=== PATIENT | female | born 1960 | race Caucasian/White ===

== ENCOUNTER → 2017-05-30 08:19 | Outpatient (CLI) | payer BC, SELFPAY ==
[2016-07-19 14:11] VITALS: BMI 28.2
[2017-05-30 10:41] LABS: ALB/GLOB Ratio 0.9 RATIO (0.9-2.4); AST(SGOT) 19 U/L (15-37); Alanine Aminotransfer ALT/SGPT 29 U/L (13-56); Albumin, Serum 3.6 g/dL (3.2-5.0); Alkaline Phosphatase 109 U/L (45-117); Anion Gap 6 (5-15); BUN 14 mg/dL (7-18); BUN/Creat Ratio 19.4 RATIO (10-20); Calcium,Total 8.3 mg/dL (8.5-10.1); Chloride 108 mmol/L (98-107); Cholesterol 137 mg/dL (200); Creatinine, Serum 0.72 mg/dL (0.55-1.02); EST Glomerular Filtration Rate 88 mL/min (>60); Est Glom Filt Rate - Afr Amer 107 mL/min (>60); Globulin 4.1 g/dL (2.2-4.2); Glucose 94 mg/dL (74-106); High Density Lipoprotein 46 mg/dL; Potassium 3.9 mmol/L (3.5-5.1); Protein, Total 7.7 g/dL (6.4-8.2); Sodium Level 140 mmol/L (136-145); Triglycerides 121 mg/dL; Very Low Density Lipoprotein 24 mg/dL (5-40)
[2017-05-30 10:51] LABS: Free T3 2.6 pg/mL (2.18-3.98); T4 Free Direct 0.94 ng/dL (0.76-1.46)
== END ==
PROVIDERS: Visit Provider Family Medicine
DX: I25.10 Atherosclerotic heart disease of native coronary artery without angina pectoris (principal); R42 Dizziness and giddiness
CPT/HCPCS: 36415; 80053; 80061; 84439; 84481

== ENCOUNTER 2017-11-30 15:41 | Observation (INO) | payer BC, SELFPAY ==
[2016-07-19 14:11] VITALS: BMI 28.2
[2017-11-30] VITALS (10 sets, daily range): BP systolic 97–145; BP diastolic 55–106; PULSE 66–105; RESP 14–22; TEMP 36.5–36.6; O2SAT 96–99; BMI 30.4; BMI 31.8
--- NOTE | 2017-11-30 16:02 | EKG12_ITS ---
Test Reason : CP Blood Pressure : / mmHG Vent. Rate : 089 BPM Atrial Rate : 089 BPM P-R Int : 170 ms QRS Dur : 084 ms QT Int : 392 ms P-R-T Axes : 050 054 026 degrees QTc Int : 476 ms Normal sinus rhythm Normal ECG Confirmed by MIKEY PARTIDA, MONICA ([id number]), acquisitions editor MELY EVANS ([id number]) on 12/02/2017 1:59:13 PM Referred By: GRACE
--- NOTE | 2017-11-30 16:03 | ED.VISSUMM ---
- ER Visit Summary Date of Service: 11/30/17 Chief Complaint: Chest pain History of Present Illness: The patient is a 57 F who presents for chest pain, 30 minutes prior to arrival. Patient was walking when she began having chest tightness across the entire chest described as someone sitting on her chest. It does not radiate to the arms, abdomen, neck or back. Patient took a nitro and had improvement of the pain. It is currently a 3 or 4 out of 10. Patient had associated lightheadedness. Denies nausea, vomiting, abdominal pain, shortness of breath, fever or other complaints. Patient has a history of a prior myocardial infarction and is status post stent placement. She denies any other medical problems. She denies tobacco use. Physical Examination: Vital signs: afebrile, hemodynamically stable, no hypoxia on room air General: well nourished, well developed, in no distress Skin: warm, dry, no rash, no pallor HEENT: normocephalic and atraumatic; PERRL, EOMI, moist mucous membranes Cardiovascular: regular rate and rhythm without murmurs, no peripheral edema, 2+ pulses all distal extremities no tenderness, no rash Respiratory: No increased work of breathing, lungs are clear to auscultation bilaterally, no rales, rhonchi or wheezing Abdominal: Abdomen is soft, nontender with normoactive bowel sounds, no guarding or rebound, no masses MSK: Moves all extremities, no deformities, normal strength Neuro: Awake and alert, oriented ?4. No facial droop, sensation and motor function intact and symmetric Test Results: Abnormal Lab Results 11/30/17 11/30/17 11/30/17 16:00 16:00 16:00 WBC 7.1 RBC 4.15 L Hgb 11.8 L Hct 36.4 L MCV 87.7 MCH 28.4 MCHC 32.4 RDW 13.9 RDW Differential 44.7 H Plt Count 302 MPV 8.3 Immature Gran % (Auto) 0.100 Neut % (Auto) 53.0 Lymph % (Auto) 35.3 [place] % (Auto) 5.8 Eos % (Auto) 5.5 H Baso % (Auto) 0.3 Absolute Neuts (auto) 3.8 Absolute Lymphs (auto) 2.52 Total Counted Not Reportable PT 13.6 INR 1.0 APTT 27.4 Sodium 141 Potassium 3.3 L Chloride 105 Carbon Dioxide 25.0 Anion Gap 11 BUN 12 Creatinine 0.84 Estim Creat Clear Calc 73.64 Est GFR (MDRD) Af Amer 90 Est GFR (MDRD) Non-Af 74 BUN/Creatinine Ratio 14.3 Glucose 89 Calcium 8.6 Troponin I < 0.015 Clinical Impression(s) from Imaging Studies Chest X-Ray 11/30/17 16:55 IMPRESSION: Normal x-ray examination of the chest. Electronically Signed: Arslan Calloway MD at 17:36 EDT , Service support , Medications Given Aspirin (Aspirin, Baby) 243 mg PO X1 STA Stop: 11/30/17 16:03 Last Admin: 11/30/17 16:10 Dose: 243 mg Sodium Chloride () 1,000 mls @ 250 mls/hr IV .Q4H REJI Last Admin: 11/30/17 16:12 Dose: 250 mls/hr Lorazepam (Ativan) 0.5 mg PO X1 ONE Stop: 11/30/17 17:48 Last Admin: 11/30/17 18:06 Dose: 0.5 mg Nitroglycerin (Nitrostat) 0.4 mg SUBLINGUAL Q5M REJI Stop: 11/30/17 16:26 Last Admin: 11/30/17 16:25 Dose: Not Given Admin: 11/30/17 16:25 Dose: Not Given Admin: 11/30/17 16:11 Dose: 0.4 mg Nitroglycerin (Nitrobid) 0.5 inch TRANSDERM. X1 ONE Stop: 11/30/17 17:49 Last Admin: 11/30/17 18:06 Dose: 0.5 inch Ondansetron HCl (Zofran) 4 mg IV X1 ONE Stop: 11/30/17 16:35 Last Admin: 11/30/17 16:39 Dose: 4 mg Potassium Chloride (K-Dur) 40 meq PO X1 ONE Stop: 11/30/17 19:31 Last Admin: 11/30/17 20:22 Dose: 40 meq Emergency Department Course and Treatment: Patient took one baby aspirin today. She was given 3 more in the emergency department. She was given nitroglycerin with improvement in her pain to a 1/10. Nitropaste was then placed. Chest x-ray showed no acute process. Labs remarkable for hypokalemia of 3.0. Patient was given oral repletion. Troponin negative. EKG showed sinus rhythm without any ischemic changes. Patient's presentation is concerning for acute coronary syndrome, and that she will be admitted for further chest pain workup. She was discussed with Dr. Mendez for admission as observation status for chest pain workup. Treatment Plan: [] Disposition: [] Impression: Acute chest pain, history of acute coronary syndrome This note was generated with [employer] dictation software. It may contain incorrect words, spelling, and punctuation that were not noted in review of the chart prior to signing ED Disposition - Plan for ED Patient: Disposition: Acute Care Hospital [facility] Chief Complaint: Chest Pain
[2017-11-30] MEDS: Aspirin 81 MG TAB.CHEW 243 MG PO (16:10)
[2017-11-30] MEDS: 0.9% Normal Saline 1,000 ML 250 ML IV (16:12)
[2017-11-30 16:19] LABS: Absolute Lymphocyte Count 2.52 X10^3/ul (0.83-4.51); Absolute Neutrophil Count 3.8 X10^3/uL (2.0-7.7); Basophil# 0.02 X10^3/uL; Basophil% 0.3 % (0-1); Eosinophil# 0.39 X10^3/uL; Eosinophils% 5.5 % (0-5); Hematocrit 36.4 % (37-47); Hemoglobin 11.8 g/dl (12.0-15.0); Lymphocyte # 2.52 X10^3/ul (4.0); Lymphocyte % 35.3 % (19-41); Mean Corp Hgb Conc 32.4 g/gl (32-36); Mean Corpuscular Hgb 28.4 pg (27.0-32.0); Mean Corpuscular Volume 87.7 fL (81-99); Mean Platelet Vol. 8.3 fl (6.2-12.0); Monocyte# 0.41 X10^3/uL; Monocyte% 5.8 % (0-10); Neutrophil # 3.78 X10^3/uL (2.7-7.7); Platelet Count 302 K/mm3 (150-450); RBC Distribution Width CV 13.9 % (11.6-14.6); RBC Distribution Width SD 44.7 fl (35.1-43.9); Red Blood Count 4.15 M/mm3 (4.2-5.4); White Blood Count 7.1 K/mm3 (4.4-11.0)
[2017-11-30 16:32] LABS: POSITIVE COUNT NO; POSITIVE DIFFERENTIAL NO; POSITIVE MORPHOLOGY NO
[2017-11-30 16:36] LABS: Partial Thromboplast Time 27.4 Seconds (24.1-36.2); Prothrombin Time (Protime)PT. 13.6 SECONDS (11.7-14.9)
[2017-11-30 16:37] LABS: Anion Gap 11 (5-15); BUN 12 mg/dL (7-18); BUN/Creat Ratio 14.3 RATIO (10-20); Calcium,Total 8.6 mg/dL (8.5-10.1); Chloride 105 mmol/L (98-107); Creatinine, Serum 0.84 mg/dL (0.55-1.02); EST Glomerular Filtration Rate 74 mL/min (>60); Est Glom Filt Rate - Afr Amer 90 mL/min (>60); Estimated Creatinine Clearance 73.64 ml/min; Glucose 89 mg/dL (74-106); Potassium 3.3 mmol/L (3.5-5.1); Sodium Level 141 mmol/L (136-145)
[2017-11-30] MEDS: Ondansetron 4 MG/2 ML Vial IV (16:39)
--- NOTE | 2017-11-30 16:55 | RAD_ITS ---
STUDY: X-RAY CHEST REASON FOR EXAM: Female, 57 years old. Chest tightness TECHNIQUE: Frontal and lateral views of the chest. COMPARISON: 07/17/2016. FINDINGS: The lungs are clear and expanded. There is no demonstrated pleural abnormality. Normal size heart. Normal mediastinum and gabe. Normal visualized pulmonary arteries. Normal visualized aortic arch and descending thoracic aorta. Normal visualized thoracic spine. Normal visualized ribs, clavicles, and shoulders. There is no demonstrated abnormality of the visualized soft tissue structures of the upper abdomen. RAD/Chest PA and Lateral IMPRESSION: Normal x-ray examination of the chest. Electronically Signed: Arslan Calloway MD at 17:36 EDT , Service support ,
--- NOTE | 2017-11-30 17:54 | PCM.HP.STD ---
Problem List (1) Chest pain Status: Acute History of Present Illness Date of Admission: 11/30/17 Chief Complaint: chest pain The patient is a 57 year old F with past medical history of CAD status post stent after [place] in 2016. She was admitted by the ED on 11/30/2017 with complaint of chest pain of a few hours duration. Patient states she was at work and started feeling like someone was sitting on her chest. Pain was pressure-like, nonradiating, with no aggravating factors and relieved slightly by nitro. She denied any associated shortness of breath, palpitations, increased sweating, nausea vomiting. She denies any exertional dyspnea as well and has not had any such chest pain in the past. She decided to come into the ED to be worked up. In the ED, vitals showed temperature of 97.9 Fahrenheit, blood pressure of 145/67, pulse rate of 77 and respiratory rate was 22 and she was saturating at 97% on room air. Labs were significant for potassium of 3.3 and CBC showed hemoglobin of 11.8. EKG showed normal sinus rhythm with no acute ST changes and chest x-ray showed no acute cardiopulmonary process. Initial troponin was negative. She has been admitted to be worked up for chest pain. [] Past Medical History Medical History: Medical History (Last Reviewed 04/04/17 @ 15:09 by Katelynn Morrissey) Atherosclerotic heart disease of [place] coronary artery without angina pectoris (Acute) I25.10 FFR mid LAD and successful angioplasty prox D@ 07/18/16;PTCA/CASIE of the mid LAD 07/19/16 Palpitations (Acute) R00.2 Fatigue (Acute) R53.83 NSTEMI (non-ST elevated myocardial infarction) (Acute) Onset Date: ~07/2016 I21.4 Chronic back pain M54.9, G89.29 Tobacco abuse Z72.0 Chronic back pain (Inactive) M54.9, G89.29 Overweight (BMI 25.0-29.9) (Inactive) E66.3 Tobacco use (Inactive) Z72.0 Allergies hydrocodone bitartrate [From Vicodin] Allergy (Verified 11/30/17 15:43) Nausea metoprolol Adverse Reaction (Intermediate, Verified 11/30/17 15:43) Very dizzy, lightheaded even on smallest dose Home Medications: Ambulatory Orders Medication Instructions Recorded nitroglycerin 0.4 mg sublingual 0.4 mg SUBLINGUAL Q5M PRN 03/29/17 tablet clonazepam 0.5 mg tablet 0.5 mg PO TID PRN 04/04/17 atorvastatin 80 mg tablet 40 mg PO QHS tab 09/28/17 Aspirin 81 mg PO DAILY 11/30/17 Clopidogrel Bisulfate [Plavix] 75 mg PO DAILY 11/30/17 Surgical History: Surgical History (Last Reviewed 09/28/17 @ 15:05 by Kanwal Reinoso) History of total hysterectomy (Resolved) Z98.890, Z90.710 S/P coronary artery stent placement (Resolved) Onset Date: ~07/19/16 Z95.5 PTCA/CASIE of the mid LAD 07/19/16 Surgical History: hysterectomy, - - Hysterectomy. Lives: Spouse/ Significant Other Smoking Status: Former smoker - quit one year ago- 40 pack year smoking history Tobacco Use: Cigarettes Alcohol: None Drugs: None - *Family History Maternal Family History: Family History (Last Updated 09/28/17 @ 15:06 by Kanwal Reinoso) Mother CAD (coronary artery disease) Hypertension Diabetes Father Myocardial infarction History Items: Heart Disease - CAD s/p PCI history. Paternal Family History: Family History (Last Updated 09/28/17 @ 15:06 by Kanwal Reinoso) Mother CAD (coronary artery disease) Hypertension Diabetes Father Myocardial infarction History Items: Heart Disease - Father fatal [place] 49 y/o. Review of Systems Constitutional: Denies: Chills, Fever, Malaise, Weight Change, Fatigue Eyes: Denies: Pain HEENT: Denies: Head Aches, Sinus Congestion, Sinus Drainage Cardiovascular: Reports: Chest Pain, Chest Pressure. Denies: Chest Tightness, Edema, Orthopnea, Palpitations, Paroxysmal Noc. Dyspnea, Syncope Respiratory: Denies: Cough, Pleuritic Pain, Shortness of Breath, Shortness of breath at rest, Shortness of breath upon exertion, Sputum production, Wheezing Gastrointestinal: Denies: Abdominal Pain, Diarrhea, Nausea, Vomiting Genitourinary: Denies: Dysuria Musculoskeletal: Denies: Joint Pain, Joint Tenderness Skin: Denies: Rash, Wounds Neurological: Denies: Numbness, Tingling, Focal weakness Psychiatric: Denies: Anxiety, Depression, Homicidal Ideations, Suicidal Ideations Hematologic/ Lymphatic: Denies: Easy Bruising, Easy Bleeding VTE Information - Inpt Only VTE Present on Admission: No VTE Mechan Device Prophylaxis: None VTE Pharm Prophylaxis ordered?: Yes Patient Problems: Active and Suspected Problems (Last Reviewed 04/04/17 @ 15:09 by Katelynn Morrissey) Chest pain (Acute) - Physical Exam General: Alert, Oriented x3, Cooperative, No apparent distress HEENT: Atraumatic, PERRLA, EOMI, Normocephalic Oral: Moist Mucosa Neck: Supple, No JVD, Negative Carotid Bruits Lungs: Clear to auscultation, Normal air movement, No rhonchi, No wheeze, No rales Cardiovascular: Regular rate, Regular Rhythm, Normal S1, Normal S2, No murmurs Abdomen: Bowel Sounds Present, Soft, Non Tender, Non-Distended, No Hepato-splenomegaly Extremities: No clubbing, No cyanosis, No edema, Capillary Refill Less than 3 Seconds Skin: No rashes, No breakdown Musculoskeletal: No Tenderness to Palpation of Joints or Extremities Lymphatic: No Cervical, Supraclavicular, or Inguinal Adenopathy Neurological: Cranial nerves II-XII grossly intact, Neuro grossly intact, Motor Exam 5/5 strength throughout Psych/Mental Status: Normal Affect, Appropriate, Alert and oriented to time, place, person, mood and affect Vital Signs Temp Pulse Resp BP Pulse Ox 97.9 F 77 22 H 145/67 H 97 11/30/17 15:41 11/30/17 17:40 11/30/17 17:40 11/30/17 17:40 11/30/17 17:40 Oxygen Delivery Method Room Air Weight: 200 lb Body Mass Index (BMI) 30.4 Finger Stick Blood Glucose 104 Laboratory Tests Past 24 Hrs 11/30/17 11/30/17 11/30/17 16:00 16:00 16:00 WBC 7.1 RBC 4.15 L Hgb 11.8 L Hct 36.4 L MCV 87.7 MCH 28.4 MCHC 32.4 RDW 13.9 RDW Differential 44.7 H Plt Count 302 MPV 8.3 Immature Gran % (Auto) 0.100 Neut % (Auto) 53.0 Lymph % (Auto) 35.3 [place] % (Auto) 5.8 Eos % (Auto) 5.5 H Baso % (Auto) 0.3 Absolute Neuts (auto) 3.8 Absolute Lymphs (auto) 2.52 Total Counted Not Reportable PT 13.6 INR 1.0 APTT 27.4 Sodium 141 Potassium 3.3 L Chloride 105 Carbon Dioxide 25.0 Anion Gap 11 BUN 12 Creatinine 0.84 Estim Creat Clear Calc 73.64 Est GFR (MDRD) Af Amer 90 Est GFR (MDRD) Non-Af 74 BUN/Creatinine Ratio 14.3 Glucose 89 Calcium 8.6 Troponin I < 0.015 Diagnostic Data Chest X-Ray 11/30/17 16:55 IMPRESSION: Normal x-ray examination of the chest. Electronically Signed: Arslan Calloway MD at 17:36 EDT , Service support , Assessment/Plan All Active Problems (Last Reviewed 04/04/17 @ 15:09 by Katelynn Morrissey) Chest pain (Acute) History of total hysterectomy (Resolved) S/P coronary artery stent placement (Resolved ~07/19/16) Atherosclerotic heart disease of [place] coronary artery without angina pectoris (Acute) Palpitations (Acute) Fatigue (Acute) NSTEMI (non-ST elevated myocardial infarction) (Acute ~07/2016) 57-year-old female with a history of CAD status post stents after NSTEMI presenting with a few hour history of chest pain. 1.Atypical chest pain, rule out ACS pressure like chest pain, like some one sitting on her chest no similar history of such chest pain in the past initial troponin negative EKG- no acute ST changes admit to PCU with telemetry cycle troponin check lipid panel last echo(07/19/16): EF of 50%, with mid anterior and mid anteroseptal hypokinesia as well as impaired relaxation of left ventricle. RVSP was not assessed due to technical difficulty. aspirin 81mg daily, SL nitroglycerin prn. continue plavix 75mg daily continue atorvastatin 40mg qhs for stress echocardiogram tomorrow morning 2. Hypokalemia: K is 3.3. Will replace and monitor 3. CAD s/p stent had NSTEMI in 2018 after she thought she had a sandwich stuck in her throat. Had CASIE placed in her mid LAD, with balloon angioplasty to diagonal being patent at time of cath in 2016. on aspirin and plavix. WIll continue 4. Anxiety disorder: on clocazepam 0.5mg tid DVT prophylaxis: heparin Code status:Full code patient and family counseled extensively about code status. counselled about differences between full code, DNRCC and DNRCCA. Patient elects to be full code. Total face to face time-16 mins Code Visit OBSV E&M: 45703 Initial observation care L3 Procedures: 85625 Advncd Care Plan 30 Min
--- NOTE | 2017-11-30 17:58 | HP.PCM_ITS ---
Problem List (1) Chest pain Status: Acute History of Present Illness Date of Admission: 11/30/17 Chief Complaint: chest pain The patient is a 57 year old F with past medical history of CAD status post stent after [place] in 2016. She was admitted by the ED on 11/30/2017 with complaint of chest pain of a few hours duration. Patient states she was at work and started feeling like someone was sitting on her chest. Pain was pressure-like, nonradiating, with no aggravating factors and relieved slightly by nitro. She denied any associated shortness of breath, palpitations, increased sweating, nausea vomiting. She denies any exertional dyspnea as well and has not had any such chest pain in the past. She decided to come into the ED to be worked up. In the ED, vitals showed temperature of 97.9 Fahrenheit, blood pressure of 145/67, pulse rate of 77 and respiratory rate was 22 and she was saturating at 97% on room air. Labs were significant for potassium of 3.3 and CBC showed hemoglobin of 11.8. EKG showed normal sinus rhythm with no acute ST changes and chest x-ray showed no acute cardiopulmonary process. Initial troponin was negative. She has been admitted to be worked up for chest pain. [] Past Medical History Medical History: Medical History (Last Reviewed 04/04/17 @ 15:09 by Katelynn Morrissey) Atherosclerotic heart disease of [place] coronary artery without angina pectoris (Acute) I25.10 FFR mid LAD and successful angioplasty prox D@ 07/18/16;PTCA/CASIE of the mid LAD 07/19/16 Palpitations (Acute) R00.2 Fatigue (Acute) R53.83 NSTEMI (non-ST elevated myocardial infarction) (Acute) Onset Date: ~07/2016 I21.4 Chronic back pain M54.9, G89.29 Tobacco abuse Z72.0 Chronic back pain (Inactive) M54.9, G89.29 Overweight (BMI 25.0-29.9) (Inactive) E66.3 Tobacco use (Inactive) Z72.0 Allergies hydrocodone bitartrate [From Vicodin] Allergy (Verified 11/30/17 15:43) Nausea metoprolol Adverse Reaction (Intermediate, Verified 11/30/17 15:43) Very dizzy, lightheaded even on smallest dose Home Medications: Ambulatory Orders Medication Instructions Recorded nitroglycerin 0.4 mg sublingual 0.4 mg SUBLINGUAL Q5M PRN 03/29/17 tablet clonazepam 0.5 mg tablet 0.5 mg PO TID PRN 04/04/17 atorvastatin 80 mg tablet 40 mg PO QHS tab 09/28/17 Aspirin 81 mg PO DAILY 11/30/17 Clopidogrel Bisulfate [Plavix] 75 mg PO DAILY 11/30/17 Surgical History: Surgical History (Last Reviewed 09/28/17 @ 15:05 by Kanwal Reinoso) History of total hysterectomy (Resolved) Z98.890, Z90.710 S/P coronary artery stent placement (Resolved) Onset Date: ~07/19/16 Z95.5 PTCA/CASIE of the mid LAD 07/19/16 Surgical History: hysterectomy, - - Hysterectomy. Lives: Spouse/ Significant Other Smoking Status: Former smoker - quit one year ago- 40 pack year smoking history Tobacco Use: Cigarettes Alcohol: None Drugs: None - *Family History Maternal Family History: Family History (Last Updated 09/28/17 @ 15:06 by Kanwal Reinoso) Mother CAD (coronary artery disease) Hypertension Diabetes Father Myocardial infarction History Items: Heart Disease - CAD s/p PCI history. Paternal Family History: Family History (Last Updated 09/28/17 @ 15:06 by Kanwal Reinoso) Mother CAD (coronary artery disease) Hypertension Diabetes Father Myocardial infarction History Items: Heart Disease - Father fatal [place] 49 y/o. Review of Systems Constitutional: Denies: Chills, Fever, Malaise, Weight Change, Fatigue Eyes: Denies: Pain HEENT: Denies: Head Aches, Sinus Congestion, Sinus Drainage Cardiovascular: Reports: Chest Pain, Chest Pressure. Denies: Chest Tightness, Edema, Orthopnea, Palpitations, Paroxysmal Noc. Dyspnea, Syncope Respiratory: Denies: Cough, Pleuritic Pain, Shortness of Breath, Shortness of breath at rest, Shortness of breath upon exertion, Sputum production, Wheezing Gastrointestinal: Denies: Abdominal Pain, Diarrhea, Nausea, Vomiting Genitourinary: Denies: Dysuria Musculoskeletal: Denies: Joint Pain, Joint Tenderness Skin: Denies: Rash, Wounds Neurological: Denies: Numbness, Tingling, Focal weakness Psychiatric: Denies: Anxiety, Depression, Homicidal Ideations, Suicidal Ideations Hematologic/ Lymphatic: Denies: Easy Bruising, Easy Bleeding VTE Information - Inpt Only VTE Present on Admission: No VTE Mechan Device Prophylaxis: None VTE Pharm Prophylaxis ordered?: Yes Patient Problems: Active and Suspected Problems (Last Reviewed 04/04/17 @ 15:09 by Katelynn Morrissey) Chest pain (Acute) - Physical Exam General: Alert, Oriented x3, Cooperative, No apparent distress HEENT: Atraumatic, PERRLA, EOMI, Normocephalic Oral: Moist Mucosa Neck: Supple, No JVD, Negative Carotid Bruits Lungs: Clear to auscultation, Normal air movement, No rhonchi, No wheeze, No rales Cardiovascular: Regular rate, Regular Rhythm, Normal S1, Normal S2, No murmurs Abdomen: Bowel Sounds Present, Soft, Non Tender, Non-Distended, No Hepato- splenomegaly Extremities: No clubbing, No cyanosis, No edema, Capillary Refill Less than 3 Seconds Skin: No rashes, No breakdown Musculoskeletal: No Tenderness to Palpation of Joints or Extremities Lymphatic: No Cervical, Supraclavicular, or Inguinal Adenopathy Neurological: Cranial nerves II-XII grossly intact, Neuro grossly intact, Motor Exam 5/5 strength throughout Psych/Mental Status: Normal Affect, Appropriate, Alert and oriented to time, place, person, mood and affect Vital Signs Temp Pulse Resp BP Pulse Ox 97.9 F 77 22 H 145/67 H 97 11/30/17 15:41 11/30/17 17:40 11/30/17 17:40 11/30/17 17:40 11/30/17 17:40 Oxygen Delivery Method Room Air Weight: 200 lb Body Mass Index (BMI) 30.4 Finger Stick Blood Glucose 104 Laboratory Tests Past 24 Hrs 11/30/17 11/30/17 11/30/17 16:00 16:00 16:00 WBC 7.1 RBC 4.15 L Hgb 11.8 L Hct 36.4 L MCV 87.7 MCH 28.4 MCHC 32.4 RDW 13.9 RDW Differential 44.7 H Plt Count 302 MPV 8.3 Immature Gran % (Auto) 0.100 Neut % (Auto) 53.0 Lymph % (Auto) 35.3 [place] % (Auto) 5.8 Eos % (Auto) 5.5 H Baso % (Auto) 0.3 Absolute Neuts (auto) 3.8 Absolute Lymphs (auto) 2.52 Total Counted Not Reportable PT 13.6 INR 1.0 APTT 27.4 Sodium 141 Potassium 3.3 L Chloride 105 Carbon Dioxide 25.0 Anion Gap 11 BUN 12 Creatinine 0.84 Estim Creat Clear Calc 73.64 Est GFR (MDRD) Af Amer 90 Est GFR (MDRD) Non-Af 74 BUN/Creatinine Ratio 14.3 Glucose 89 Calcium 8.6 Troponin I < 0.015 Diagnostic Data Chest X-Ray 11/30/17 16:55 IMPRESSION: Normal x-ray examination of the chest. Electronically Signed: Arslan Calloway MD at 17:36 EDT , Service support , Assessment/Plan All Active Problems (Last Reviewed 04/04/17 @ 15:09 by Katelynn Morrissey) Chest pain (Acute) History of total hysterectomy (Resolved) S/P coronary artery stent placement (Resolved ~07/19/16) Atherosclerotic heart disease of [place] coronary artery without angina pectoris (Acute) Palpitations (Acute) Fatigue (Acute) NSTEMI (non-ST elevated myocardial infarction) (Acute ~07/2016) 57-year-old female with a history of CAD status post stents after NSTEMI presenting with a few hour history of chest pain. 1.Atypical chest pain, rule out ACS * pressure like chest pain, like some one sitting on her chest * no similar history of such chest pain in the past * initial troponin negative * EKG- no acute ST changes * admit to PCU with telemetry * cycle troponin * check lipid panel * last echo(07/19/16): EF of 50%, with mid anterior and mid anteroseptal hypokinesia as well as impaired relaxation of left ventricle. RVSP was not assessed due to technical difficulty. * aspirin 81mg daily, SL nitroglycerin prn. continue plavix 75mg daily * continue atorvastatin 40mg qhs * for stress echocardiogram tomorrow morning * 2. Hypokalemia: K is 3.3. Will replace and monitor 3. CAD s/p stent * had NSTEMI in 2018 after she thought she had a sandwich stuck in her throat. Had CASIE placed in her mid LAD, with balloon angioplasty to diagonal being patent at time of cath in 2017. * on aspirin and plavix. WIll continue * 4. Anxiety disorder: on clocazepam 0.5mg tid DVT prophylaxis: heparin Code status:Full code * patient and family counseled extensively about code status. counselled about differences between full code, DNRCC and DNRCCA. Patient elects to be full code. Total face to face time-16 mins Code Visit OBSV E&M: 08729 Initial observation care L3 Procedures: 14898 Advncd Care Plan 30 Min
[2017-11-30] MEDS: Nitroglycerin Oint 1 INCH PACKET 0.5 INCH TRANSDERM. (18:06)
[2017-11-30] MEDS: LORazepam 0.5 MG Tablet PO (18:06)
--- NOTE | 2017-11-30 18:38 | EKG12_ITS ---
Test Reason : CHEST PAIN Blood Pressure : / mmHG Vent. Rate : 074 BPM Atrial Rate : 100 BPM P-R Int : 000 ms QRS Dur : 086 ms QT Int : 438 ms P-R-T Axes : 000 068 013 degrees QTc Int : 486 ms Sinus rhythm with PSVCS Prolonged QT Abnormal ECG Confirmed by Bethany Foreman ([id number]), manager editorial MELY EVANS ([id number]) on 12/05/2017 3:34:54 PM Referred By: LUKE Confirmed By:Bethany Foreman
[2017-11-30] MEDS: Atorvastatin Calcium 40 MG Tablet PO (20:22)
[2017-11-30] MEDS: 0.9% Normal Saline 1,000 ML 100 ML IV (23:32)
[2017-12-01 03:03] VITALS: PULSE 71
[2017-12-01 05:30] VITALS: BP 114/69; PULSE 66; RESP 16; TEMP 36.6; O2SAT 97
[2017-12-01 05:32] LABS: Basophil# 0.02 X10^3/uL; Basophil% 0.3 % (0-1); Eosinophil# 0.36 X10^3/uL; Hemoglobin 10.5 g/dl (12.0-15.0); Lymphocyte % 36.9 % (19-41); Mean Corp Hgb Conc 31.8 g/gl (32-36); Mean Corpuscular Hgb 28.2 pg (27.0-32.0); Mean Corpuscular Volume 88.7 fL (81-99); Mean Platelet Vol. 8.3 fl (6.2-12.0); Monocyte# 0.41 X10^3/uL; Monocyte% 6.9 % (0-10); Neutrophil # 2.97 X10^3/uL (2.7-7.7); Neutrophil % 49.9 % (47-70); Platelet Count 281 K/mm3 (150-450); RBC Distribution Width CV 14.1 % (11.6-14.6); Red Blood Count 3.72 M/mm3 (4.2-5.4)
[2017-12-01] MEDS: Aspirin 81 MG TAB.CHEW PO (05:33)
[2017-12-01] MEDS: Clopidogrel Bisulfate 75 MG Tablet PO (05:33)
[2017-12-01 05:37] LABS: POSITIVE COUNT NO; POSITIVE DIFFERENTIAL NO; POSITIVE MORPHOLOGY NO
[2017-12-01 05:38] LABS: International Normalized Ratio 1.1; Prothrombin Time (Protime)PT. 14.2 SECONDS (11.7-14.9)
[2017-12-01 05:39] LABS: Anion Gap 8 (5-15); BUN 9 mg/dL (7-18); BUN/Creat Ratio 12.5 RATIO (10-20); Calcium,Total 8.1 mg/dL (8.5-10.1); Chloride 111 mmol/L (98-107); Creatinine, Serum 0.72 mg/dL (0.55-1.02); EST Glomerular Filtration Rate 88 mL/min (>60); Est Glom Filt Rate - Afr Amer 107 mL/min (>60); Estimated Creatinine Clearance 85.91 ml/min; Glucose 97 mg/dL (74-106); Partial Thromboplast Time 29.3 Seconds (24.1-36.2); Potassium 4.1 mmol/L (3.5-5.1); Sodium Level 144 mmol/L (136-145)
--- NOTE | 2017-12-01 05:55 | EKG12_ITS ---
Test Reason : AM EKG Blood Pressure : / mmHG Vent. Rate : 064 BPM Atrial Rate : 064 BPM P-R Int : 182 ms QRS Dur : 078 ms QT Int : 474 ms P-R-T Axes : 012 076 055 degrees QTc Int : 489 ms Normal sinus rhythm Low voltage QRS (limb leads) Prolonged QT Abnormal ECG Confirmed by Bethany Foreman ([id number]), editorial specialist MELY EVANS ([id number]) on 12/05/2017 3:33:28 PM Referred By: LUKE Confirmed By:Bethany Foreman
[2017-12-01 07:29] VITALS: PULSE 66
--- NOTE | 2017-12-01 08:00 | STEWCON_ITS ---
Reason For Study: CHEST PAIN Stress Results Protocol: Shen Protocol Maximum Predicted HR: 162 bpm Target HR: 138 bpm% Max imum Predicted HR: 99 % DurationHeart Rate Stage (mm:ss) (bpm) BP BASELINE 77 134/82 STAGE 1 3:00 13 7 170/82 STAGE 2 3:00 16 0 160/70 RECOVERY 89 128/80 Stress Duration: 6:00 mm:ss Maximum Stress HR: 160 bpm Baseline Echocardiogram Findings The estimated ejection fraction is 55 %. Stress Echo Wall motion Data Resting WMIntermediate WMStress WM Resting Wall Motion Wall Motion Stress No regional wall motion No regional wall motion abnormalities noted. abnormalities noted. EKG Data The baseline ECG displays normal sinus rhythm. The patient exercised according to the regular Shen protocol for a total duration of 6:01. The maximum heart rate attained was 162 beats per minute. This was 100% of maximum predicted heart rate. The patient exercised into stage 3 of the Shen protocol. At peak exercise, upsloping ST changes only were noted, which did not meet the criteria for ischemia. No clinical angina was noted. Interpretation Summary The estimated ejection fraction is 55 %. Normal, adequate, treadmill echocardiogram. Negative for ischemia by EKG and echocardiographic criteria. No anginal symptoms noted. Rare PVCs noted. Average exercise capacity for age. Test terminated due to the attainment of target heart rate. Final LVEF of 65%. No complications. Ordering Physician: Tia Mendez Performed By: Claudine Ernandez RDCS
[2017-12-01 10:30] VITALS: BP 128/69; PULSE 70; RESP 18; TEMP 36.5; O2SAT 98
[2017-12-01 11:15] VITALS: PULSE 68
--- NOTE | 2017-12-01 11:34 | DCINST_ITS ---
- Discharge Diagnoses Current Active Problems: Current Active and Chronic Problems (Last Reviewed 04/04/17 @ 15:09 by Katelynn Morrissey) Chest pain (Acute) You will use the following diet at home:: No restrictions Discharge Activity: Return to Normal Activity Instructions: ED Chest Pain NonCardiac Allergies/Adverse Reactions: Allergies hydrocodone bitartrate [From Vicodin] Allergy (Verified 11/30/17 15:43) Nausea metoprolol Adverse Reaction (Intermediate, Verified 11/30/17 15:43) Very dizzy, lightheaded even on smallest dose Medications to take at Discharge nitroglycerin 0.4 mg sublingual tablet 0.4 mg SUBLINGUAL Q5M PRN 03/29/17 clonazepam 0.5 mg tablet 0.5 mg PO TID PRN 04/04/17 atorvastatin 80 mg tablet 40 mg PO QHS tab 09/28/17 Aspirin 81 mg PO DAILY 11/30/17 Clopidogrel Bisulfate [Plavix] 75 mg PO DAILY 11/30/17 Primary Care Physician: Oscar Valencia MD [Primary Care Provider] - Please follow up with your Primary Care Physician in: in 1-2 weeks Test Results: Test results from this visit will be discussed in further detail at your follow- up appointment, if applicable. Proposed Discharge Date: 12/01/17
--- NOTE | 2017-12-01 11:49 | PCM.DC.SUM ---
Discharge Date and Diagnosis - Problem List Patient Problems: Active and Suspected Problems (Last Reviewed 04/04/17 @ 15:09 by Katelynn Morrissey) Chest pain (Acute) Date of Admission: 11/30/17 Date of Discharge: 12/01/17 - Primary Discharge Diagnosis Active and Suspected Problems (Last Reviewed 04/04/17 @ 15:09 by Katelynn Morrissey) Chest pain (Acute) Hospital Course and Treatment Imaging Results: 12/01/17 08:00 Stress Test Echo w/o Contrast [ECHO] Stat Operations: None Summary of Care Provided: The patient is a 57 year old F medical history significant CAD with previous [place] with subsequent stent placement in July 2016 who presented with epigastric discomfort. Patient was placed in a monitored bed did rule out [place] with serial cardiac enzymes. Patient subsequently underwent a nuclear stress test which is negative for stress-induced ischemia. Patient was discharged home subsequently and instructed to follow-up with PCP as well as primary facilities maintenance worker for subsequent care Physical examination at the time of discharge; GENERAL: cooperative and in no apparent distress. HEENT: Atraumatic moist oral mucosa EYES; Anicteric, Normal Conjunctiva NECK; supple, normal thyroid, no distended JVD. RESPIRATORY: Clear to auscultation bilaterally, CARDIOVASCULAR: Regular S1 S2, no audible murmurs NEURO: Awake; no lateralizing signs. SKIN: No Rash PSYCH; Normal affect Discharge Diet: No Restrictions Discharge Activity: Return to Normal Activity Home Medications: Medications to take at Discharge nitroglycerin 0.4 mg sublingual tablet 0.4 mg SUBLINGUAL Q5M PRN 03/29/17 clonazepam 0.5 mg tablet 0.5 mg PO TID PRN 04/04/17 atorvastatin 80 mg tablet 40 mg PO QHS tab 09/28/17 Aspirin 81 mg PO DAILY 11/30/17 Clopidogrel Bisulfate [Plavix] 75 mg PO DAILY 11/30/17 Primary Care Physician: Oscar Valencia MD [Primary Care Provider] - Please follow up with your Primary Care Physician in: in 1-2 weeks Patient Instructions: ED Chest Pain NonCardiac Disposition: Home Minutes spent on discharge:: 35 Patient Condition:: Stable Medical Necessity - Tobacco Use Smoking Status: Former smoker - quit one year ago- 40 pack year smoking history Tobacco Use: Cigarettes Meaningful Use Info Meaningful Use Diagnoses (Choose all that apply): None applicable Code Visit OBSV E&M: 27309 Observation care discharge
--- NOTE | 2017-12-01 11:54 | DS.PCM_ITS ---
Discharge Date and Diagnosis - Problem List Patient Problems: Active and Suspected Problems (Last Reviewed 04/04/17 @ 15:09 by Katelynn Morrissey) Chest pain (Acute) Date of Admission: 11/30/17 Date of Discharge: 12/01/17 - Primary Discharge Diagnosis Active and Suspected Problems (Last Reviewed 04/04/17 @ 15:09 by Katelynn Morrissey) Chest pain (Acute) Hospital Course and Treatment Imaging Results: 12/01/17 08:00 Stress Test Echo w/o Contrast [ECHO] Stat Operations: None Summary of Care Provided: The patient is a 57 year old F medical history significant CAD with previous [place] with subsequent stent placement in July 2016 who presented with epigastric discomfort. Patient was placed in a monitored bed did rule out [place] with serial cardiac enzymes. Patient subsequently underwent a nuclear stress test which is negative for stress-induced ischemia. 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 HEENT: Atraumatic moist oral mucosa EYES; Anicteric, Normal Conjunctiva NECK; supple, normal thyroid, no distended JVD. RESPIRATORY: Clear to auscultation bilaterally, CARDIOVASCULAR: Regular S1 S2, no audible murmurs NEURO: Awake; no lateralizing signs. SKIN: No Rash PSYCH; Normal affect Discharge Diet: No Restrictions Discharge Activity: Return to Normal Activity Home Medications: Medications to take at Discharge nitroglycerin 0.4 mg sublingual tablet 0.4 mg SUBLINGUAL Q5M PRN 03/29/17 clonazepam 0.5 mg tablet 0.5 mg PO TID PRN 04/04/17 atorvastatin 80 mg tablet 40 mg PO QHS tab 09/28/17 Aspirin 81 mg PO DAILY 11/30/17 Clopidogrel Bisulfate [Plavix] 75 mg PO DAILY 11/30/17 Primary Care Physician: Oscar Valencia MD [Primary Care Provider] - Please follow up with your Primary Care Physician in: in 1-2 weeks Patient Instructions: ED Chest Pain NonCardiac Disposition: Home Minutes spent on discharge:: 35 Patient Condition:: Stable Medical Necessity - Tobacco Use Smoking Status: Former smoker - quit one year ago- 40 pack year smoking history Tobacco Use: Cigarettes Meaningful Use Info Meaningful Use Diagnoses (Choose all that apply): None applicable Code Visit OBSV E&M: 30284 Observation care discharge
--- NOTE | 2017-12-01 12:00 | CHAPLAIN ---
Type of Pastoral Visit _x__ Initial Visit ___ Follow-up Visit ___ On-call Visit ___ General Patient Visit ___ Spiritual Assessment ___ Family Conference ___ Bereavement ___ Rapid Response ___ Code Blue ___ Other (describe below) Pastoral Care Referral From _x__ Patient ___ Family ___ Nurse ___ Physician ___ Rn Plastic Surgery ___ Drafter Geological ___ Other (describe below) Sacrament/Intervention _x__ Active listening ___ Anointing ___ Judaism ___ Bereavement ___ Communion ___ Darcy exploration ___ ___ Life review _x__ Prayer ___ Reconciliation ___ Sacrament of Sick ___ Supportive presence ___ Wedding ___ Other (describe below) Pastoral Comments
== END 2017-12-01 11:34 | disposition home or self-care (01) ==
LOC: ED 16:36 → PCU 18:05
PROVIDERS: Admitting Provider Student in an Organized Health Care Education/Training Program; Emergency Provider Emergency Medicine; Family Provider Family Medicine; PCP Family Medicine; Visit Provider Internal Medicine
DX: R07.89 Other chest pain (principal); R42 Dizziness and giddiness; I25.2 Old myocardial infarction; I25.10 Atherosclerotic heart disease of native coronary artery without angina pectoris; Z95.5 Presence of coronary angioplasty implant and graft; Z79.899 Other long term (current) drug therapy; Z79.82 Long term (current) use of aspirin; Z79.02 Long term (current) use of antithrombotics/antiplatelets; Z87.891 Personal history of nicotine dependence; F41.9 Anxiety disorder, unspecified; E87.6 Hypokalemia
CPT/HCPCS: 36415; 71046; 80048; 84484; 85025; 85610; 85730; 93005; 93017; 93350; 96361; 96374; 99218; 99285; J7030; G0378; J2405

== ENCOUNTER → 2018-03-21 07:04 | Outpatient (CLI) | payer BC, SELFPAY ==
[2016-07-19 14:11] VITALS: BMI 28.2
[2018-02-16 12:49] VITALS: BMI 30.2
--- NOTE | 2018-03-21 07:09 | BI_ITS ---
MAMMOGRAPHY - BILATERAL SCREENING REASON FOR EXAM: Female, 57 years old. Routine annual screening examination. PERTINENT HISTORY: Non-contributory. TECHNIQUE: Digital bilateral breast lv (3D mammographic acquisition) in the CC and MLO projections. 2-D mediolateral oblique (MLO) and craniocaudad (CC) views of both breasts were obtained. CAD: Full Field Digital Mammography with Computer Added Detection was performed. COMPARISON: Comparison is made with prior examination dated January 31, 2006. FINDINGS: Breast Composition: The breasts are almost entirely fatty. There are no dominant masses or suspicious calcifications. No other significant abnormalities are identified. There has been no significant change since the prior study. BI/SCREENING MAMM (CAD), BILAT IMPRESSION: Stable bilateral screening mammogram. Yearly follow-up mammogram recommended. (A) ASSESSMENT CATEGORY: BIRADS Category 1: Negative. A letter regarding these results will be sent to the patient by the facility within 30 days. Approximately 10% of breast cancers are not detected by mammography. A normal mammogram should not delay biopsy of a clinically suspicious abnormality. [id number] Electronically Signed: Binu Briceño MD at 11:42 EST Tel [phone], Service support ,
== END ==
PROVIDERS: Family Provider Family Medicine; PCP Family Medicine; Visit Provider Nurse Practitioner Women's Health
DX: Z12.31 Encounter for screening mammogram for malignant neoplasm of breast (principal)
CPT/HCPCS: 77063; 77067

== ENCOUNTER → 2018-04-01 07:05 | Outpatient (CLI) | payer BC, SELFPAY ==
[2016-07-19 14:11] VITALS: BMI 28.2
[2018-03-29 09:59] VITALS: BMI 30.9
[2018-04-01 08:36] LABS: AST(SGOT) 25 U/L (15-37); Alanine Aminotransfer ALT/SGPT 46 U/L (13-56); Albumin, Serum 3.4 g/dL (3.2-5.0); Alkaline Phosphatase 118 U/L (45-117); Cholesterol 211 mg/dL (200); Globulin 4.1 g/dL (2.2-4.2); High Density Lipoprotein 43 mg/dL; Protein, Total 7.5 g/dL (6.4-8.2); Triglycerides 137 mg/dL; Very Low Density Lipoprotein 27 mg/dL (5-40)
== END ==
PROVIDERS: Family Provider Family Medicine; PCP Family Medicine; Referring Provider Physician Assistant Medical; Visit Provider Physician Assistant Medical
DX: I25.10 Atherosclerotic heart disease of native coronary artery without angina pectoris (principal); E78.00 Pure hypercholesterolemia, unspecified
CPT/HCPCS: 36415; 80061; 80076

== ENCOUNTER 2018-05-14 13:32 | Emergency (ER) | payer BC, SELFPAY ==
[2016-07-19 14:11] VITALS: BMI 28.2
[2018-03-29 09:59] VITALS: BMI 30.9
[2018-05-14 13:32] VITALS: BP 164/89; PULSE 91; RESP 18; TEMP 36.5; O2SAT 100; BMI 32.3
--- NOTE | 2018-05-14 14:02 | EKG12_ITS ---
Test Reason : CP Blood Pressure : / mmHG Vent. Rate : 088 BPM Atrial Rate : 088 BPM P-R Int : 170 ms QRS Dur : 084 ms QT Int : 406 ms P-R-T Axes : 053 052 029 degrees QTc Int : 491 ms Normal sinus rhythm Prolonged QT Abnormal ECG Confirmed by KARIE PARTIDA, ELENA ([id number]), make up editor GILBERTO JURADO ([id number]) on 05/19/2018 9:06:13 AM Referred By: TRISHA/GRACE Confirmed By:ELENA TIWARI MD
--- NOTE | 2018-05-14 14:02 | RAD_ITS ---
STUDY: X-RAY CHEST REASON FOR EXAM: Female, 57 years old. Chest pain TECHNIQUE: PA and lateral views of the chest. COMPARISON: 11/30/2017 FINDINGS: The lungs are clear and expanded. There is no demonstrated pleural abnormality. Normal size heart. Normal mediastinum and gabe. Normal visualized pulmonary arteries. Normal visualized aortic arch and descending thoracic aorta. Normal visualized thoracic spine. Normal visualized ribs, clavicles, and shoulders. There is no demonstrated abnormality of the visualized soft tissue structures of the upper abdomen. RAD/Chest PA and Lateral IMPRESSION: Normal x-ray examination of the chest. Electronically Signed: Jasen Martines MD at 15:05 EDT , Service support ,
--- NOTE | 2018-05-14 14:04 | ED.DCSUM_ITS ---
- ER Visit Summary Date of Service: 05/14/18 Chief Complaint: Chest heaviness History of Present Illness: The patient is a 57 F who presents for 2 days of intermittent chest heaviness. The heaviness is in the upper chest bilaterally without radiation into the lower chest, back, arms, neck or abdomen. Patient states there are no exacerbating factors. She tried nitroglycerin without help. She is been taking Klonopin which has been helping the discomfort. She is currently pain-free. Episodes will last approximately 30 minutes and are frequent. She denies any associated cough, overt shortness of breath, although she feels the heaviness is difficult to take a deep breath. She denies nausea, vomiting, abdominal pain, lightheadedness, dizziness or any other complaints. Patient has a history of myocardial infarction that presented with lower chest discomfort. History of panic attacks and anxiety, hypercholesterolemia. Patient stop smoking 2 years ago. She is no longer on Plavix. Physical Examination: Vital signs: afebrile, hemodynamically stable, no hypoxia on room air General: well nourished, well developed, in no distress Skin: warm, dry, no rash, no pallor HEENT: normocephalic and atraumatic; PERRL, EOMI, moist mucous membranes Cardiovascular: regular rate and rhythm without murmurs, no peripheral edema, 2+ pulses all distal extremities Respiratory: No increased work of breathing, lungs are clear to auscultation bilaterally, no rales, rhonchi or wheezing Abdominal: Abdomen is soft, nontender with normoactive bowel sounds, no guarding or rebound, no masses MSK: Moves all extremities, no deformities, normal strength Neuro: Awake and alert, oriented ?4. No facial droop, sensation and motor function intact and symmetric Test Results: E Abnormal Lab Results 05/14/18 05/14/18 13:37 13:37 WBC 9.1 RBC 4.67 Hgb 12.9 Hct 41.2 MCV 88.2 MCH 27.6 MCHC 31.3 L RDW 13.6 RDW Differential 43.9 Plt Count 371 MPV 8.6 Immature Gran % (Auto) 0.100 Neut % (Auto) 57.0 Lymph % (Auto) 30.5 Hill % (Auto) 5.8 Eos % (Auto) 6.3 H Baso % (Auto) 0.3 Absolute Neuts (auto) 5.2 Absolute Lymphs (auto) 2.77 Total Counted Not Reportable Sodium 141 Potassium 3.7 Chloride 106 Carbon Dioxide 26.0 Anion Gap 9 BUN 15 Creatinine 0.88 Estim Creat Clear Calc 72.82 Est GFR (MDRD) Af Amer 85 Est GFR (MDRD) Non-Af 71 BUN/Creatinine Ratio 17.1 Glucose 87 Calcium 8.6 Troponin I < 0.015 Clinical Impression(s) from Imaging Studies Chest X-Ray 05/14/18 14:02 IMPRESSION: Normal x-ray examination of the chest. Electronically Signed: Jasen Martines MD at 15:05 EDT , Service support , Medications Given Discontinued Medications Aspirin (Aspirin, Baby) 324 mg PO X1 STA Stop: 05/14/18 14:03 Last Admin: 05/14/18 14:12 Dose: 324 mg mergency Department Course and Treatment: Patient is currently pain-free thus no nitroglycerin was given. Patient was given 4 baby aspirin. EKG was performed that showed a normal sinus rhythm with no ischemic changes. Initial troponin negative. CBC and BMP were unremarkable. Chest x-ray showed no pneumonia or other acute process. Patient remained symptom free while in the emergency department. Patient has the risk factors of known coronary artery disease, hyperlipidemia and history of smoking, having only quit within the last 2 years. Patient's heart score is 4 for age, risk factors and concerning story. NIGHAT of 3/7. Patient would benefit from further workup of her episodic chest pain and will be discussed with the hospitalist for admission as observation status for further workup. Treatment Plan: [] Disposition: [] Impression: #1 intermittent chest pain, history of coronary artery disease This note was generated with [employer] software. It may contain incorrect words, spelling, and punctuation that were not noted in review of the chart prior to signing ED Disposition - Plan for ED Patient: Disposition: Home or Assisted Living
[2018-05-14] MEDS: Aspirin 81 MG TAB.CHEW 324 MG PO (14:12)
[2018-05-14 14:13] LABS: Absolute Lymphocyte Count 2.77 X10^3/ul (0.83-4.51); Absolute Neutrophil Count 5.2 X10^3/uL (2.0-7.7); Basophil# 0.03 X10^3/uL; Basophil% 0.3 % (0-1); Eosinophil# 0.57 X10^3/uL; Eosinophils% 6.3 % (0-5); Hematocrit 41.2 % (37-47); Hemoglobin 12.9 g/dl (12.0-15.0); Lymphocyte # 2.77 X10^3/ul (4.0); Lymphocyte % 30.5 % (19-41); Mean Corp Hgb Conc 31.3 g/gl (32-36); Mean Corpuscular Hgb 27.6 pg (27.0-32.0); Mean Corpuscular Volume 88.2 fL (81-99); Mean Platelet Vol. 8.6 fl (6.2-12.0); Monocyte# 0.53 X10^3/uL; Monocyte% 5.8 % (0-10); Neutrophil # 5.16 X10^3/uL (2.7-7.7); POSITIVE COUNT NO; POSITIVE DIFFERENTIAL NO; POSITIVE MORPHOLOGY NO; Platelet Count 371 K/mm3 (150-450); RBC Distribution Width CV 13.6 % (11.6-14.6); RBC Distribution Width SD 43.9 fl (35.1-43.9); Red Blood Count 4.67 M/mm3 (4.2-5.4); White Blood Count 9.1 K/mm3 (4.4-11.0)
[2018-05-14 14:23] LABS: Anion Gap 9 (5-15); BUN 15 mg/dL (7-18); BUN/Creat Ratio 17.1 RATIO (10-20); Calcium,Total 8.6 mg/dL (8.5-10.1); Chloride 106 mmol/L (98-107); Creatinine, Serum 0.88 mg/dL (0.55-1.02); EST Glomerular Filtration Rate 71 mL/min (>60); Est Glom Filt Rate - Afr Amer 85 mL/min (>60); Estimated Creatinine Clearance 72.82 ml/min; Glucose 87 mg/dL (74-106); Potassium 3.7 mmol/L (3.5-5.1); Sodium Level 141 mmol/L (136-145)
--- NOTE | 2018-05-14 15:51 | NURSING ---
DR ADAN EDWARDS
--- NOTE | 2018-05-14 16:02 | NURSING ---
117 CP, HX OF ACS OBS ADAN
--- NOTE | 2018-05-14 16:16 | PCM.HP.STD ---
<Jorge A Juan - Last Filed: 05/14/18 16:33> Problem List (1) Chest pain Status: Acute (2) CAD (coronary artery disease) Status: Chronic (3) Anxiety Status: Chronic (4) Hyperlipidemia Status: Chronic (5) S/P coronary artery stent placement Status: Chronic Comment: PTCA/CASIE of the mid LAD 07/19/16 History of Present Illness Date of Admission: 05/14/18 Chief Complaint: chest pain The patient is a 57 year old F with pmhx of CAD with prior LAD stent 2 years prior (pt of Dr. Malik), former 30 yr smoker, HLD, anxiety, who presents to the ER with c/o chest pain. This began three days ago. She is not sure what she was doing when it began. It comes and goes all day and lasts several minutes. It is a pressure in the upper middle of the chest. It is nonradiating. No SOB, nausea, LH. It is relieved by getting up and walking around. It was also relieved by Klonopin. She notes that she has been severely stressed out lately. She refuses to disclose what these stressors are to me, however she started crying when I asked. She also noted that she only uses klonopin when her stress is severe and she has needed it the last two days. She last saw the cardiologists in March of this year, at that time there was increased anxiety noted. Her plavix was stopped at pt requrest and she was outside of a year from having her stent. She [] Past Medical History Past Medical History (Chronic Problems): Chronic Problems (Last Reviewed 02/16/18 @ 12:50 by Mariella Su) CAD (coronary artery disease) (Chronic) Anxiety (Chronic) Hyperlipidemia (Chronic) S/P coronary artery stent placement (Chronic ~07/19/16) PTCA/CASIE of the mid LAD 07/19/16 Atherosclerotic heart disease of [place] coronary artery without angina pectoris (Chronic) FFR mid LAD and successful angioplasty prox D@ 07/18/16;PTCA/CASIE of the mid LAD 07/19/16 Medical History: Medical History (Last Reviewed 02/16/18 @ 12:50 by Mariella Su) Hyperlipidemia (Chronic) E78.5 Atherosclerotic heart disease of [place] coronary artery without angina pectoris (Chronic) I25.10 FFR mid LAD and successful angioplasty prox D@ 07/18/16;PTCA/CASIE of the mid LAD 07/19/16 Palpitations (Acute) R00.2 Fatigue (Acute) R53.83 NSTEMI (non-ST elevated myocardial infarction) (Acute) Onset Date: ~07/2016 I21.4 Chronic back pain M54.9, G89.29 Tobacco abuse Z72.0 Chronic back pain (Inactive) M54.9, G89.29 Overweight (BMI 25.0-29.9) (Inactive) E66.3 Tobacco use (Inactive) Z72.0 Allergies hydrocodone bitartrate [From Vicodin] Allergy (Verified 05/14/18 13:35) Nausea metoprolol Adverse Reaction (Intermediate, Verified 05/14/18 13:35) Very dizzy, lightheaded even on smallest dose Home Medications: Ambulatory Orders Medication Instructions Recorded nitroglycerin 0.4 mg sublingual 0.4 mg SUBLINGUAL Q5M PRN 03/29/17 tablet clonazepam 0.5 mg tablet 0.5 mg PO TID PRN 04/04/17 Aspirin 81 mg PO DAILY 11/30/17 rosuvastatin 10 mg tablet 10 mg PO DAILY #30 tab 04/07/18 Surgical History: Surgical History (Last Reviewed 02/16/18 @ 12:50 by Mariella uS) History of total hysterectomy (Resolved) Z98.890, Z90.710 S/P coronary artery stent placement (Chronic) Onset Date: ~07/19/16 Z95.5 PTCA/CASIE of the mid LAD 07/19/16 Surgical History: hysterectomy, - - Hysterectomy. 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 Paternal Family History: Family History (Last Reviewed 02/16/18 @ 12:50 by Mariella Su) Mother CAD (coronary artery disease) Hypertension Diabetes Father Myocardial infarction History Items: Heart Disease - Father fatal SD 49 y/o. Review of Systems Constitutional: Denies: Chills, Fever, Weight Change HEENT: Denies: Head Aches, Sinus Congestion, Sinus Drainage Cardiovascular: Reports: Chest Pain, Chest Pressure. Denies: Edema, Palpitations Respiratory: Denies: Cough, Shortness of Breath, Shortness of breath at rest, Sputum production Gastrointestinal: Denies: Abdominal Pain, Diarrhea, Nausea, Vomiting Genitourinary: Denies: Dysuria Musculoskeletal: Denies: Joint Pain, Joint Tenderness Skin: Denies: Rash, Wounds Neurological: Denies: Numbness, Tingling, Focal weakness Psychiatric: Denies: Anxiety, Depression, Homicidal Ideations, Suicidal Ideations Hematologic/ Lymphatic: Denies: Easy Bruising, Easy Bleeding VTE Information - Inpt Only VTE Present on Admission: No VTE Mechan Device Prophylaxis: None VTE Pharm Prophylaxis ordered?: Yes - Physical Exam General: Alert, Oriented x3, Cooperative HEENT: Atraumatic, PERRLA, EOMI, Normocephalic Neck: Supple, No JVD, Negative Carotid Bruits Lungs: Clear to auscultation, Normal air movement Cardiovascular: Regular rate, No murmurs, - - occsasional PVC Abdomen: Bowel Sounds Present, Soft, Non Tender Extremities: No edema, Capillary Refill Less than 3 Seconds Skin: No rashes, No breakdown Musculoskeletal: No Tenderness to Palpation of Joints or Extremities Neurological: Cranial nerves II-XII grossly intact Psych/Mental Status: Normal Affect, Appropriate, Alert and oriented to time, place, person, mood and affect Vital Signs Temp Pulse Resp BP Pulse Ox 97.7 F L 91 18 164/89 H 100 05/14/18 13:32 05/14/18 13:32 05/14/18 13:32 05/14/18 13:32 05/14/18 13:32 Oxygen Flow Rate (L/min) 2 Oxygen Delivery Method Nasal Cannula Weight: 218 lb 14.704 oz Body Mass Index (BMI) 32.3 Finger Stick Blood Glucose 104 Laboratory Tests Past 24 Hrs 05/14/18 05/14/18 13:37 13:37 WBC 9.1 RBC 4.67 Hgb 12.9 Hct 41.2 MCV 88.2 MCH 27.6 MCHC 31.3 L RDW 13.6 RDW Differential 43.9 Plt Count 371 MPV 8.6 Immature Gran % (Auto) 0.100 Neut % (Auto) 57.0 Lymph % (Auto) 30.5 [place] % (Auto) 5.8 Eos % (Auto) 6.3 H Baso % (Auto) 0.3 Absolute Neuts (auto) 5.2 Absolute Lymphs (auto) 2.77 Total Counted Not Reportable Sodium 141 Potassium 3.7 Chloride 106 Carbon Dioxide 26.0 Anion Gap 9 BUN 15 Creatinine 0.88 Estim Creat Clear Calc 72.82 Est GFR (MDRD) Af Amer 85 Est GFR (MDRD) Non-Af 71 BUN/Creatinine Ratio 17.1 Glucose 87 Calcium 8.6 Troponin I < 0.015 Assessment/Plan All Active Problems (Last Reviewed 02/16/18 @ 12:50 by Mariella Su) Chest pain (Acute) History of total hysterectomy (Resolved) Palpitations (Acute) Fatigue (Acute) NSTEMI (non-ST elevated myocardial infarction) (Acute ~07/2016) 1. Atypical chest pain, hx CAD- recently here in november with chest pain. treadmill stress echo was negative. She does have a hx of CAD with a stent to the LAD. She has a negative troponin, negative CXR, EKG shows somewhat long QT, occasional PVC on the monitor. Chest pain is relieved by ambulation and klonopin. Will admit to PCU, cycle enzymes, repeat ekg, maintain tele, and get a new stress test in AM. Continue aspirin and statin. she has ongoing severe anxiety issues which I suspect are related to the chest pain. 2. Anxiety/Depression - prn klonopin, as per hx, worse lately. 3. HLD - on statin DVT ppx: lovenox This patient was seen by Jorge A Juan PA-C under the supervision of Doctor Gr. <Alli Gr - Last Filed: 05/14/18 16:48> Problem List (1) Chest pain Status: Acute Qualifiers: Chest pain type: unspecified Qualified Code(s): R07.9 - Chest pain, unspecified History of Present Illness Chief Complaint: chest pain The patient is a 57 year old F with a known history of CAD presents with chest pain today. Patient was stating that the chest pain was midsternal and chest. Relieved with taking Klonopin. Patient does have a history of stent in the past that at that time she had midsternal fullness like something being stuck in her chest from eating. So this is different from that time. Patient does state that she has been under a lot of stress with a daughter who was recently arrested, a [id number] going to eclampsia and money running out. [] Past Medical History Medical History: Medical History (Last Reviewed 05/14/18 @ 16:45 by Alli Gr DO) Hyperlipidemia (Chronic) E78.5 Atherosclerotic heart disease of [place] coronary artery without angina pectoris (Chronic) I25.10 FFR mid LAD and successful angioplasty prox D@ 07/18/16;PTCA/CASIE of the mid LAD 07/19/16 Palpitations (Acute) R00.2 Fatigue (Acute) R53.83 NSTEMI (non-ST elevated myocardial infarction) (Acute) Onset Date: ~07/2016 I21.4 Chronic back pain M54.9, G89.29 Tobacco abuse Z72.0 Chronic back pain (Inactive) M54.9, G89.29 Overweight (BMI 25.0-29.9) (Inactive) E66.3 Tobacco use (Inactive) Z72.0 Allergies hydrocodone bitartrate [From Vicodin] Allergy (Verified 05/14/18 13:35) Nausea metoprolol Adverse Reaction (Intermediate, Verified 05/14/18 13:35) Very dizzy, lightheaded even on smallest dose Surgical History: Surgical History (Last Reviewed 05/14/18 @ 16:45 by Alli Gr DO) History of total hysterectomy (Resolved) Z98.890, Z90.710 S/P coronary artery stent placement (Chronic) Onset Date: ~07/19/16 Z95.5 PTCA/CASIE of the mid LAD 07/19/16 Surgical History: hysterectomy, - Psychiatric History: Anxiety 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 Lives: Spouse/ Significant Other Smoking Status: Former smoker Tobacco Use: Non-smoker Alcohol: None Drugs: None - *Family History Maternal Family History: Family History (Last Reviewed 05/14/18 @ 16:46 by Alli Gr DO) Mother CAD (coronary artery disease) Hypertension Diabetes Father Myocardial infarction Paternal Family History: Family History (Last Reviewed 05/14/18 @ 16:46 by Alli Gr DO) Mother CAD (coronary artery disease) Hypertension Diabetes Father Myocardial infarction Review of Systems Constitutional: Denies: Chills, Fever, Weight Change HEENT: Denies: Head Aches, Sinus Congestion, Sinus Drainage Cardiovascular: Reports: Chest Pain, Chest Pressure. Denies: Edema, Palpitations Respiratory: Denies: Cough, Shortness of Breath, Shortness of breath at rest, Sputum production Gastrointestinal: Denies: Abdominal Pain, Diarrhea, Nausea, Vomiting Genitourinary: Denies: Dysuria Musculoskeletal: Denies: Joint Pain, Joint Tenderness Skin: Denies: Rash, Wounds Neurological: Denies: Focal weakness, Numbness, Tingling Psychiatric: Denies: Anxiety, Depression, Homicidal Ideations, Suicidal Ideations Hematologic/ Lymphatic: Denies: Easy Bruising, Easy Bleeding VTE Information - Inpt Only VTE Present on Admission: No VTE Mechan Device Prophylaxis: None VTE Pharm Prophylaxis ordered?: No - Physical Exam General: Alert, Cooperative, - - Tearful HEENT: Atraumatic, Normocephalic Oral: Moist Mucosa, No Gingival or Mucosal Lesions/ Ulcerations Neck: No Nodes, Thyroid Normal Size and Texture Lungs: Clear to auscultation, Normal air movement, No rhonchi, No wheeze Cardiovascular: Regular rate, No murmurs, - Abdomen: Bowel Sounds Present, Soft, Non Tender, Non-Distended Skin: No rashes, No breakdown Psych/Mental Status: Normal Affect, Appropriate Vital Signs Temp Pulse Resp BP Pulse Ox 36.5 C L 91 18 164/89 H 100 05/14/18 13:32 05/14/18 13:32 05/14/18 13:32 05/14/18 13:32 05/14/18 13:32 Oxygen Flow Rate (L/min) 2 Oxygen Delivery Method Nasal Cannula Weight: 99.3 kg Body Mass Index (BMI) 32.3 Finger Stick Blood Glucose 104 Laboratory Tests Past 24 Hrs 05/14/18 05/14/18 13:37 13:37 WBC 9.1 RBC 4.67 Hgb 12.9 Hct 41.2 MCV 88.2 MCH 27.6 MCHC 31.3 L RDW 13.6 RDW Differential 43.9 Plt Count 371 MPV 8.6 Immature Gran % (Auto) 0.100 Neut % (Auto) 57.0 Lymph % (Auto) 30.5 [place] % (Auto) 5.8 Eos % (Auto) 6.3 H Baso % (Auto) 0.3 Absolute Neuts (auto) 5.2 Absolute Lymphs (auto) 2.77 Total Counted Not Reportable Sodium 141 Potassium 3.7 Chloride 106 Carbon Dioxide 26.0 Anion Gap 9 BUN 15 Creatinine 0.88 Estim Creat Clear Calc 72.82 Est GFR (MDRD) Af Amer 85 Est GFR (MDRD) Non-Af 71 BUN/Creatinine Ratio 17.1 Glucose 87 Calcium 8.6 Troponin I < 0.015 Assessment/Plan Patient seen and examined independently. Data reviewed. I agree with the above note by the physician assistant professor of drama. 1. Chest pain: Heart score of 3. Story is more consistent with noncardiac etiology as patient has gone to under a lot of emotional stress and very short period of time. Symptoms were relieved with Klonopin. EKG was unremarkable and initial troponin was negative x1. Patient did have a normal stress echocardiogram back in November 2017 that was negative. Discussed with the patient that I feel is probably more related with her anxiety and discussed with her about cycling troponins and if those are negative that she could go home. She was in agreement to that so patient will have 2 more troponins and if those are both negative then she can be discharged to home. Code Visit Office Visits / Consults: [id number] OP Consult L4
--- NOTE | 2018-05-14 16:22 | HP.PCM_ITS ---
<Jorge A Juan - Last Filed: 05/14/18 16:33> Problem List (1) Chest pain Status: Acute (2) CAD (coronary artery disease) Status: Chronic (3) Anxiety Status: Chronic (4) Hyperlipidemia Status: Chronic (5) S/P coronary artery stent placement Status: Chronic Comment: PTCA/CASIE of the mid LAD 07/19/16 History of Present Illness Date of Admission: 05/14/18 Chief Complaint: chest pain The patient is a 57 year old F with pmhx of CAD with prior LAD stent 2 years prior (pt of Dr. Malik), former 30 yr smoker, HLD, anxiety, who presents to the ER with c/o chest pain. This began three days ago. She is not sure what she was doing when it began. It comes and goes all day and lasts several minutes. It is a pressure in the upper middle of the chest. It is nonradiating. No SOB, nausea, LH. It is relieved by getting up and walking around. It was also relieved by Klonopin. She notes that she has been severely stressed out lately. She refuses to disclose what these stressors are to me, however she started crying when I asked. She also noted that she only uses klonopin when her stress is severe and she has needed it the last two days. She last saw the cardiologists in March of this year, at that time there was increased anxiety noted. Her plavix was stopped at pt requrest and she was outside of a year from having her stent. She [] Past Medical History Past Medical History (Chronic Problems): Chronic Problems (Last Reviewed 02/16/18 @ 12:50 by Mariella Su) CAD (coronary artery disease) (Chronic) Anxiety (Chronic) Hyperlipidemia (Chronic) S/P coronary artery stent placement (Chronic ~07/19/16) PTCA/CASIE of the mid LAD 07/19/16 Atherosclerotic heart disease of [place] coronary artery without angina pectoris (Chronic) FFR mid LAD and successful angioplasty prox D@ 07/18/16;PTCA/CASIE of the mid LAD 07/19/16 Medical History: Medical History (Last Reviewed 02/16/18 @ 12:50 by Mariella Su) Hyperlipidemia (Chronic) E78.5 Atherosclerotic heart disease of [place] coronary artery without angina pectoris (Chronic) I25.10 FFR mid LAD and successful angioplasty prox D@ 07/18/16;PTCA/CASIE of the mid LAD 07/19/16 Palpitations (Acute) R00.2 Fatigue (Acute) R53.83 NSTEMI (non-ST elevated myocardial infarction) (Acute) Onset Date: ~07/2016 I21.4 Chronic back pain M54.9, G89.29 Tobacco abuse Z72.0 Chronic back pain (Inactive) M54.9, G89.29 Overweight (BMI 25.0-29.9) (Inactive) E66.3 Tobacco use (Inactive) Z72.0 Allergies hydrocodone bitartrate [From Vicodin] Allergy (Verified 05/14/18 13:35) Nausea metoprolol Adverse Reaction (Intermediate, Verified 05/14/18 13:35) Very dizzy, lightheaded even on smallest dose Home Medications: Ambulatory Orders Medication Instructions Recorded nitroglycerin 0.4 mg sublingual 0.4 mg SUBLINGUAL Q5M PRN 03/29/17 tablet clonazepam 0.5 mg tablet 0.5 mg PO TID PRN 04/04/17 Aspirin 81 mg PO DAILY 11/30/17 rosuvastatin 10 mg tablet 10 mg PO DAILY #30 tab 04/07/18 Surgical History: Surgical History (Last Reviewed 02/16/18 @ 12:50 by Mariella Su) History of total hysterectomy (Resolved) Z98.890, Z90.710 S/P coronary artery stent placement (Chronic) Onset Date: ~07/19/16 Z95.5 PTCA/CASIE of the mid LAD 07/19/16 Surgical History: hysterectomy, - - Hysterectomy. Psychiatric History: Anxiety SPECIAL PROCEDURES NURSE History: No pertinent SPECIAL PROCEDURES NURSE history Lives: Spouse/ Significant Other Smoking Status: Former smoker Tobacco Use: Non-smoker Alcohol: None Drugs: None - *Family History Maternal Family History: Family History (Last Reviewed 02/16/18 @ 12:50 by Mariella Su) Mother CAD (coronary artery disease) Hypertension Diabetes Father Myocardial infarction History Items: Heart Disease - CAD s/p PCI history. Paternal Family History: Family History (Last Reviewed 02/16/18 @ 12:50 by Mariella Su) Mother CAD (coronary artery disease) Hypertension Diabetes Father Myocardial infarction History Items: Heart Disease - Father fatal [place] 49 y/o. Review of Systems Constitutional: Denies: Chills, Fever, Weight Change HEENT: Denies: Head Aches, Sinus Congestion, Sinus Drainage Cardiovascular: Reports: Chest Pain, Chest Pressure. Denies: Edema, Palpitations Respiratory: Denies: Cough, Shortness of Breath, Shortness of breath at rest, Sputum production Gastrointestinal: Denies: Abdominal Pain, Diarrhea, Nausea, Vomiting Genitourinary: Denies: Dysuria Musculoskeletal: Denies: Joint Pain, Joint Tenderness Skin: Denies: Rash, Wounds Neurological: Denies: Numbness, Tingling, Focal weakness Psychiatric: Denies: Anxiety, Depression, Homicidal Ideations, Suicidal Ideations Hematologic/ Lymphatic: Denies: Easy Bruising, Easy Bleeding VTE Information - Inpt Only VTE Present on Admission: No VTE Mechan Device Prophylaxis: None VTE Pharm Prophylaxis ordered?: Yes - Physical Exam General: Alert, Oriented x3, Cooperative HEENT: Atraumatic, PERRLA, EOMI, Normocephalic Neck: Supple, No JVD, Negative Carotid Bruits Lungs: Clear to auscultation, Normal air movement Cardiovascular: Regular rate, No murmurs, - - occsasional PVC Abdomen: Bowel Sounds Present, Soft, Non Tender Extremities: No edema, Capillary Refill Less than 3 Seconds Skin: No rashes, No breakdown Musculoskeletal: No Tenderness to Palpation of Joints or Extremities Neurological: Cranial nerves II-XII grossly intact Psych/Mental Status: Normal Affect, Appropriate, Alert and oriented to time, place, person, mood and affect Vital Signs Temp Pulse Resp BP Pulse Ox 97.7 F L 91 18 164/89 H 100 05/14/18 13:32 05/14/18 13:32 05/14/18 13:32 05/14/18 13:32 05/14/18 13:32 Oxygen Flow Rate (L/min) 2 Oxygen Delivery Method Nasal Cannula Weight: 218 lb 14.704 oz Body Mass Index (BMI) 32.3 Finger Stick Blood Glucose 104 Laboratory Tests Past 24 Hrs 05/14/18 05/14/18 13:37 13:37 WBC 9.1 RBC 4.67 Hgb 12.9 Hct 41.2 MCV 88.2 MCH 27.6 MCHC 31.3 L RDW 13.6 RDW Differential 43.9 Plt Count 371 MPV 8.6 Immature Gran % (Auto) 0.100 Neut % (Auto) 57.0 Lymph % (Auto) 30.5 [place] % (Auto) 5.8 Eos % (Auto) 6.3 H Baso % (Auto) 0.3 Absolute Neuts (auto) 5.2 Absolute Lymphs (auto) 2.77 Total Counted Not Reportable Sodium 141 Potassium 3.7 Chloride 106 Carbon Dioxide 26.0 Anion Gap 9 BUN 15 Creatinine 0.88 Estim Creat Clear Calc 72.82 Est GFR (MDRD) Af Amer 85 Est GFR (MDRD) Non-Af 71 BUN/Creatinine Ratio 17.1 Glucose 87 Calcium 8.6 Troponin I < 0.015 Assessment/Plan All Active Problems (Last Reviewed 02/16/18 @ 12:50 by Mariella Su) Chest pain (Acute) History of total hysterectomy (Resolved) Palpitations (Acute) Fatigue (Acute) NSTEMI (non-ST elevated myocardial infarction) (Acute ~07/2016) 1. Atypical chest pain, hx CAD- recently here in november with chest pain. treadmill stress echo was negative. She does have a hx of CAD with a stent to the LAD. She has a negative troponin, negative CXR, EKG shows somewhat long QT, occasional PVC on the monitor. Chest pain is relieved by ambulation and klonopin. Will admit to PCU, cycle enzymes, repeat ekg, maintain tele, and get a new stress test in AM. Continue aspirin and statin. she has ongoing severe anxiety issues which I suspect are related to the chest pain. 2. Anxiety/Depression - prn klonopin, as per hx, worse lately. 3. HLD - on statin DVT ppx: lovenox This patient was seen by Jorge A Juan PA-C under the supervision of Doctor Gr. <Alli Gr - Last Filed: 05/14/18 16:48> Problem List (1) Chest pain Status: Acute Qualifiers: Chest pain type: unspecified Qualified Code(s): R07.9 - Chest pain, unspecified History of Present Illness Chief Complaint: chest pain The patient is a 57 year old F with a known history of CAD presents with chest pain today. Patient was stating that the chest pain was midsternal and chest. Relieved with taking Klonopin. Patient does have a history of stent in the past that at that time she had midsternal fullness like something being stuck in her chest from eating. So this is different from that time. Patient does state that she has been under a lot of stress with a daughter who was recently arrested, a [id number] going to eclampsia and money running out. [] Past Medical History Medical History: Medical History (Last Reviewed 05/14/18 @ 16:45 by Alli Gr DO) Hyperlipidemia (Chronic) E78.5 Atherosclerotic heart disease of [place] coronary artery without angina pectoris (Chronic) I25.10 FFR mid LAD and successful angioplasty prox D@ 07/18/16;PTCA/CASIE of the mid LAD 07/19/16 Palpitations (Acute) R00.2 Fatigue (Acute) R53.83 NSTEMI (non-ST elevated myocardial infarction) (Acute) Onset Date: ~07/2016 I21.4 Chronic back pain M54.9, G89.29 Tobacco abuse Z72.0 Chronic back pain (Inactive) M54.9, G89.29 Overweight (BMI 25.0-29.9) (Inactive) E66.3 Tobacco use (Inactive) Z72.0 Allergies hydrocodone bitartrate [From Vicodin] Allergy (Verified 05/14/18 13:35) Nausea metoprolol Adverse Reaction (Intermediate, Verified 05/14/18 13:35) Very dizzy, lightheaded even on smallest dose Surgical History: Surgical History (Last Reviewed 05/14/18 @ 16:45 by Alli Gr DO) History of total hysterectomy (Resolved) Z98.890, Z90.710 S/P coronary artery stent placement (Chronic) Onset Date: ~07/19/16 Z95.5 PTCA/CASIE of the mid LAD 07/19/16 Surgical History: hysterectomy, - Psychiatric History: Anxiety SPECIAL PROCEDURES NURSE History: No pertinent SPECIAL PROCEDURES NURSE history Lives: Spouse/ Significant Other Smoking Status: Former smoker Tobacco Use: Non-smoker Alcohol: None Drugs: None - *Family History Maternal Family History: Family History (Last Reviewed 05/14/18 @ 16:46 by Alli Gr DO) Mother CAD (coronary artery disease) Hypertension Diabetes Father Myocardial infarction Paternal Family History: Family History (Last Reviewed 05/14/18 @ 16:46 by Alli Gr DO) Mother CAD (coronary artery disease) Hypertension Diabetes Father Myocardial infarction Review of Systems Constitutional: Denies: Chills, Fever, Weight Change HEENT: Denies: Head Aches, Sinus Congestion, Sinus Drainage Cardiovascular: Reports: Chest Pain, Chest Pressure. Denies: Edema, Palpitations Respiratory: Denies: Cough, Shortness of Breath, Shortness of breath at rest, Sputum production Gastrointestinal: Denies: Abdominal Pain, Diarrhea, Nausea, Vomiting Genitourinary: Denies: Dysuria Musculoskeletal: Denies: Joint Pain, Joint Tenderness Skin: Denies: Rash, Wounds Neurological: Denies: Focal weakness, Numbness, Tingling Psychiatric: Denies: Anxiety, Depression, Homicidal Ideations, Suicidal Ideations Hematologic/ Lymphatic: Denies: Easy Bruising, Easy Bleeding VTE Information - Inpt Only VTE Present on Admission: No VTE Mechan Device Prophylaxis: None VTE Pharm Prophylaxis ordered?: No - Physical Exam General: Alert, Cooperative, - - Tearful HEENT: Atraumatic, Normocephalic Oral: Moist Mucosa, No Gingival or Mucosal Lesions/ Ulcerations Neck: No Nodes, Thyroid Normal Size and Texture Lungs: Clear to auscultation, Normal air movement, No rhonchi, No wheeze Cardiovascular: Regular rate, No murmurs, - Abdomen: Bowel Sounds Present, Soft, Non Tender, Non-Distended Skin: No rashes, No breakdown Psych/Mental Status: Normal Affect, Appropriate Vital Signs Temp Pulse Resp BP Pulse Ox 36.5 C L 91 18 164/89 H 100 05/14/18 13:32 05/14/18 13:32 05/14/18 13:32 05/14/18 13:32 05/14/18 13:32 Oxygen Flow Rate (L/min) 2 Oxygen Delivery Method Nasal Cannula Weight: 99.3 kg Body Mass Index (BMI) 32.3 Finger Stick Blood Glucose 104 Laboratory Tests Past 24 Hrs 05/14/18 05/14/18 13:37 13:37 WBC 9.1 RBC 4.67 Hgb 12.9 Hct 41.2 MCV 88.2 MCH 27.6 MCHC 31.3 L RDW 13.6 RDW Differential 43.9 Plt Count 371 MPV 8.6 Immature Gran % (Auto) 0.100 Neut % (Auto) 57.0 Lymph % (Auto) 30.5 [place] % (Auto) 5.8 Eos % (Auto) 6.3 H Baso % (Auto) 0.3 Absolute Neuts (auto) 5.2 Absolute Lymphs (auto) 2.77 Total Counted Not Reportable Sodium 141 Potassium 3.7 Chloride 106 Carbon Dioxide 26.0 Anion Gap 9 BUN 15 Creatinine 0.88 Estim Creat Clear Calc 72.82 Est GFR (MDRD) Af Amer 85 Est GFR (MDRD) Non-Af 71 BUN/Creatinine Ratio 17.1 Glucose 87 Calcium 8.6 Troponin I < 0.015 Assessment/Plan Patient seen and examined independently. Data reviewed. I agree with the above note by the physician operational assistant. 1. Chest pain: Heart score of 3. Story is more consistent with noncardiac etiology as patient has gone to under a lot of emotional stress and very short period of time. Symptoms were relieved with Klonopin. EKG was unremarkable and initial troponin was negative x1. Patient did have a normal stress echocardiogram back in November 2017 that was negative. Discussed with the patient that I feel is probably more related with her anxiety and discussed with her about cycling troponins and if those are negative that she could go home. She was in agreement to that so patient will have 2 more troponins and if those are both negative then she can be discharged to home. Code Visit Office Visits / Consults: [id number] OP Consult L4
--- NOTE | 2018-05-14 16:51 | DS.PCM_ITS ---
Discharge Date and Diagnosis Date of Admission: 05/14/18 Date of Discharge: 05/14/18 - Secondary Discharge Diagnosis Chronic Problems (Last Reviewed 05/14/18 @ 16:45 by Alli Gr DO) CAD (coronary artery disease) (Chronic) Anxiety (Chronic) Hyperlipidemia (Chronic) S/P coronary artery stent placement (Chronic ~07/19/16) PTCA/CASIE of the mid LAD 07/19/16 Atherosclerotic heart disease of [place] coronary artery without angina pectoris (Chronic) FFR mid LAD and successful angioplasty prox D@ 07/18/16;PTCA/CASIE of the mid LAD 07/19/16 Hospital Course and Treatment Imaging Results: 05/14/18 14:02 Chest PA and Lateral [RAD] Stat Operations: None Procedures: None Summary of Care Provided: The patient is a 57 year old F presents with chest pain. Workup from a cardiac standpoint was negative including troponin series ordered and if that is negative patient be discharged home. Patient under a lot of emotional duress at home with a daughter that was arrested 2 weeks ago, [id number] going through eclampsia and financial troubles as well. Patient does have known history of CAD but her symptomatology is actually different than she had experienced at that time. If troponins do come back abnormal then patient will be on her into the hospital and have further cardiac evaluation. Patient was comfortable with the plan of monitoring the troponins from the emergency room and sent home if they were negative. Patient is on Klonopin as needed. Recommend following up with primary care doctor to see if an SSRI may be of benefit. [] - Physical Exam Vital Signs Temp Pulse Resp BP Pulse Ox 36.5 C L 91 18 164/89 H 100 05/14/18 13:32 05/14/18 13:32 05/14/18 13:32 05/14/18 13:32 05/14/18 13:32 Oxygen Flow Rate (L/min) 2 Oxygen Delivery Method Nasal Cannula Weight: 99.3 kg Body Mass Index (BMI) 32.3 Finger Stick Blood Glucose 104 Laboratory Tests Past 24 Hrs 05/14/18 05/14/18 13:37 13:37 WBC 9.1 RBC 4.67 Hgb 12.9 Hct 41.2 MCV 88.2 MCH 27.6 MCHC 31.3 L RDW 13.6 RDW Differential 43.9 Plt Count 371 MPV 8.6 Immature Gran % (Auto) 0.100 Neut % (Auto) 57.0 Lymph % (Auto) 30.5 [place] % (Auto) 5.8 Eos % (Auto) 6.3 H Baso % (Auto) 0.3 Absolute Neuts (auto) 5.2 Absolute Lymphs (auto) 2.77 Total Counted Not Reportable Sodium 141 Potassium 3.7 Chloride 106 Carbon Dioxide 26.0 Anion Gap 9 BUN 15 Creatinine 0.88 Estim Creat Clear Calc 72.82 Est GFR (MDRD) Af Amer 85 Est GFR (MDRD) Non-Af 71 BUN/Creatinine Ratio 17.1 Glucose 87 Calcium 8.6 Troponin I < 0.015 Discharge Diet: Low fat/ Low Cholesterol Home Medications: Medications to take at Discharge nitroglycerin 0.4 mg sublingual tablet 0.4 mg SUBLINGUAL Q5M PRN 03/29/17 clonazepam 0.5 mg tablet 0.5 mg PO TID PRN 04/04/17 Aspirin 81 mg PO DAILY 11/30/17 rosuvastatin 10 mg tablet 10 mg PO DAILY #30 tab 04/07/18 Primary Care Physician: Oscar Valencia MD [Primary Care Provider] - Within 2 Weeks Disposition: Home Minutes spent on discharge:: 32 Patient Condition:: Good Medical Necessity - Tobacco Use Smoking Status: Former smoker Tobacco Use: Non-smoker Meaningful Use Info Meaningful Use Diagnoses (Choose all that apply): None applicable
--- NOTE | 2018-05-14 16:52 | DCINST_ITS ---
- Discharge Diagnoses Current Active Problems: Current Active and Chronic Problems (Last Reviewed 05/14/18 @ 16:45 by Alli Gr DO) CAD (coronary artery disease) (Chronic) Anxiety (Chronic) You will use the following diet at home:: Calorie/Carbohydrate Controlled (specify 1200, 1400, etc) Your food should be the consistency of: Regular Your liquids should be the consistency of: Regular/Thin Discharge Activity: Return to Normal Activity Call your doctor if you observe: Chest pain Instructions: ED Chest Pain NonCardiac Allergies/Adverse Reactions: Allergies hydrocodone bitartrate [From Vicodin] Allergy (Verified 05/14/18 13:35) Nausea metoprolol Adverse Reaction (Intermediate, Verified 05/14/18 13:35) Very dizzy, lightheaded even on smallest dose Medications to take at Discharge nitroglycerin 0.4 mg sublingual tablet 0.4 mg SUBLINGUAL Q5M PRN 03/29/17 clonazepam 0.5 mg tablet 0.5 mg PO TID PRN 04/04/17 Aspirin 81 mg PO DAILY 11/30/17 rosuvastatin 10 mg tablet 10 mg PO DAILY #30 tab 04/07/18 Primary Care Physician: Oscar Valencia MD [Primary Care Provider] - Within 2 Weeks Test Results: Test results from this visit will be discussed in further detail at your follow- up appointment, if applicable. Proposed Discharge Date: 05/14/18
[2018-05-14 16:55] VITALS: BP 142/83; PULSE 69; RESP 18; O2SAT 98
[2018-05-14 18:55] VITALS: BP 133/85; PULSE 74; RESP 18; O2SAT 96
[2018-05-14 19:00] VITALS: BP 102/53; PULSE 78; RESP 15; O2SAT 98
[2018-05-14 20:00] VITALS: BP 133/83; PULSE 74; RESP 21; O2SAT 95
--- NOTE | 2018-05-14 20:56 | ED.RN ---
SPOKE TO DR. PRIETO IN ER REGARDING PT 3RD NEG TROP AND HE AGREED THAT PATIENT COULD BE D/C USING DR. ARELLANO'S D/C ORDERS THAT WERE PLACED EARLIER IN THE DAY.
[2018-05-14 21:03] VITALS: BP 133/83; PULSE 75; RESP 15; O2SAT 97
== END 2018-05-14 21:10 | disposition home or self-care (01) ==
LOC: ED 15:49 → PCU 16:19 → ED 23:02
PROVIDERS: Emergency Provider Emergency Medicine; Family Provider Family Medicine; PCP Family Medicine
DX: R07.89 Other chest pain (principal); I25.10 Atherosclerotic heart disease of native coronary artery without angina pectoris; E78.5 Hyperlipidemia, unspecified; G89.29 Other chronic pain; M54.9 Dorsalgia, unspecified; F41.0 Panic disorder [episodic paroxysmal anxiety]; F32.9 Major depressive disorder, single episode, unspecified; F41.9 Anxiety disorder, unspecified; E66.3 Overweight; Z68.32 Body mass index [BMI] 32.0-32.9, adult; I25.2 Old myocardial infarction; Z79.82 Long term (current) use of aspirin; Z79.899 Other long term (current) drug therapy; Z87.891 Personal history of nicotine dependence; Z95.5 Presence of coronary angioplasty implant and graft
CPT/HCPCS: 71046; 80048; 84484; 85025; 93005; 99284; J7030; A4216

== ENCOUNTER → 2018-12-30 06:54 | Outpatient (CLI) | payer BC, SELFPAY ==
[2016-07-19 14:11] VITALS: BMI 28.2
[2018-12-29 11:00] VITALS: BMI 31.9
[2018-12-30 08:11] LABS: AST(SGOT) 24 U/L (15-37); Alanine Aminotransfer ALT/SGPT 35 U/L (13-56); Albumin, Serum 3.5 g/dL (3.2-5.0); Alkaline Phosphatase 100 U/L (45-117); Cholesterol 222 mg/dL (200); Globulin 4.2 g/dL (2.2-4.2); High Density Lipoprotein 48 mg/dL; Protein, Total 7.7 g/dL (6.4-8.2); Triglycerides 145 mg/dL; Very Low Density Lipoprotein 29 mg/dL (5-40)
== END ==
PROVIDERS: Family Provider Family Medicine; PCP Family Medicine; Referring Provider Internal Medicine Cardiovascular Disease; Visit Provider Internal Medicine Cardiovascular Disease
DX: E78.00 Pure hypercholesterolemia, unspecified (principal)
CPT/HCPCS: 36415; 80061; 80076

== ENCOUNTER 2019-02-08 13:52 | Emergency (ER) | payer BC, SELFPAY ==
[2016-07-19 14:11] VITALS: BMI 28.2
[2018-12-29 11:00] VITALS: BMI 31.9
[2019-02-08 13:53] VITALS: BP 166/90; PULSE 96; RESP 17; TEMP 36.4; O2SAT 99; BMI 31.1
--- NOTE | 2019-02-08 13:56 | EKG12_ITS ---
Test Reason : CP Blood Pressure : / mmHG Vent. Rate : 085 BPM Atrial Rate : 085 BPM P-R Int : 168 ms QRS Dur : 082 ms QT Int : 396 ms P-R-T Axes : 062 061 038 degrees QTc Int : 471 ms Normal sinus rhythm Normal ECG Confirmed by BALDEMAR PARTIDA, SERA ([id number]), purchasing expeditor MELY EVANS ([id number]) on 02/11/2019 10:01:21 AM Referred By: ALFREDO Confirmed By:LUIS FERNANDO MCDERMOTT MD
--- NOTE | 2019-02-08 13:56 | RAD_ITS ---
STUDY: X-RAY CHEST REASON FOR EXAM: Female, 58 years old. 1 hour history of chest pain. TECHNIQUE: Single AP portable view of the chest. COMPARISON: Comparison is made with prior study dated May 14, 2018. FINDINGS: EKG electrodes are seen. Mild increased markings at the lung bases suggestive of mild linear atelectasis slightly more prominent on the left side. There is no demonstrated pleural abnormality. Normal size heart. Normal mediastinum and gabe. Normal visualized pulmonary arteries. Normal visualized aortic arch and descending thoracic aorta. Normal visualized thoracic spine. Normal visualized ribs, clavicles, and shoulders. There is no demonstrated abnormality of the visualized soft tissue structures of the upper abdomen. RAD/Chest 1 View (Portable) IMPRESSION: Mild degree of increased linear markings at the lung bases suggestive of atelectasis. Electronically Signed: Binu Briceño, at 14:34 EST , Service support ,
[2019-02-08 14:02] VITALS: O2SAT 98
[2019-02-08 14:07] VITALS: PULSE 87; RESP 15; O2SAT 99
[2019-02-08 14:21] LABS: Absolute Lymphocyte Count 2.49 X10^3/uL (0.83-4.51); Absolute Neutrophil Count 4.4 X10^3/uL (2.0-7.7); Basophil# 0.03 X10^3/uL; Basophil% 0.4 % (0-1); Eosinophil# 0.27 X10^3/uL; Eosinophils% 3.5 % (0-5); Hematocrit 38.8 % (37-47); Hemoglobin 12.6 g/dL (12.0-15.0); Lymphocyte # 2.49 X10^3/ul (4.0); Lymphocyte % 32.5 % (19-41); Mean Corp Hgb Conc 32.5 g/dL (32-36); Mean Corpuscular Volume 86.2 fL (81-99); Mean Platelet Vol. 8.5 fl (6.2-12.0); Monocyte# 0.49 X10^3/uL; Monocyte% 6.4 % (0-10); NRBC Flagged by Analyzer 0 % (0-5); Neutrophil # 4.35 X10^3/uL (2.7-7.7); Neutrophil % 56.9 % (47-70); Platelet Count 394 K/mm3 (150-450); RBC Distribution Width CV 13.6 % (11.6-14.6); RBC Distribution Width SD 42.7 fl (35.1-43.9); White Blood Count 7.7 K/mm3 (4.4-11.0)
[2019-02-08 14:38] LABS: Anion Gap 9 (5-15); BUN 11 mg/dL (7-18); Calcium,Total 8.7 mg/dL (8.5-10.1); Chloride 107 mmol/L (98-107); Creatinine, Serum 0.84 mg/dL (0.55-1.02); EST Glomerular Filtration Rate 73 mL/min (>60); Est Glom Filt Rate - Afr Amer 89 mL/min (>60); Estimated Creatinine Clearance 75.36 ml/min; Glucose 97 mg/dL (74-106); Potassium 3.7 mmol/L (3.5-5.1); Sodium Level 141 mmol/L (136-145)
--- NOTE | 2019-02-08 15:14 | ED.VIS.GI ---
History of Present Illness Chief Complaint: Chest Pain Narrative: This is the wrong template the general ED visit template Past Medical History - Allergies and Home Meds Allergies/Adverse Reactions: Allergies hydrocodone bitartrate [From Vicodin] Allergy (Verified 02/08/19 13:53) Nausea metoprolol Adverse Reaction (Intermediate, Verified 02/08/19 13:53) Very dizzy, lightheaded even on smallest dose rosuvastatin [From Crestor] Adverse Reaction (Verified 02/08/19 13:53) myalgia Primary Care Physician: Oscar Valencia MD [Primary Care Provider] - Surgical History: hysterectomy, - Smoking Status: Never smoker - Family History Maternal Family History: Family History (Last Reviewed 12/29/18 @ 11:03 by Katelynn Morrissey) Mother CAD (coronary artery disease) Hypertension Diabetes Father Myocardial infarction Family History: Reports: Heart Disease - CAD s/p PCI history. Paternal Family History: Family History (Last Reviewed 12/29/18 @ 11:03 by Katleynn Morrissey) Mother CAD (coronary artery disease) Hypertension Diabetes Father Myocardial infarction Family History: Reports: Heart Disease - Father fatal [place] 49 y/o. Physical Exam Vital Signs/Narrative: Vital Signs Temp Pulse Resp BP Pulse Ox 02/08/19 14:07 87 15 99 02/08/19 14:02 98 02/08/19 13:53 97.6 F L 96 17 166/90 H 99 ED Disposition - Plan for ED Patient: Referrals: Oscar Valencia MD [Primary Care Provider] -
[2019-02-08 15:18] VITALS: BP 154/82; PULSE 78; RESP 14; O2SAT 98
--- NOTE | 2019-02-08 15:32 | ED.DCSUM_ITS ---
History of Present Illness Chief Complaint: Chest Pain Informant: Patient Onset: Weeks Narrative: Left upper breast pectoral sharp pain for 3 weeks history of cardiac stent Patient reports for 3-week she has had a pain to the left pectoral area just above her breast that causes sharp discomfort, sometimes it shoots into her shoulder, she has had no cardiovascular symptoms such as anginal chest pain orthopnea PND, she has no history of VT or PE the pain is paroxysmal she denies being short of breath Is able to go about her daily activities without exacerbation or triggering the pain is just can come and go today she had an exacerbation of the pain for unspecified reasons and came in for evaluation Cardiovascular evaluation status has been very stable her last cardiac stress test was unremarkable Had no immobility no leg swelling and no shortness of breath Past Medical History - Allergies and Home Meds Allergies/Adverse Reactions: Allergies hydrocodone bitartrate [From Vicodin] Allergy (Verified 02/08/19 13:53) Nausea metoprolol Adverse Reaction (Intermediate, Verified 02/08/19 13:53) Very dizzy, lightheaded even on smallest dose rosuvastatin [From Crestor] Adverse Reaction (Verified 02/08/19 13:53) myalgia Primary Care Physician: Osacr Valencia MD [Primary Care Provider] - Past Medical History: - - Cardiac stent Surgical History: hysterectomy, - Smoking Status: Never smoker - Family History Maternal Family History: Family History (Last Reviewed 12/29/18 @ 11:03 by Katelynn Morrissey) Mother CAD (coronary artery disease) Hypertension Diabetes Father Myocardial infarction Family History: Reports: Heart Disease - CAD s/p PCI history. Paternal Family History: Family History (Last Reviewed 12/29/18 @ 11:03 by Katelynn Morrissey) Mother CAD (coronary artery disease) Hypertension Diabetes Father Myocardial infarction Family History: Reports: Heart Disease - Father fatal CT 49 y/o. Review of Systems General: Denies: Chills, Fever, Sweats Eyes: Denies: Visual changes - bilaterally, Diplopia ENT: Denies: Rhinorrhea, Sore throat Cardiovascular: Reports: - - Sharp left pectoral pain as above. Denies: Chest pain, Palpitations Respiratory: Denies: Dyspnea, Cough, Dyspnea on exertion Gastrointestinal: Denies: Abdominal pain, Nausea, Vomiting, Diarrhea, Melena, Hematochezia Genitourinary: Denies: Dysuria, Hematuria, Frequency Musculoskeletal: Denies: Back pain, Extremity Pain Skin: Denies: Rash, Wounds Neurological: Denies: Headache, Weakness, Numbness Physical Exam Vital Signs/Narrative: Vital Signs Temp Pulse Resp BP Pulse Ox 02/08/19 15:18 78 14 154/82 H 98 02/08/19 14:07 87 15 99 02/08/19 14:02 98 02/08/19 13:53 97.6 F L 96 17 166/90 H 99 General: Well nourished, Well developed, No Acute Distress Head: Normocephalic, Atraumatic Eyes: Perrl, EOMI ENT: Moist mucous membranes, No rhinorrhea Neck: Supple, Nontender Cardiovascular: Regular rate, Regular rhythm, No murmurs, - - There is some discomfort to palpation of the left pectoral area the patient to take 2 fingertips in point to the area of discomfort, this area has no redness or warmth crepitance no trauma the left breast itself is unremarkable as is the axilla she has full range of motion of the shoulder Respiratory: No distress, CTA bilaterally, Chest nontender Abdomen: Soft, Nontender, Nondistended, Normal bowel sounds Back: Nontender, Normal Inspection Extremities: Nontender, No edema Skin: Normal color, No rash Neurological: Alert, Oriented x3, Cranial nerves II-XII grossly intact, Normal Strength, Normal Sensation Psychological: Normal affect, Normal Mood Diagnostic/Tx/Re-eval - Medical Decision Making The patient's EKG shows a sinus rhythm rate of about 88 no acute injury pattern intervals within normal range Patient screening work-up labs chest x-ray are unremarkable she remains comfortable here in the department no symptoms at this time, spoke with her education nurse Dr. Malik spoke with the patient given all the above discussed inpatient versus outpatient management with the patient she preferred outpatient management she is to call the office in the next few days she is to return for change in symptoms Patient indicates now that she has been lifting heavy boxes getting ready for the and wonders if she could have strained her chest I explained her that that is certainly a possibility but could not determine the exact cause of her chest pain, again she is feeling comfortable wants outpatient work-up will return for change in symptoms Home stable Impression final intermittent sharp stabbing left chest pain history of CAD stent ED Disposition - Plan for ED Patient: Diagnosis: Chest pain Instructions: CHEST PAIN, Uncertain Cause Referrals: Oscar Valencia MD [Primary Care Provider] - Additional Instructions: Call Dr. Malik for appointment return for change in symptoms
[2019-02-08 15:54] VITALS: BP 132/97; PULSE 81; RESP 17; O2SAT 98
== END 2019-02-08 15:55 | disposition home or self-care (01) ==
PROVIDERS: Emergency Provider Emergency Medicine; Family Provider Family Medicine; PCP Family Medicine
DX: R07.9 Chest pain, unspecified (principal); Z79.82 Long term (current) use of aspirin; Z79.899 Other long term (current) drug therapy; Z88.5 Allergy status to narcotic agent; Z95.5 Presence of coronary angioplasty implant and graft; Z90.710 Acquired absence of both cervix and uterus
CPT/HCPCS: 71045; 80048; 84484; 85025; 93005; 99284; A4216

== ENCOUNTER → 2019-11-07 18:05 | Outpatient (CLI) | payer BC, SELFPAY ==
[2016-07-19 14:11] VITALS: BMI 28.2
[2019-11-07 17:45] VITALS: BMI 31.7
[2019-11-07 18:06] LABS: Bacteria 0 SEEN /hpf (None Seen); Mucous, Urine 0 SEEN /hpf (<or=2+)
[2019-11-07 18:24] LABS: Color, Urine Amber (Yellow); Glucose, Dipstick Normal (Normal); Ketone-Dipstick Negative (Negative); Leukocyte Esterase-Dipstick 500 /ul (Negative); Nitrite-Dipstick Positive (Negative); Occult Blood-Urine 50 /ul (Negative); Protein-Dipstick 30 mg/dl (Negative); Urine Clarity Clear (Clear); Urine Urobilinogen 8 mg/dl (Normal)
[2019-11-07 18:46] LABS: Urine Bilirubin Dipstick 6 mg/dL (Negative)
[2019-11-07 18:59] LABS: Squamous Epithelial Cells - UA 10-25 SEEN /hpf (5-10)
[2019-11-07 19:00] LABS: White Blood Cells 10-25 SEEN /hpf (0-5)
[2019-11-07 19:01] LABS: Red Blood Cells-Urine 0-5 SEEN /hpf (0-5)
[2019-11-07 19:03] LABS: Renal Epithelial Cells 0-5 SEEN /hpf (0-5)
== END ==
PROVIDERS: PCP Family Medicine; Visit Provider Physician Assistant
DX: R39.15 Urgency of urination (principal); R35.0 Frequency of micturition
CPT/HCPCS: 81001; 87086

== ENCOUNTER → 2020-02-26 05:38 | Outpatient (CLI) | payer BC, SELFPAY ==
[2016-07-19 14:11] VITALS: BMI 28.2
[2020-02-25 10:46] VITALS: BMI 30.9
[2020-02-26 07:39] LABS: AST(SGOT) 20 U/L (15-37); Alanine Aminotransfer ALT/SGPT 27 U/L (13-56); Albumin, Serum 3.3 g/dL (3.2-5.0); Alkaline Phosphatase 100 U/L (45-117); Bilirubin, Direct 0.07 mg/dL (0.00-0.30); Cholesterol 202 mg/dL (200); High Density Lipoprotein 42 mg/dL; Protein, Total 7.3 g/dL (6.4-8.2); Triglycerides 158 mg/dL; Very Low Density Lipoprotein 32 mg/dL (5-40)
== END ==
PROVIDERS: PCP Family Medicine; Referring Provider Internal Medicine Cardiovascular Disease; Visit Provider Internal Medicine Cardiovascular Disease
DX: E78.00 Pure hypercholesterolemia, unspecified (principal)
CPT/HCPCS: 36415; 80061; 80076

== ENCOUNTER → 2020-03-19 | Outpatient (CLI) | payer BC, SELFPAY ==
[2016-07-19 14:11] VITALS: BMI 28.2
[2020-02-25 10:46] VITALS: BMI 30.9
== END | disposition home or self-care (01) ==
LOC: LABSPEC 11:52
PROVIDERS: PCP Family Medicine; Visit Provider Family Medicine
DX: Z20.822 Contact with and (suspected) exposure to COVID-19 (principal)
CPT/HCPCS: 87635; U0005; U0003

== ENCOUNTER 2020-06-08 16:59 | Observation (INO) | payer BC, SELFPAY ==
[2016-07-19 14:11] VITALS: BMI 28.2
[2020-02-25 10:46] VITALS: BMI 30.9
[2020-06-08 17:00] VITALS: BP 169/94; PULSE 97; RESP 16; TEMP 36.9; O2SAT 99; BMI 31.9
--- NOTE | 2020-06-08 17:06 | ED.DCSUM_ITS ---
History of Present Illness Chief Complaint: Chest Pain Informant: Patient Narrative: -year-old female with history of ND presenting with chest pain which is been constant since yesterday. She describes this as pressure and retrosternal. She states it was worse yesterday and today is 7/10. Patient denies any diaphoresis. She does admit to some shortness of breath. She denies any history of DVT/PE. She does have history of ND. Last stress test was in 2018. Last cardiac catheterization was in 2017. Past Medical History - Allergies and Home Meds Allergies/Adverse Reactions: Allergies acetaminophen [From Percocet] Allergy (Verified 06/08/20 17:03) Unknown hydrocodone bitartrate [From Vicodin] Allergy (Verified 06/08/20 17:03) Nausea oxycodone [From Percocet] Allergy (Verified 06/08/20 17:03) Unknown ezetimibe [From Zetia] Adverse Reaction (Intermediate, Verified 06/08/20 17:03) anxiety, fatigue, upset stomach metoprolol Adverse Reaction (Intermediate, Verified 06/08/20 17:03) Very dizzy, lightheaded even on smallest dose rosuvastatin [From Crestor] Adverse Reaction (Verified 06/08/20 17:03) myalgia ANTIBIOTIC Allergy (Uncoded 06/08/20 17:03) Upset Stomach DOESNT KNOW THE NAME Past Medical History: - - NSTEMI, hypertension, anxiety Surgical History: hysterectomy, - - Drug-eluting stent LAD 2016 Lives: Spouse/ Significant Other Smoking Status: Former smoker Alcohol: None Drugs: None - Family History Maternal Family History: Family History (Last Reviewed 02/25/20 @ 10:47 by Katelynn Morrissey) Mother CAD (coronary artery disease) Hypertension Diabetes Father Myocardial infarction Family History: Reports: Heart Disease - CAD s/p PCI history. Paternal Family History: Family History (Last Reviewed 02/25/20 @ 10:47 by Katelynn Morrissey) Mother CAD (coronary artery disease) Hypertension Diabetes Father Myocardial infarction Family History: Reports: Heart Disease - Father fatal [place] 49 y/o. Review of Systems General: Denies: Chills, Fever, Sweats Eyes: Denies: Visual changes - bilaterally, Diplopia ENT: Denies: Rhinorrhea, Sore throat Cardiovascular: Reports: Chest pain Respiratory: Reports: Dyspnea. Denies: Cough, Sputum Gastrointestinal: Denies: Abdominal pain, Nausea, Vomiting, Diarrhea, Melena, Hematochezia Genitourinary: Denies: Dysuria, Hematuria, Frequency Musculoskeletal: Denies: Back pain, Extremity Pain Skin: Denies: Rash, Wounds Neurological: Denies: Headache, Weakness, Numbness Psych: Denies: Depression, Anxiety, Suicidal thoughts, Suicidal ideations, -, - Endocrine: Denies: Polyuria, Polydipsia, Heat intolerance, Cold intolerance, -, - Physical Exam Vital Signs/Narrative: Vital Signs Temp Pulse Resp BP Pulse Ox 06/08/20 17:00 98.5 F 97 16 169/94 H 99 Inital Vital Signs reviewed: Yes General: Well nourished Head: Normocephalic, Atraumatic Eyes: Perrl, EOMI ENT: Moist mucous membranes, No rhinorrhea Cardiovascular: Regular rate, Regular rhythm Respiratory: No distress, CTA bilaterally. Negative for: Wheezing, Diminished Extremities: Nontender, No edema Skin: Normal color, No rash. Negative for: Cyanosis, Diaphoresis Neurological: Alert, Oriented x3, Cranial nerves II-XII grossly intact Psychological: Normal affect, Normal Mood Diagnostic/Tx/Re-eval Clinical Impression(s) from Imaging Studies Chest X-Ray 06/08/20 17:06 IMPRESSION: No acute radiographic abnormalities. Electronically Signed: Thiago Nava MD at 17:36 EDT Tel , Service support , Laboratory Data 06/08/20 06/08/20 06/08/20 17:05 17:05 17:05 WBC 9.0 RBC 4.62 Hgb 13.3 Hct 41.5 MCV 89.8 MCH 28.8 MCHC 32.0 RDW Std Deviation 44.5 H RDW Coeff of Candy 13.6 Plt Count 421 MPV 8.2 Immature Gran % (Auto) 0.200 Neut % (Auto) 45.9 L Lymph % (Auto) 39.9 [place] % (Auto) 6.8 Eos % (Auto) 6.6 H Baso % (Auto) 0.6 Absolute Neuts (auto) 4.1 Absolute Lymphs (auto) 3.57 Nucleated RBC % 0 APTT D-Dimer Quant (PE/DVT) 0.32 Sodium 138 Potassium 3.4 L Chloride 105 Carbon Dioxide 27.0 Anion Gap 6 BUN 15 Creatinine 0.87 Estim Creat Clear Calc 71.86 Est GFR (MDRD) Af Amer 85 Est GFR (MDRD) Non-Af 71 BUN/Creatinine Ratio 17.3 Glucose 108 H Calcium 8.7 Troponin I < 0.015 06/08/20 17:05 WBC RBC Hgb Hct MCV MCH MCHC RDW Std Deviation RDW Coeff of Candy Plt Count MPV Immature Gran % (Auto) Neut % (Auto) Lymph % (Auto) [place] % (Auto) Eos % (Auto) Baso % (Auto) Absolute Neuts (auto) Absolute Lymphs (auto) Nucleated RBC % APTT 27.4 D-Dimer Quant (PE/DVT) Sodium Potassium Chloride Carbon Dioxide Anion Gap BUN Creatinine Estim Creat Clear Calc Est GFR (MDRD) Af Amer Est GFR (MDRD) Non-Af BUN/Creatinine Ratio Glucose Calcium Troponin I - Medical Decision Making 59-year-old female with history of CAD, NSTEMI presenting with chest pain which feels like pressure. She states it has been constant since yesterday. She states it was worse yesterday and is now 7/10. She denies syncope, diaphoresis. She does have associated shortness of breath. She had an EKG performed on arrival which was sinus rhythm at 98 bpm with QTC of 490. There are no ST elevations or depressions as interpreted by myself. Since last stress test was in 2018. Her cardiac catheterization or stenting of the LAD was in 2017. Patient states she follows with Dr. Malik. She believes this feels like her previous NSTEMI. Pretesting heart score is 4. Patient's troponin is negative. Her D-dimer is negative. Lab work is otherwise unremarkable. Patient was discussed with Dr. Gunderson who recommended a glycerin. I will start with Nitropaste to see if this helps her pain. He also recommended aspirin and a heparin drip. Heparin drip was held until he did see her and he did come and evaluate her immediately upon placement to the floor. It appears that heparin drip was withheld at this time. Patient will be monitored on the hospital floor. Impression: 1. Chest pain ED Disposition - Plan for ED Patient: Disposition: Acute Care [facility]
--- NOTE | 2020-06-08 17:06 | RAD_ITS ---
INDICATION: chest pain EXAMINATION/TECHNIQUE: X-RAY - XR Chest 1 View COMPARISON: None. FINDINGS: The lungs are clear. The cardiomediastinal silhouette is unremarkable. No pleural effusion or pneumothorax. No acute osseous abnormalities. RAD/Chest 1 View (Portable) IMPRESSION: No acute radiographic abnormalities. Electronically Signed: Thiago Nava MD at 17:36 EDT Tel , Service support ,
--- NOTE | 2020-06-08 17:06 | EKG12_ITS ---
Test Reason : CP Blood Pressure : / mmHG Vent. Rate : 098 BPM Atrial Rate : 098 BPM P-R Int : 170 ms QRS Dur : 090 ms QT Int : 384 ms P-R-T Axes : 051 069 041 degrees QTc Int : 490 ms Normal sinus rhythm Prolonged QT Abnormal ECG Confirmed by KARIE PARTIDA, ELENA ([id number]), script editor MELY EVANS ([id number]) on 06/11/2020 7:52:04 AM Referred By: ADAN Confirmed By:ELENA TIWARI MD
[2020-06-08] MEDS: Aspirin 81 MG TAB.CHEW 324 MG PO (17:09)
[2020-06-08 17:19] LABS: Absolute Lymphocyte Count 3.57 X10^3/uL (0.83-4.51); Absolute Neutrophil Count 4.1 X10^3/uL (2.0-7.7); Basophil# 0.05 X10^3/uL; Basophil% 0.6 % (0-1); Eosinophil# 0.59 X10^3/uL; Eosinophils% 6.6 % (0-5); Hematocrit 41.5 % (37-47); Hemoglobin 13.3 g/dL (12.0-15.0); Lymphocyte # 3.57 X10^3/ul (4.0); Lymphocyte % 39.9 % (19-41); Mean Corpuscular Hgb 28.8 pg (27.0-32.0); Mean Corpuscular Volume 89.8 fL (81-99); Mean Platelet Vol. 8.2 fl (6.2-12.0); Monocyte# 0.61 X10^3/uL; Monocyte% 6.8 % (0-10); NRBC Flagged by Analyzer 0 % (0-5); Neutrophil # 4.11 X10^3/uL (2.7-7.7); Neutrophil % 45.9 % (47-70); Platelet Count 421 K/mm3 (150-450); RBC Distribution Width CV 13.6 % (11.6-14.6); RBC Distribution Width SD 44.5 fl (35.1-43.9); Red Blood Count 4.62 M/mm3 (4.2-5.4)
[2020-06-08 17:31] LABS: D-Dimer Quantitative (DVT/PE) 0.32 FEU/ug/m (0.27-0.49)
[2020-06-08 17:36] LABS: Anion Gap 6 (5-15); BUN 15 mg/dL (7-18); BUN/Creat Ratio 17.3 RATIO (10-20); Calcium,Total 8.7 mg/dL (8.5-10.1); Chloride 105 mmol/L (98-107); Creatinine, Serum 0.87 mg/dL (0.55-1.02); EST Glomerular Filtration Rate 71 mL/min (>60); Est Glom Filt Rate - Afr Amer 85 mL/min (>60); Estimated Creatinine Clearance 71.86 ml/min; Glucose 108 mg/dL (74-106); Potassium 3.4 mmol/L (3.5-5.1); Sodium Level 138 mmol/L (136-145)
[2020-06-08 18:04] LABS: Partial Thromboplast Time 27.4 Seconds (24.1-36.2)
[2020-06-08 18:19] VITALS: BP 157/76; PULSE 70
[2020-06-08] MEDS: Nitroglycerin Oint 1 INCH PACKET TD (18:19)
[2020-06-08 18:22] VITALS: BP 157/76; PULSE 74; PULSE 77; RESP 16; TEMP 36.7; O2SAT 96; O2SAT 98
--- NOTE | 2020-06-08 18:25 | ED.RN ---
heparin held by dr glover per verbal order
[2020-06-08 18:38] VITALS: BMI 31.7; BMI 31.8
[2020-06-08 18:39] VITALS: BP 164/84; PULSE 77; RESP 18; TEMP 36.3; O2SAT 99
--- NOTE | 2020-06-08 18:51 | PCM.HP.STD ---
History of Present Illness Date of Admission: 06/08/20 Chief Complaint: Chest pressure The patient is a 59 year old F with a PMH as below who presents to the hospital with chest pressure has been going on for the last several days. She says it is constant in nature though waxes and wanes in intensity. She has not noticed anything that makes it better or worse. She denies any radiation of her pain to either her jaw or her arm. She says that she is a lot of anxiety and stress at work and her doctor did prescribe her with Klonopin which caused her to fall asleep and the chest pain to resolve. She presents today because of the chronicity of the chest pain and she is worried since she had a stent in 2017. She had a normal stress test in 2018. The case was discussed with cardiology who is coming to evaluate her. In the ER she had a nonischemic EKG with a normal troponin and vital signs are unremarkable. Of note she is allergic to Crestor and metoprolol secondary to myalgias and dizziness. Past Medical History Past Medical History (Chronic Problems): Chronic Problems (Last Reviewed 02/25/20 @ 10:47 by Katelynn Morrissey) Pure hypercholesterolemia (Chronic) Presence of stent in coronary artery (Chronic ~07/19/16) PTCA/CASIE of the mid LAD 07/19/16 Anxiety (Chronic) Atherosclerotic heart disease of [place] coronary artery without angina pectoris (Chronic) FFR mid LAD and successful angioplasty prox D@ 07/18/16;PTCA/CASIE of the mid LAD 07/19/16 Medical History: Medical History (Last Reviewed 02/25/20 @ 10:47 by Katelynn Morrissey) Pure hypercholesterolemia (Chronic) E78.00 Old myocardial infarction (Acute) I25.2 Presence of stent in coronary artery (Chronic) Onset Date: ~07/19/16 Z95.5 PTCA/CASIE of the mid LAD 07/19/16 Atherosclerotic heart disease of [place] coronary artery without angina pectoris (Chronic) I25.10 FFR mid LAD and successful angioplasty prox D@ 07/18/16;PTCA/CASIE of the mid LAD 07/19/16 Palpitations (Acute) R00.2 Fatigue (Acute) R53.83 Chronic back pain M54.9, G89.29 NSTEMI (non-ST elevated myocardial infarction) Onset Date: ~07/2016 I21.4 Tobacco abuse Z72.0 Chronic back pain (Inactive) M54.9, G89.29 Overweight (BMI 25.0-29.9) (Inactive) E66.3 Tobacco use (Inactive) Z72.0 Allergies acetaminophen [From Percocet] Allergy (Verified 06/08/20 17:03) Unknown hydrocodone bitartrate [From Vicodin] Allergy (Verified 06/08/20 17:03) Nausea oxycodone [From Percocet] Allergy (Verified 06/08/20 17:03) Unknown ezetimibe [From Zetia] Adverse Reaction (Intermediate, Verified 06/08/20 17:03) anxiety, fatigue, upset stomach metoprolol Adverse Reaction (Intermediate, Verified 06/08/20 17:03) Very dizzy, lightheaded even on smallest dose rosuvastatin [From Crestor] Adverse Reaction (Verified 06/08/20 17:03) myalgia ANTIBIOTIC Allergy (Uncoded 06/08/20 17:03) Upset Stomach DOESNT KNOW THE NAME Home Medications: Ambulatory Orders Medication Instructions Recorded NK 06/08/20 Surgical History: Surgical History (Last Reviewed 02/25/20 @ 10:47 by Katelynn Morrissey) Presence of coronary angioplasty implant and graft Onset Date: ~07/19/16 Z95.5 PTCA/CASIE of the mid LAD 07/19/16 History of total hysterectomy Z98.890, Z90.710 Surgical History: hysterectomy, - - Drug-eluting stent 2016 Psychiatric History: Anxiety [employer]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 Paternal Family History: Family History (Last Reviewed 02/25/20 @ 10:47 by Katelynn Morrissey) Mother CAD (coronary artery disease) Hypertension Diabetes Father Myocardial infarction History Items: Heart Disease - Father fatal [place] 49 y/o. Review of Systems Constitutional: Denies: Chills, Fever, Weight Change HEENT: Denies: Head Aches, Sinus Congestion, Sinus Drainage Cardiovascular: Reports: Chest Pressure. Denies: Chest Pain, Palpitations Respiratory: Denies: Cough, Shortness of Breath, Shortness of breath at rest, Sputum production Gastrointestinal: Denies: Abdominal Pain, Nausea, Vomiting Genitourinary: Denies: Dysuria Musculoskeletal: Denies: Joint Pain, Joint Tenderness Skin: Denies: Rash, Wounds Neurological: Denies: Numbness, Tingling, Focal weakness Psychiatric: Denies: Anxiety, Depression Hematologic/ Lymphatic: Denies: Easy Bruising, Easy Bleeding VTE Information - Inpt Only VTE Present on Admission: No - Physical Exam Vitals/I&O's: Vital Signs Temp Pulse Resp BP Pulse Ox 97.4 F L 77 18 164/84 H 99 06/08/20 18:39 06/08/20 18:39 06/08/20 18:39 06/08/20 18:39 06/08/20 18:39 Oxygen Delivery Method Room Air Weight: 215 lb 1.6 oz Body Mass Index (BMI) 31.7 Finger Stick Blood Glucose 104 General: Alert, Oriented x3, Cooperative, No apparent distress HEENT: Atraumatic, PERRLA, EOMI, Normocephalic Oral: Moist Mucosa Neck: Supple, No JVD Lungs: Clear to auscultation, Normal air movement, No rhonchi, No wheeze, No rales Cardiovascular: Regular rate, Regular Rhythm, Normal S1, Normal S2, No murmurs Abdomen: Soft, Non Tender, Non-Distended, No Hepato-splenomegaly Extremities: No edema, Capillary Refill Less than 3 Seconds Skin: No rashes, No breakdown Neurological: Neuro grossly intact, Sensory exam intact to light touch and pain Psych/Mental Status: Anxious Laboratory Results 06/08/20 17:05: WBC 9.0, RBC 4.62, Hgb 13.3, Hct 41.5, MCV 89.8, MCH 28.8, MCHC 32.0, RDW Std Deviation 44.5 H, RDW Coeff of Candy 13.6, Plt Count 421, MPV 8.2, Immature Gran % (Auto) 0.200, Neut % (Auto) 45.9 L, Lymph % (Auto) 39.9, [place] % (Auto) 6.8, Eos % (Auto) 6.6 H, Baso % (Auto) 0.6, Absolute Neuts (auto) 4.1, Absolute Lymphs (auto) 3.57, Nucleated RBC % 0 06/08/20 17:05: Sodium 138, Potassium 3.4 L, Chloride 105, Carbon Dioxide 27.0, Anion Gap 6, BUN 15, Creatinine 0.87, Estim Creat Clear Calc 71.86, Est GFR (MDRD) Af Amer 85, Est GFR (MDRD) Non-Af 71, BUN/Creatinine Ratio 17.3, Glucose 108 H, Calcium 8.7, Troponin I < 0.015 06/08/20 17:05: D-Dimer Quant (PE/DVT) 0.32 06/08/20 17:05: APTT 27.4 Current Medications Heparin Sodium (Porcine) (Heparin Injection (Vial) 5,000 Unit/Ml Vial) 0 unit IV UD PRN; Protocol PRN Reason: dose adjustment Heparin Sodium/Dextrose () 25,000 units in 250 mls @ 14 mls/hr IV .[id number] [facility]; Protocol Assessment/Plan All Active Problems (Last Reviewed 02/25/20 @ 10:47 by Katelynn Morrissey) Old myocardial infarction (Acute) Chest pain (Acute) Palpitations (Acute) Fatigue (Acute) 1. Chest pain/CAD status post stent -Initial EKG is unremarkable, initial troponin is normal, will obtain serial troponins -Consult cardiology for possibility of cath versus stress test given her previous stent -She is not on any medications at home because she seems very sensitive to these, will likely start her on a daily aspirin -On her last cardiology visit her blood pressure systolic was 122 therefore her elevated blood pressure here currently in the ER is likely secondary to anxiety -Unable to tolerate Crestor secondary to myalgias DVT: Ambulation OBSV E&M: [id number] Initial observation care L2
[2020-06-08 19:00] VITALS: PULSE 82
--- NOTE | 2020-06-08 19:28 | CON.PCM_ITS ---
Problem List (1) Chest pain Status: Acute Qualifiers: Chest pain type: unspecified Qualified Code(s): R07.9 - Chest pain, unspecified Reason for Consult Date of Consultation: 06/08/20 Reason for Consultation: Chest pain History of Present Illness: The patient is a 59 year old F developed substernal upper chest pain since yesterday. This was not associated with shortness of breath or diaphoresis. She was able to go to bed with no difficulty. This morning she woke up with similar discomfort again. She decided to come to the emergency room for evaluation. Activity has not make any difference of the pain. There was no radiation. 2017 patient had non-STEMI treated with stenting of the mid left anterior descending. 2018 patient had normal nuclear stress test. Since then patient has been doing reasonably well. She could not tolerate any medication. She is not taking any antiplatelet medication for a while. She denies any history of hypertension, diabetes or hyperlipidemia. She was a heavy smoker and quit drinking 2017.. After admission patient had normal EKGs and first set of enzymes was normal. Past Medical History Allergies/Adverse Reactions: Allergies acetaminophen [From Percocet] Allergy (Verified 06/08/20 17:03) Unknown hydrocodone bitartrate [From Vicodin] Allergy (Verified 06/08/20 17:03) Nausea oxycodone [From Percocet] Allergy (Verified 06/08/20 17:03) Unknown ezetimibe [From Zetia] Adverse Reaction (Intermediate, Verified 06/08/20 17:03) anxiety, fatigue, upset stomach metoprolol Adverse Reaction (Intermediate, Verified 06/08/20 17:03) Very dizzy, lightheaded even on smallest dose rosuvastatin [From Crestor] Adverse Reaction (Verified 06/08/20 17:03) myalgia ANTIBIOTIC Allergy (Uncoded 06/08/20 17:03) Upset Stomach DOESNT KNOW THE NAME Home Medications: Ambulatory Orders Medication Instructions Recorded NK 06/08/20 Past Medical History (Chronic Problems): Chronic Problems (Last Reviewed 02/25/20 @ 10:47 by Katelynn Morrissey) Pure hypercholesterolemia (Chronic) Presence of stent in coronary artery (Chronic ~07/19/16) PTCA/CASIE of the mid LAD 07/19/16 Anxiety (Chronic) Atherosclerotic heart disease of [place] coronary artery without angina pectoris (Chronic) FFR mid LAD and successful angioplasty prox D@ 07/18/16;PTCA/CASIE of the mid LAD 07/19/16 Surgical History: hysterectomy, - - Drug-eluting stent LAD 2016 Psychiatric History: Anxiety 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 Paternal Family History: Family History (Last Reviewed 02/25/20 @ 10:47 by Katelynn Morrissey) Mother CAD (coronary artery disease) Hypertension Diabetes Father Myocardial infarction History Items: Heart Disease - Father fatal [place] 49 y/o. Lives: Spouse/ Significant Other Smoking Status: Former smoker Tobacco Use: Cigarettes Alcohol: None Drugs: None Review of Systems - Review of Systems General: Denies: Fever, Night Sweats, Fatigue Cardiovascular: Reports: Chest Discomfort, Chest Discomfort at Rest. Denies: Chest Discomfort with Exertion, Shortness of Breath at Rest, Shortness of Breath with Exertion, Orthopnea Respiratory: Denies: Cough, Sputum Production, Hemoptysis Gastrointestinal: Denies: Hematemesis, Hematochezia, Melena Genitourinary: Reports: - - Hysterectomy Neurological: Denies: Dizziness Psychiatric: Reports: Anxiety Objective: Vital Signs Temp Pulse Resp BP Pulse Ox 97.4 F L 82 18 164/84 H 99 06/08/20 18:39 06/08/20 19:00 06/08/20 18:39 06/08/20 18:39 06/08/20 18:39 Oxygen Delivery Method Room Air Weight: 215 lb 1.6 oz Body Mass Index (BMI) 31.7 Finger Stick Blood Glucose 104 General: Awake, Alert, Oriented x 3 HEENT: Atraumatic Neck: Supple Chest Wall: - - Tenderness on palpation of the upper sternum similar to the pain that she has been having for the last 24 hours Lungs: Clear to auscultation Cardiovascular: Regular Rhythm, Normal S1, Normal S2, No Murmurs, No Rubs, No Gallops Vascular: No Carotid Bruits, Normal Femoral Pulses, Normal Radial Pulses Abdomen: Bowel Sounds Present, Soft, Non Tender, No HSM, No Organomegaly Extremities: No edema Neurological: No Focal Motor or Sensory Deficit Psych/Mental Status: Appropriate, Normal Affect 06/08/20 17:05: WBC 9.0, RBC 4.62, Hgb 13.3, Hct 41.5, MCV 89.8, MCH 28.8, MCHC 32.0, Plt Count 421, MPV 8.2, Immature Gran % (Auto) 0.200, Neut % (Auto) 45.9 L , Lymph % (Auto) 39.9, [place] % (Auto) 6.8, Eos % (Auto) 6.6 H, Baso % (Auto) 0.6, Absolute Neuts (auto) 4.1, Nucleated RBC % 0 06/08/20 17:05: Sodium 138, Potassium 3.4 L, Chloride 105, Carbon Dioxide 27.0, Anion Gap 6, BUN 15, Creatinine 0.87, Est GFR (MDRD) Af Amer 85, Est GFR (MDRD) Non-Af 71, BUN/Creatinine Ratio 17.3, Glucose 108 H, Calcium 8.7, Troponin I < 0.015 06/08/20 17:05: D-Dimer Quant (PE/DVT) 0.32 06/08/20 17:05: APTT 27.4 Rhythm: EKG: ECHO: Stress Test: Cardiac Cath: PCI: CT Surgery: Holter monitor: EPS: PPM: CXR: Chest CT Scan: Assessment/Plan 1. Atypical chest pain over 24 hours, pain can be reproduced by pressing on the upper sternum. This is most likely due to musculoskeletal in etiology. 2. History of stenting of the mid left anterior descending 2016. Because of the risk factors of COPD and hypertension, nuclear stress test will be performed tomorrow morning 3. Hypertension 4. History of cigarette abuse and quit in 2017
[2020-06-08] MEDS: Acetaminophen 325 MG Tablet 650 MG PO (20:46)
[2020-06-09 01:15] VITALS: BP 119/67; PULSE 72; RESP 16; TEMP 36.3; O2SAT 98
[2020-06-09 03:00] VITALS: PULSE 61
[2020-06-09 05:42] VITALS: BP 124/47; PULSE 60; RESP 18; TEMP 36.1; O2SAT 98
[2020-06-09] MEDS: Aspirin 81 MG TAB.CHEW PO (05:43)
[2020-06-09] MEDS: Lisinopril 10 MG Tablet PO (05:43)
[2020-06-09 05:52] LABS: Absolute Lymphocyte Count 2.34 X10^3/uL (0.83-4.51); Basophil# 0.05 X10^3/uL; Basophil% 0.8 % (0-1); Eosinophil# 0.42 X10^3/uL; Eosinophils% 6.7 % (0-5); Hematocrit 37.5 % (37-47); Hemoglobin 12.2 g/dL (12.0-15.0); Lymphocyte # 2.34 X10^3/ul (4.0); Lymphocyte % 37.5 % (19-41); Mean Corp Hgb Conc 32.5 g/dL (32-36); Mean Corpuscular Hgb 29.5 pg (27.0-32.0); Mean Corpuscular Volume 90.6 fL (81-99); Mean Platelet Vol. 8.2 fl (6.2-12.0); Monocyte# 0.43 X10^3/uL; Monocyte% 6.9 % (0-10); NRBC Flagged by Analyzer 0 % (0-5); Neutrophil # 2.99 X10^3/uL (2.7-7.7); Neutrophil % 47.9 % (47-70); Platelet Count 336 K/mm3 (150-450); RBC Distribution Width CV 13.6 % (11.6-14.6); RBC Distribution Width SD 44.8 fl (35.1-43.9); Red Blood Count 4.14 M/mm3 (4.2-5.4); White Blood Count 6.2 K/mm3 (4.4-11.0)
--- NOTE | 2020-06-09 05:55 | EKG12_ITS ---
Test Reason : AM EKG Blood Pressure : / mmHG Vent. Rate : 065 BPM Atrial Rate : 065 BPM P-R Int : 170 ms QRS Dur : 082 ms QT Int : 484 ms P-R-T Axes : 016 065 046 degrees QTc Int : 503 ms Normal sinus rhythm Prolonged QT Abnormal ECG When compared with ECG of 08-JUN-2020 17:03, MANUAL COMPARISON REQUIRED, DATA IS UNCONFIRMED Confirmed by KARIE PARTIDA, ELENA ([id number]), tape editor ESTELITA FLANNERY ([id number]) on 06/13/2020 3:07:17 PM Referred By: DR VASUQES Confirmed By:ELENA TIWARI MD
[2020-06-09 06:20] LABS: Anion Gap 5 (5-15); BUN 16 mg/dL (7-18); BUN/Creat Ratio 20.9 RATIO (10-20); Calcium,Total 8.4 mg/dL (8.5-10.1); Chloride 106 mmol/L (98-107); Creatinine, Serum 0.76 mg/dL (0.55-1.02); EST Glomerular Filtration Rate 82 mL/min (>60); Est Glom Filt Rate - Afr Amer 99 mL/min (>60); Estimated Creatinine Clearance 82.27 ml/min; Glucose 105 mg/dL (74-106); Potassium 3.9 mmol/L (3.5-5.1); Sodium Level 138 mmol/L (136-145)
[2020-06-09 06:45] VITALS: PULSE 58
--- NOTE | 2020-06-09 07:55 | PCM.PN.CARD ---
Subjectve: The patient is awake and alert. She denies any ongoing chest discomfort at this time. She does state that her chest discomfort is reproducible with palpation over her upper sternum. Objective: Vital Signs Temp Pulse Resp BP Pulse Ox 97.0 F L 58 L 18 124/47 H 98 06/09/20 05:42 06/09/20 06:45 06/09/20 05:42 06/09/20 05:42 06/09/20 05:42 Oxygen Delivery Method Room Air Weight: 215 lb 1.6 oz Body Mass Index (BMI) 31.7 Finger Stick Blood Glucose 104 Intake and Output for Last 24 Hours 06/07/20 06/08/20 06/09/20 23:59 23:59 23:59 Intake Total 260 / 260 Balance 260 / 260 General: Awake, Alert, Oriented x 3, Cooperative, No Acute Distress HEENT: Atraumatic, Normocephalic, PERRL, EOMI, Sclera Non Icteric Neck: Supple, Good ROM, No JVD Lungs: Clear to auscultation Cardiovascular: Regular Rhythm, Normal S1, Normal S2 Vascular: No Carotid Bruits Abdomen: Bowel Sounds Present, Soft, Non Tender Extremities: No edema Neurological: No Focal Motor or Sensory Deficit Psych/Mental Status: Appropriate 06/08/20 17:05: WBC 9.0, RBC 4.62, Hgb 13.3, Hct 41.5, MCV 89.8, MCH 28.8, MCHC 32.0, Plt Count 421, MPV 8.2, Immature Gran % (Auto) 0.200, Neut % (Auto) 45.9 L, Lymph % (Auto) 39.9, [place] % (Auto) 6.8, Eos % (Auto) 6.6 H, Baso % (Auto) 0.6, Absolute Neuts (auto) 4.1, Nucleated RBC % 0 06/08/20 17:05: Sodium 138, Potassium 3.4 L, Chloride 105, Carbon Dioxide 27.0, Anion Gap 6, BUN 15, Creatinine 0.87, Est GFR (MDRD) Af Amer 85, Est GFR (MDRD) Non-Af 71, BUN/Creatinine Ratio 17.3, Glucose 108 H, Calcium 8.7, Troponin I < 0.015 06/08/20 17:05: D-Dimer Quant (PE/DVT) 0.32 06/08/20 17:05: APTT 27.4 06/08/20 19:50: Troponin I < 0.015 06/08/20 22:45: Troponin I < 0.015 06/09/20 05:40: WBC 6.2, RBC 4.14 L, Hgb 12.2, Hct 37.5, MCV 90.6, MCH 29.5, MCHC 32.5, Plt Count 336, MPV 8.2, Immature Gran % (Auto) 0.200, Neut % (Auto) 47.9, Lymph % (Auto) 37.5, [place] % (Auto) 6.9, Eos % (Auto) 6.7 H, Baso % (Auto) 0.8, Absolute Neuts (auto) 3.0, Nucleated RBC % 0 06/09/20 05:40: Sodium 138, Potassium 3.9, Chloride 106, Carbon Dioxide 27.0, Anion Gap 5, BUN 16, Creatinine 0.76, Est GFR (MDRD) Af Amer 99, Est GFR (MDRD) Non-Af 82, BUN/Creatinine Ratio 20.9 H, Glucose 105, Calcium 8.4 L Rhythm: Sinus rhythm EKG: Sinus rhythm Stress Test: 12/01/2017 Reason For Study: CHEST PAIN Stress Results Protocol: Shen Protocol Maximum Predicted HR: 162 bpm Target HR: 138 bpm% Max imum Predicted HR: 99 % DurationHeart Rate Stage (mm:ss) (bpm) BP BASELINE 77 134/82 STAGE 1 3:00 13 7 170/82 STAGE 2 3:00 16 0 160/70 RECOVERY 89 128/80 Stress Duration: 6:00 mm:ss Maximum Stress HR: 160 bpm Baseline Echocardiogram Findings The estimated ejection fraction is 55 %. Stress Echo Wall motion Data Resting WMIntermediate WMStress WM Resting Wall Motion Wall Motion Stress No regional wall motion No regional wall motion abnormalities noted. abnormalities noted. EKG Data The baseline ECG displays normal sinus rhythm. The patient exercised according to the regular Shen protocol for a total duration of 6:01. The maximum heart rate attained was 162 beats per minute. This was 100% of maximum predicted heart rate. The patient exercised into stage 3 of the Shen protocol. At peak exercise, upsloping ST changes only were noted, which did not meet the criteria for ischemia. No clinical angina was noted. Interpretation Summary The estimated ejection fraction is 55 %. Normal, adequate, treadmill echocardiogram. Negative for ischemia by EKG and echocardiographic criteria. No anginal symptoms noted. Rare PVCs noted. Average exercise capacity for age. Test terminated due to the attainment of target heart rate. Final LVEF of 65%. No complications. Ordering Physician: Tia Mendez Performed By: Claudine Ernandez RDCS OF SERVICE: 08/27/2016 EXERCISE TOLERANCE TEST: The patient exercised on a Shen protocol for 3 minutes and 30 seconds completing stage 1 and 30 seconds of stage 3, achieving a peak heart rate of 142 beats per minute (86% predicted maximum heart rate) and a peak blood pressure of 154/76 mmHg and a peak MET capacity of approximately 5 METs. The baseline ECG demonstrated normal sinus rhythm with nonspecific T-wave change. The peak exercise ECG demonstrated no obvious ECG changes. There was occasional PVC pretest, during exercise, and recovery. The functional capacity was considered decreased. There was no complaint of chest discomfort during exercise or recovery. The examination was discontinued secondary to dyspnea. IMPRESSION: 1. Technically adequate (percent predicted maximum heart rate greater than 85%), exercise tolerance test. 2. Peak exercise ECG with continued nonspecific T-wave abnormality. 3. Occasional PVC pretest, during exercise, or recovery. 4. Decreased functional capacity. Cardiac Cath: 07/18/2016 Summary: Left ventricle: Apical hypokinesis: Overall preserved LV systolic function with an LVEF 55% Left main: 25% stenosis LAD: 50 to 75% stenosis Diagonal branch #2: Proximal 99% stenosis LCx: Mild luminal irregularities RCA: 25% stenosis PCI: 07/19/2016 LAD: PTCA/CASIE: 2.5 x 20 mm Promus Synergy stent CXR: IMPRESSION: No acute radiographic abnormalities. Electronically Signed: Thiago Nava MD at 17:36 EDT Medical Necessity - Tobacco Use Smoking Status: Former smoker Tobacco Use: Cigarettes Assessment/Plan 1. Chest pain The patient presents with chest pain. Her symptoms appear to be somewhat atypical for classic underlying CAD/myocardial ischemia as they have been relatively constant, although they do wax and wane somewhat, but appeared to be worsened with palpation over the upper sternum, and appeared less so absent when she was outside walking her dog. At the present time her cardiac enzymes remain negative. Her ECG demonstrated no acute changes. Her cardiac rhythm has been sinus rhythm. She is proceeding with noninvasive evaluation of her cardiovascular status based upon her history of LAD PCI with an exercise tolerance test/imaging study. Depending upon her findings she may or may not need further cardiovascular evaluation. 2. CAD status post LAD PCI The patient's cardiovascular history was reviewed. Her previous noninvasive and invasive studies were reviewed. Her current noninvasive valuation is remained negative thus far for any acute coronary syndrome. She will continue her evaluation as described above. 3. Hyperlipidemia She has been intolerant to statin therapy in the past. She has been attempting to control her lipids by her diet and her activity. This note was generated using a voice recognition system and there may be incorrect words, spelling or punctuation that were not noted when reviewing the office note prior to saving.
--- NOTE | 2020-06-09 10:15 | STRESSREP_ITS ---
Stress Test Report Date: 06-09-2020 Procedure: Exercise tolerance test/imaging study Indications: Chest pain; CAD; status post PCI Consent: Per the patient Procedure: The patient exercised on a Shen protocol for 5 minutes completing Stage I and 2 minutes of Stage II achieving a peak heart rate of 160 bpm (100% predicted maximal heart rate) with a peak blood pressure 168/70 mmHg and a peak MET capacity of 6 METs. The baseline ECG demonstrated sinus rhythm. The peak exercise ECG demonstrated beat to beat nonspecific ST segment variability with approximately 0.5 mm of downsloping/horizontal/upsloping ST segment depression in leads II, III, aVF, and V4 through V6 with resolution towards baseline beginning less than 1 minute in recovery. There were no cardiac dysrhythmias pretest, during exercise, or recovery. The functional capacity was considered average. There was no complaint of chest discomfort during exercise or recovery. The examination was discontinued secondary to dyspnea. Impression: 1. Technically adequate (percent predicted maximal heart rate greater than 85%) exercise tolerance test 2. Peak exercise ECG with beat to beat nonspecific ST segment variability with approximately 0.5 mm of downsloping/horizontal/upsloping ST segment depression in leads II, III, aVF, and V4 through V6 with resolution towards baseline begi nning less than 1 minute in recovery 3. There were no cardiac dysrhythmias pretest, during exercise, or recovery 4. Nuclear images pending Myocardial perfusion imaging study: Technique: The patient was injected with mCi of technetium 99m Cardiolite and subsequently rest SPECT Cardiolite nuclear imaging was obtained in the horizontal long, vertical long, and short axis views. The patient exercised on a Shen protocol for 5 minutes completing Stage I and 2 minutes of Stage II achieving a peak heart rate of 160 bpm (100% predicted maximal heart rate) with a peak blood pressure 168/70 mmHg and a peak MET capacity of 6 METs. The patient was injected with mCi of technetium 99m Cardiolite and subsequently stress SPECT Cardiolite nuclear imaging was obtained in the horizontal long, vertical long, and short axis views. A gated Cardiolite study at peak stress was obtained. Interpretation: Rest and stress SPECT Cardiolite nuclear imaging status post realignment, normalization, and attenuation correction, demonstrates relative uniform tracer uptake and myocardial perfusion appearing within normal limits. There is end systolic thickening and brightening. The gated Cardiolite study demonstrates myocardial thickening and inward wall motion. The reported LVEF is 66%. Impression: 1. Rest and stress SPECT Cardiolite nuclear imaging demonstrate relative uniform tracer uptake and myocardial perfusion appearing within normal limits. 2. The gated Cardiolite study reports an LVEF of 66%. This note was generated with [employer] App[employer] software. It may contain incorrect words, spelling, and punctuation that were not noted in checking the note before signing.
[2020-06-09 11:02] VITALS: BP 114/68; PULSE 69; RESP 18; TEMP 37; O2SAT 98
[2020-06-09 15:00] VITALS: PULSE 73
--- NOTE | 2020-06-09 15:41 | PCM.DC ---
- Discharge Diagnoses Current Active Problems: Current Active and Chronic Problems (Last Reviewed 02/25/20 @ 10:47 by Katelynn Morrissey) Chest pain (Acute) You will use the following diet at home:: No restrictions Your food should be the consistency of: Regular Your liquids should be the consistency of: Regular/Thin Discharge Activity: Return to Normal Activity Weight Bearing Status: Full weight bearing Allergies/Adverse Reactions: Allergies hydrocodone bitartrate [From Vicodin] Allergy (Verified 06/08/20 17:03) Nausea oxycodone [From Percocet] Allergy (Verified 06/08/20 17:03) Unknown ezetimibe [From Zetia] Adverse Reaction (Intermediate, Verified 06/08/20 17:03) anxiety, fatigue, upset stomach metoprolol Adverse Reaction (Intermediate, Verified 06/08/20 17:03) Very dizzy, lightheaded even on smallest dose rosuvastatin [From Crestor] Adverse Reaction (Verified 06/08/20 17:03) myalgia ANTIBIOTIC Allergy (Uncoded 06/08/20 17:03) Upset Stomach DOESNT KNOW THE NAME Medications to take at Discharge Aspirin [Aspirin, Baby] 81 mg PO DAILY@0800 tab.chew 06/09/20 Pravastatin Sodium [Pravachol] 20 mg PO UD #15 tablet 06/09/20 The following prescriptions were given: Pravastatin Sodium [Pravachol] 20 mg PO UD #15 tablet Transmission Status: Pending to [facility] Primary Care Physician: Oscar Valencia MD [Primary Care Provider] - Please follow up with your Primary Care Physician in: in 7-10 days Test Results: Test results from this visit will be discussed in further detail at your follow-up appointment, if applicable. Please Follow Up With: Jarrett Malik MD When: in 3 weeks
--- NOTE | 2020-06-09 18:28 | DS.PCM_ITS ---
Discharge Date and Diagnosis - Problem List Patient Problems: Active and Suspected Problems (Last Reviewed 02/25/20 @ 10:47 by Katelynn Morrissey) Chest pain (Acute) Date of Admission: 06/08/20 Date of Discharge: 06/09/20 - Primary Discharge Diagnosis Acute Problems: Active Problems (Last Reviewed 02/25/20 @ 10:47 by Katelynn Morrissey) #1 musculoskeletal chest pain #2 coronary artery disease #3 hypokalemia - Secondary Discharge Diagnosis Chronic Problems: Chronic Problems (Last Reviewed 02/25/20 @ 10:47 by Katelynn Morrissey) Pure hypercholesterolemia (Chronic) Presence of stent in coronary artery (Chronic ~07/19/16) PTCA/CASIE of the mid LAD 07/19/16 Anxiety (Chronic) Atherosclerotic heart disease of [place] coronary artery without angina pectoris (Chronic) FFR mid LAD and successful angioplasty prox D@ 07/18/16;PTCA/CASIE of the mid LAD 07/19/16 Hospital Course and Treatment Operations: None Procedures: Nuclear stress test Summary of Care Provided: The patient is a 59 year old F who was seen in the emergency room at [facility] with chief complaint of chest pain, work-up in the emergency room included an EKG, cardiac enzymes, and a chest x-ray these were all unremarkable. Patient's potassium was slightly low at 3.4. Patient was placed in observation status on PCU, serial cardiac enzymes were obtained and these remain normal. Patient was seen in consultation by cardiology, I nuclear stress test was performed which showed no evidence of reversible ischemia. On examination she appeared in good health and spirits, she does not appear to be in any distress. Vital signs as documented. Skin warm and dry and without overt rashes. Neck without JVD, thyroid appears normal, trachea is midline, neck is supple. Lungs clear, normal air movement was noted. Heart exam notable for regular rhythm, normal sounds and absence of murmurs, rubs or gallops. Abdomen unremarkable and without evidence of organomegaly, masses, or abdominal aortic enlargement, bowel sounds are present in all 4 quadrants, no abdominal tenderness was noted. Extremities nonedematous, no cyanosis was noted, no clubbing was noted. Neuro: Cranial nerves II through XII are grossly intact, no focal motor deficits were noted, sensation to light touch and pinprick is intact, motor exam 5/5 throughout. Psych: Patient is alert and oriented x3, she does not appear anxious or depressed, she does not appear agitated. Patient appeared to be stable for discharge on 06/09/2020, I talked to her briefly about taking a baby aspirin a day which she agreed to and she also agreed to try Pravachol at a low dose to see if she could tolerate this medication, she had been intolerant of multiple lipid medications before. Patient was placed on blood pressure medications shortly after arrival on PCU, patient refused to take lisinopril stating she could not tolerate this medication and at the time of discharge, patient had normal blood pressure. Patient Problems: Active and Suspected Problems (Last Reviewed 02/25/20 @ 10:47 by Katelynn Morrissey) Chest pain (Acute) - Physical Exam Vitals/I&O's: Vital Signs Temp Pulse Resp BP Pulse Ox 98.6 F 73 18 114/68 98 06/09/20 11:02 06/09/20 15:00 06/09/20 11:02 06/09/20 11:02 06/09/20 11:02 Oxygen Delivery Method Room Air Weight: 97.568 kg Body Mass Index (BMI) 31.7 Finger Stick Blood Glucose 104 Intake and Output for Last 24 Hours 06/07/20 06/08/20 06/09/20 23:59 23:59 23:59 Intake Total 660 / 660 Balance 660 / 660 Laboratory Results 06/08/20 19:50: Troponin I < 0.015 06/08/20 22:45: Troponin I < 0.015 06/09/20 05:40: WBC 6.2, RBC 4.14 L, Hgb 12.2, Hct 37.5, MCV 90.6, MCH 29.5, MCHC 32.5, RDW Std Deviation 44.8 H, RDW Coeff of [place] 13.6, Plt Count 336, MPV 8.2, Immature Gran % (Auto) 0.200, Neut % (Auto) 47.9, Lymph % (Auto) 37.5, [place] % (Auto) 6.9, Eos % (Auto) 6.7 H, Baso % (Auto) 0.8, Absolute Neuts (auto) 3.0, Absolute Lymphs (auto) 2.34, Nucleated RBC % 0 06/09/20 05:40: Sodium 138, Potassium 3.9, Chloride 106, Carbon Dioxide 27.0, Anion Gap 5, BUN 16, Creatinine 0.76, Estim Creat Clear Calc 82.27, Est GFR (MDRD) Af Amer 99, Est GFR (MDRD) Non-Af 82, BUN/Creatinine Ratio 20.9 H, Glucose 105, Calcium 8.4 L Discharge Activity: Return to Normal Activity Weight Bearing Status: Full weight bearing Home Medications: Medications to take at Discharge Aspirin [Aspirin, Baby] 81 mg PO DAILY@0800 tab.chew 06/09/20 Pravastatin Sodium [Pravachol] 20 mg PO UD #15 tablet 06/09/20 Following Prescriptions Were Given to Patient: Pravastatin Sodium [Pravachol] 20 mg PO UD #15 tablet Transmission Status: Received by [facility] Primary Care Physician: Oscar Valencia MD [Primary Care Provider] - Please follow up with your Primary Care Physician in: in 7-10 days Please Follow Up With: Jarrett Malik MD When: in 3 weeks Disposition: Home Minutes spent on discharge:: 30 Patient Condition:: Stable Medical Necessity - Tobacco Use Smoking Status: Former smoker Tobacco Use: Cigarettes Meaningful Use Info Meaningful Use Diagnoses (Choose all that apply): None applicable OBSV E&M: 00791 Observation care discharge
== END 2020-06-09 15:41 | disposition home or self-care (01) ==
LOC: ED 17:57 → PCU 19:37
PROVIDERS: Admitting Provider Family Medicine; Emergency Provider Student in an Organized Health Care Education/Training Program; PCP Family Medicine; Visit Provider Internal Medicine
DX: R07.89 Other chest pain (principal); I25.10 Atherosclerotic heart disease of native coronary artery without angina pectoris; E87.6 Hypokalemia; I25.2 Old myocardial infarction; R06.02 Shortness of breath; R94.31 Abnormal electrocardiogram [ECG] [EKG]; I10 Essential (primary) hypertension; E78.5 Hyperlipidemia, unspecified; Z87.891 Personal history of nicotine dependence; Z82.49 Family history of ischemic heart disease and other diseases of the circulatory system; Z95.5 Presence of coronary angioplasty implant and graft
CPT/HCPCS: 36415; 71045; 78452; 80048; 84484; 85025; 85379; 85730; 93005; 93017; 99218; 99285; A9500; A4216; G0378

== ENCOUNTER → 2021-01-21 | Outpatient (CLI) | payer BC, SELFPAY ==
[2016-07-19 14:11] VITALS: BMI 28.2
== END | disposition home or self-care (01) ==
PROVIDERS: PCP Family Medicine; Visit Provider Family Medicine
DX: N39.0 Urinary tract infection, site not specified (principal)
CPT/HCPCS: 87086; 87088; 87186

== ENCOUNTER 2021-06-20 07:04 | Outpatient (CLI) | payer BC, SELFPAY ==
[2016-07-19 14:11] VITALS: BMI 28.2
[2021-06-20 07:59] LABS: AST(SGOT) 24 U/L (15-37); Alanine Aminotransfer ALT/SGPT 33 U/L (13-56); Albumin, Serum 3.6 g/dL (3.2-5.0); Alkaline Phosphatase 108 U/L (45-117); Bilirubin, Direct 0.12 mg/dL (0.00-0.30); Cholesterol 256 mg/dL (200); Globulin 4.4 g/dL (2.2-4.2); High Density Lipoprotein 40 mg/dL; Triglycerides 153 mg/dL; Very Low Density Lipoprotein 31 mg/dL (5-40)
== END 2021-06-20 23:59 | disposition home or self-care (01) ==
LOC: LAB 07:06
PROVIDERS: PCP Family Medicine; Referring Provider Nurse Practitioner Family; Visit Provider Nurse Practitioner Family
DX: E78.00 Pure hypercholesterolemia, unspecified (principal)
CPT/HCPCS: 36415; 80061; 80076

== ENCOUNTER 2022-01-16 16:03 | Emergency (ER) | payer BC, SELFPAY ==
[2016-07-19 14:11] VITALS: BMI 28.2
[2022-01-16 16:04] VITALS: BP 153/82; PULSE 96; RESP 18; TEMP 36.6; O2SAT 96; BMI 28.0
--- NOTE | 2022-01-16 16:16 | EKG12_ITS ---
Test Reason : CP Blood Pressure : / mmHG Vent. Rate : 089 BPM Atrial Rate : 089 BPM P-R Int : 182 ms QRS Dur : 084 ms QT Int : 396 ms P-R-T Axes : 059 057 033 degrees QTc Int : 481 ms Normal sinus rhythm Normal ECG Confirmed by KARIE PARTIDA, ELENA ([id number]), news videotape editor GILBERTO JURADO ([id number]) on 01/19/2022 11:04:51 AM Referred By: PL Confirmed By:ELENA TIWARI MD
--- NOTE | 2022-01-16 16:18 | ED.VIS.CHEST ---
HPI History of Present Illness Chief Complaint: Chest Pain Informant: patient Onset/Context/Timing Onset: Weeks (1) Activity at onset: gradual Timing: Waxes and wanes Quality: Positive for Pressure Location: Substernal Worsened By: Nothing Relieved By: Nothing Associated Symptoms: Negative for Nausea, Vomiting, Diaphoresis, Dyspnea, Cough, Fever, Lightheadedness, Acid Reflux or Palpitations Narrative Narrative: Patient presents with chest pain that has been waxing and waning over the last week. Patient states it is over the substernal area. Patient describes it as a pressure. Patient denies any radiation of the pain. Patient states nothing makes it worse and nothing makes it better. Patient denies any nausea or vomiting. Patient denies any cough or fevers. Patient denies any lightheadedness or dizziness. Patient denies any heartburn or reflux. CVD Risk Factors: Positive for Family History 1' </=55 and Smoking; Negative for Hypertension, Diabetes or Hypercholesterolemia PE Risk Factors: Negative for Recent Travel/Surgery, Recent Immobilization, Prior DVT or PE, Cancer or OCP + Smoking + >/=35 PFSH PFSH Medical History Atherosclerotic heart disease of [place] coronary artery without angina pectoris Chronic back pain Chronic back pain Fatigue NSTEMI (non-ST elevated myocardial infarction) (~07/2016) Old myocardial infarction Overweight (BMI 25.0-29.9) Palpitations Presence of stent in coronary artery (~07/19/16) Pure hypercholesterolemia Tobacco abuse Tobacco use Home Medications aspirin 81 mg chewable tablet 81 mg PO DAILY@0800 06/09/20 [Rx Last Taken Unknown] Allergy/AdvReac Type Severity Reaction Status Date / Time hydrocodone bitartrate Allergy Nausea Verified 01/16/22 16:03 [From Vicodin] oxycodone [From Percocet] Allergy Unknown Verified 01/16/22 16:03 ezetimibe [From Zetia] AdvReac Intermediate anxiety, Verified 01/16/22 16:03 fatigue, upset stomach metoprolol AdvReac Intermediate Very Verified 01/16/22 16:03 dizzy, lightheaded even on smallest dose rosuvastatin [From Crestor] AdvReac myalgia Verified 01/16/22 16:03 ANTIBIOTIC Allergy Upset Uncoded 01/16/22 16:03 Stomach Family History Mother CAD (coronary artery disease) Hypertension Diabetes Father , Age 49 [place] Myocardial infarction Surgical History History of total hysterectomy Presence of coronary angioplasty implant and graft (~07/19/16) Social History Smoking Status: Current every day smoker tobacco type: cigarettes alcohol intake: former substance use type: does not use caffeine: No what type of physical activity do you participate in: none seatbelt use: always do you feel safe at home: Yes additional social history: Jeffery- Patient works at [employer] ED Constitutional Constitutional ED: Denies chills or fever(s) Eyes Eyes: Denies blurry vision or change in vision ENT ENT ED: Denies rhinorrhea or sore throat Cardiovascular Cardiovascular: Reports chest pain; Denies palpitations Respiratory/Chest Respiratory/Chest: Denies cough or dyspnea Gastrointestinal Gastrointestinal: Denies abdominal pain, nausea or vomiting Genitourinary Genitourinary ED: Denies dysuria or hematuria Musculoskeletal Musculoskeletal: Denies back pain or neck pain Integumentary Denies abscess or rash Neurologic Neurologic: Denies headache(s) or weakness Allergic/Immunologic Allergic/Immunologic ED: Denies mouth swelling or urticaria EXAM Physical Exam Const Vital Signs: 01/16/22 16:04 01/16/22 16:16 Temperature 97.8 F Temperature Source Temporal Pulse Rate 96 Respiratory Rate 18 Blood Pressure 153/82 H Blood Pressure Mean 105 Pulse Ox 96 Oxygen Delivery Method Room Air Room Air Positive well nourished, well developed and obese General Appearance ED: well developed Nutritional Appearance: obese HEENT normocephalic and atraumatic Eyes PERRL and EOMs intact bilaterally Neck supple and no JVD Chest Wall palpation of chest normal Resp normal respiratory effort and clear to auscultation bilaterally Effort and Inspection: Negative for respiratory distress Cardio regular rate, regular rhythm and no murmurs GI normal to inspection, nondistended, normoactive bowel sounds, soft to palpation, non-tender and non-distended Extremity normal to inspection General Extremety ED: Negative for edema or tenderness General Extremity: Negative for edema Neuro oriented x3, CN's II-XII intact bilaterally and no sensory deficits noted Sensorium / Orientation: awake and alert Motor Exam: strength 5/5 throughout Psych mental status grossly normal Heart Score History: Slightly/Non-Suspicious ECG: Normal Age: >45 - <65 years Risk Factors: >/= 3 Risk Factors or History of CAD Troponin: </= Normal Limit Score: 3 MDM MDM MDM Narrative Medical decision making narrative: EKG was obtained. On my interpretation, it showed a normal sinus rhythm with a rate of 89. [place] interval, QRS interval, and QTc intervals were all normal. [place] was normal. There are no acute ST or T wave changes. Portable 1 view chest x-ray was obtained. On my interpretation, lung ulloa are clear. There is normal cardiac silhouette. Bony thorax is normal. There is no acute process noted. Radiologist also interpreted the x-ray and agrees. CBC was within normal limits. Basic metabolic profile was within normal limits. High-sensitivity troponin was normal. Patient was advised of her findings. Patient has a HEART score of 3. Patient was advised that this is low risk for acute cardiac event. Patient was instructed to follow-up with her primary care physician in 5 to 7 days. Patient was instructed return if worse in any way. Patient understood and was agreeable with the plan. All questions were answered. Lab Data Attestation: I reviewed the patient's lab results. Labs: Laboratory Results - last 24 hr 01/16/22 01/16/22 16:19 16:19 WBC 8.7 RBC 4.27 Hgb 13.2 Hct 39.5 MCV 92.5 MCH 30.9 MCHC 33.4 RDW Std Deviation 45.9 H RDW Coeff of Candy 13.6 Plt Count 375 MPV 8.4 Immature Gran % (Auto) 0.300 Neut % (Auto) 50.8 Lymph % (Auto) 37.1 [place] % (Auto) 7.4 Eos % (Auto) 3.8 Baso % (Auto) 0.6 Absolute Neuts (auto) 4.4 Absolute Lymphs (auto) 3.24 Nucleated RBC % 0 Sodium 140 Potassium 3.6 Chloride 107 Carbon Dioxide 27.0 Anion Gap 6 BUN 14 Creatinine 0.76 Estim Creat Clear Calc 80.21 Est GFR (MDRD) Af Amer 100 Est GFR (MDRD) Non-Af 83 BUN/Creatinine Ratio 18.5 Glucose 100 Calcium 9.1 Troponin I High Sens 9 Radiography Chest X-Ray - ED: 1 View, Read by ED Physician, Read by Radiologist and No Acute Disease Diagnostic Testing: Clinical Impression(s) from Imaging Studies Chest X-Ray 01/16/22 16:21 IMPRESSION: Normal x-ray examination of the chest. Electronically Signed: Meliton Victoria MD at 16:35 EST , EKG Initial EKG: Attestation: I personally reviewed and interpreted this EKG as follows: Interpretation: Sinus Rhythm (89) and No Acute Injury Pattern Prior EKG tracings: available for review Prior: Unchanged (06/09/2020) Discharge Plan Triage Chief Complaint: Chest Pain ED Provider: Alli Jones Dx/Rx/DC Orders Clinical Impression: Chest pain, Elevated blood pressure reading without diagnosis of hypertension Instructions: ED Chest Pain, Uncertain Cause Prescriptions: No Action aspirin 81 MG tablet,chewable 81 mg PO DAILY@0800 0RF Primary Care Provider: Oscar Valencia Referrals: Oscar Valencia MD [Primary Care Provider] - 5-7 Days Disposition Disposition: Home, Self Care
--- NOTE | 2022-01-16 16:21 | RAD_ITS ---
STUDY: X-RAY CHEST REASON FOR EXAM: Female, 61 years old. chest pain TECHNIQUE: Single AP portable view of the chest. COMPARISON: 06/08/2020 FINDINGS: The lungs are clear and expanded. There is no demonstrated pleural abnormality. Normal size heart. Normal mediastinum and gabe. Normal visualized pulmonary arteries. Normal visualized aortic arch and descending thoracic aorta. Normal visualized thoracic spine. Normal visualized ribs, clavicles, and shoulders. There is no demonstrated abnormality of the visualized soft tissue structures of the upper abdomen. RAD/Chest 1 View (Portable) IMPRESSION: Normal x-ray examination of the chest. Electronically Signed: Meliton Victoria MD at 16:35 EST ,
[2022-01-16 16:32] LABS: Absolute Lymphocyte Count 3.24 X10^3/uL (0.83-4.51); Absolute Neutrophil Count 4.4 X10^3/uL (2.0-7.7); Basophil# 0.05 X10^3/uL; Basophil% 0.6 % (0-1); Eosinophil# 0.33 X10^3/uL; Eosinophils% 3.8 % (0-5); Hematocrit 39.5 % (37-47); Hemoglobin 13.2 g/dL (12.0-15.0); Lymphocyte # 3.24 X10^3/ul (0.83-4.51); Lymphocyte % 37.1 % (19-41); Mean Corp Hgb Conc 33.4 g/dL (32-36); Mean Corpuscular Hgb 30.9 pg (27.0-32.0); Mean Corpuscular Volume 92.5 fL (81-99); Mean Platelet Vol. 8.4 fl (6.2-12.0); Monocyte# 0.65 X10^3/uL; Monocyte% 7.4 % (0-10); NRBC Flagged by Analyzer 0 % (0-5); Neutrophil # 4.44 X10^3/uL (2.7-7.7); Neutrophil % 50.8 % (47-70); Platelet Count 375 K/mm3 (150-450); RBC Distribution Width CV 13.6 % (11.6-14.6); RBC Distribution Width SD 45.9 fl (35.1-43.9); Red Blood Count 4.27 M/mm3 (4.2-5.4); White Blood Count 8.7 K/mm3 (4.4-11.0)
[2022-01-16 16:46] LABS: Anion Gap 6 (5-15); BUN 14 mg/dL (7-18); BUN/Creat Ratio 18.5 RATIO (10-20); Calcium,Total 9.1 mg/dL (8.5-10.1); Chloride 107 mmol/L (98-107); Creatinine, Serum 0.76 mg/dL (0.55-1.02); EST Glomerular Filtration Rate 83 mL/min (>60); Est Glom Filt Rate - Afr Amer 100 mL/min (>60); Estimated Creatinine Clearance 80.21 ml/min; Glucose 100 mg/dL (74-106); Potassium 3.6 mmol/L (3.5-5.1); Sodium Level 140 mmol/L (136-145); Troponin-I HS 9 pg/mL (3.0-54.0)
[2022-01-16] MEDS: Aspirin 81 MG TAB.CHEW PO (16:52)
[2022-01-16 18:10] VITALS: BP 147/88; PULSE 89; RESP 15; O2SAT 99
== END 2022-01-16 18:13 | disposition home or self-care (01) ==
PROVIDERS: Emergency Provider Emergency Medicine; PCP Family Medicine; Visit Provider Emergency Medicine
DX: R07.9 Chest pain, unspecified (principal); R03.0 Elevated blood-pressure reading, without diagnosis of hypertension; I25.10 Atherosclerotic heart disease of native coronary artery without angina pectoris; M54.9 Dorsalgia, unspecified; G89.29 Other chronic pain; E78.00 Pure hypercholesterolemia, unspecified; I25.2 Old myocardial infarction; F17.210 Nicotine dependence, cigarettes, uncomplicated; Z79.82 Long term (current) use of aspirin; Z79.899 Other long term (current) drug therapy; Z95.5 Presence of coronary angioplasty implant and graft
CPT/HCPCS: 71045; 80048; 84484; 85025; 93005; 99284; A4216

== ENCOUNTER 2022-01-29 10:26 | Inpatient (IN) | payer BC, SELFPAY ==
[2016-07-19 14:11] VITALS: BMI 28.2
[2022-01-29] VITALS (23 sets, daily range): BP systolic 100–166; BP diastolic 58–121; PULSE 82–101; RESP 14–28; TEMP 36.1–36.7; O2SAT 94–100; BMI 28.0; BMI 28.5
--- NOTE | 2022-01-29 10:31 | EKG12_ITS ---
Test Reason : CP Blood Pressure : / mmHG Vent. Rate : 087 BPM Atrial Rate : 087 BPM P-R Int : 176 ms QRS Dur : 084 ms QT Int : 396 ms P-R-T Axes : 027 048 009 degrees QTc Int : 476 ms Normal sinus rhythm Nonspecific T wave abnormality Prolonged QT Abnormal ECG Confirmed by KARIE PARITDA, ELENA ([id number]), editor [employer] GILBERTO JURADO ([id number]) on 02/01/2022 10:30:10 AM Referred By: Confirmed By:ELENA TIWARI MD
--- NOTE | 2022-01-29 10:31 | RAD_ITS ---
HISTORY: chest pain. TECHNIQUE: XR Chest 1 View. COMPARISON: 01/16/2022. FINDINGS: CARDIOMEDIASTINAL BORDERS: Cardiac silhouette within normal limits in size. Mediastinal contour unremarkable. LUNGS: Radiographically clear. PLEURA: No pleural effusion or pneumothorax seen. OSSEOUS STRUCTURES: Unremarkable. RAD/Chest 1 View (Portable) IMPRESSION: No acute cardiopulmonary process identified. Electronically Signed: Mariam Oliver MD at 11:03 EST ,
[2022-01-29 10:39] LABS: Absolute Neutrophil Count 5.3 X10^3/uL (2.0-7.7); Basophil# 0.04 X10^3/uL; Basophil% 0.5 % (0-1); Eosinophil# 0.21 X10^3/uL; Eosinophils% 2.5 % (0-5); Hematocrit 40.7 % (37-47); Hemoglobin 13.8 g/dL (12.0-15.0); Lymphocyte % 29.6 % (19-41); Mean Corp Hgb Conc 33.9 g/dL (32-36); Mean Corpuscular Hgb 31.5 pg (27.0-32.0); Mean Corpuscular Volume 92.9 fL (81-99); Mean Platelet Vol. 8.5 fl (6.2-12.0); Monocyte# 0.41 X10^3/uL; Monocyte% 4.9 % (0-10); NRBC Flagged by Analyzer 0 % (0-5); Neutrophil # 5.26 X10^3/uL (2.7-7.7); Neutrophil % 62.3 % (47-70); Platelet Count 375 K/mm3 (150-450); RBC Distribution Width CV 13.3 % (11.6-14.6); RBC Distribution Width SD 45.5 fl (35.1-43.9); Red Blood Count 4.38 M/mm3 (4.2-5.4); White Blood Count 8.4 K/mm3 (4.4-11.0)
[2022-01-29 10:57] LABS: Anion Gap 6 (5-15); BUN 13 mg/dL (7-18); BUN/Creat Ratio 13.4 RATIO (10-20); Calcium,Total 8.6 mg/dL (8.5-10.1); Chloride 105 mmol/L (98-107); Creatinine, Serum 0.97 mg/dL (0.55-1.02); EST Glomerular Filtration Rate 62 mL/min (>60); Est Glom Filt Rate - Afr Amer 75 mL/min (>60); Estimated Creatinine Clearance 62.84 ml/min; Glucose 142 mg/dL (74-106); Potassium 3.7 mmol/L (3.5-5.1); Sodium Level 136 mmol/L (136-145); Troponin-I HS 91 pg/mL (3.0-54.0)
--- NOTE | 2022-01-29 11:21 | ED.VIS.CHEST ---
HPI History of Present Illness Chief Complaint: Chest Pain Detail of Chief Complaint: Midsternal chest pressure radiating to the right shoulder and right upper e Informant: patient Onset/Context/Timing Onset: Today and Hours Activity at onset: sudden Timing: Continuous Quality: Positive for Pressure Location: Substernal Current Severity: Mild Maximum Severity: Moderate Worsened By: Nothing Relieved By: Nothing Associated Symptoms: Positive for Nausea, Vomiting and Dyspnea; Negative for Diaphoresis, Cough, Fever, Lightheadedness, Acid Reflux or Palpitations Narrative Narrative: Patient is a 61-year-old woman with history coronary disease status post stent placement approximately 5 years ago who continues to smoke. She smokes 1/2 pack/day. She states while she was sitting she developed chest pressure in the retrosternal area at approximately 0915. That radiated to her right shoulder and right upper extremity and was associated with nausea, vomiting and dyspnea. She denies any upper respiratory infectious symptoms. She states she took 2 baby aspirin at home and 1 nitro. The nitro did not diminish the pain/pressure she denies history of hiatal hernia, reflux peptic ulcer disease. Denies black or maroon-colored stool. She denies hematemesis. She denies pleuritic pain. She states when she had her last cardiac event she felt as if something was stuck in her esophagus she is still having pain. Prior Similar Symptoms: No CVD Risk Factors: Positive for Hypertension, Hypercholesterolemia and Smoking PE Risk Factors: Negative for Recent Travel/Surgery, Recent Immobilization, Cancer or OCP + Smoking + >/=35 TAD Risk Factors: Positive for Hypertension; Negative for Marfan's Syndrome or Family History PFSH PFSH Medical History Anxiety and depression Atherosclerotic heart disease of [place] coronary artery without angina pectoris Chronic back pain Chronic back pain Fatigue NSTEMI (non-ST elevated myocardial infarction) (~07/2016) Old myocardial infarction Overweight (BMI 25.0-29.9) Palpitations Presence of stent in coronary artery (~07/19/16) Pure hypercholesterolemia Tobacco abuse Tobacco use Home Medications aspirin 81 mg chewable tablet 81 mg PO DAILY@0800 06/09/20 [Rx Last Taken 01/29/22 09:00] Allergy/AdvReac Type Severity Reaction Status Date / Time hydrocodone bitartrate Allergy Nausea Verified 01/29/22 10:30 [From Vicodin] oxycodone [From Percocet] Allergy Unknown Verified 01/29/22 10:30 ezetimibe [From Zetia] AdvReac Intermediate anxiety, Verified 01/29/22 10:30 fatigue, upset stomach metoprolol AdvReac Intermediate Very Verified 01/29/22 10:30 dizzy, lightheaded even on smallest dose rosuvastatin [From Crestor] AdvReac myalgia Verified 01/29/22 10:30 ANTIBIOTIC Allergy Upset Uncoded 01/29/22 10:30 Stomach Family History (Reviewed 01/29/22 @ : by Dr. Jose Alfredo Erwin MD) Mother CAD (coronary artery disease) Hypertension Diabetes Father , Age 49 [place] Myocardial infarction Surgical History (Reviewed 01/29/22 @ 11: by Roberta Pearson) History of total hysterectomy Presence of coronary angioplasty implant and graft (~07/19/16) Social History (Updated 01/29/22 @ 11:[address] Jose Alfredo Erwin MD) household members: significant other Smoking Status: Current every day smoker tobacco type: cigarettes alcohol intake: former substance use type: does not use caffeine: No what type of physical activity do you participate in: none seatbelt use: always do you feel safe at home: Yes additional social history: Jeffery- Patient works at [employer] ED Constitutional Constitutional ED: Denies chills, fever(s), subjective, sweats or weight loss Eyes Eyes: Reports none; Denies blurry vision or change in vision ENT ENT ED: Denies ear pain, rhinorrhea or sore throat Cardiovascular Cardiovascular: Reports as per HPI; Denies orthopnea or paroxysmal nocturnal dyspnea Respiratory/Chest Respiratory/Chest: Reports dyspnea; Denies cough, dyspnea on exertion, orthopnea or paroxysmal nocturnal dyspnea Gastrointestinal Gastrointestinal: Reports nausea and vomiting; Denies abdominal pain, constipation, diarrhea or melena Genitourinary Genitourinary ED: Denies dysuria, hematuria or urinary frequency Musculoskeletal Musculoskeletal: Reports other Details: Right arm discomfort ; Denies arthralgias, back pain, myalgias or neck pain Integumentary Denies abscess, Abrasions or rash Neurologic Neurologic: Denies headache(s), paresthesias or weakness Endocrine Endocrinology: Denies cold intolerance, heat intolerance or polydipsia Hematologic/Lymphatic Hematologic/Lymphatic: Denies easy bleeding or easy bruising EXAM Physical Exam Const Vital Signs: 01/29/22 10:29 01/29/22 11:21 01/29/22 11:20 Temperature 98.0 F 98.0 F Temperature Source Temporal Oral Pulse Rate 101 H 86 Respiratory Rate 18 16 Respiratory Effort Respiratory Pattern Blood Pressure 148/86 H 154/88 H Blood Pressure Mean 106 110 Pulse Ox 100 97 98 Oxygen Delivery Method Room Air Room Air Room Air 01/29/22 11:28 Temperature Temperature Source Pulse Rate Respiratory Rate Respiratory Effort Normal Non-Labored Respiratory Pattern Normal Blood Pressure Blood Pressure Mean Pulse Ox Oxygen Delivery Method Positive well nourished and well developed General Appearance ED: well developed and NAD; Negative for pallor HEENT Reports TM's clear and moist mucous membranes normocephalic and atraumatic Tympanic Membrane ED: Yes TM's clear Eyes PERRL and EOMs intact bilaterally General Eye ED: Negative for pale conjunctiva or scleral icterus Neck no lymphadenopathy, supple and no JVD Chest Wall inspection of chest normal and palpation of chest normal Resp normal respiratory effort and clear to auscultation bilaterally Cardio regular rate, regular rhythm, S1 normal heart sound, S2 normal heart sound and no murmurs GI normal to inspection, nondistended, normoactive bowel sounds, soft to palpation, non-tender, non-distended and no masses; Negative for hepatosplenomegaly Back/Spine no CVA tenderness and no thoracic nor lumbar tenderness Extremity normal to inspection General Extremety ED: Negative for edema, pulses abnormal or tenderness General Extremity: Negative for edema or pulses abnormal Neuro oriented x3, CN's II-XII intact bilaterally and no sensory deficits noted Sensorium / Orientation: awake and alert Psych mental status grossly normal Skin General Skin Exam: Negative for jaundice or pallor Heart Score History: Highly Suspicious ECG: Nonspecific Repolarization Age: >45 - <65 years Risk Factors: >/= 3 Risk Factors or History of CAD Troponin: >1 - <3 Normal Limit Score: 7 MDM MDM MDM Narrative Medical decision making narrative: She presents with concerning story for cardiac disease especially since he has multiple risk factors and history of coronary disease. With radiation to the right shoulder and arm odds likelihood is 3-1 that this is cardiac etiology. Patient's case was discussed with Dr. Li who is on-call for cardiology. Had discussion regarding nitro drip and heparin bolus and drip. He requested to hold the nitro drip and heparin bolus and drip until he sees patient as he may take the patient to the [facility]. He will see patient in the emergency department. Patient is going to [facility]. Spoke with Dr. Forbes, the hospitalist. Lab Data Attestation: I reviewed the patient's lab results. Labs: Laboratory Results - last 24 hr 01/29/22 01/29/22 10:30 10:30 WBC 8.4 RBC 4.38 Hgb 13.8 Hct 40.7 MCV 92.9 MCH 31.5 MCHC 33.9 RDW Std Deviation 45.5 H RDW Coeff of [place] 13.3 Plt Count 375 MPV 8.5 Immature Gran % (Auto) 0.200 Neut % (Auto) 62.3 Lymph % (Auto) 29.6 [place] % (Auto) 4.9 Eos % (Auto) 2.5 Baso % (Auto) 0.5 Absolute Neuts (auto) 5.3 Absolute Lymphs (auto) 2.50 Nucleated RBC % 0 Sodium 136 Potassium 3.7 Chloride 105 Carbon Dioxide 25.0 Anion Gap 6 BUN 13 Creatinine 0.97 Estim Creat Clear Calc 62.84 Est GFR (MDRD) Af Amer 75 Est GFR (MDRD) Non-Af 62 BUN/Creatinine Ratio 13.4 Glucose 142 H Calcium 8.6 Troponin I High Sens 91 H Radiography Chest X-Ray - ED: 1 View and Read by ED Physician (Dependently reviewed and interpreted by me at 1050 as negative for any acute process. Cardiac silhouette size unremarkable. Perihilar region unremarkable. Osseous trucks unremarkable.) Diagnostic Testing: Clinical Impression(s) from Imaging Studies Chest X-Ray 01/29/22 10:31 IMPRESSION: No acute cardiopulmonary process identified. Electronically Signed: Mariam Oliver MD at 11:03 EST , EKG Initial EKG: Attestation: I personally reviewed and interpreted this EKG as follows: Interpretation: Sinus Rhythm (Ventricular rate 87. There is no severe ST-T wave changes. This is unchanged from January 16, 2022. [place] interval is 176 ms. QS duration 84 ms. QT durations are 96 ms. The QTC is 476 and prolonged. [place] is normal.) Follow-up EKG: Attestation: I personally reviewed and interpreted this EKG as follows: Interpretation: Sinus Rhythm (Ventricular rate is 86. [place] interval is 170 ms. QT adventism is 84 ms. [place] is normal. There is noncervical changes. There is unchanged from the EKG that was performed 1 hour prior, initial EKG) Critical Care Time Critical Care Time: Yes Critical care time (excluding procedures): 30-74 minutes (32), Including time spent: (History, physical, documentation, review of prior records), Discussing w/Patient &/or Family/Pressurizer, Discussing w/Consultants (Dr. Kristopher Li.), Arranging Admission or Transfer and Performing Direct Patient Care at Bedside Discharge Plan Triage Chief Complaint: Chest Pain ED Provider: Jose Alfredo Erwin Dx/Rx/DC Orders Clinical Impression: Non-ST elevated myocardial infarction (non-STEMI), Presence of stent in coronary artery, Pure hypercholesterolemia, Hypertension Prescriptions: No Action aspirin 81 MG tablet,chewable 81 mg PO DAILY@0800 0RF Primary Care Provider: Oscar Valencia Referrals: Oscar Valencia MD [Primary Care Provider] - Disposition Disposition: Acute Care Hospital [facility]
--- NOTE | 2022-01-29 11:30 | EKG12_ITS ---
Test Reason : REPEAT-CP Blood Pressure : / mmHG Vent. Rate : 086 BPM Atrial Rate : 086 BPM P-R Int : 170 ms QRS Dur : 084 ms QT Int : 388 ms P-R-T Axes : 027 039 019 degrees QTc Int : 464 ms Normal sinus rhythm Nonspecific T wave abnormality Abnormal ECG Confirmed by KARIE PARTIDA, ELENA ([id number]), purchasing expeditor GILBERTO JURADO ([id number]) on 02/01/2022 10:30:26 AM Referred By: CARLOS Confirmed By:ELENA TIWARI MD
[2022-01-29] MEDS: Aspirin 81 MG TAB.CHEW 162 MG PO (11:59)
--- NOTE | 2022-01-29 11:59 | HP.PCM.HOS_ITS ---
HPI - General General Date of Admission: 01/29/22 Date of Service: 01/29/22 HPI Narrative JENNIFER MCKOY, is a 61 F with a PMH as outlined who presents via the ED with a complaint of chest pain. THis pain started abruptly this mornning and was left sided, pressure like and radiated to her left arm. Pain had no aggravating or relieving factors. She took baby aspirin at home but this did not help with the pain. She denied any palpitations, dizziness, shortness of breath or vomiting; she did complain of nausea. Review of systems was otherwise negative. Vitals at time of review were blood pressure 166/89 with pulse rate of 91, respiratory rate of 14 and temperature of 97 Fahrenheit and she was saturating at 99% on room air. CBC and BMP were unremarkable and troponin was elevated. EKG showed no acute ST changes. She had had a stress test in 2020 with no evidence of ischemia at moderate workload. Cardiology recommended left heart cath due to persistence of chest discomfort. Patient was therefore taken emergently to the [facility]. [facility] Medical History Anxiety and depression Atherosclerotic heart disease of [place] coronary artery without angina pectoris Chronic back pain Chronic back pain Fatigue NSTEMI (non-ST elevated myocardial infarction) (~07/2016) Old myocardial infarction Overweight (BMI 25.0-29.9) Palpitations Presence of stent in coronary artery (~07/19/16) Pure hypercholesterolemia Tobacco abuse Tobacco use Home Medications aspirin 81 mg chewable tablet 81 mg PO DAILY HEART HEALTH 01/29/22 [History Last Taken 01/29/22 09:00] Allergy/AdvReac Type Severity Reaction Status Date / Time hydrocodone bitartrate Allergy Nausea Verified 01/29/22 10:30 [From Vicodin] oxycodone [From Percocet] Allergy Unknown Verified 01/29/22 10:30 ezetimibe [From Zetia] AdvReac Intermediate anxiety, Verified 01/29/22 10:30 fatigue, upset stomach metoprolol AdvReac Intermediate Very Verified 01/29/22 10:30 dizzy, lightheaded even on smallest dose rosuvastatin [From Crestor] AdvReac myalgia Verified 01/29/22 10:30 ANTIBIOTIC Allergy Upset Uncoded 01/29/22 10:30 Stomach Family History Mother CAD (coronary artery disease) Hypertension Diabetes Father , Age 49 [place] Myocardial infarction Surgical History History of total hysterectomy Presence of coronary angioplasty implant and graft (~07/19/16) Social History household members: significant other Smoking Status: Current every day smoker tobacco type: cigarettes alcohol intake: former substance use type: does not use caffeine: No what type of physical activity do you participate in: none seatbelt use: always do you feel safe at home: Yes additional social history: Jeffery- Patient works at [employer] Review of Systems ROS Unobtainable: Denies due to encephalopathy Constitutional Constitutional: Reports fatigue, malaise and weakness; Denies anorexia, chills or fever(s) Eyes Eyes: Denies change in vision ENT HEENT: Denies dysphagia, headache(s), sinus pressure or sore throat Cardiovascular Cardiovascular: Reports chest pain and dyspnea on exertion; Denies edema, lightheadedness, orthopnea or palpitations Respiratory/Chest Respiratory/Chest: Denies cough, dyspnea, productive cough, shortness of breath at rest, shortness of breath with exertion or wheezing Gastrointestinal Gastrointestinal: Reports nausea; Denies abdominal pain, constipation, diarrhea or vomiting Genitourinary Genitourinary: Denies burning urination or dysuria Musculoskeletal Musculoskeletal: Denies arthralgias Neurologic Neurologic: Denies confusion, dizziness, focal weakness, headache(s) or seizures Psychiatric Psychiatric: Denies anxiety or depression Endocrine Endocrinology: Denies change in body appearance Vital Signs Vital Signs Vital Signs: 01/29/22 10:29 01/29/22 11:21 01/29/22 11:20 Temperature 98.0 F 98.0 F Temperature Source Temporal Oral Pulse Rate 101 H 86 Respiratory Rate 18 16 Respiratory Effort Respiratory Pattern Blood Pressure 148/86 H 154/88 H Blood Pressure Mean 106 110 Pulse Ox 100 97 98 Oxygen Delivery Method Room Air Room Air Room Air 01/29/22 11:28 Temperature Temperature Source Pulse Rate Respiratory Rate Respiratory Effort Normal Non-Labored Respiratory Pattern Normal Blood Pressure Blood Pressure Mean Pulse Ox Oxygen Delivery Method Weight Weight: 190 lb Body Mass Index (BMI) 28.0 Physical Exam Const alert, oriented x3 and no apparent distress Constitutional Narrative: looked a bit uncomfortable General Appearance: cooperative HEENT normocephalic, head/scalp atraumatic, hearing grossly normal bilaterally and moist oral mucous membranes Mouth: oral and palatal mucosa normal Eyes PERRL, EOMs intact bilaterally and conjunctivae normal Neck no lymphadenopathy and supple Resp normal respiratory effort, no retractions, no use of accessory muscles and clear to auscultation bilaterally Cardio regular rate, regular rhythm, S1 normal heart sound, S2 normal heart sound and no murmurs GI normal to inspection, nondistended, normoactive bowel sounds, soft to palpation, non-tender and non-distended Extremity normal to inspection, full ROM and no clubbing, cyanosis or edema Neuro oriented x3, CN's II-XII intact bilaterally and moves all extremities Sensorium / Orientation: awake Motor Exam: strength 5/5 throughout Psych affect normal Results Lab / Micro Data Result Diagrams: 01/29/22 10:30 01/29/22 10:30 Labs: Laboratory Results - last 24 hr 01/29/22 10:30: WBC 8.4, RBC 4.38, Hgb 13.8, Hct 40.7, MCV 92.9, MCH 31.5, MCHC 33.9, RDW Std Deviation 45.5 H, RDW Coeff of Candy 13.3, Plt Count 375, MPV 8.5, Immature Gran % (Auto) 0.200, Neut % (Auto) 62.3, Lymph % (Auto) 29.6, [place] % (Auto) 4.9, Eos % (Auto) 2.5, Baso % (Auto) 0.5, Absolute Neuts (auto) 5.3, Absolute Lymphs (auto) 2.50, Nucleated RBC % 0 01/29/22 10:30: Sodium 136, Potassium 3.7, Chloride 105, Carbon Dioxide 25.0, Anion Gap 6, BUN 13, Creatinine 0.97, Estim Creat Clear Calc 62.84, Est GFR (MDRD) Af Amer 75, Est GFR (MDRD) Non-Af 62, BUN/Creatinine Ratio 13.4, Glucose 142 H, Calcium 8.6, Troponin I High Sens 91 H Radiology Impression Chest X-Ray 01/29/22 10:31 IMPRESSION: No acute cardiopulmonary process identified. Electronically Signed: Mariam Oliver MD at 11:03 EST , Assessment & Plan Assessment/Plan (1) Non-ST elevated myocardial infarction (non-STEMI): (2) Hypertension: PLAN: Plan #Nonstemi * s/p cardiac cath which showed previously placed stent in the LAD to be patent and first diagonal vessel totally occluded in the midsegment and and mild disease in hte circumflex and right coronary artery. * symptoms thought to be due to Takotsubo's cardiomyopathy * check lipid panel * on aspirin, carvedilol and lisinopril * 2D echo ordered * cardiology on board * #CAD s/p stents: on aspirin. Says she doesnt take any other meds because she cannot tolerate the meds #Nicotine dependence: counseled to quit. On nicotine patch 21mg daily DVT prophylaxis: lovenox COde status: full code * Patient counseled extensively about different types of CODE STATUS including full code, DNR CCA and DNR CCA. Patient elects to be full code. * Total [id number] time 16 minutes. Charges/Coding Visit Charges Inpatient E&M: 82596 Init Hosp L3 Procedures Hospitalists Procedures: 67163 Advncd Care Plan 30 Min
[2022-01-29] MEDS: 0.9% Normal Saline 1,000 ML 15 ML IV (12:03)
--- NOTE | 2022-01-29 12:03 | ED.RN ---
nitro not given per dr. novak.
--- NOTE | 2022-01-29 12:07 | CON.PCM.CA_ITS ---
Assessment & Plan Assessment/Plan (1) Chest pain: QUALIFIERS: Chest pain type: unspecified Qualified Code(s): R07.9 - Chest pain, unspecified PLAN: She presents with chest discomfort and is noted to have an elevated cardiac enzyme pattern but no EKG changes. She did have a stress test in 2020 with no evidence of ischemia at a moderate workload. However due to the persistence of the chest discomfort I would recommend that we pursue a left hear t catheterization and depending on the findings further recommendations will be made. (2) Hypertension: PLAN: Her blood pressure is not under good control at this time. It may be helpful to persuade her to take an antihypertensive medication despite her apparent sensitivities. This may help in her overall risk factor stratification. (3) Presence of stent in coronary artery: PLAN: She does have a previous stent in her left anterior descending artery and the plan would be to continue current medical therapy and evaluate the above with an angiogram. The risk benefits alternatives have been explained to her she understands and agrees to proceed. Thank you for allowing me to participate in the care of your patient. Please don't hesitate to call if any issues arise. HPI Consult Data Date of Consult: 01/29/22 HPI Narrative HPI Narrative: JENNIFER MCKOY, is a 61 F who presents to the urgency room with chest discomfort which she says is unrelenting which has been going on for a few hours. She is actually quite tearful at this time. She does have a history of coronary artery disease with angioplasty to her proximal diagonal and stenting to her LAD in July 2016.? She also has a history of hyperlipidemia. She unfortunately has been intolerant of all her medications because she says that she is very sensitive to them. She only takes aspirin. She has complained of this as a tightness and presented to the emergency room was noted to be in normal sinus rhythm with mildly elevated blood pressures with nonspecific EKG changes and a mildly elevated troponin. She continues to complain of chest discomfort and I was contacted by the ED for the above. Her exercise tolerance is stable for her age.? She does not have any worsening symptoms of shortness of breath.? She does not have any orthopnea.? She denies PND.? She does not have any symptoms of congestive heart failure.? She does not have any palpitations that she is aware of.? She does not have any lightheadedness or dizziness.? She does not have any near-syncope or syncope.? She does not have any lower extremity edema.? She does not have any symptoms of claudication. [facility] Medical History Anxiety and depression Atherosclerotic heart disease of [place] coronary artery without angina pectoris Chronic back pain Chronic back pain Fatigue NSTEMI (non-ST elevated myocardial infarction) (~07/2016) Old myocardial infarction Overweight (BMI 25.0-29.9) Palpitations Presence of stent in coronary artery (~07/19/16) Pure hypercholesterolemia Tobacco abuse Tobacco use Home Medications aspirin 81 mg chewable tablet 81 mg PO DAILY HEART HEALTH 01/29/22 [History Last Taken 01/29/22 09:00] Allergy/AdvReac Type Severity Reaction Status Date / Time hydrocodone bitartrate Allergy Nausea Verified 01/29/22 10:30 [From Vicodin] oxycodone [From Percocet] Allergy Unknown Verified 01/29/22 10:30 ezetimibe [From Zetia] AdvReac Intermediate anxiety, Verified 01/29/22 10:30 fatigue, upset stomach metoprolol AdvReac Intermediate Very Verified 01/29/22 10:30 dizzy, lightheaded even on smallest dose rosuvastatin [From Crestor] AdvReac myalgia Verified 01/29/22 10:30 ANTIBIOTIC Allergy Upset Uncoded 01/29/22 10:30 Stomach Family History Mother CAD (coronary artery disease) Hypertension Diabetes Father , Age 49 [place] Myocardial infarction Surgical History History of total hysterectomy Presence of coronary angioplasty implant and graft (~07/19/16) Social History household members: significant other Smoking Status: Current every day smoker tobacco type: cigarettes alcohol intake: former substance use type: does not use caffeine: No what type of physical activity do you participate in: none seatbelt use: always do you feel safe at home: Yes additional social history: Jeffery- Patient works at [employer] Constitutional Constitutional: Denies fever(s) or weight loss Eyes Eyes: Reports systems reviewed and no addt'l complaints, except as documented ENT HEENT: Reports systems reviewed and no addt'l complaints, except as documented Cardiovascular Cardiovascular: Reports chest pain at rest and chest pain with activity; Denies dyspnea at rest, dyspnea on exertion, edema, palpitations or paroxysmal nocturnal dyspnea Respiratory/Chest Respiratory/Chest: Denies dyspnea on exertion, productive cough, shortness of breath at rest or shortness of breath with exertion Gastrointestinal Gastrointestinal: Denies change in bowel habits, nausea, vomiting or weight changes Genitourinary Genitourinary: Denies difficulty urinating Musculoskeletal Musculoskeletal: Denies joint stiffness or muscle weakness Integumentary Integumentary: Denies lesions Neurologic Neurologic: Denies dizziness or syncope Psychiatric Psychiatric: Denies anxiety Endocrine Endocrinology: Denies excessive sweating or fatigue Hematologic/Lymphatic Hematologic/Lymphatic: Denies anemia Allergic/Immunologic Allergic/Immunologic: Denies seasonal rhinorrhea Physical Exam Const alert, oriented x3 and no apparent distress General Appearance: cooperative HEENT hearing grossly normal bilaterally Head and Scalp: atraumatic Eyes EOMs intact bilaterally Neck General: normal visual inspection Chest inspection of chest normal and palpation of chest normal Resp normal respiratory effort Auscultation: clear to auscultation bilaterally Cardio regular rate, regular rhythm, S1 normal heart sound and S2 normal heart sound Jugular Venous Distention: JVD GI normal to inspection, nondistended, normoactive bowel sounds Extremity normal capillary refill and no pedal edema Peripheral Pulses: Yes pulses 2+ throughout and femoral pulses present Skin no rashes or lesions noted Neuro oriented x3 and CN's II-XII intact bilaterally Psych Appearance: grossly normal and appropriate Risk Stratification Risk Stratification Applicable: Yes Age >/= 65: No >/= 3 CAD Risk Factors (HTN, HLD, DM, family hx of CAD, or current smoker): Yes Aspirin Use in the Past 7 Days: Yes Severe Angina (>/= episodes in 24 hours): Yes EKG ST Changes >/= 0.5mm: No Positive Cardiac Marker: Yes NIGHAT Risk Stratification Score: 4 NIGHAT % Risk: 20% Risk Objective Data Vital Signs: Vital Signs Temp Pulse Resp BP Pulse Ox O2 Del Method 98.0 F 100 18 151/98 H 99 Room Air 01/29/22 12:00 01/29/22 12:00 01/29/22 12:00 01/29/22 12:00 01/29/22 12:00 01/29/22 12:00 Oxygen Delivery Method Room Air Weight: 190 lb Body Mass Index (BMI) 28.0 Lab / Micro Data Result Diagrams: 01/29/22 10:30 01/29/22 10:30 Labs: Laboratory Results - last 24 hr 01/29/22 10:30: WBC 8.4, RBC 4.38, Hgb 13.8, Hct 40.7, MCV 92.9, MCH 31.5, MCHC 33.9, RDW Std Deviation 45.5 H, RDW Coeff of Candy 13.3, Plt Count 375, MPV 8.5, Immature Gran % (Auto) 0.200, Neut % (Auto) 62.3, Lymph % (Auto) 29.6, [place] % (Auto) 4.9, Eos % (Auto) 2.5, Baso % (Auto) 0.5, Absolute Neuts (auto) 5.3, Absolute Lymphs (auto) 2.50, Nucleated RBC % 0 01/29/22 10:30: Sodium 136, Potassium 3.7, Chloride 105, Carbon Dioxide 25.0, Anion Gap 6, BUN 13, Creatinine 0.97, Estim Creat Clear Calc 62.84, Est GFR (MDRD) Af Amer 75, Est GFR (MDRD) Non-Af 62, BUN/Creatinine Ratio 13.4, Glucose 142 H, Calcium 8.6, Troponin I High Sens 91 H Cardiology Labs/Tests 01/29/22 10:30: WBC 8.4, RBC 4.38, Hgb 13.8, Hct 40.7, MCV 92.9, MCH 31.5, MCHC 33.9, Plt Count 375, MPV 8.5, Immature Gran % (Auto) 0.200, Neut % (Auto) 62.3, Lymph % (Auto) 29.6, [place] % (Auto) 4.9, Eos % (Auto) 2.5, Baso % (Auto) 0.5, Absolute Neuts (auto) 5.3, Nucleated RBC % 0 01/29/22 10:30: Sodium 136, Potassium 3.7, Chloride 105, Carbon Dioxide 25.0, Anion Gap 6, BUN 13, Creatinine 0.97, Est GFR (MDRD) Af Amer 75, Est GFR (MDRD) Non-Af 62, BUN/Creatinine Ratio 13.4, Glucose 142 H, Calcium 8.6 Rhythm: EKG: ECHO: Stress Test: Cardiac Cath: PCI: CT Surgery: Holter monitor: EPS: PPM: CXR: Chest CT Scan: Radiography Diagnostic Testing: Radiology Impression Chest X-Ray 01/29/22 10:31 IMPRESSION: No acute cardiopulmonary process identified. Electronically Signed: Mariam Oliver MD at 11:03 EST ,
--- NOTE | 2022-01-29 13:16 | CPS ---
See [employer] notes for CODE BLUE documentation.
[2022-01-29 13:36] LABS: Base Excess -3 mmol/L (-2 to +2); Bicarbonate 22.1 mmol/L (22-26); Blood Gas Specimen Type ART; PO2 90 mmHG (75-100); SO2 97 % (95-99); Total Carbon Dioxide 23 mmol/L; pCO2 35.7 mmHg (35-45)
--- NOTE | 2022-01-29 13:37 | CL.D_ITS ---
Patient Name: JENNIFER MCKOY Study Date: 01/29/2022 Performing: Kristopher Li MD Ht: 69 inches 175.26 cm : 1960 Wt: 189.99 lbs 86.18 kg Age: 61 Gender: female BSA: 2.02 PROCEDURE(S) PERFORMED DC01-(92098)LHC/COR/LV CLINICAL PROFILE AND INDICATIONS Indications: Suspected CAD Heart Failure: None Stress/Imaging Stress/Image Study Performed: No CAD Presentations: Unstable angina. CONCLUSIONS Coronary artery disease with previously placed stent in the left anterior descending artery noted to be patent and the first diagonal vessel which is totally occluded in the midsegment and mild disease noted in the circumflex and right coronary artery Cardiomyopathy: Takotsubo RECOMMENDATIONS Medical therapy DESCRIPTION OF PROCEDURE The patient arrived to the procedure lab. The risks and benefits of the procedure as well as a full description of our services here and current unavailability of surgical backup were fully explained to the patient and/or their significant other prior to the catheterization. The Timeout was completed, verifying the correct patient and procedure. The patient's procedural site was prepped and draped in the usual fashion. Local anesthetic was given subcutaneously to right radial region with Lidocaine 2%. Using a modified Seldinger technique, arterial access was obtained via the right radial artery, a 6Fr sheath was inserted. Left Coronary Artery selective angiography was performed in multiple views using a 5 Fr. 4.0 Piggott catheter. Right Coronary Artery selective angiography was then performed in multiple views using a 5 Fr. JR 5 catheter. Left Ventriculography was performed in SUAZO projection using a 5 Fr. Pigtail catheter. LV to AO pullback pressures were then recorded.The arterial sheath was pulled and a TR Band was applied for hemostasis CORONARY ANGIOGRAPHY DOMINANCE: Right Dominant LEFT HEART ASSESSMENT Left Ventricular Ejection Fraction: by LV Gram 35 % Anterior Hypokinesis - Moderate. Apical Hypokinesis - Moderate Consistent with Takotsubo cardiomyopathy. Patient did develop a ventricular fibrillation arrest after the last left injection requiring 15 to 20 seconds of CPR and 200 J of defibrillation. Patient recovered to sinus rhythm and was completely coherent with normal blood pressures. See hemodynamics LEFT MAIN: Angiographically normal LEFT ANTERIOR DESCENDING ARTERY: Left anterior descending artery is a previously stented vessel. There is a first small diagonal branch which appears to be totally occluded in the midsegment, a second diagonal branch which is patent with mild diffuse disease in the previously placed stent which is patent with mild diffuse distal disease CIRCUMFLEX ARTERY: Mild disease noted in this vessel with no high-grade obstructive lesions noted RIGHT CORONARY ARTERY: Dominant right coronary artery with mid segment 40% stenosis noted and mild distal disease present COLLATERAL FLOW: Collateral flow from Left to Left COMPLICATIONS PROCEDURE MEDICATIONS Versed 1 mg IV Fentanyl 50 mcg IV Oxygen: 2 L/min via nasal cannula Heparin given IA 01/29/2022 12:58:27 Verapamil 2.5mg, Ntg 100mcgs, 3000 units of Heparin given IA 01/29/2022 12:58:27 SUMMARY OF HEMODYNAMIC DATA Time AIR REST ECG 12:32:09 AO 150/87 (116) SA 13:00:06 LV 130/8, 19 13:15:33 LV 148/11, 19 13:15:41 LV 147/12, 18 13:16:13 LV 141/11, 19 13:16:22 LVp 142/14, 24 13:16:26 AOp 152/15 (83) 13:16:33 13:38:46 Signed By Kristopher Li MD On 01/29/2022 13:42:09 Signed By Kristopher Li MD On 01/29/2022 13:41:39 Signed By Kristopher Li MD On 01/29/2022 13:36:39 Kristopher Li MD
--- NOTE | 2022-01-29 13:49 | ECHOD_ITS ---
Reason For Study: Arrthymia Procedure This was a 2D Doppler, Color Flow transthoracic echocardiogram. Exam performed portable in patient room. Left Ventricle Normal LV size. Mild concentric left ventricular hypertrophy. Moderate segmental systolic dysfunction (see wall motion). The estimated ejection fraction is 35 %. Stage 1 diastolic dysfunction. Mid-anteroseptal : Hypokinetic. Mid-Anterior : Hypokinetic. [place] : Severely Hypokinetic. Anterio-Basal: Normal. Right Ventricle Normal RV size. Normal systolic function. Atria Normal left atrium. Normal right atrium. Mitral Valve Normal mitral valve. Mild (1+) eccentric mitral valve insufficiency. Tricuspid Valve Normal tricuspid valve. Trivial tricuspid valve insufficiency. Aortic Valve Normal aortic valve. Trisinus/trileaflet aortic valve. Pulmonic Valve Normal pulmonic valve. Great Vessels Normal aortic root. The pulmonary artery is normal size. Normal inferior vena cava. Pericardium/Pleural Trivial pericardial effusion. MMode/2D Measurements & Calculations LVIDd: 4.7 cm IVSd: 1.4 cm Ao root diam: 3.1 cm LVIDs: 2.7 cm LVPWd: 1.2 cm RVDd: 2.9 cm FS: 42.4 % LAV(MOD-bp): 37.5 ml LVAd ap4: 27.1 cm2 LVAd ap2: 27.0 cm2 LAV(MOD-bp) Indexed: 18.6 ml/m2 LVLd ap4: 8.3 cm LVLd ap2: 8.2 cm LAV(MOD-sp2): 50.9 ml EDV(MOD-sp4): 74.1 ml EDV(MOD-sp2): 74.0 ml LAV(MOD-sp4): 26.5 ml EDV(sp4-el): 74.9 ml EDV(sp2-el): 75.8 ml LVAs ap4: 19.5 cm2 LVAs ap2: 17.9 cm2 LVLs ap4: 7.7 cm LVLs ap2: 7.5 cm ESV(MOD-sp4): 43.0 ml ESV(MOD-sp2): 35.1 ml ESV(sp4-el): 42.0 ml ESV(sp2-el): 36.2 ml EF(MOD-sp4): 41.9 % EF(MOD-sp2): 52.6 % EF(sp4-el): 44.0 % SV(MOD-sp4): 31.0 ml SV(MOD-sp2): 38.9 ml SV(sp4-el): 32.9 ml LA dimension(2D): 3.3 cm LA A4 area: 13.1 cm2 RA A4 area: 10.9 cm2 Doppler Measurements & Calculations MV E max j carlos: 60.5 cm/sec Lat Peak E' J Carlos: 8.2 cm/sec Med Peak E' J Carlos: 6.2 cm/sec MV A max j carlos: 88.0 cm/sec E/E' lat: 7.3 E/E' med: 9.7 MV E/A: 0.69 Ao V2 max: 138.8 cm/sec LV V1 max: 93.5 cm/sec PA V2 max: 98.4 cm/sec Ao max P.7 mmHg LV V1 max P.5 mmHg PA V2 mean: 65.3 cm/sec TR max j carlos: 219.2 cm/sec TR max P.2 mmHg ECHO/Echo Complete Interpretation Summary Normal LV size. Moderate segmental systolic dysfunction (see wall motion). The estimated ejection fraction is 35 %. Mild concentric left ventricular hypertrophy. Stage 1 diastolic dysfunction. Ordering Physician: Kristopher Li Referring Physician: Thiago Valencia MD Performed By: Suzy Her RDCS
[2022-01-29] MEDS: proCHLORPERazine 10 MG/2 ML Vial 5 MG IV (15:13)
[2022-01-29] MEDS: 0.9% Saline Lock 10 ML Syringe IV (15:13)
[2022-01-29] MEDS: Lisinopril 5 MG Tablet PO (15:55)
[2022-01-29] MEDS: Carvedilol 6.25 MG Tablet PO (15:55)
[2022-01-29 15:58] LABS: Cholesterol 227 mg/dL (200); High Density Lipoprotein 43 mg/dL; Triglycerides 128 mg/dL; Very Low Density Lipoprotein 26 mg/dL (5-40)
[2022-01-29 16:18] LABS: Hemoglobin A1c 5.4 % (3.8-5.6)
[2022-01-30] VITALS (18 sets, daily range): BP systolic 91–142; BP diastolic 58–80; PULSE 71–92; RESP 15–20; TEMP 36.6–37; O2SAT 95–98
[2022-01-30 03:42] LABS: Absolute Lymphocyte Count 2.22 X10^3/uL (0.83-4.51); Absolute Neutrophil Count 8.3 X10^3/uL (2.0-7.7); Basophil# 0.02 X10^3/uL; Basophil% 0.2 % (0-1); Eosinophils% 1.7 % (0-5); Hematocrit 38.9 % (37-47); Hemoglobin 12.9 g/dL (12.0-15.0); Lymphocyte # 2.22 X10^3/ul (0.83-4.51); Lymphocyte % 19.4 % (19-41); Mean Corp Hgb Conc 33.2 g/dL (32-36); Mean Corpuscular Hgb 30.7 pg (27.0-32.0); Mean Corpuscular Volume 92.6 fL (81-99); Mean Platelet Vol. 8.5 fl (6.2-12.0); Monocyte# 0.69 X10^3/uL; NRBC Flagged by Analyzer 0 % (0-5); Neutrophil % 72.4 % (47-70); Platelet Count 383 K/mm3 (150-450); RBC Distribution Width CV 13.5 % (11.6-14.6); RBC Distribution Width SD 45.6 fl (35.1-43.9); White Blood Count 11.5 K/mm3 (4.4-11.0)
[2022-01-30 04:06] LABS: Anion Gap 5 (5-15); BUN 9 mg/dL (7-18); BUN/Creat Ratio 13.9 RATIO (10-20); Calcium,Total 8.3 mg/dL (8.5-10.1); Chloride 108 mmol/L (98-107); Creatinine, Serum 0.65 mg/dL (0.55-1.02); EST Glomerular Filtration Rate 98 mL/min (>60); Est Glom Filt Rate - Afr Amer 119 mL/min (>60); Estimated Creatinine Clearance 93.78 ml/min; Glucose 113 mg/dL (74-106); Potassium 3.8 mmol/L (3.5-5.1); Sodium Level 139 mmol/L (136-145)
[2022-01-30] MEDS: Enoxaparin 40 MG/0.4 ML Syringe SC (08:32)
[2022-01-30] MEDS: Aspirin 81 MG TAB.CHEW PO (08:32)
[2022-01-30] MEDS: Carvedilol 6.25 MG Tablet PO ×2 (08:32→22:34)
[2022-01-30] MEDS: Lisinopril 5 MG Tablet PO (08:33)
[2022-01-30] MEDS: 0.9% Saline Lock 10 ML Syringe IV (08:37)
--- NOTE | 2022-01-30 08:50 | EKG12_ITS ---
Test Reason : Blood Pressure : / mmHG Vent. Rate : 072 BPM Atrial Rate : 072 BPM P-R Int : 162 ms QRS Dur : 086 ms QT Int : 522 ms P-R-T Axes : 017 092 230 degrees QTc Int : 571 ms Normal sinus rhythm ST & T wave abnormality, consider inferior ischemia ST & T wave abnormality, consider anterolateral ischemia Prolonged QT Abnormal ECG When compared with ECG of 29-JAN-2022 11:46, MANUAL COMPARISON REQUIRED, DATA IS UNCONFIRMED Confirmed by KARIE PARTIDA, ELENA ([id number]), slot editor GILBERTO JURADO ([id number]) on 02/02/2022 9:11:13 AM Referred By: Confirmed By:ELENA TIWARI MD
--- NOTE | 2022-01-30 09:19 | PN.CARD_ITS ---
Subjective Subjective Patient seen and evaluated. Appears to be doing quite well at this time. Rather tearful. Objective Data Vital Signs: Vital Signs Temp Pulse Resp BP Pulse Ox O2 Del Method 97.8 F 81 15 142/78 H 96 Room Air 01/30/22 04:00 01/30/22 07:00 01/30/22 06:00 01/30/22 06:00 01/30/22 06:00 01/30/22 06:00 Oxygen Delivery Method Room Air Weight: 190 lb 14.725 oz Body Mass Index (BMI) 28.5 Intake & Output: Intake and Output for Last 24 Hours 01/28/22 01/29/22 01/30/22 23:59 23:59 23:59 Intake Total 363 / 363 100 / 100 Balance 363 / 363 100 / 100 Lab / Micro Data Result Diagrams: 01/30/22 03:35 01/30/22 03:35 Labs: Laboratory Results - last 24 hr 01/29/22 10:30: WBC 8.4, RBC 4.38, Hgb 13.8, Hct 40.7, MCV 92.9, MCH 31.5, MCHC 33.9, RDW Std Deviation 45.5 H, RDW Coeff of Candy 13.3, Plt Count 375, MPV 8.5, Immature Gran % (Auto) 0.200, Neut % (Auto) 62.3, Lymph % (Auto) 29.6, [place] % (Auto) 4.9, Eos % (Auto) 2.5, Baso % (Auto) 0.5, Absolute Neuts (auto) 5.3, Absolute Lymphs (auto) 2.50, Nucleated RBC % 0 01/29/22 10:30: Sodium 136, Potassium 3.7, Chloride 105, Carbon Dioxide 25.0, Anion Gap 6, BUN 13, Creatinine 0.97, Estim Creat Clear Calc 62.84, Est GFR (MDRD) Af Amer 75, Est GFR (MDRD) Non-Af 62, BUN/Creatinine Ratio 13.4, Glucose 142 H, Calcium 8.6, Troponin I High Sens 91 H 01/29/22 10:30: Triglycerides 128, Cholesterol 227 H, LDL Cholesterol 158 H, VLDL Cholesterol 26, HDL Cholesterol 43 01/29/22 10:30: Hemoglobin A1c 5.4 01/30/22 03:35: WBC 11.5 H, RBC 4.20, Hgb 12.9, Hct 38.9, MCV 92.6, MCH 30.7, MCHC 33.2, RDW Std Deviation 45.6 H, RDW Coeff of Candy 13.5, Plt Count 383, MPV 8 .5, Immature Gran % (Auto) 0.300, Neut % (Auto) 72.4 H, Lymph % (Auto) 19.4, [place] % (Auto) 6.0, Eos % (Auto) 1.7, Baso % (Auto) 0.2, Absolute Neuts (auto) 8.3 H, Absolute Lymphs (auto) 2.22, Nucleated RBC % 0 01/30/22 03:35: Sodium 139, Potassium 3.8, Chloride 108 H, Carbon Dioxide 26.0, Anion Gap 5, BUN 9, Creatinine 0.65, Estim Creat Clear Calc 93.78, Est GFR (MDRD) Af Amer 119, Est GFR (MDRD) Non-Af 98, BUN/Creatinine Ratio 13.9, Glucose 113 H, Calcium 8.3 L ABG Data ABG results: ABG 01/29/22 14:29 Specimen Type ART pH 7.40 Bicarbonate Actual 22.1 Total CO2 23 Base Excess -3 L O2 Saturation 97 ABG pCO2 35.7 ABG pO2 90 Cardiology Labs/Tests 01/29/22 10:30: WBC 8.4, RBC 4.38, Hgb 13.8, Hct 40.7, MCV 92.9, MCH 31.5, MCHC 33.9, Plt Count 375, MPV 8.5, Immature Gran % (Auto) 0.200, Neut % (Auto) 62.3, Lymph % (Auto) 29.6, [place] % (Auto) 4.9, Eos % (Auto) 2.5, Baso % (Auto) 0.5, Absolute Neuts (auto) 5.3, Nucleated RBC % 0 01/29/22 10:30: Sodium 136, Potassium 3.7, Chloride 105, Carbon Dioxide 25.0, Anion Gap 6, BUN 13, Creatinine 0.97, Est GFR (MDRD) Af Amer 75, Est GFR (MDRD) Non-Af 62, BUN/Creatinine Ratio 13.4, Glucose 142 H, Calcium 8.6 01/29/22 10:30: Triglycerides 128, Cholesterol 227 H, LDL Cholesterol 158 H, VLDL Cholesterol 26, HDL Cholesterol 43 01/29/22 10:30: Hemoglobin A1c 5.4 01/29/22 14:29: pH 7.40, Bicarbonate Actual 22.1, Base Excess -3 L, O2 Saturation 97, ABG pCO2 35.7, ABG pO2 90 01/30/22 03:35: WBC 11.5 H, RBC 4.20, Hgb 12.9, Hct 38.9, MCV 92.6, MCH 30.7, MCHC 33.2, Plt Count 383, MPV 8.5, Immature Gran % (Auto) 0.300, Neut % (Auto) 72.4 H, Lymph % (Auto) 19.4, [place] % (Auto) 6.0, Eos % (Auto) 1.7, Baso % (Auto) 0.2, Absolute Neuts (auto) 8.3 H, Nucleated RBC % 0 01/30/22 03:35: Sodium 139, Potassium 3.8, Chloride 108 H, Carbon Dioxide 26.0, Anion Gap 5, BUN 9, Creatinine 0.65, Est GFR (MDRD) Af Amer 119, Est GFR (MDRD) Non-Af 98, BUN/Creatinine Ratio 13.9, Glucose 113 H, Calcium 8.3 L Rhythm: EKG: ECHO: Stress Test: Cardiac Cath: PCI: CT Surgery: Holter monitor: EPS: PPM: CXR: Chest CT Scan: Radiography Diagnostic Testing: Radiology Impression Chest X-Ray 01/29/22 10:31 IMPRESSION: No acute cardiopulmonary process identified. Electronically Signed: Mariam Oliver MD at 11:03 EST , Physical Exam Const alert, oriented x3 and no apparent distress General Appearance: cooperative HEENT hearing grossly normal bilaterally Head and Scalp: atraumatic Eyes EOMs intact bilaterally Neck General: normal visual inspection Chest inspection of chest normal and palpation of chest normal Resp normal respiratory effort Auscultation: clear to auscultation bilaterally Cardio regular rate, regular rhythm, S1 normal heart sound and S2 normal heart sound Jugular Venous Distention: JVD GI normal to inspection, nondistended, normoactive bowel sounds Extremity normal capillary refill and no pedal edema Peripheral Pulses: Yes pulses 2+ throughout and femoral pulses present Skin no rashes or lesions noted Neuro oriented x3 and CN's II-XII intact bilaterally Psych Appearance: grossly normal and appropriate Assessment & Plan Assessment/Plan (1) Chest pain: QUALIFIERS: Chest pain type: unspecified Qualified Code(s): R07.9 - Chest pain, unspecified PLAN: She presents with chest discomfort and is noted to have an elevated cardiac enzyme pattern but no EKG changes. She did have a stress test in 2020 with no evidence of ischemia at a moderate workload. She underwent a cardiac catheterization yesterday which demonstrated an occluded first diagonal vessel. It was a small vessel and the decision was made to manage medically. The previously placed stent in the left anterior descending artery was noted to be patent. * Had left ventriculogram demonstrated evidence of possible Takotsubo cardiomyopathy. An echocardiogram is pending this morning. (2) Hypertension: PLAN: Her blood pressure is not under good control at this time. It may be helpful to persuade her to take an antihypertensive medication despite her apparent sensitivities. This may help in her overall risk factor s tratification. Will start Coreg and an NANCY inhibitor (3) Presence of stent in coronary artery: PLAN: She does have a previous stent in her left anterior descending artery and her coronary anatomy is as noted above. Thank you for allowing me to participate in the care of your patient. Please don't hesitate to call if any issues arise. (4) Anxiety: PLAN: She does have some anxiety issues and will need some help in this regard. (5) Hyperlipidemia: PLAN: She should be encouraged to restart the above.
--- NOTE | 2022-01-30 10:16 | PN.HOSP_ITS ---
Subjective Subjective Patient seen and examined this morning. She was quite tearful and said she felt depressed due to some haley on in her life. She denied any chest pain, shortness of breath, palpitations, dizziness or any other symptoms. Review of systems is otherwise negative. Objective Data Objective Data Vital Signs: Vital Signs Temp Pulse Resp BP Pulse Ox O2 Del Method 97.8 F 81 15 142/78 H 96 Room Air 01/30/22 04:00 01/30/22 07:00 01/30/22 06:00 01/30/22 06:00 01/30/22 06:00 01/30/22 06:00 Oxygen Delivery Method Room Air Weight: 190 lb 14.725 oz Body Mass Index (BMI) 28.5 Intake & Output: Intake and Output for Last 24 Hours 01/28/22 01/29/22 01/30/22 23:59 23:59 23:59 Intake Total 363 / 363 100 / 100 Balance 363 / 363 100 / 100 Lab / Micro Data Result Diagrams: 01/30/22 03:35 01/30/22 03:35 Labs: Laboratory Results - last 24 hr 01/29/22 10:30: WBC 8.4, RBC 4.38, Hgb 13.8, Hct 40.7, MCV 92.9, MCH 31.5, MCHC 33.9, RDW Std Deviation 45.5 H, RDW Coeff of Candy 13.3, Plt Count 375, MPV 8.5, Immature Gran % (Auto) 0.200, Neut % (Auto) 62.3, Lymph % (Auto) 29.6, [place] % (Auto) 4.9, Eos % (Auto) 2.5, Baso % (Auto) 0.5, Absolute Neuts (auto) 5.3, Absolute Lymphs (auto) 2.50, Nucleated RBC % 0 01/29/22 10:30: Sodium 136, Potassium 3.7, Chloride 105, Carbon Dioxide 25.0, Anion Gap 6, BUN 13, Creatinine 0.97, Estim Creat Clear Calc 62.84, Est GFR (MDRD) Af Amer 75, Est GFR (MDRD) Non-Af 62, BUN/Creatinine Ratio 13.4, Glucose 142 H, Calcium 8.6, Troponin I High Sens 91 H 01/29/22 10:30: Triglycerides 128, Cholesterol 227 H, LDL Cholesterol 158 H, VLDL Cholesterol 26, HDL Cholesterol 43 01/29/22 10:30: Hemoglobin A1c 5.4 01/30/22 03:35: WBC 11.5 H, RBC 4.20, Hgb 12.9, Hct 38.9, MCV 92.6, MCH 30.7, MCHC 33.2, RDW Std Deviation 45.6 H, RDW Coeff of Candy 13.5, Plt Count 383, MPV 8.5, Immature Gran % (Auto) 0.300, Neut % (Auto) 72.4 H, Lymph % (Auto) 19.4, [place] % (Auto) 6.0, Eos % (Auto) 1.7, Baso % (Auto) 0.2, Absolute Neuts (auto) 8.3 H, Absolute Lymphs (auto) 2.22, Nucleated RBC % 0 01/30/22 03:35: Sodium 139, Potassium 3.8, Chloride 108 H, Carbon Dioxide 26.0, Anion Gap 5, BUN 9, Creatinine 0.65, Estim Creat Clear Calc 93.78, Est GFR (MDRD) Af Amer 119, Est GFR (MDRD) Non-Af 98, BUN/Creatinine Ratio 13.9, Glucose 113 H, Calcium 8.3 L ABG Data ABG results: ABG 01/29/22 14:29 Specimen Type ART pH 7.40 Bicarbonate Actual 22.1 Total CO2 23 Base Excess -3 L O2 Saturation 97 ABG pCO2 35.7 ABG pO2 90 Radiography Diagnostic Testing: Radiology Impression Chest X-Ray 01/29/22 10:31 IMPRESSION: No acute cardiopulmonary process identified. Electronically Signed: Mariam Oliver MD at 11:03 EST , Physical Exam Const alert and oriented x3 Constitutional Narrative: tearful General Appearance: cooperative HEENT normocephalic, head/scalp atraumatic, hearing grossly normal bilaterally and moist oral mucous membranes Head and Scalp: normocephalic Mouth: oral and palatal mucosa normal Eyes PERRL, EOMs intact bilaterally and conjunctivae normal Neck no lymphadenopathy and supple Resp normal respiratory effort, no retractions, no use of accessory muscles and clear to auscultation bilaterally Cardio regular rate, regular rhythm, S1 normal heart sound, S2 normal heart sound and no murmurs GI normal to inspection, nondistended, normoactive bowel sounds, soft to palpation, non-tender and non-distended Extremity normal to inspection, full ROM and no clubbing, cyanosis or edema Neuro oriented x3, CN's II-XII intact bilaterally and moves all extremities Sensorium / Orientation: awake Motor Exam: strength 5/5 throughout Psych affect normal Assessment & Plan Assessment/Plan (1) Non-ST elevated myocardial infarction (non-STEMI): (2) Hypertension: PLAN: Plan #Nonstemi * s/p cardiac cath which showed previously placed stent in the LAD to be patent and first diagonal vessel totally occluded in the midsegment and and mild disease in hte circumflex and right coronary artery. * symptoms thought to be due to Takotsubo's cardiomyopathy * check lipid panel * on aspirin, carvedilol and lisinopril * 2D echo ordered and pending * cardiology on board * #CAD s/p stents: on aspirin. Says she doesnt take any other meds because she cannot tolerate the meds #Nicotine dependence: counseled to quit. On nicotine patch 21mg daily #Depression: * patient tearful today because she feels depressed. * Wants to go back to counseling which has helped her depression in the past and would prefer not to start antidepressants. * to follow up with counseling center on discharge * DVT prophylaxis: lovenox COde status: full code * Disposition: transfer out of ICU to PCU Charges/Coding Visit Charges Inpatient E&M: 82760 Subs Hosp L2
--- NOTE | 2022-01-30 13:20 | CASEMGMT ---
RN CM Face to Face with patient for initial transition planning/care coordination assessment. RN CM introduced self and role at [facility]. Patient lying in bed, alert and oriented. Patient willing to participate in assessment and is able to answer all questions appropriately. Care providers, pharmacy, and demographics verified. Patient wishes to discharge home, denies need for home health at this time. Patient states she has no further needs or concerns at this time. CM to follow for discharge planning needs that may arise. PCP: Erik Specialists: King time study analyst Preferred [facility]acy: [facility] Insurance: White Prescription Benefit: yes Living Will/HPOA: , Jeffery German LNOK: Living Arrangements: Patient lives with in a single story home with 3 steps and railing to enter. Patient states she is independent at home. Transportation: self, DME/HHC: Patient states she has shower chair and grab bars at home. No previous HHC or SNF. Disposition Plan: Patient to discharge home with family support and follow-up plans in place. Carolann MANN, RN, CM
--- NOTE | 2022-01-30 13:20 | CM.ED ---
SW Note SW was advised by RN DONNIE that patient is concerned about cost of medication and any medication assistance and counseling resources. SW was updated by RN caring for patient. Patient potentially discharged on Tuesday. SW met with patient. Patient has seen counselor, Philly Mary, from [facility] in the past and feels comfortable with their therapeutic relationship. SW discussed [facility] PHP/IOP patient patient said that she would prefer contacting her counselor. Patient was advised to call her counselor, Philly Bates, and request counseling. Patient discussed work stress. SW also provided Good RX and prescription medication resources for patient. No other issues or concerns voiced. SW remains available. Plan: Resources provided. Patient will call counselor to schedule an appointment. Bouchra BOBBY
[2022-01-31 02:58] VITALS: PULSE 72
[2022-01-31 03:50] VITALS: BP 105/64; PULSE 79; RESP 18; TEMP 36.8; O2SAT 95
[2022-01-31] MEDS: Potassium Chloride Oral Tablet 20 MEQ PO (03:52)
[2022-01-31 07:03] LABS: Anion Gap 6 (5-15); BUN 14 mg/dL (7-18); BUN/Creat Ratio 14.2 RATIO (10-20); Calcium,Total 8.4 mg/dL (8.5-10.1); Chloride 102 mmol/L (98-107); Creatinine, Serum 0.99 mg/dL (0.55-1.02); EST Glomerular Filtration Rate 61 mL/min (>60); Est Glom Filt Rate - Afr Amer 73 mL/min (>60); Estimated Creatinine Clearance 61.57 ml/min; Glucose 109 mg/dL (74-106); Magnesium 2.2 mg/dL (1.6-2.6); Potassium 3.5 mmol/L (3.5-5.1); Sodium Level 135 mmol/L (136-145)
[2022-01-31 07:28] VITALS: PULSE 70
--- NOTE | 2022-01-31 09:27 | PN.CARD_ITS ---
Subjective Subjective The patient was seen and evaluated. Appears to be doing quite well. No complaints at this time. Objective Data Vital Signs: Vital Signs Temp Pulse Resp BP Pulse Ox O2 Del Method 98.2 F 70 18 105/64 95 Room Air 01/31/22 03:50 01/31/22 07:28 01/31/22 03:50 01/31/22 03:50 01/31/22 03:50 01/31/22 04:06 Oxygen Delivery Method Room Air Weight: 189 lb 6.033 oz Body Mass Index (BMI) 28.5 Intake & Output: Intake and Output for Last 24 Hours 01/29/22 01/30/22 01/31/22 23:59 23:59 23:59 Intake Total 363 / 363 640 / 640 Balance 363 / 363 640 / 640 Lab / Micro Data Result Diagrams: 01/30/22 03:35 01/31/22 06:00 Labs: Laboratory Results - last 24 hr 01/31/22 06:00: Sodium 135 L, Potassium 3.5, Chloride 102, Carbon Dioxide 27.0, Anion Gap 6, BUN 14, Creatinine 0.99, Estim Creat Clear Calc 61.57, Est GFR (MDRD) Af Amer 73, Est GFR (MDRD) Non-Af 61, BUN/Creatinine Ratio 14.2, Glucose 109 H, Calcium 8.4 L, Magnesium 2.2 Cardiology Labs/Tests 01/31/22 06:00: Sodium 135 L, Potassium 3.5, Chloride 102, Carbon Dioxide 27.0, Anion Gap 6, BUN 14, Creatinine 0.99, Est GFR (MDRD) Af Amer 73, Est GFR (MDRD) Non-Af 61, BUN/Creatinine Ratio 14.2, Glucose 109 H, Calcium 8.4 L, Magnesium 2.2 Rhythm: EKG: ECHO: Stress Test: Cardiac Cath: PCI: CT Surgery: Holter monitor: EPS: PPM: CXR: Chest CT Scan: Radiography Diagnostic Testing: Radiology Impression Echocardiogram 01/29/22 13:49 Interpretation Summary Normal LV size. Moderate segmental systolic dysfunction (see wall motion). The estimated ejection fraction is 35 %. Mild concentric left ventricular hypertrophy. Stage 1 diastolic dysfunction. Ordering Physician: Kristopher Li Referring Physician: Thiago Valencia MD Performed By: Suzy Her, ML Physical Exam Const alert, oriented x3 and no apparent distress General Appearance: cooperative HEENT hearing grossly normal bilaterally Head and Scalp: atraumatic Eyes EOMs intact bilaterally Neck General: normal visual inspection Chest inspection of chest normal and palpation of chest normal Resp normal respiratory effort Auscultation: clear to auscultation bilaterally Cardio regular rate, regular rhythm, S1 normal heart sound and S2 normal heart sound Jugular Venous Distention: JVD GI normal to inspection, nondistended, normoactive bowel sounds Extremity normal capillary refill and no pedal edema Peripheral Pulses: Yes pulses 2+ throughout and femoral pulses present Skin no rashes or lesions noted Neuro oriented x3 and CN's II-XII intact bilaterally Psych Appearance: grossly normal and appropriate Assessment & Plan Assessment/Plan (1) Chest pain: QUALIFIERS: Chest pain type: unspecified Qualified Code(s): R07.9 - Chest pain, unspecified PLAN: She presents with chest discomfort and is noted to have an elevated cardiac enzyme pattern but no EKG changes. She did have a stress test in 2020 with no evidence of ischemia at a moderate workload. She underwent a cardiac catheterization which demonstrated an occluded first diagonal vessel. It was a small vessel and the decision was made to manage medically. The previously placed stent in the left anterior descending artery was noted to be patent. * Had left ventriculogram demonstrated evidence of possible Takotsubo cardiomyopathy. * Echocardiogram confirmed the same (2) Hypertension: PLAN: Her blood pressure is under much better control at this time. She has been persuaded to take her antihypertensives and thus far she has tolerated it well. We will continue with the NANCY inhibitor and the carvedilol. (3) Presence of stent in coronary artery: PLAN: She does have a previous stent in her left anterior descending artery and her coronary anatomy is as noted above. Thank you for allowing me to participate in the care of your patient. Please don't hesitate to call if any issues arise. (4) Anxiety: PLAN: She does have some anxiety issues and will need some help in this regard. (5) Hyperlipidemia: PLAN: She should be encouraged to restart the above. We will suggest a low-dose of a statin. 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
[2022-01-31 09:50] VITALS: BP 115/70; PULSE 74; RESP 16; TEMP 36.7; O2SAT 97
--- NOTE | 2022-01-31 10:05 | DCINST_ITS ---
Discharge Instructions Diet Discharge Diet: Low fat / Low cholesterol Activity Discharge Activity: Return to Normal Activity Weight Bearing Status: Weight bearing as tolerated Dressing / Incision Call your doctor if you observe: Fever of 101 or Higher, Shortness of breath, Dizziness, Chest pain and Increased palpitations (irregular heartbeat) Follow Up Care Test Results: Test results from this visit will be discussed in further detail at your follow- up appointment, if applicable. Discharge Plan Admission Admit Date/Time: 01/29/22 12:20 Primary Reason for Your Visit: nonstemi Attending Provider: Tia Mendez Primary Care Provider: Oscar Valencia Consulting Providers: Kristopher Li Instructions Patient Instructions: Takotsubo Cardiomyopathy Additional Instructions / Restrictions: counseled to quit smoking Discharge Orders/Prescriptions Prescriptions: New carvedilol 6.25 mg Tablet 6.25 mg PO BID Qty: 60 1RF pravastatin 20 mg Tablet 20 mg PO QHS Qty: 30 1RF lisinopril 5 mg Tablet 5 mg PO DAILY Qty: 30 1RF Continued aspirin 81 MG tablet,chewable 81 mg PO DAILY Referrals / Follow Up: Oscar Valencia MD [Primary Care Provider] - Within 1 Week Jarrett Malik MD [Med Staff - Active Staff] - Within 2 Weeks Disposition Disposition (needs filled in before D/C Order can be placed): Home, Self Care
--- NOTE | 2022-01-31 10:09 | PCM.DC.SUM ---
Providers Date of Admission: 01/29/22 Primary Care Physician: Dr. Oscar Valencia MD Reason For Visit: cp Diagnosis Discharge Diagnosis (1) Chest pain: Status: Acute Code(s): R07.9 - Chest pain, unspecified Qualifiers: Chest pain type: unspecified Qualified Code(s): R07.9 - Chest pain, unspecified (2) Hypertension: Status: Chronic Code(s): I10 - Essential (primary) hypertension (3) Presence of stent in coronary artery: Status: Chronic Code(s): Z95.5 - Presence of coronary angioplasty implant and graft (4) Anxiety: Status: Chronic Code(s): F41.9 - Anxiety disorder, unspecified (5) Hyperlipidemia: Status: Acute Code(s): E78.5 - Hyperlipidemia, unspecified Plan #Nonstemi s/p cardiac cath which showed previously placed stent in the LAD to be patent and first diagonal vessel totally occluded in the midsegment and and mild disease in hte circumflex and right coronary artery. symptoms thought to be due to Takotsubo's cardiomyopathy check lipid panel on aspirin, carvedilol and lisinopril 2D echo ordered and pending cardiology on board #CAD s/p stents: on aspirin. Says she doesnt take any other meds because she cannot tolerate the meds #Nicotine dependence: counseled to quit. On nicotine patch 21mg daily #Depression: patient tearful today because she feels depressed. Wants to go back to counseling which has helped her depression in the past and would prefer not to start antidepressants. to follow up with counseling center on discharge DVT prophylaxis: lovenox COde status: full code Disposition: transfer out of ICU to PCU Medications at Discharge Home Medications aspirin 81 mg chewable tablet 81 mg PO DAILY [facility] 01/29/22 carvedilol 6.25 mg tablet 6.25 mg PO BID #60 tabs 01/31/22 lisinopril 5 mg tablet 5 mg PO DAILY #30 tabs 01/31/22 pravastatin 20 mg tablet 20 mg PO QHS #30 tabs 01/31/22 Weight / BMI Weight Weight: 189 lb 6.033 oz Body Mass Index (BMI) 28.5 ABG / Lab / Microbiology Data Result Diagrams: 01/30/22 03:35 01/31/22 06:00 Laboratory: Laboratory Results - last 24 hr 01/31/22 06:00: Sodium 135 L, Potassium 3.5, Chloride 102, Carbon Dioxide 27.0, Anion Gap 6, BUN 14, Creatinine 0.99, Estim Creat Clear Calc 61.57, Est GFR (MDRD) Af Amer 73, Est GFR (MDRD) Non-Af 61, BUN/Creatinine Ratio 14.2, Glucose 109 H, Calcium 8.4 L, Magnesium 2.2 Radiography Diagnostic Testing: Radiology Impression Echocardiogram 01/29/22 13:49 Interpretation Summary Normal LV size. Moderate segmental systolic dysfunction (see wall motion). The estimated ejection fraction is 35 %. Mild concentric left ventricular hypertrophy. Stage 1 diastolic dysfunction. Ordering Physician: Kristopher Li Referring Physician: Thiago Valencia MD Performed By: Suzy Her [facility] D/C Instructions Discharge Diet: Low fat / Low cholesterol Weight Bearing Status: Weight bearing as tolerated Call your doctor if you observe: Fever of 101 or Higher, Shortness of breath, Dizziness, Chest pain and Increased palpitations (irregular heartbeat) Discharge Plan Admission Admit Date/Time: 01/29/22 12:20 Primary Reason for Your Visit: nonstemi Attending Provider: Tia Mendez Primary Care Provider: Oscar Valencia Consulting Providers: Kristopher Li Instructions Patient Instructions: Takotsubo Cardiomyopathy Additional Instructions / Restrictions: counseled to quit smoking Discharge Orders/Prescriptions Prescriptions: New carvedilol 6.25 mg Tablet 6.25 mg PO BID Qty: 60 1RF pravastatin 20 mg Tablet 20 mg PO QHS Qty: 30 1RF lisinopril 5 mg Tablet 5 mg PO DAILY Qty: 30 1RF Continued aspirin 81 MG tablet,chewable 81 mg PO DAILY Referrals / Follow Up: Oscar Valencia MD [Primary Care Provider] - Within 1 Week Jarrett Malik MD [Med Staff - Active Staff] - Within 2 Weeks Disposition Disposition (needs filled in before D/C Order can be placed): Home, Self Care
[2022-01-31] MEDS: Aspirin 81 MG TAB.CHEW PO (10:16)
[2022-01-31] MEDS: Carvedilol 6.25 MG Tablet PO (10:16)
[2022-01-31] MEDS: Lisinopril 5 MG Tablet PO (10:16)
--- NOTE | 2022-01-31 14:26 | DS.PCM_ITS ---
Providers Date of Admission: 01/29/22 Date of Discharge: 01/31/22 Primary Care Physician: Dr. Oscar Valencia MD Reason For Visit: cp Diagnosis Discharge Diagnosis (1) Chest pain: Status: Acute Code(s): R07.9 - Chest pain, unspecified Qualifiers: Chest pain type: unspecified Qualified Code(s): R07.9 - Chest pain, unspecified (2) Hypertension: Status: Chronic Code(s): I10 - Essential (primary) hypertension (3) Presence of stent in coronary artery: Status: Chronic Code(s): Z95.5 - Presence of coronary angioplasty implant and graft (4) Anxiety: Status: Chronic Code(s): F41.9 - Anxiety disorder, unspecified (5) Hyperlipidemia: Status: Acute Code(s): E78.5 - Hyperlipidemia, unspecified Plan #Nonstemi * s/p cardiac cath which showed previously placed stent in the LAD to be patent and first diagonal vessel totally occluded in the midsegment and and mild disease in hte circumflex and right coronary artery. * symptoms thought to be due to Takotsubo's cardiomyopathy * check lipid panel * on aspirin, carvedilol and lisinopril * 2D echo ordered and pending * cardiology on board * #CAD s/p stents: on aspirin. Says she doesnt take any other meds because she cannot tolerate the meds #Nicotine dependence: counseled to quit. On nicotine patch 21mg daily #Depression: * patient tearful today because she feels depressed. * Wants to go back to counseling which has helped her depression in the past and would prefer not to start antidepressants. * to follow up with counseling center on discharge * DVT prophylaxis: lovenox COde status: full code * Disposition: transfer out of ICU to PCU Medications at Discharge Home Medications aspirin 81 mg chewable tablet 81 mg PO DAILY HEART HEALTH 01/29/22 carvedilol 6.25 mg tablet 6.25 mg PO BID #60 tabs 01/31/22 lisinopril 5 mg tablet 5 mg PO DAILY #30 tabs 01/31/22 pravastatin 20 mg tablet 20 mg PO QHS #30 tabs 01/31/22 Hospital Course Operations None Procedures 2-D Echocardiogram and Cardiac catheterization Summary of Care Provided Minutes Spent on Discharge: 45 Hospital Course: JENNIFER MCKOY, is a 61 F with a PMH as outlined who presents via the ED with a complaint of chest pain. THis pain started abruptly this mornning and was left sided, pressure like and radiated to her left arm. Pain had no aggravating or relieving factors.? She took baby aspirin at home but this did not help with the pain.? She denied any palpitations, dizziness, shortness of breath or vomiting; she did complain of nausea. ? Review of systems was otherwise negative. Vitals at time of review were blood pressure 166/89 with pulse rate of 91, respiratory rate of 14 and temperature of 97 Fahrenheit and she was saturating at 99% on room air.? CBC and BMP were unremarkable and troponin was elevated.? EKG showed no acute ST changes.? She had had a stress test in 2020 with no evid ence of ischemia at moderate workload.? Cardiology recommended left heart cath due to persistence of chest discomfort.? Patient was therefore taken emergently to the [facility]. Cardiac cath showed an occluded first diagonal vessel and decision was made to manage medically and previously placed stents in the left anterior descending artery was patent. Left ventriculogram demonstrated evidence of possible Takotsubo cardiomyopathy. 2D echo done also showed reduced EF of 35% with normal left ventricular size and mild left ventricular hypertrophy with moderate segmental systolic dysfunction. His symptoms were therefore thought to be due to Takotsubo cardiomyopathy. She was started on statin as well as lisinopril and carvedilol. His symptoms resolved and she felt much better. She was discharged home on 01/31/2022. She is to follow-up with her primary care doctor and follow-up with cardiology. Patient seen and examined prior to discharge. She had no active complaints and had an uneventful night. Review of systems otherwise negative. Labs and vitals reviewed. Home medication reviewed and reconciled. Physical Exam Const alert, oriented x3 and no apparent distress Constitutional Narrative: tearful General Appearance: cooperative and comfortable Exam Limitations: no limitations HEENT normocephalic, head/scalp atraumatic, hearing grossly normal bilaterally and moist oral mucous membranes Eyes PERRL, EOMs intact bilaterally and conjunctivae normal Neck no lymphadenopathy and supple Resp normal respiratory effort, no retractions, no use of accessory muscles and clear to auscultation bilaterally Cardio regular rate, regular rhythm, S1 normal heart sound, S2 normal heart sound and no murmurs GI normal to inspection, nondistended, normoactive bowel sounds, soft to palpation, non-tender and non-distended Extremity normal to inspection, full ROM and no clubbing, cyanosis or edema Skin no rashes or lesions noted Neuro oriented x3, CN's II-XII intact bilaterally and moves all extremities Sensorium / Orientation: awake Motor Exam: strength 5/5 throughout Psych affect normal Weight / BMI Weight Weight: 189 lb 6.033 oz Body Mass Index (BMI) 28.5 ABG / Lab / Microbiology Data Result Diagrams: 01/30/22 03:35 01/31/22 06:00 Laboratory: Laboratory Results - last 24 hr 01/31/22 06:00: Sodium 135 L, Potassium 3.5, Chloride 102, Carbon Dioxide 27.0, Anion Gap 6, BUN 14, Creatinine 0.99, Estim Creat Clear Calc 61.57, Est GFR (MDRD) Af Amer 73, Est GFR (MDRD) Non-Af 61, BUN/Creatinine Ratio 14.2, Glucose 109 H, Calcium 8.4 L, Magnesium 2.2 D/C Instructions Discharge Diet: Low fat / Low cholesterol Weight Bearing Status: Weight bearing as tolerated Call your doctor if you observe: Fever of 101 or Higher, Shortness of breath, Dizziness, Chest pain and Increased palpitations (irregular heartbeat) Meaningful Use Info Meaningful Use Diagnoses (Choose all that apply): None applicable Discharge Plan Admission Admit Date/Time: 01/29/22 12:20 Primary Reason for Your Visit: nonstemi Attending Provider: Tia Mendez Primary Care Provider: Oscar Valencia Consulting Providers: Kristopher Li Instructions Patient Instructions: Takotsubo Cardiomyopathy Additional Instructions / Restrictions: counseled to quit smoking Discharge Orders/Prescriptions Prescriptions: New carvedilol 6.25 mg Tablet 6.25 mg PO BID Qty: 60 1RF pravastatin 20 mg Tablet 20 mg PO QHS Qty: 30 1RF lisinopril 5 mg Tablet 5 mg PO DAILY Qty: 30 1RF Continued aspirin 81 MG tablet,chewable 81 mg PO DAILY Referrals / Follow Up: Oscar Valencia MD [Primary Care Provider] - Within 1 Week Jarrett Malik MD [Med Staff - Active Staff] - Within 2 Weeks Disposition Disposition (needs filled in before D/C Order can be placed): Home, Self Care Charges/Coding Visit Charges Inpatient E&M: 00741 Disch Hosp
== END 2022-01-31 11:13 | disposition home or self-care (01) | DRG 280 ==
LOC: ED 12:02 → ICU 14:33 → PCU 01-31 10:05 → ICU 02-01 17:58
PROVIDERS: Hospitalist; Admitting Provider Internal Medicine Cardiovascular Disease; Emergency Provider Emergency Medicine; PCP Family Medicine; Visit Provider Student in an Organized Health Care Education/Training Program
DX: I21.4 Non-ST elevation (NSTEMI) myocardial infarction (principal); I49.01 Ventricular fibrillation; I51.81 Takotsubo syndrome; I25.110 Atherosclerotic heart disease of native coronary artery with unstable angina pectoris; E78.00 Pure hypercholesterolemia, unspecified; I10 Essential (primary) hypertension; F17.210 Nicotine dependence, cigarettes, uncomplicated; I25.2 Old myocardial infarction; F41.9 Anxiety disorder, unspecified; G89.29 Other chronic pain; F32.A Depression, unspecified; Z95.5 Presence of coronary angioplasty implant and graft; Z66 Do not resuscitate; Z79.82 Long term (current) use of aspirin; Z79.899 Other long term (current) drug therapy
CPT/HCPCS: 36415; 71045; 80048; 80061; 82803; 83036; 83735; 84484; 85025; 92950; 93005; 93306; 93458; 97802; 99152; 99153; 99285; J7030; Q9957; Q9967; A4216; C1769; C1894; J2405

== ENCOUNTER → 2022-05-19 | Outpatient (CLI) | payer OTHER, SELFPAY ==
[2016-07-19 14:11] VITALS: BMI 28.2
--- NOTE | 2022-05-19 09:12 | ECHOL_ITS ---
Reason For Study: Assess LV function, Hx of Takotsubo CMP Procedure This was a limited 2D transthoracic echocardiogram. Exam performed in department. Left Ventricle Normal LV size. Left ventricular systolic function is normal. The estimated ejection fraction is 55 %. Unable to assess diastolic dysfunction. No regional wall motion abnormalities noted. Right Ventricle Normal RV size. Normal systolic function. Atria Normal left atrium. Normal right atrium. Mitral Valve There is no mitral annular calcification. Normal mitral valve. Tricuspid Valve Normal tricuspid valve. Aortic Valve Trisinus/trileaflet aortic valve. Normal aortic valve. Pulmonic Valve The pulmonic valve is not well visualized. Great Vessels Normal sized aortic root. Pericardium/Pleural Trivial pericardial effusion. There are no echocardiographic indications of cardiac tamponade. MMode/2D Measurements & Calculations LVIDd: 4.8 cm IVSd: 1.2 cm Ao root diam: 3.3 cm LVIDs: 3.0 cm LVPWd: 1.2 cm RVDd: 2.9 cm FS: 36.9 % LAV(MOD-bp): 44.8 ml LVAd ap4: 30.4 cm2 LVAd ap2: 29.2 cm2 LAV(MOD-bp) Indexed: 21.7 ml/m2 LVLd ap4: 8.6 cm LVLd ap2: 8.2 cm LAV(MOD-sp2): 48.3 ml EDV(MOD-sp4): 92.0 ml EDV(MOD-sp2): 90.6 ml LAV(MOD-sp4): 39.4 ml EDV(sp4-el): 90.7 ml EDV(sp2-el): 88.6 ml LVAs ap4: 18.5 cm2 LVAs ap2: 18.3 cm2 LVLs ap4: 7.3 cm LVLs ap2: 7.4 cm ESV(MOD-sp4): 42.4 ml ESV(MOD-sp2): 40.7 ml ESV(sp4-el): 40.0 ml ESV(sp2-el): 38.6 ml EF(MOD-sp4): 54.0 % EF(MOD-sp2): 55.1 % EF(sp4-el): 55.8 % SV(MOD-sp4): 49.7 ml SV(MOD-sp2): 49.9 ml SV(sp4-el): 50.6 ml LA dimension(2D): 3.5 cm LA A4 area: 16.2 cm2 RA A4 area: 12.1 cm2 ECHO/Echo, Limited Study Interpretation Summary Left ventricular systolic function is normal. The estimated ejection fraction is 55 %. Trivial pericardial effusion. There are no echocardiographic indications of cardiac tamponade. Unable to assess diastolic dysfunction. Ordering Physician: Boston Khan/Jarrett Malik Referring Physician: Thiago Valencia MD Performed By: Suzy Her RDCS
== END | disposition home or self-care (01) ==
LOC: CVS 07:40
PROVIDERS: PCP Family Medicine; Referring Provider Nurse Practitioner Family; Visit Provider Nurse Practitioner Family
DX: I51.81 Takotsubo syndrome (principal); I50.9 Heart failure, unspecified
CPT/HCPCS: 93308

== ENCOUNTER 2022-07-24 14:32 | Emergency (ER) | payer OTHER, SELFPAY ==
[2016-07-19 14:11] VITALS: BMI 28.2
[2022-07-24 14:33] VITALS: BP 177/80; PULSE 89; RESP 16; TEMP 36.9; O2SAT 98; BMI 32.0
--- NOTE | 2022-07-24 14:43 | EKG12_ITS ---
Test Reason : CP Blood Pressure : / mmHG Vent. Rate : 087 BPM Atrial Rate : 087 BPM P-R Int : 176 ms QRS Dur : 090 ms QT Int : 422 ms P-R-T Axes : 051 055 040 degrees QTc Int : 507 ms Sinus rhythm with frequent Premature ventricular complexes Prolonged QT Abnormal ECG Confirmed by KARIE PARTIDA, ELENA ([id number]), senior technical editor GILBERTO JURADO ([id number]) on 07/26/2022 11:21:36 AM Referred By: Confirmed By:ELENA TIWARI MD
--- NOTE | 2022-07-24 14:45 | ED.VIS.CHEST ---
HPI History of Present Illness Chief Complaint: Chest Pain Informant: patient and spouse/S.O. Narrative Narrative: Intermittent chest pressure last 90 minutes most lasting 1 minute. No dyspnea nausea diaphoresis no radicular symptoms. No numbness. History of [place] with a stent 5 years ago. Family history father dying at the age of 50. Remote tobacco history. No diabetes. History of hypertension. Reviewing records she had elevation cardiac enzymes this past January heart cath with patent vessels, small occluded diagonal branch. No intervention. EF was 35%, under a lot of stress at that time, diagnosed with Takotsubo's. This past May echocardiogram was performed EF was 55%. Patient does report some stress at work however no significant today. Currently symptom-free. With her history she reports wanting to come for rule out. PFSH PFSH Medical History Anxiety Anxiety and depression Atherosclerotic heart disease of [place] coronary artery without angina pectoris Chronic back pain Fatigue Hyperlipidemia Hypertension NSTEMI (non-ST elevated myocardial infarction) (~07/2016) Old myocardial infarction Overweight (BMI 25.0-29.9) Palpitations Presence of stent in coronary artery (~07/19/16) Pure hypercholesterolemia Takotsubo cardiomyopathy (~01/29/22) Tobacco abuse Tobacco use Home Medications aspirin 81 mg chewable tablet 81 mg PO DAILY HEART HEALTH 01/29/22 [History Last Taken 01/29/22 09:00] pravastatin 20 mg tablet 10 mg PO QHS 02/18/22 [History Last Taken Unknown] carvedilol 6.25 mg tablet 6.25 mg PO DAILY 04/01/22 [History Last Taken Unknown] Allergy/AdvReac Type Severity Reaction Status Date / Time hydrocodone bitartrate Allergy Nausea Verified 04/01/22 15:22 [From Vicodin] oxycodone [From Percocet] Allergy Unknown Verified 04/01/22 15:22 ezetimibe [From Zetia] AdvReac Intermediate anxiety, Verified 04/01/22 15:22 fatigue, upset stomach lisinopril AdvReac Intermediate Persistent Verified 04/01/22 15:22 Cough losartan AdvReac Intermediate persistent Verified 04/01/22 15:22 cough metoprolol AdvReac Intermediate Very Verified 04/01/22 15:22 dizzy, lightheaded even on smallest dose rosuvastatin [From Crestor] AdvReac myalgia Verified 04/01/22 15:22 ANTIBIOTIC Allergy Upset Uncoded 04/01/22 15:22 Stomach Family History Mother CAD (coronary artery disease) Hypertension Diabetes Father , Age 49 [place] Myocardial infarction Surgical History History of total hysterectomy Presence of coronary angioplasty implant and graft (~07/19/16) Social History household members: significant other Smoking Status: Former smoker alcohol intake: former substance use type: does not use caffeine: No what type of physical activity do you participate in: none seatbelt use: always do you feel safe at home: Yes additional social history: Jeffery- Patient works at [employer] ED Constitutional Constitutional ED: Denies chills, fever(s) or sweats Eyes Eyes: Denies change in vision ENT ENT ED: Denies dysphagia or sore throat Cardiovascular Cardiovascular: Reports chest pain; Denies leg edema, palpitations or racing heartbeat Respiratory/Chest Respiratory/Chest: Denies cough, dyspnea or dyspnea on exertion Gastrointestinal Gastrointestinal: Denies abdominal pain, diarrhea, nausea or vomiting Genitourinary Genitourinary ED: Denies dysuria, hematuria or urinary frequency Musculoskeletal Musculoskeletal: Denies back pain, extremity pain or neck pain Integumentary Denies rash or wounds Neurologic Neurologic: Denies headache(s), paresthesias or weakness EXAM Physical Exam Const Vital Signs: 07/24/22 14:33 07/24/22 14:43 07/24/22 16:06 Temperature 98.4 F Temperature Source Oral Pulse Rate 89 78 Respiratory Rate 16 16 Blood Pressure 177/80 H 180/71 H Blood Pressure Mean 112 107 Pulse Ox 98 97 Oxygen Delivery Method Room Air Room Air Room Air 07/24/22 17:30 Temperature Temperature Source Pulse Rate 75 Respiratory Rate 18 Blood Pressure 152/83 H Blood Pressure Mean 106 Pulse Ox 97 Oxygen Delivery Method Room Air Positive well nourished and well developed General Appearance ED: well developed and NAD HEENT Reports moist mucous membranes normocephalic and atraumatic Eyes PERRL, EOMs intact bilaterally and conjunctivae normal General Eye ED: Yes normal appearance of both eyes Neck no lymphadenopathy and supple General: Negative for tenderness Chest Wall Chest: Negative for tenderness Resp normal respiratory effort and normal air movement Effort and Inspection: symmetric chest movement; Negative for respiratory distress Cardio regular rate, regular rhythm and no murmurs Peripheral Pulses: pulses 2+ throughout GI normal to inspection, nondistended, normoactive bowel sounds and non-tender Palpation: Negative for guarding or rebound tenderness present Back/Spine no CVA tenderness and no thoracic nor lumbar tenderness Extremity normal to inspection General Extremety ED: Negative for edema or tenderness General Extremity: Negative for edema Neuro oriented x3 and no sensory deficits noted Sensorium / Orientation: awake and alert Skin no rashes or lesions noted and no wounds Heart Score History: Slightly/Non-Suspicious ECG: Normal Age: >45 - <65 years Risk Factors: >/= 3 Risk Factors or History of CAD Troponin: </= Normal Limit Score: 3 MDM MDM MDM Narrative Medical decision making narrative: Interventions / MDM: Differential diagnosis: Acute coronary syndrome, chest pain Diagnosis considered but do not suspect: Pulmonary embolism however no dyspnea. No pneumothorax, normal breath sounds bilaterally. My EKG interpretation: Sinus rate of 87, no ST or T wave changes occasional PVC noted. Imaging independently reviewed and interpreted by myself: 2 view chest x-ray: No acute process External documents reviewed: N/A Test considered but not ordered:N/A ED course: Patient currently symptom-free aspirin taken daily at home. Cardiac work-up initiated. EKG occasional PVCs. Re-evaluation: 1525: Initial troponin negative chest x-ray negative. Main symptom-free. Awaiting for delta troponin. 1745: Repeat troponin negative. symptom free. Outpatient follow up with return precautions. Disposition discussed with patient/family/significant other: patient and sig other Case discussed with consulting clinician: N/A Lab Data Labs: Laboratory Results - last 24 hr 07/24/22 07/24/22 07/24/22 14:49 14:49 16:58 WBC 9.3 RBC 4.47 Hgb 13.3 Hct 40.0 MCV 89.5 MCH 29.8 MCHC 33.3 RDW Std Deviation 44.2 H RDW Coeff of Candy 13.5 Plt Count 386 MPV 8.4 Immature Gran % (Auto) 0.100 Neut % (Auto) 56.6 Lymph % (Auto) 31.2 [place] % (Auto) 7.0 Eos % (Auto) 4.5 Baso % (Auto) 0.6 Absolute Neuts (auto) 5.3 Absolute Lymphs (auto) 2.91 Nucleated RBC % 0 Sodium 139 Potassium 3.8 Chloride 108 H Carbon Dioxide 26.0 Anion Gap 5 BUN 16 Creatinine 0.84 Estim Creat Clear Calc 72.57 Est GFR (MDRD) Af Amer 88 Est GFR (MDRD) Non-Af 73 BUN/Creatinine Ratio 19.0 Glucose 109 H Calcium 8.7 Troponin I High Sens 10 10 Radiography Diagnostic Testing: Clinical Impression(s) from Imaging Studies Chest X-Ray 07/24/22 15:07 IMPRESSION: Few linear opacities within the left lower lung may be secondary to atelectasis and/or scarring. Electronically Signed: Raya Bautista MD at 15:42 EDT , Discharge Plan Triage Chief Complaint: Chest Pain ED Provider: Sekou Baron Dx/Rx/DC Orders Clinical Impression: Chest pain, Presence of stent in coronary artery, History of CAD (coronary artery disease) Instructions: ED Chest Pain, Uncertain Cause Prescriptions: No Action pravastatin 20 mg tablet 10 mg PO QHS carvedilol 6.25 mg tablet 6.25 mg PO DAILY aspirin 81 MG tablet,chewable 81 mg PO DAILY Primary Care Provider: Oscar Valencia Referrals: Kristopher Li MD [Med Staff - Active Staff] - 3-5 Days Oscar Valencia MD [Primary Care Provider] - Activity Restrictions/Additional Instructions: Cardiac w/u negative. Follow up with Dr. Li. Return if worsening symptoms Disposition Disposition: Home, Self Care
[2022-07-24 15:01] LABS: Absolute Lymphocyte Count 2.91 X10^3/uL (0.83-4.51); Absolute Neutrophil Count 5.3 X10^3/uL (2.0-7.7); Basophil# 0.06 X10^3/uL; Basophil% 0.6 % (0-1); Eosinophil# 0.42 X10^3/uL; Eosinophils% 4.5 % (0-5); Hemoglobin 13.3 g/dL (12.0-15.0); Lymphocyte # 2.91 X10^3/ul (0.83-4.51); Lymphocyte % 31.2 % (19-41); Mean Corp Hgb Conc 33.3 g/dL (32-36); Mean Corpuscular Hgb 29.8 pg (27.0-32.0); Mean Corpuscular Volume 89.5 fL (81-99); Mean Platelet Vol. 8.4 fl (6.2-12.0); Monocyte# 0.65 X10^3/uL; NRBC Flagged by Analyzer 0 % (0-5); Neutrophil # 5.28 X10^3/uL (2.7-7.7); Neutrophil % 56.6 % (47-70); Platelet Count 386 K/mm3 (150-450); RBC Distribution Width CV 13.5 % (11.6-14.6); RBC Distribution Width SD 44.2 fl (35.1-43.9); Red Blood Count 4.47 M/mm3 (4.2-5.4); White Blood Count 9.3 K/mm3 (4.4-11.0)
--- NOTE | 2022-07-24 15:07 | RAD_ITS ---
INDICATION: chest pain EXAMINATION/TECHNIQUE: X-RAY - XR Chest 2 Views COMPARISON: January 29, 2022 FINDINGS: LINES/DEVICES: None. LUNGS: There are a few curvilinear opacities within the left lower lung. MEDIASTINUM AND CARDIOVASCULAR STRUCTURES: Cardiac silhouette not enlarged. Central airways and mediastinal contour are unremarkable. BONES AND SOFT TISSUES: Unremarkable. RAD/Chest PA and Lateral IMPRESSION: Few linear opacities within the left lower lung may be secondary to atelectasis and/or scarring. Electronically Signed: Raya Bautista MD at 15:42 EDT ,
[2022-07-24 15:20] LABS: Anion Gap 5 (5-15); BUN 16 mg/dL (7-18); Calcium,Total 8.7 mg/dL (8.5-10.1); Chloride 108 mmol/L (98-107); Creatinine, Serum 0.84 mg/dL (0.55-1.02); EST Glomerular Filtration Rate 73 mL/min (>60); Est Glom Filt Rate - Afr Amer 88 mL/min (>60); Estimated Creatinine Clearance 72.57 ml/min; Glucose 109 mg/dL (74-106); Potassium 3.8 mmol/L (3.5-5.1); Sodium Level 139 mmol/L (136-145); Troponin-I HS (w/2H Reflex) 10 pg/mL (3.0-54.0)
[2022-07-24 16:06] VITALS: BP 180/71; PULSE 78; RESP 16; O2SAT 97
[2022-07-24 16:53] LABS: Reflex Troponin-HS? (from REC) Y
[2022-07-24 17:30] VITALS: BP 152/83; PULSE 75; RESP 18; O2SAT 97
[2022-07-24 17:38] LABS: Troponin-I HS 10 pg/mL (3.0-54.0)
[2022-07-24 17:48] VITALS: BP 152/83; PULSE 74
== END 2022-07-24 17:52 | disposition home or self-care (01) ==
PROVIDERS: Emergency Provider Emergency Medicine; PCP Family Medicine; Visit Provider Emergency Medicine
DX: R07.9 Chest pain, unspecified (principal); I10 Essential (primary) hypertension; I25.10 Atherosclerotic heart disease of native coronary artery without angina pectoris; Z87.891 Personal history of nicotine dependence; E78.00 Pure hypercholesterolemia, unspecified; Z95.5 Presence of coronary angioplasty implant and graft
CPT/HCPCS: 71046; 80048; 84484; 85025; 93005; 99283; A4216

== ENCOUNTER → 2023-06-08 | Outpatient (CLI) | payer OTHER, SELFPAY ==
[2016-07-19 14:11] VITALS: BMI 28.2
--- NOTE | 2023-06-08 15:03 | RAD_ITS ---
STUDY: X-RAY - LUMBOSACRAL SPINE REASON FOR EXAM: Female, 62 years old. Sciatic nerve pain. TECHNIQUE: 6 view(s) of the lumbosacral spine, including lateral flexion and extension views were obtained. COMPARISON: None FINDINGS: Osteopenia. Normal lumbar lordosis. No scoliosis. Normal alignment of the vertebral bodies. Mild concavity of the endplates compatible with minimal osteoporosis. Limited flexion and extension with no abnormal motion. Mild diffuse intervertebral disc space narrowing with small osteophytes at L3-4, L4-5 and L5-S1. Vascular calcification. RAD/L/S Spine w Bend Min 6 Vw IMPRESSION: Osteopenia with mild lower lumbosacral spondylosis. Electronically Signed: Haresh Mata MD at 15:30 EDT ,
== END | disposition home or self-care (01) ==
PROVIDERS: PCP Family Medicine; Referring Provider Family Medicine; Visit Provider Family Medicine
DX: G57.01 Lesion of sciatic nerve, right lower limb (principal)
CPT/HCPCS: 72114

== ENCOUNTER 2023-11-10 07:29 | Emergency (ER) | payer OTHER, SELFPAY ==
[2016-07-19 14:11] VITALS: BMI 28.2
[2023-11-10 07:30] VITALS: BP 92/74; PULSE 91; RESP 14; TEMP 36.6; O2SAT 100
--- NOTE | 2023-11-10 07:55 | RAD_ITS ---
STUDY: X-RAY - LEFT FOOT CLINICAL: Female, 63 years old. Pain after fall TECHNIQUE: 3 view(s) of the foot. COMPARISON: None. FINDINGS: Normal talus, calcaneus, and tarsal bones. Normal visualized subtalar, talonavicular, calcaneocuboid, tarsal and tarsometatarsal articulations. Normal metatarsi. Normal metatarsophalangeal joint of the great toe. Normal tibial and fibular sesamoid bones. Normal interphalangeal joint of the great toe. Normal phalanges of the great toe. Normal second through fifth metatarsophalangeal joints. Normal interphalangeal joints and phalanges of the lesser toes. The soft tissue structures are unremarkable. RAD/Foot min 3 Views IMPRESSION: Normal x-ray examination of the foot. Electronically Signed: Binu Briceño MD at 8:23 EDT ,
--- NOTE | 2023-11-10 07:55 | RAD_ITS ---
STUDY: X-RAY - LEFT KNEE REASON FOR EXAM: Female, 63 years old. Pain following a fall. TECHNIQUE: 4 view(s) of the knee. COMPARISON: None. FINDINGS: Normal visualized distal femur. Normal visualized proximal tibia and fibula. Normal proximal tibiofibular articulation. Normal medial femorotibial compartment. Normal lateral femorotibial compartment. Normal patellofemoral articulation. The soft tissue structures are unremarkable. RAD/Knee 4 or More Views IMPRESSION: Normal x-ray examination of the knee. Electronically Signed: Binu Briceño MD at 8:22 EDT ,
--- NOTE | 2023-11-10 07:55 | RAD_ITS ---
STUDY: X-RAY - LEFT ANKLE REASON FOR EXAM: Female, 63 years old. Fall pain TECHNIQUE: 3 view(s) of the ankle. COMPARISON: None. FINDINGS: Normal visualized distal tibia and fibula. Normal medial and lateral malleoli. Normal tibiotalar articulation and ankle mortise. Normal visualized talus and calcaneus. The visualized subtalar, talonavicular, calcaneocuboid and tarsal articulations are normal. The soft tissue structures are unremarkable. RAD/Ankle min 3 Views IMPRESSION: Normal x-ray examination of the ankle. Electronically Signed: Binu Briceño MD at 8:24 EDT ,
--- NOTE | 2023-11-10 07:55 | RAD_ITS ---
STUDY: X-RAY - LEFT TIBIA AND FIBULA REASON FOR EXAM: Female, 63 years old. Fall pain TECHNIQUE: 2 view(s) of the tibia and fibula were obtained. COMPARISON: None. FINDINGS: Normal visualized tibia. Normal visualized fibula. The soft tissue structures are unremarkable. RAD/Tibia & Fibula 2 Views IMPRESSION: Normal x-ray examination of the tibia and fibula. Electronically Signed: Binu Briceño MD at 8:23 EDT ,
--- NOTE | 2023-11-10 08:29 | EDS_ITS ---
HPI History of Present Illness Chief Complaint: Lower Extremity Injury Narrative Narrative: Patient is a 63-year-old female past medical history of hypertension, hyperlipidemia, anxiety, depression, tobacco use who presents to the emergency department chief complaint of left foot pain. Patient states that she was going down a set of stairs and noted that she stepped on something causing her to fall and having left foot pain. Patient states that she feels like she may have broke her foot. Patient states that she did not hit her head she did not pass out she remembers the entire event. Patient denies any blood thinner medications. Patient states that she has pain in her left foot. Patient is unsure when her last tetanus shot was. [facility] Medical History Takotsubo cardiomyopathy (~01/29/22) Hyperlipidemia Hypertension Anxiety and depression Pure hypercholesterolemia Old myocardial infarction Presence of stent in coronary artery (~07/19/16) Anxiety Atherosclerotic heart disease of [place] coronary artery without angina pectoris Tobacco abuse Palpitations Fatigue NSTEMI (non-ST elevated myocardial infarction) (~07/2016) Tobacco use Overweight (BMI 25.0-29.9) Chronic back pain Home Medications ?Medication ?Instructions ?Recorded ?Last Taken ?Type aspirin 81 mg chewable tablet 81 mg PO DAILY HEART HEALTH 01/29/22 01/29/22 09:00 History Allergy/AdvReac Type Severity Reaction Status Date / Time hydrocodone bitartrate (From Allergy Nausea Verified 04/05/23 10:58 Vicodin) oxycodone (From Percocet) Allergy Unknown Verified 04/05/23 10:58 ezetimibe (From Zetia) AdvReac Intermediate anxiety, Verified 04/05/23 10:58 fatigue, upset stomach lisinopril AdvReac Intermediate Persistent Verified 04/05/23 10:58 Cough losartan AdvReac Intermediate persistent Verified 04/05/23 10:58 cough metoprolol AdvReac Intermediate Very Verified 04/05/23 10:58 dizzy, lightheaded even on smallest dose rosuvastatin (From Crestor) AdvReac myalgia Verified 04/05/23 10:58 Family History Mother CAD (coronary artery disease) Hypertension Diabetes Father , Age 49 [place] Myocardial infarction Surgical History Presence of coronary angioplasty implant and graft (~07/19/16) History of total hysterectomy Social History household members: significant other Smoking Status: Current every day smoker tobacco type: cigarettes alcohol intake: current alcohol intake frequency: holidays/special occasions only Alcohol type: wine substance use type: does not use caffeine: Yes Type: tea Number of servings: 2 what type of physical activity do you participate in: none seatbelt use: always do you feel safe at home: Yes additional social history: Jeffery- Patient works at [employer] Constitutional: Denies fevers, chills, headaches, lightheadedness, dizziness Eyes: Denies change in vision double vision blurry vision Cardiovascular: Denies chest pain or palpitations Respiratory: Denies coughing wheezing shortness of breath Abdomen: Denies nausea vomit diarrhea Neurological: Denies numbness, weakness, tingling Musculoskeletal: Complains of left foot pain as noted above Skin: Complains of superficial abrasions to her left knee and right elbow region EXAM Physical Exam Narrative Exam Narrative: General: Patient was sitting in a wheelchair did appear to be uncomfortable secondary to her left foot pain Head: Atraumatic, normocephalic Eyes: PERRL bilaterally, EOMI bilateral, no conjunctival injection noted Neck: Soft, supple, trach midline Cardiovascular: Regular rate and rhythm no murmurs gallops rubs noted Respiratory: Clear to auscultation bilaterally no rales rhonchi wheeze noted Abdomen: Soft, nondistended, nontender to palpation, bowel sounds present for Musculoskeletal: Patient has tenderness palpation of the dorsal aspect of her left foot. Does appear to be very uncomfortable during this exam. All other bony prominences and joints taken through full range of motion no pain elicited Extremities: DP pulses +2/4 in the bilateral lower extremities, radial pulses +2/4 in the bilateral upper extremities, +5/5 strength noted in the bilateral upper extremities and her in her right lower extremity +4/5 strength noted in the left lower extremity secondary to pain Neurological: Patient following commands knew that she was at [facility] year is 2023. Sensation grossly intact Skin: Warm, dry, patient has superficial abrasion noted to the anterior left knee and the right elbow region Const Vital Signs: 11/10/23 07:30 Temperature 98 F Temperature Source Temporal Pulse Rate 91 Respiratory Rate 14 Blood Pressure 92/74 Blood Pressure Mean 80 Pulse Ox 100 Oxygen Delivery Method Room Air MDM MDM MDM Narrative Medical decision making narrative: Patient is a 63-year-old female who presented to the [facility] part with a chief complaint of fall down 2 stairs and left foot pain. Patient will have workup performed here on the differential diagnose includes but not limited to lateral malleolus fracture, medial malleolus fracture, metatarsal fracture, ankle sprain. Once workup is obtained and reviewed she will be reevaluated patient be given pain medication for her pain. Patient's x-ray of her x-ray of her ankle showed no acute fracture or dislocation. Patient's foot x-ray reviewed showed no acute fracture or dislocation. Patient's x-ray of her knee showed no acute fracture or dislocation and tibia and fibula showed no acute fracture or dislocation on the left side. On reevaluation the patient she states that she still having some pain but does feel better. Patient's tetanus shot was updated. She was encouraged to follow- up with her primary care physician and ambulate as tolerated. States that she has crutches at home. She will be ordered a removable ankle splint/brace per her request. She was encouraged return with worsening symptoms or concerns. All question concerns answered discharged home in stable condition Radiography Diagnostic Testing: Clinical Impression(s) from Imaging Studies Ankle X-Ray 11/10/23 07:55 IMPRESSION: Normal x-ray examination of the ankle. Electronically Signed: Binu Briceño MD at 8:24 EDT , Foot X-Ray 11/10/23 07:55 IMPRESSION: Normal x-ray examination of the foot. Electronically Signed: Binu Briceño MD at 8:23 EDT , Knee X-Ray 11/10/23 07:55 IMPRESSION: Normal x-ray examination of the knee. Electronically Signed: Binu Briceño MD at 8:22 EDT , Tibia/Fibula X-Ray 11/10/23 07:55 IMPRESSION: Normal x-ray examination of the tibia and fibula. Electronically Signed: Binu Briceño MD at 8:23 EDT , Discharge Plan Triage Chief Complaint: Lower Extremity Injury ED Provider: Marcus Varma Dx/Rx/DC Orders Clinical Impression: Acute pain of left foot Prescriptions: No Action aspirin 81 MG tablet,chewable 81 mg PO DAILY Primary Care Provider: Thiago Valencia Referrals: Thiago Valencia MD [Primary Care Provider] - Activity Restrictions/Additional Instructions: Ice, elevate, ambulate as tolerated use crutches if needed. Rotate Tylenol and ibuprofen [id number] for pain control. Follow-up your primary care physician outpatient setting. Return with worsening symptoms or any other concerns Print Language: Divehi Disposition Disposition: Home, Self Care
[2023-11-10] MEDS: Ondansetron ODT 4 MG Tablet PO (08:57)
[2023-11-10] MEDS: HYDROcodone Bitartrate/Apap 5/325 Tablet PO (08:57)
[2023-11-10] MEDS: Diphth,Pertuss(Acell),Tet Vac 0.5 ML Vial IM (08:57)
[2023-11-10 10:33] VITALS: BP 138/81; PULSE 77; RESP 16; TEMP 36.6; O2SAT 98
== END 2023-11-10 10:34 | disposition home or self-care (01) ==
PROVIDERS: Emergency Provider Emergency Medicine; PCP Family Medicine; Visit Provider Emergency Medicine
DX: M79.672 Pain in left foot (principal); I25.10 Atherosclerotic heart disease of native coronary artery without angina pectoris; I10 Essential (primary) hypertension; F17.210 Nicotine dependence, cigarettes, uncomplicated; E78.00 Pure hypercholesterolemia, unspecified; F41.9 Anxiety disorder, unspecified; F32.A Depression, unspecified; W10.9XXA Fall (on) (from) unspecified stairs and steps, initial encounter; S80.212A Abrasion, left knee, initial encounter; S50.311A Abrasion of right elbow, initial encounter; Z23 Encounter for immunization
CPT/HCPCS: 73564; 73590; 73610; 73630; 90715; 99283

== ENCOUNTER 2023-11-23 02:09 | Inpatient (IN) | payer OTHER, SELFPAY ==
[2016-07-19 14:11] VITALS: BMI 28.2
[2023-11-23] VITALS (16 sets, daily range): BP systolic 102–177; BP diastolic 70–128; PULSE 70–101; RESP 14–18; TEMP 35.6–36.9; O2SAT 93–99; BMI 29.8; BMI 26.9
--- NOTE | 2023-11-23 02:11 | CT_ITS ---
INDICATION: STROKE EXAMINATION: CT BRAIN - CT Head Stroke Protocol W/O Contrast Injection TECHNIQUE: Serial CT axial images were obtained of the head without intravenous contrast. A radiation dose optimization technique was used for this scan. COMPARISON: None. Findings: Serial CT axial images of the head without contrast. BRAIN PARENCHYMA: Diffuse periventricular hypoattenuation likely chronic white matter ischemic changes. Mild diffuse volume loss. No evidence of intraparenchymal hemorrhage or hyperattenuating extra-axial fluid collection. VASCULAR STRUCTURES: Atherosclerotic vascular calcifications. BONES: Small sphenoid sinus retention cyst with air-fluid level. SCALP/REMAINING SOFT TISSUES: Unremarkable. ASPECTS Score for Acute Strokes, if applicable: 10 CT/STROKE Brain/Head without Cont IMPRESSION: Age-related changes as above, without evidence of acute intracranial hemorrhage in this noncontrast head CT. Stroke protocol head CT results discussed with Dr. Matt Saldana at 0226 hours eastern time 11/23/2023. N.B. : The above Results were Read Back by Tobias Mcduffie MD to Matt Saldana DO, and understanding confirmed on 11/23/2023 02:27:42 (ET). Electronically Signed: Tobias Mcduffie MD at 2:29 EDT ,
--- NOTE | 2023-11-23 02:11 | RAD_ITS ---
INDICATION: NEURO DEFICIT, ACUTE, STROKE SUSPECTED EXAMINATION/TECHNIQUE: X-RAY - XR Chest 1 View COMPARISON: 07/24/2022 chest radiograph. Findings: Single frontal view of the chest. LUNG PARENCHYMA: No acute focal airspace disease or mass lesion. PLEURA: No pleural effusion. No pneumothorax. HEART/GREAT VESSELS: Cardiomediastinal silhouette is unremarkable. BONES: Osseous structures are unremarkable for age. RAD/Chest 1 View IMPRESSION: Chest with no acute disease. Electronically Signed: Tobias Mcduffie MD at 2:52 EDT ,
--- NOTE | 2023-11-23 02:11 | CT_ITS ---
STUDY: CTA HEAD AND NECK WITH CONTRAST REASON FOR EXAM: Female, 63 years old patient with stroke. RADIATION DOSAGE (If Supplied By Facility): CTDIvol = ( 22.47 ) mGy, DLP = ( 650.28 ) mGycm TECHNIQUE: CT angiography was performed with a multi-detector CT scanner. Data acquisition was obtained from the skull base through the vertex following intravenous administration of 100 mL of IV Isovue-370. MIP images were reconstructed from the axial data set. Post-processing of the angiographic images was performed, with multiplanar reformation and 3D reconstruction. Individualized dose optimization techniques were used for this CT. COMPARISON: No relevant priors. FINDINGS: Normal bilateral petrous carotid arteries. Normal right cavernous carotid artery with a normal supraclinoid bifurcation. Normal left cavernous carotid artery with a normal supraclinoid bifurcation. Normal right A1 segments of the anterior cerebral artery. Normal left A1 segments of the anterior cerebral artery. Normal intact anterior communicating artery (ACOM). Normal bilateral A2 segments of the anterior cerebral arteries. Normal right M1 and M2 segments of the middle cerebral arteries, with a normal M1 bifurcation. Normal left M1 and M2 segments of the middle cerebral arteries, with a normal M1 bifurcation. There is a persistent origin of the right posterior cerebral artery with absence of the posterior communicating artery (PCOM). Normal left posterior communicating artery (PCOM). Normal bilateral vertebral arteries. Normal basilar artery with a normal basilar bifurcation. The visualized bilateral superior cerebellar (SCA) arteries are normal. There is absence of the right P1 segment of the posterior cerebral arteries with a normal left P1 segment. Normal visualized bilateral P2 and P3 segments of the posterior cerebral arteries. There is no demonstrated aneurysm of the [place]. There is no demonstrated abnormality of the visualized brain. AORTIC ARCH: Normal visualized aortic arch. The origins of the innominate and left common carotid artery not imaged. RIGHT CAROTID ARTERIES: Normal right common carotid artery (CCA). Normal right common carotid bulb. Normal origin of the right internal carotid (ICA) artery without a hemodynamically significant stenosis. Normal visualized cervical portion of the right internal carotid artery. Normal origin of the right external carotid artery (ECA). LEFT CAROTID ARTERIES: Normal left common carotid artery (CCA). Normal left common carotid bulb. Normal origin of the left internal carotid (ICA) artery without a hemodynamically significant stenosis. Normal visualized cervical portion of the left internal carotid artery. Normal origin of the left external carotid artery (ECA). VERTEBRAL ARTERIES: Normal bilateral vertebral arteries. NECK ANATOMY: Lung apices appear to be clear. There are peripheral lucencies in the lung apices probably secondary to mild paraseptal emphysema. Visualized parotid and submandibular glands have a grossly normal appearance. There is a superficial cystic and lateral in the right submandibular space measuring 1.6 cm. This may represent epidermal cyst. The thyroid has a grossly normal appearance. Nasopharynx, oropharynx, hypopharynx and larynx are grossly normal appearance. Cervical and upper thoracic vertebral bodies have normal height and alignment. Patient is completely edentulous. CT/STROKE CTA Head AND Neck W/Con IMPRESSION: No CT evidence for hemodynamically significant stenosis, thrombosis or aneurysm. N.B. : The above Results were Read Back by Heike Flowers MD to Matt Saldana DO, and understanding confirmed on 11/23/2023 02:51:45 (ET). Electronically Signed: Heike Flowers MD at 2:57 EDT ,
[2023-11-23 02:36] LABS: Absolute Lymphocyte Count 3.32 X10^3/uL (0.83-4.51); Absolute Neutrophil Count 5.1 X10^3/uL (2.0-7.7); Basophil# 0.05 X10^3/uL; Basophil% 0.5 % (0-1); Eosinophil# 0.32 X10^3/uL; Eosinophils% 3.4 % (0-5); Hematocrit 40.5 % (37-47); Hemoglobin 13.5 g/dL (12.0-15.0); Lymphocyte # 3.32 X10^3/ul (0.83-4.51); Lymphocyte % 34.9 % (19-41); Mean Corp Hgb Conc 33.3 g/dL (32-36); Mean Corpuscular Hgb 29.9 pg (27.0-32.0); Mean Corpuscular Volume 89.6 fL (81-99); Mean Platelet Vol. 8.2 fl (6.2-12.0); Monocyte% 7.4 % (0-10); NRBC Flagged by Analyzer 0 % (0-5); Neutrophil # 5.09 X10^3/uL (2.7-7.7); Neutrophil % 53.5 % (47-70); Platelet Count 408 K/mm3 (150-450); RBC Distribution Width CV 13.4 % (11.6-14.6); Red Blood Count 4.52 M/mm3 (4.2-5.4); White Blood Count 9.5 K/mm3 (4.4-11.0)
--- NOTE | 2023-11-23 02:42 | ED.RN ---
RN EXPLAINED TO PATIENT AND SPOUSE WE ARE WAITING FOR CTA RESULTS TO DETERMINE NEXT STEPS. PATIENT IS REQUESTING MEDICATION FOR ANXIETY AND PAIN MEDICATION FOR HER SCIATICA ON THE RIGHT SIDE. DR. GARCIA MADE AWARE OF PATIENTS REQUEST. PATIENT IS ALSO ASKING FOR SOMETHING TO EAT AND DRINK. PT INFORMED WE NEED TO WAIT FOR CTA RESULTS
[2023-11-23 02:45] LABS: Prothrombin Time (Protime)PT. 13.6 SECONDS (11.7-14.9)
[2023-11-23 02:46] LABS: Partial Thromboplast Time 29.3 Seconds (24.1-36.2)
[2023-11-23 02:51] LABS: Anion Gap 5 (5-15); BUN 13 mg/dL (7-18); BUN/Creat Ratio 17.7 RATIO (10-20); Calcium,Total 9.2 mg/dL (8.5-10.1); Chloride 106 mmol/L (98-107); Creatinine, Serum 0.73 mg/dL (0.55-1.02); EST Glomerular Filtration Rate 85 mL/min (>60); Est Glom Filt Rate - Afr Amer 103 mL/min (>60); Estimated Creatinine Clearance 90.88 ml/min; Glucose 112 mg/dL (74-106); Potassium 3.7 mmol/L (3.5-5.1); Sodium Level 137 mmol/L (136-145)
[2023-11-23] MEDS: DiphenhydrAMINE 50 MG/ML Syringe 25 MG IV (02:58)
[2023-11-23] MEDS: Ketorolac 15 MG/ML Vial IV (02:58)
--- NOTE | 2023-11-23 03:02 | ED.RN ---
PER DR. GARCIA WE CAN CANCEL [facility]
[2023-11-23] MEDS: Aspirin 325 MG Tablet PO (03:04)
--- NOTE | 2023-11-23 03:04 | EX.ED.DYSGE1 ---
HPI History of Present Illness Chief Complaint: Stroke Alert Informant: patient and EMS Narrative Narrative: Patient is a 63-year-old female with past medical history of hypertension hyperlipidemia tobacco use and CAD. She states that she noticed around 7 PM she was having right leg weakness and numbness and tingling and states that she felt like she was dragging it behind her. She states she then felt like there was right arm weakness as well as some facial weakness and with this had EMS called for further evaluation. Of note patient states she injured her left foot a few weeks ago and has been using her right leg more often. She also states there is pain along the right buttocks down the back of the leg and has concern that this could be also sciatica in nature. [facility] Medical History Takotsubo cardiomyopathy (~01/29/22) Hyperlipidemia Hypertension Anxiety and depression Pure hypercholesterolemia Old myocardial infarction Presence of stent in coronary artery (~07/19/16) Anxiety Atherosclerotic heart disease of [place] coronary artery without angina pectoris Tobacco abuse Palpitations Fatigue NSTEMI (non-ST elevated myocardial infarction) (~07/2016) Tobacco use Overweight (BMI 25.0-29.9) Chronic back pain Home Medications ?Medication ?Instructions ?Recorded ?Last Taken ?Type aspirin 81 mg chewable tablet 81 mg PO DAILY HEART HEALTH 01/29/22 01/29/22 09:00 History Allergy/AdvReac Type Severity Reaction Status Date / Time hydrocodone bitartrate (From Allergy Nausea Verified 04/05/23 10:58 Vicodin) oxycodone (From Percocet) Allergy Unknown Verified 04/05/23 10:58 ezetimibe (From Zetia) AdvReac Intermediate anxiety, Verified 04/05/23 10:58 fatigue, upset stomach lisinopril AdvReac Intermediate Persistent Verified 04/05/23 10:58 Cough losartan AdvReac Intermediate persistent Verified 04/05/23 10:58 cough metoprolol AdvReac Intermediate Very Verified 04/05/23 10:58 dizzy, lightheaded even on smallest dose rosuvastatin (From Crestor) AdvReac myalgia Verified 04/05/23 10:58 Family History Mother CAD (coronary artery disease) Hypertension Diabetes Father , Age 49 [place] Myocardial infarction Surgical History Presence of coronary angioplasty implant and graft (~07/19/16) History of total hysterectomy Social History household members: significant other Smoking Status: Current every day smoker tobacco type: cigarettes alcohol intake: current alcohol intake frequency: holidays/special occasions only Alcohol type: wine substance use type: does not use caffeine: Yes Type: tea Number of servings: 2 what type of physical activity do you participate in: none seatbelt use: always do you feel safe at home: Yes additional social history: Jeffery- Patient works at [employer] ED Constitutional Constitutional ED: Denies chills or fever(s) Eyes Eyes: Denies blurry vision, change in vision or diplopia ENT ENT ED: Denies sore throat Cardiovascular Cardiovascular: Denies chest pain, palpitations or racing heartbeat Respiratory/Chest Respiratory/Chest: Denies cough or dyspnea Gastrointestinal Gastrointestinal: Denies abdominal pain, diarrhea, nausea or vomiting Genitourinary Genitourinary ED: Denies dysuria Musculoskeletal Musculoskeletal: Reports other Details: Positive right leg pain ; Denies back pain Integumentary Denies Abrasions or rash Neurologic Neurologic: Reports paresthesias and weakness; Denies headache(s) Hematologic/Lymphatic Hematologic/Lymphatic: Denies easy bleeding or easy bruising EXAM Physical Exam Const Vital Signs: 11/23/23 02:11 11/23/23 02:12 11/23/23 02:27 Temperature 97.7 F L Temperature Source Oral Pulse Rate 90 90 86 Respiratory Rate 16 18 18 Blood Pressure 177/85 H 177/85 H 174/74 H Blood Pressure Mean 115 115 107 Pulse Ox 98 98 98 Oxygen Delivery Method Room Air Room Air Room Air 11/23/23 02:30 11/23/23 02:30 11/23/23 02:42 Temperature Temperature Source Pulse Rate 86 77 Respiratory Rate 17 15 Blood Pressure 174/74 H 146/90 H Blood Pressure Mean 107 108 Pulse Ox 98 97 Oxygen Delivery Method Room Air Room Air Positive well nourished and well developed General Appearance ED: well developed; Negative for pallor HEENT Reports dry mucous membranes HEENT Narrative: No tongue or lip swelling no oral lesions no airway edema or compromise No secondary findings to suggest infection in the posterior pharynx Mucous membranes are dry and tacky Mouth ED: Yes dry mucous membranes Mouth: dry mucous membranes Eyes PERRL and EOMs intact bilaterally General Eye ED: Negative for scleral icterus Neck supple and no JVD Neck Narrative: No nuchal rigidity or meningeal signs Resp normal respiratory effort Resp Narrative: Breath sounds are diminished throughout with faint rhonchi and wheezes in the bilateral lower lobes consistent with history of smoking but no signs of respiratory distress Cardio regular rate and regular rhythm Rate: other Other Details: Radial and carotid pulses are equal and symmetric GI normal to inspection, nondistended, normoactive bowel sounds, non-tender, non-distended and no masses Auscultation: normoactive bowel sounds Palpation: soft Extremity normal to inspection Neuro oriented x3 Neuro Narrative: GCS of 15 Patient received NIH stroke scale score of 3. She receives 1 point for right sided facial droop. 1 point for mild right arm weakness/drift. 1 point for mild right leg weakness/drift No truncal ataxia noted Sensorium / Orientation: alert Psych mental status grossly normal Skin no rashes or lesions noted and no wounds General Skin Exam: Negative for jaundice or pallor MDM MDM MDM Narrative Medical decision making narrative: Patient reported right arm right leg and right facial weakness. However she stated that she noticed the leg weakness beginning around 7 PM and she did not arrive at the ER until after 2 in the morning placing her outside any type of TNK window. However because of her localized symptoms there is concern for an acute CVA history of stroke alert was activated. CT and CTA of the head and neck revealed no LVO or stenosis or signs of acute bleed. The patient was evaluated by teleneurology from [facility] [place] as well. They agree that she is outside the window and there is no reason to provide TNK but based on her symptoms as long as the CT/CTA reveals no acute findings they recommend keeping her at this facility for continued stroke workup. Patient does have risk factors for CVA and the fact she has hypertension hyperlipidemia and known CAD and is a smoker. Therefore as her workup was negative she was given a full-strength aspirin and medicine was contacted to admit the patient for further workup of her strokelike symptoms. History & Record Review Discussion w/independent historian: EMS personnel and Patient Lab Data Attestation: I reviewed the patient's lab results. Labs: Laboratory Results - last 24 hr 11/23/23 02:31 WBC 9.5 RBC 4.52 Hgb 13.5 Hct 40.5 MCV 89.6 MCH 29.9 MCHC 33.3 RDW Std Deviation 44.0 H RDW Coeff of Candy 13.4 Plt Count 408 MPV 8.2 Immature Gran % (Auto) 0.300 Neut % (Auto) 53.5 Lymph % (Auto) 34.9 [place] % (Auto) 7.4 Eos % (Auto) 3.4 Baso % (Auto) 0.5 Absolute Neuts (auto) 5.1 Absolute Lymphs (auto) 3.32 Nucleated RBC % 0 PT 13.6 INR 1.0 APTT 29.3 Sodium 137 Potassium 3.7 Chloride 106 Carbon Dioxide 26.0 Anion Gap 5 BUN 13 Creatinine 0.73 Estim Creat Clear Calc 90.88 Est GFR (MDRD) Af Amer 103 Est GFR (MDRD) Non-Af 85 BUN/Creatinine Ratio 17.7 Glucose 112 H Calcium 9.2 Radiography Diagnostic Testing: Chest x-ray as interpreted by the emergency medicine physician reveals no acute infiltrate pneumothorax or pleural effusion Management Discussion w/another healthcare provider: Hospitalist, Green Feed Attendant and Radiologist Discharge Plan Triage Chief Complaint: Stroke Alert ED Provider: Matt Saldana Dx/Rx/DC Orders Clinical Impression: Hyperlipidemia, Hypertension, Tobacco use, Stroke-like symptoms Prescriptions: No Action aspirin 81 MG tablet,chewable 81 mg PO DAILY Primary Care Provider: Thiago Valencia Referrals: Thiago Valencia MD [Primary Care Provider] - Print Language: Uzbek Disposition Disposition: Acute Care [facility]
--- NOTE | 2023-11-23 03:17 | PCM.HP.STD ---
HPI - General General Date of Admission: 11/23/23 Date of Service: 11/23/23 Chief Complaint: R sided weakness, facial droop. HPI Narrative The patient is a 63 y/o F w/ PMHx: CAD s/p PCI, HTN, HLD, Anxiety and Depression, Tobacco use who presents to the [facility] ED on 11/23/2023 with onset at 7 PM while laying on the couch at home onset of right sided weakness and per significant concern for also concurrent right sided facial droop but unfortunately patient had RT thin at that time reporting recently also significant right-sided lower extremity pain/radiculopathy/sciatica which she has had intermittently however it is worsened recently with recent increased usage of the right lower extremity given difficulty using the left lower extremity with ED evaluation 11/10/23 secondary to persistent left foot discomfort eventually placed in a boot. Initially concern in the ED for altered speech but patient reports she did not have her teeth and an at least now she has the top teeth then and the speech is improved. Upon hospitalist evaluation she has complete resolution of symptoms. Initial NIH stroke scale 3. Discussed case with the ED physician and patient evaluation he notes with distraction normalized and he is concerned that primarily her symptoms may be secondary to sciatic discomfort more than any specific weakness. In the ED patient has no obvious facial droop but she is seated upright and again her upper teeth are in. In the ED physician notes the facial droop resolved. Recent prior ED visit 11/10/23 with injury to her L foot currently in a boot. Workup in the ED included T97.7, heart rate 90, BP 177/85, respiratory rate 16, 98% on room air with most recent repeat vital signs heart rate 77, BP 146/90, CBC with WC 9.5, hemoglobin 13.5, platelet 408 without marked shift, unremarkable coags, unremarkable BMP aside glucose 112, pending final radiology CT head, CTA head neck and chest x-ray however preliminarily with no acute intracranial findings, chest x-ray with no acute cardiopulmonary findings and CTA head and neck unremarkable, EKG with SR with no acute evidence of ischemia. Telestroke alert with noted NIH stroke scale 1 for minor paralysis, drift and paresthesias with right-sided weakness and left facial droop as well as slurred speech initially reported with recommended ongoing stroke evaluation. In the ED patient administered full-strength aspirin therapy as well as Benadryl 25 mg IV x 1 and Toradol 15 mg IV x 1. [facility] Medical History Takotsubo cardiomyopathy (~01/29/22) Hyperlipidemia Hypertension Anxiety and depression Pure hypercholesterolemia Old myocardial infarction Presence of stent in coronary artery (~07/19/16) Anxiety Atherosclerotic heart disease of che[place]-na coronary artery without angina pectoris Tobacco abuse Palpitations Fatigue NSTEMI (non-ST elevated myocardial infarction) (~07/2016) Tobacco use Overweight (BMI 25.0-29.9) Chronic back pain Home Medications ?Medication ?Instructions ?Recorded ?Last Taken ?Type aspirin 81 mg chewable tablet 81 mg PO DAILY HEART HEALTH 01/29/22 01/29/22 09:00 History Allergy/AdvReac Type Severity Reaction Status Date / Time hydrocodone bitartrate (From Allergy Nausea Verified 04/05/23 10:58 Vicodin) oxycodone (From Percocet) Allergy Unknown Verified 04/05/23 10:58 ezetimibe (From Zetia) AdvReac Intermediate anxiety, Verified 04/05/23 10:58 fatigue, upset stomach lisinopril AdvReac Intermediate Persistent Verified 04/05/23 10:58 Cough losartan AdvReac Intermediate persistent Verified 04/05/23 10:58 cough metoprolol AdvReac Intermediate Very Verified 04/05/23 10:58 dizzy, lightheaded even on smallest dose rosuvastatin (From Crestor) AdvReac myalgia Verified 04/05/23 10:58 Family History Mother CAD (coronary artery disease) Hypertension Diabetes Father , Age 49 [place] Myocardial infarction Surgical History Presence of coronary angioplasty implant and graft (~07/19/16) History of total hysterectomy Social History (Updated 11/23/23 @ 03:[address] Dotty Davis MD) household members: significant other Smoking Status: Current every day smoker tobacco type: cigarettes alcohol intake: current alcohol intake frequency: holidays/special occasions only Alcohol type: wine substance use type: does not use caffeine: Yes Type: tea Number of servings: 2 what type of physical activity do you participate in: none seatbelt use: always do you feel safe at home: Yes additional social history: Jeffery- Patient works at [employer] Narrative Admission Review of Systems: CONSTITUTIONAL: No weight loss, fever, chills, + weakness or fatigue. HEENT: + Questionable transient right facial droop. Eyes: No visual loss, blurred vision, double vision or yellow sclerae. Ears, Nose, Throat: No hearing loss, sneezing, congestion, runny nose or sore throat. SKIN: No rash or itching, lesions, wounds. CARDIOVASCULAR: No chest pain, chest pressure or chest discomfort, palpitations, edema, orthopnea, syncopal events. RESPIRATORY: No shortness of breath, cough or sputum, wheezing, hemoptysis. GASTROINTESTINAL: No anorexia, nausea, vomiting or diarrhea, abdominal pain, melena, BRBPR. GENITOURINARY: No dysuria, frequency, urgency or retention. NEUROLOGICAL: + Questionable right-sided weakness, right facial droop, right sided increased sciatic discomfort/radiculopathy. No headache, dizziness, syncope, paralysis, ataxia, change in bowel or bladder control, seizure. MUSCULOSKELETAL: + muscle, back pain, joint pain or stiffness. HEMATOLOGIC: No anemia, bleeding or bruising. LYMPHATICS: No enlarged nodes. No history of splenectomy. PSYCHIATRIC: + History of anxiety and depression. ENDOCRINOLOGIC: No reports of sweating, cold or heat intolerance. No polyuria or polydipsia. ALLERGIES: No history of asthma, hives, eczema or rhinitis. Vital Signs Vital Signs Vital Signs: 11/23/23 02:11 11/23/23 02:12 11/23/23 02:27 Temperature 97.7 F L Temperature Source Oral Pulse Rate 90 90 86 Respiratory Rate 16 18 18 Blood Pressure 177/85 H 177/85 H 174/74 H Blood Pressure Mean 115 115 107 Pulse Ox 98 98 98 Oxygen Delivery Method Room Air Room Air Room Air 11/23/23 02:30 11/23/23 02:30 11/23/23 02:42 Temperature Temperature Source Pulse Rate 86 77 Respiratory Rate 17 15 Blood Pressure 174/74 H 146/90 H Blood Pressure Mean 107 108 Pulse Ox 98 97 Oxygen Delivery Method Room Air Room Air Weight Weight: 196 lb 3.382 oz Body Mass Index (BMI) 29.8 Physical Exam Narrative Physical Examination: General: Awake, alert, oriented x 3 and cooperative, seated upright in the ED bed, notes still ongoing right sciatic discomfort but less severe at rest. Skin: Normal color, normal turgor, no icterus, no cyanosis. HEENT: AT/NC, EOMI, PERRLA, moderately dry MM, no facial droop, equal smile, upper teeth narrowing, missing her lower teeth, no carotid bruits or JVD noted. Lungs: Mildly diminished, greater bases, appropriate effort, no rales, ronchi or wheezing. Heart: Regular rate and rhythm; no gallop, rub audible. Abdomen: Soft, NTTP, ND, normal BS, no HSM. Extremities: No cyanosis, clubbing, or edema. Discomfort to palpation of the left ankle but she notes its improved, boot currently off. Neurological: Patient awake, alert, oriented as noted, cognitive function intact; pupils equally reactive to light and accommodation, cranial nerves grossly normal, moving all 4 extremities, no focal deficits, strength difficult to assess given left ankle discomfort with recent injury and right lower extremity sciatic discomfort but appears intact, finger-nose and [id number] appropriate, equivocal Babinski, sensation intact. Psychiatric: Affect appears fatigued otherwise normal, no acute evidence of depressive or anxiety feelings but does have underlying history. Results Lab / Micro Data 11/23/23 02:31 11/23/23 02:31 Labs: Laboratory Results - last 24 hr 11/23/23 02:31: WBC 9.5, RBC 4.52, Hgb 13.5, Hct 40.5, MCV 89.6, MCH 29.9, MCHC 33.3, RDW Std Deviation 44.0 H, RDW Coeff of Candy 13.4, Plt Count 408, MPV 8.2, Immature Gran % (Auto) 0.300, Neut % (Auto) 53.5, Lymph % (Auto) 34.9, Gaston % (Auto) 7.4, Eos % (Auto) 3.4, Baso % (Auto) 0.5, Absolute Neuts (auto) 5.1, Absolute Lymphs (auto) 3.32, Nucleated RBC % 0, PT 13.6, INR 1.0, APTT 29.3, Sodium 137, Potassium 3.7, Chloride 106, Carbon Dioxide 26.0, Anion Gap 5, BUN 13, Creatinine 0.73, Estim Creat Clear Calc 90.88, Est GFR (MDRD) Af Amer 103, Est GFR (MDRD) Non-Af 85, BUN/Creatinine Ratio 17.7, Glucose 112 H, Calcium 9.2 Assessment & Plan Assessment/Plan (1) Stroke-like symptoms: PLAN: Plan The patient is a 63 y/o F w/ PMHx: CAD s/p PCI, HTN, HLD, Anxiety and Depression, Tobacco use who presents to the [facility] ED on 11/23/2023 with onset at 7 PM approximately right sided weakness, right sided facial droop although difficult evaluation as patient recently in the ED on 11/10/23 secondary to persistent left foot discomfort eventually placed in a boot with reportedly some improvement in discomfort with intermittent symptoms descriptive of sciatica with chronically altered speech with initial NIH stroke scale per ED physician upon arrival 3. #1. Transient right-sided weakness, questionable right-sided facial droop although reportedly teeth were not in and initial concerns for altered speech but this improved following application of her teeth with concerning for acute ischemic CVA, lower suspicion and actually suspect more likely sciatic discomfort as etiology: Will admit to PCU, will obtain MRI Brain, ECHO, PT/OT/Speech/Nutrition evaluation per protocol. Will allow permissive HTN, maintain on asa, obtain AM FLP, fall precautions. Mag, TSH, HgbA1c requested. Maintain on fall and aspiration precautions. Will continue neurology consultation. Given high suspicion history will add prednisone and low-dose gabapentin. #2. CAD: Status post PCI mid LAD 07/2016, will continue aspirin, per most recent cardiology note 04/05/2023 not on hypertensive regimen nor statin therapy with noted myalgias as reaction with inability unfortunately to tolerate Zetia and noted Repatha not affordable. Most recently admission discharge 01/31/22 patient had been discharged on aspirin, Coreg, lisinopril and pravastatin at that time with fatigue, upset stomach listed for Zetia, cough for lisinopril and losartan and metoprolol noted lightheadedness/dizziness even on a smallest amount and is well as myalgias for statin therapy. #3. Hypertension: Per current list does not appear to be on regimen and unfortunately has several medication intolerances, given presentation #1 will maintain on permissive hypertension with as needed medications per stroke protocol. #4. Hyperlipidemia: Not on statin therapy with noted intolerance, also intolerant to Zetia and unfortunately Repatha was not affordable, FLP in AM. #5. Anxiety and depression: Per current list on a regimen, encourage continued outpatient follow-up and assessment. #6. Tobacco Abuse: Encouraged cessation, inpatient consultation per RT, NR if desired. #7. DVT prophylaxis: Lovenox. Charges/Coding Visit Charges Inpatient E&M: 82630 Init Hosp L3
[2023-11-23 03:35] LABS: Magnesium 2.3 mg/dL (1.6-2.6)
--- NOTE | 2023-11-23 03:55 | MRI_ITS ---
We are attempting to reach an attending provider to discuss findings. An addendum with communication details will be sent when the communication is complete. EXAM: MR HEAD WITHOUT INTRAVENOUS CONTRAST CLINICAL INDICATION: TIA/CVA, R SIDE FLACCID TECHNIQUE: Multiplanar and multisequence MR images of the brain were obtained without intravenous contrast. COMPARISON: CT head without contrast 11/23/2023. FINDINGS: BRAIN AND EXTRA-AXIAL SPACES: Small diffusion restriction in the left posterior periventricular white matter is faintly extending down to the left retrolenticular white matter. This is early subacute ischemic infarct. Small subcortical white matter T2 FLAIR hyperintensity foci in both cerebral hemispheres are chronic white matter ischemic changes. Normal ventricles and cisterns. No midline shift. No intra- or extra-axial hemorrhage. Posterior fossa structures are unremarkable. No hydrocephalus. SELLA: Unremarkable. Normal sella turcica, pituitary gland, infundibular stalk, optic chiasm and hypothalamus. AUDITORY SYSTEM: Unremarkable. The internal auditory canals are patent. BONES/JOINTS: Unremarkable. No discrete lytic or blastic abnormalities. SINUSES: Unremarkable as visualized. Clear. MASTOID AIR CELLS: Unremarkable as visualized. Clear. ORBITS: Unremarkable as visualized. Both globes, extraocular muscles, optic nerves and retrobulbar fat appear unremarkable. VASCULATURE: Unremarkable as visualized. Normal flow voids in the major intracranial circulation. MRI/Brain without Contrast IMPRESSION: 1. Early subacute ischemic infarct in the left posterior periventricular white matter extending down to the left retrolenticular white matter. 2. Few small chronic subcortical white ischemic changes in both cerebral hemispheres. Electronically Signed: Mike Partida MD at 15:16 EDT ,
--- NOTE | 2023-11-23 03:55 | ECHOD_ITS ---
Reason For Study: TIA/CVA Procedure This was a 2D Doppler, Color Flow transthoracic echocardiogram. The study was technically difficult. Exam performed portable in patient room. Left Ventricle Mild concentric left ventricular hypertrophy. The left ventricular ejection fraction is 55 %. Normal diastology for age. Right Ventricle Normal right ventricle. Atria The left and right atria are normal. Bubble contrast study is negative for PFO/ASD. Mitral Valve Normal mitral valve. Tricuspid Valve Normal tricuspid valve. Aortic Valve Trisinus/trileaflet aortic valve. Pulmonic Valve The pulmonic valve is not well visualized. Great Vessels Normal sized aortic root. Pericardium/Pleural Trivial pericardial effusion. Medication Performed a rapid injection of agitated mix of 9 cc saline and 1cc air to assess for atrial septal defect. MMode/2D Measurements & Calculations LVIDd: 5.5 cm IVSd: 1.3 cm LVOT diam: 2.2 cm LVIDs: 4.3 cm LVPWd: 0.65 cm RVDd: 2.7 cm FS: 21.2 % LVOT area: 4.0 cm2 LA dimension: 4.1 cm asc Aorta Diam: 3.5 cm LAV(MOD-bp): 48.3 ml LAV(MOD-bp) Indexed: 24.6 ml/m2 LAV(MOD-sp2): 52.3 ml LAV(MOD-sp4): 44.5 ml SV(MOD-sp4): 45.3 ml SV(sp4-el): 44.4 ml LVAd ap4: 28.0 cm2 LVLd ap4: 8.4 cm EDV(MOD-sp4): 82.2 ml EDV(sp4-el): 79.1 ml LVAs ap4: 17.0 cm2 LVLs ap4: 7.1 cm ESV(MOD-sp4): 36.9 ml ESV(sp4-el): 34.7 ml EF(MOD-sp4): 55.1 % EF(sp4-el): 56.1 % Ao sinus diam: 3.3 cm LA A4 area: 17.2 cm2 RA A4 area: 13.7 cm2 TAPSE: 2.0 cm Time Measurements MV dec time: 0.19 sec Doppler Measurements & Calculations MV E max j carlos: 77.7 cm/sec Lat Peak E' J Carlos: 11.0 cm/sec Med Peak E' J Carlos: 10.3 cm/sec MV A max j carlos: 103.3 cm/sec E/E' lat: 7.1 E/E' med: 7.6 MV E/A: 0.75 MV V2 max: 104.4 cm/sec MV P1/2t max j carlos: 85.3 cm/sec Ao V2 max: 153.6 cm/sec MV max P.4 mmHg MV P1/2t: 75.1 msec Ao max P.4 mmHg MV V2 mean: 57.0 cm/sec MV dec slope: 332.9 cm/sec2 Ao V2 mean: 97.3 cm/sec MV mean P.6 mmHg MVA(P1/2t): 2.9 cm2 Ao mean P.4 mmHg MV V2 VTI: 29.0 cm Ao V2 VTI: 31.9 cm MVA(VTI): 3.1 cm2 AV (velocity ratio): 0.72 JOSUE(I,D): 2.8 cm2 JOSUE(V,D): 2.3 cm2 LV V1 max: 87.7 cm/sec SV(LVOT): 90.9 ml PA V2 max: 112.0 cm/sec LV V1 max P.1 mmHg PA max PG (full): 3.1 mmHg LV V1 mean P.4 mmHg LV V1 mean: 53.7 cm/sec LV V1 VTI: 23.0 cm ECHO/Echo Complete Interpretation Summary The study was technically difficult. Mild concentric left ventricular hypertrophy. The left ventricular ejection fraction is 55 %. Bubble contrast study is negative for PFO/ASD. Ordering Physician: Dotty Davis Performed By: Doug Self and Student
[2023-11-23] MEDS: 0.9% Normal Saline (1000mL) 1,000 ML 100 ML IV (04:55)
[2023-11-23] MEDS: 0.9% Saline Lock 10 ML Syringe IV ×2 (04:55→13:17)
[2023-11-23] MEDS: Gabapentin 100 MG Capsule PO ×3 (05:23→17:30)
[2023-11-23] MEDS: predniSONE 20 MG Tablet 40 MG PO (05:23)
[2023-11-23 06:43] LABS: Absolute Lymphocyte Count 2.08 X10^3/uL (0.83-4.51); Absolute Neutrophil Count 3.6 X10^3/uL (2.0-7.7); Basophil# 0.04 X10^3/uL; Basophil% 0.6 % (0-1); Eosinophils% 3.2 % (0-5); Hematocrit 37.7 % (37-47); Hemoglobin 12.4 g/dL (12.0-15.0); Lymphocyte # 2.08 X10^3/ul (0.83-4.51); Lymphocyte % 32.9 % (19-41); Mean Corp Hgb Conc 32.9 g/dL (32-36); Mean Corpuscular Volume 91.1 fL (81-99); Monocyte# 0.35 X10^3/uL; Monocyte% 5.5 % (0-10); NRBC Flagged by Analyzer 0 % (0-5); Neutrophil # 3.64 X10^3/uL (2.7-7.7); Neutrophil % 57.5 % (47-70); Platelet Count 323 K/mm3 (150-450); RBC Distribution Width CV 13.5 % (11.6-14.6); RBC Distribution Width SD 44.9 fl (35.1-43.9); Red Blood Count 4.14 M/mm3 (4.2-5.4); White Blood Count 6.3 K/mm3 (4.4-11.0)
[2023-11-23 08:31] LABS: ALB/GLOB Ratio 0.8 RATIO (0.9-2.4); AST(SGOT) 17 U/L (15-37); Alanine Aminotransfer ALT/SGPT 20 U/L (13-56); Albumin, Serum 3.1 g/dL (3.2-5.0); Alkaline Phosphatase 88 U/L (45-117); Anion Gap 6 (5-15); BUN 11 mg/dL (7-18); BUN/Creat Ratio 13.9 RATIO (10-20); Calcium,Total 8.6 mg/dL (8.5-10.1); Chloride 108 mmol/L (98-107); Cholesterol 197 mg/dL (200); Creatinine, Serum 0.79 mg/dL (0.55-1.02); EST Glomerular Filtration Rate 78 mL/min (>60); Est Glom Filt Rate - Afr Amer 94 mL/min (>60); Estimated Creatinine Clearance 82.68 ml/min; Globulin 4.1 g/dL (2.2-4.2); Glucose 122 mg/dL (74-106); High Density Lipoprotein 39 mg/dL; Potassium 3.8 mmol/L (3.5-5.1); Protein, Total 7.2 g/dL (6.4-8.2); Sodium Level 137 mmol/L (136-145); Thyroid Stim Hormone (TSH) 0.957 uIU/mL (0.358-3.740); Triglycerides 125 mg/dL; Very Low Density Lipoprotein 25 mg/dL (5-40)
[2023-11-23 08:34] LABS: Hemoglobin A1c 5.5 % (3.8-5.6)
[2023-11-23] MEDS: Enoxaparin 40 MG/0.4 ML Syringe SC (10:15)
--- NOTE | 2023-11-23 10:40 | CASEMGMT ---
SW completed a PHQ9 with patient as she may have had a Stroke. Patient scored a 3 which indicates minimal depression. Therapy also mentioned to SW that patient would be an excellent Rehab Candidate. SW spoke with patient about this and she was agreeable. SW did offer a list of other Rehabs and patient declined as she would prefer to stay in [place]. SW made a referral to Acute Rehab. Lila MCGUIRE
--- NOTE | 2023-11-23 10:58 | NEURO.CONS ---
Assessment and Plan: Neuro Assessment/Plan JENNIFER MCKOY, is a 63 F w/ tobacco use, cad s/p pci on ASA, hx of [place], who presents right arm and leg numbness 11/22/23 7pm woke up from a nap and right leg was weak, shortly realize arm was weak as well it did not get better so came to the [facility] at 2am. CTH/CTA neg. Not a canditate for lytics. No LVO. Exam consistent with a stroke. MRI pending. This has never happened before. LDL 133. a1c 5.5 Diagnosis: Stroke Plan: - MRi brain - ECHO - High intensity statin - ASA 81mg - Plavix 75mg for 21 days, can load with 300mg - Will follow I personally attended this patient and spent a total time of 45minutes evaluating this patient including clinical assessment, review of chart, medical history imaging, and determining appropriate treatment and workup. HPI Consult Data Date of Consult: 11/23/23 HPI Narrative HPI Narrative: JENNIFER MCKOY, is a 63 F w/ tobacco use, cad s/p pci on ASA, hx of [place], who presents right arm and leg numbness 11/22/23 7pm woke up from a nap and right leg was weak, shortly realize arm was weak as well it did not get better so came to the osh at 2am. CTH/CTA neg. Not a canditate for lytics. No LVO. Exam consistent with a stroke. MRI pending. This has never happened before. [facility] Medical History Takotsubo cardiomyopathy (~01/29/22) Hyperlipidemia Hypertension Anxiety and depression Pure hypercholesterolemia Old myocardial infarction Presence of stent in coronary artery (~07/19/16) Anxiety Atherosclerotic heart disease of [place] coronary artery without angina pectoris Tobacco abuse Palpitations Fatigue NSTEMI (non-ST elevated myocardial infarction) (~07/2016) Tobacco use Overweight (BMI 25.0-29.9) Chronic back pain Home Medications ?Medication ?Instructions ?Recorded ?Last Taken ?Type aspirin 81 mg chewable tablet 81 mg PO DAILY [facility] 01/29/22 01/29/22 09:00 History Allergy/AdvReac Type Severity Reaction Status Date / Time hydrocodone bitartrate (From Allergy Nausea Verified 04/05/23 10:58 Vicodin) oxycodone (From Percocet) Allergy Unknown Verified 04/05/23 10:58 ezetimibe (From Zetia) AdvReac Intermediate anxiety, Verified 04/05/23 10:58 fatigue, upset stomach lisinopril AdvReac Intermediate Persistent Verified 04/05/23 10:58 Cough losartan AdvReac Intermediate persistent Verified 04/05/23 10:58 cough metoprolol AdvReac Intermediate Very Verified 04/05/23 10:58 dizzy, lightheaded even on smallest dose rosuvastatin (From Crestor) AdvReac myalgia Verified 04/05/23 10:58 Family History Mother CAD (coronary artery disease) Hypertension Diabetes Father , Age 49 [place] Myocardial infarction Surgical History Presence of coronary angioplasty implant and graft (~07/19/16) History of total hysterectomy Social History (Updated 11/23/23 @ 04:26 by Brooke Weber) household members: spouse and family housing: house number of children: 3 service: No 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) Smoking Status: Current every day smoker tobacco type: cigarettes Tobacco: How many years used: 30 alcohol intake: current alcohol intake frequency: holidays/special occasions only Alcohol type: wine substance use type: does not use caffeine: Yes Type: tea Number of servings: 2 what type of physical activity do you participate in: none seatbelt use: always do you feel safe at home: Yes additional social history: Jeffery- Patient works at [employer] Vital Signs Vital Signs Vital Signs: 11/23/23 02:11 11/23/23 02:12 11/23/23 02:27 Temperature 97.7 F L Temperature Source Oral Pulse Rate 90 90 86 Respiratory Rate 16 18 18 Blood Pressure 177/85 H 177/85 H 174/74 H Blood Pressure Mean 115 115 107 Blood Pressure Source Blood Pressure Position Blood Pressure Location Pulse Ox 98 98 98 Oxygen Delivery Method Room Air Room Air Room Air 11/23/23 02:30 11/23/23 02:30 11/23/23 02:42 Temperature Temperature Source Pulse Rate 86 77 Respiratory Rate 17 15 Blood Pressure 174/74 H 146/90 H Blood Pressure Mean 107 108 Blood Pressure Source Blood Pressure Position Blood Pressure Location Pulse Ox 98 97 Oxygen Delivery Method Room Air Room Air 11/23/23 03:34 11/23/23 03:35 11/23/23 03:53 Temperature 97.9 F 96.1 F L Temperature Source Temporal Pulse Rate 74 76 71 Respiratory Rate 16 14 16 Blood Pressure 144/128 H 144/128 H 138/76 H Blood Pressure Mean 133 133 96 Blood Pressure Source Monitor Blood Pressure Position Supine Blood Pressure Location Right Arm Pulse Ox 99 99 99 Oxygen Delivery Method Room Air 11/23/23 04:40 11/23/23 08:01 11/23/23 08:09 Temperature 97.5 F L Temperature Source Temporal Pulse Rate 70 Respiratory Rate 18 Blood Pressure 102/91 H Blood Pressure Mean 94 Blood Pressure Source Monitor Blood Pressure Position Semi-Fowlers Blood Pressure Location Right Arm Pulse Ox 98 96 Oxygen Delivery Method Room Air Room Air Room Air 11/23/23 08:30 Temperature 98.4 F Temperature Source Oral Pulse Rate 79 Respiratory Rate 18 Blood Pressure 149/71 H Blood Pressure Mean 97 Blood Pressure Source Monitor Blood Pressure Position Semi-Fowlers Blood Pressure Location Right Arm Pulse Ox 97 Oxygen Delivery Method Room Air Weight Weight: 82.7 kg Body Mass Index (BMI) 26.9 NIHSS NIHSS Nursing Documentation NIHSS Nursing Documentation: NIHSS: Ischemic Stroke/TIA Start: 11/23/23 03:55 Text: For PCU Patients: NIH and Neuro Check every 4 Status: Active hours, PRN and with change in RN caregiver. Freq: [id number] Protocol: Activity Type Activity Date Activity User E-sign Co-sign Detail Recorded Client Recorded Date Recorded By Document 11/23/23 08:30 [facility] desktop 11/23/23 09:44 [facility] 11/23/23 08:30 NIH Stroke Scale [NIHSS] A score of 0 is normal or asymptomatic . Total possible score is 42. Inpatient: RN or Physician to activate a stroke alert for onset of new stroke symptoms or with NIHSS increase >/= 3 points. Following change in neurological status, NIHSS will be performed per physician order or more frequently PRN. -1a. Level of Consciousness Alert; keenly responsive -1b. LOC Questions Answers BOTH questions correctly. -1c. LOC Commands Performs both tasks correctly . -2. Best Gaze Normal -3. Visual No visual loss -4. Facial Palsy Minor paralysis (flattened nasolabial fold , asymmetry on smiling) -5a. Left Arm No drift; arm holds 90 (or 45 ) degrees for full 10 seconds -5b. Right Arm Drift; arm drifts downward but doesn?t hit the bed -6a. Left Leg No drift; leg holds 30-degree position for full 5 seconds -6b. Right Leg Drift; leg falls by the end of 5- seconds, but does not hit bed -7. Limb Ataxia Present in 1 limb -8. Sensory Normal; no sensory loss -9. Best Language No aphasia; normal -10. Dysarthria Normal -11. Extinction and Inattention No abnormality -Total 4 Query Text:A score of 0 is normal or asymptomatic. Total possible score is 42 . ED: Notify Physician for NIHSS increase by > / = 3 points. Inpatient: RN or Physician to activate a stroke alert for NIHSS increase of > / = 3 points. Coma Scale [Assess] -Eye Opening Spontaneous -Motor Obeys Commands -Verbal Oriented [Total] -Coma Scale Total 15 Physical Exam Narrative Physical Exam: - General: NAD, pleasant, cooperative, well nourished, well developed - Head/Eyes: Atraumatic, normocephalic, clear cornea, normal sclera/conjunctive - Neuro: Mental Status: AAOX4 & following simple commands. Speech: Clear and fluent with good repetition, comprehension, & naming. No aphasia or dysarthria CN II: Visual ulloa are full to confrontation. PERRL. CN III, IV, : EOMI, no gaze preference, no nystagmus, no ptosis CN V: Facial sensation is intact to light touch throughout. CN VII: Face is symmetric with normal eye closure and smile. CN VII: Hearing is grossly normal to conversational speech. CN IX, X: Palate elevates symmetrically and no uvula deviation CN XI: Head turning, and shoulder shrug are intact. CN XII: Tongue is midline with normal movements and no atrophy. Motor: RUE and RLE drift Sensation: right side numb Coordination: Normal FTN & HTS. No abn movements seen. Lab / Micro Data 11/23/23 06:32 11/23/23 06:32 Labs: Laboratory Results - last 24 hr 11/23/23 02:31: WBC 9.5, RBC 4.52, Hgb 13.5, Hct 40.5, MCV 89.6, MCH 29.9, MCHC 33.3, RDW Std Deviation 44.0 H, RDW Coeff of Candy 13.4, Plt Count 408, MPV 8.2, Immature Gran % (Auto) 0.300, Neut % (Auto) 53.5, Lymph % (Auto) 34.9, [place] % (Auto) 7.4, Eos % (Auto) 3.4, Baso % (Auto) 0.5, Absolute Neuts (auto) 5.1, Absolute Lymphs (auto) 3.32, Nucleated RBC % 0, PT 13.6, INR 1.0, APTT 29.3, Sodium 137, Potassium 3.7, Chloride 106, Carbon Dioxide 26.0, Anion Gap 5, BUN 13, Creatinine 0.73, Estim Creat Clear Calc 90.88, Est GFR (MDRD) Af Amer 103, Est GFR (MDRD) Non-Af 85, BUN/Creatinine Ratio 17.7, Glucose 112 H, Calcium 9.2, Magnesium 2.3 11/23/23 06:32: WBC 6.3, RBC 4.14 L, Hgb 12.4, Hct 37.7, MCV 91.1, MCH 30.0, MCHC 32.9, RDW Std Deviation 44.9 H, RDW Coeff of Candy 13.5, Plt Count 323, MPV 8.0, Immature Gran % (Auto) 0.300, Neut % (Auto) 57.5, Lymph % (Auto) 32.9, [place] % (Auto) 5.5, Eos % (Auto) 3.2, Baso % (Auto) 0.6, Absolute Neuts (auto) 3.6, Absolute Lymphs (auto) 2.08, Nucleated RBC % 0, Sodium 137, Potassium 3.8, Chloride 108 H, Carbon Dioxide 23.0, Anion Gap 6, BUN 11, Creatinine 0.79, Estim Creat Clear Calc 82.68, Est GFR (MDRD) Af Amer 94, Est GFR (MDRD) Non-Af 78, BUN/Creatinine Ratio 13.9, Glucose 122 H, Hemoglobin A1c 5.5, Calcium 8.6, Total Bilirubin 0.30, AST 17, ALT 20, Alkaline Phosphatase 88, Total Protein 7.2, Albumin 3.1 L, Globulin 4.1, Albumin/Globulin Ratio 0.8 L, Triglycerides 125, Cholesterol 197, LDL Cholesterol 133 H, VLDL Cholesterol 25, HDL Cholesterol 39 L, TSH 0.957 Imaging Radiology Impression Brain CT 11/23/23 02:11 IMPRESSION: Age-related changes as above, without evidence of acute intracranial hemorrhage in this noncontrast head CT. Stroke protocol head CT results discussed with Dr. Matt Saldana at 0226 hours eastern time 11/23/2023. N.B. : The above Results were Read Back by Tobias Mcduffie MD to Matt Saldana DO, and understanding confirmed on 11/23/2023 02:27:42 (ET). Electronically Signed: Tobias Mcduffie MD at 2:29 EDT , Chest X-Ray 11/23/23 02:11 IMPRESSION: Chest with no acute disease. Electronically Signed: Tobias Mcduffie MD at 2:52 EDT , Head/Neck CTA 11/23/23 02:11 IMPRESSION: No CT evidence for hemodynamically significant stenosis, thrombosis or aneurysm. N.B. : The above Results were Read Back by Heike Flowers MD to Matt Saldana DO, and understanding confirmed on 11/23/2023 02:51:45 (ET). Electronically Signed: Heike Flowers MD at 2:57 EDT , Active Medications Active Medications Active Medications: Current Medications Generic Name Dose Route Start Last Admin Trade Name Freq PRN Reason Stop Dose Admin Acetaminophen 650 mg 11/23/23 03:55 Acetaminophen 325 Mg Tablet PO Q4H PRN PRN Fever, pain 1-12/14 Al Hydrox/Mg Hydrox/Simethicone 30 ml 11/23/23 03:55 Mag /Aluminum/Simeth Wch Udc 30 Ml Oral.Susp PO Q6H PRN PRN Gastric Burning Albuterol Sulfate 2.5 mg 11/23/23 03:55 Albuterol 2.5 Mg/3 Ml Vial.Neb. INHALATION Q2H PRN PRN Dyspnea, wheezing Aspirin 81 mg 11/24/23 08:00 Aspirin 81 Mg Tab.Chew PO DAILYCM REJI Enoxaparin Sodium 40 mg 11/23/23 10:00 11/23/23 10:15 Enoxaparin 40 Mg/0.4 Ml Syringe SC 40 mg DAILY REJI Administration Gabapentin 100 mg 11/23/23 03:55 11/23/23 05:23 Gabapentin 100 Mg Capsule PO 100 mg TIDCM REJI Administration Guaifenesin 20 ml 11/23/23 03:55 Guaifenesin 10 Ml Udc (200mg/10ml) PO Q4H PRN PRN COUGH Hydralazine HCl 5 mg 11/23/23 03:55 Hydralazine 20 Mg/Ml Vial IV 11/24/23 03:55 Q30M PRN maintain BP parameters with HR <60 Sodium Chloride 1,000 mls @ 100 mls/hr 11/23/23 03:55 11/23/23 04:55 IV 11/23/23 13:54 100 mls/hr .Q10H REJI Administration Lorazepam 0.5 - 1 mg 11/23/23 06:29 Lorazepam 2 Mg/Ml Syringe IV X1 PRN anxiety with MRI Melatonin 3 mg 11/23/23 03:55 Melatonin 3 Mg Tablet PO QHS PRN PRN INSOMNIA Ondansetron HCl 4 mg 11/23/23 03:55 Ondansetron 4 Mg/2 Ml Vial IV Q8H PRN PRN NAUSEA/VOMITING Prednisone 40 mg 11/23/23 03:55 11/23/23 05:23 Prednisone 20 Mg Tablet PO 40 mg BREAKFAST REJI Administration Prochlorperazine Edisylate 5 mg 11/23/23 03:55 Prochlorperazine 10 Mg/2 Ml Vial IV Q4H PRN PRN Breakthrough Nausea/Vomiting Senna/Docusate Sodium 2 tablet 11/23/23 03:55 Senna/Docusate Sodium 1 Tablet PO BID PRN PRN Constipation Sodium Chloride 10 - 40 ml 11/23/23 04:12 11/23/23 04:55 0.9% Saline Lock 10 Ml Syringe IV 10 ml UD PRN Administration SALINE FLUSH
--- NOTE | 2023-11-23 11:04 | PN.HOSP_ITS ---
Reason for Visit Reason for Visit: Diagnoses Unspecified symptoms and signs involving the nervous system (11/23/23) Objective Data Objective Data Vital Signs: Vital Signs Temp Pulse Resp BP Pulse Ox O2 Del Method 98.4 F 79 18 149/71 H 97 Room Air 11/23/23 08:30 11/23/23 08:30 11/23/23 08:30 11/23/23 08:30 11/23/23 08:30 11/23/23 08:30 Oxygen Delivery Method Room Air Weight: 82.7 kg Body Mass Index (BMI) 26.9 Intake & Output: Intake and Output for Last 24 Hours 11/21/23 11/22/23 11/23/23 23:59 23:59 23:59 Intake Total 0 / 0 Output Total 0 / 0 Balance 0 / 0 Lab / Micro Data 11/23/23 06:32 11/23/23 06:32 Labs: Laboratory Results - last 24 hr 11/23/23 02:31: WBC 9.5, RBC 4.52, Hgb 13.5, Hct 40.5, MCV 89.6, MCH 29.9, MCHC 33.3, RDW Std Deviation 44.0 H, RDW Coeff of Candy 13.4, Plt Count 408, MPV 8.2, Immature Gran % (Auto) 0.300, Neut % (Auto) 53.5, Lymph % (Auto) 34.9, [place] % (Auto) 7.4, Eos % (Auto) 3.4, Baso % (Auto) 0.5, Absolute Neuts (auto) 5.1, Absolute Lymphs (auto) 3.32, Nucleated RBC % 0, PT 13.6, INR 1.0, APTT 29.3, Sodium 137, Potassium 3.7, Chloride 106, Carbon Dioxide 26.0, Anion Gap 5, BUN 13, Creatinine 0.73, Estim Creat Clear Calc 90.88, Est GFR (MDRD) Af Amer 103, Est GFR (MDRD) Non-Af 85, BUN/Creatinine Ratio 17.7, Glucose 112 H, Calcium 9.2, Magnesium 2.3 11/23/23 06:32: WBC 6.3, RBC 4.14 L, Hgb 12.4, Hct 37.7, MCV 91.1, MCH 30.0, MCHC 32.9, RDW Std Deviation 44.9 H, RDW Coeff of Candy 13.5, Plt Count 323, MPV 8.0, Immature Gran % (Auto) 0.300, Neut % (Auto) 57.5, Lymph % (Auto) 32.9, [place] % (Auto) 5.5, Eos % (Auto) 3.2, Baso % (Auto) 0.6, Absolute Neuts (auto) 3.6, Absolute Lymphs (auto) 2.08, Nucleated RBC % 0, Sodium 137, Potassium 3.8, C hloride 108 H, Carbon Dioxide 23.0, Anion Gap 6, BUN 11, Creatinine 0.79, Estim Creat Clear Calc 82.68, Est GFR (MDRD) Af Amer 94, Est GFR (MDRD) Non-Af 78, BUN/Creatinine Ratio 13.9, Glucose 122 H, Hemoglobin A1c 5.5, Calcium 8.6, Total Bilirubin 0.30, AST 17, ALT 20, Alkaline Phosphatase 88, Total Protein 7.2, A lbumin 3.1 L, Globulin 4.1, Albumin/Globulin Ratio 0.8 L, Triglycerides 125, Cholesterol 197, LDL Cholesterol 133 H, VLDL Cholesterol 25, HDL Cholesterol 39 L, TSH 0.957 Radiography Diagnostic Testing: Radiology Impression Brain CT 11/23/23 02:11 IMPRESSION: Age-related changes as above, without evidence of acute intracranial hemorrhage in this noncontrast head CT. Stroke protocol head CT results discussed with Dr. Matt Saldana at 0226 hours eastern time 11/23/2023. N.B. : The above Results were Read Back by Tobias Mcduffie MD to Matt Saldana DO, and understanding confirmed on 11/23/2023 02:27:42 (ET). Electronically Signed: Tobias Mcduffie MD at 2:29 EDT , Chest X-Ray 11/23/23 02:11 IMPRESSION: Chest with no acute disease. Electronically Signed: Tobias Mcduffie MD at 2:52 EDT , Head/Neck CTA 11/23/23 02:11 IMPRESSION: No CT evidence for hemodynamically significant stenosis, thrombosis or aneurysm. N.B. : The above Results were Read Back by Heike Flowers MD to Matt Saldana DO, and understanding confirmed on 11/23/2023 02:51:45 (ET). Electronically Signed: Heike Flowers MD at 2:57 EDT ,
[2023-11-23] MEDS: LORazepam 2 MG/ML Syringe IV (13:17)
--- NOTE | 2023-11-23 14:27 | PCM.HOSP.N ---
Hospitalist Note Patient admitted earlier this morning for strokelike symptoms. Saw patient at bedside later this morning, family member present. Patient continued to have mild right facial droop, significant right arm weakness and right sided sensation changes. Echo had been done with read pending. MRI brain completed this afternoon, read pending. Was seen by teleneurology who noted that patient's exam was consistent with a stroke. Will follow-up MRI brain once read is available. Treatment with high intensity statin, baby aspirin and Plavix 75 mg daily for 21 days after 300 mg load. PT/OT/case management following and noted patient may be a good candidate for inpatient rehab on discharge. Full progress note to follow tomorrow.
[2023-11-23] MEDS: Ibuprofen 400 MG Tablet PO (14:49)
--- NOTE | 2023-11-23 15:53 | PCM.HOSP.N ---
Hospitalist Note Notified by radiology of critical result. MRI brain showed early subacute ischemic infarct in the left posterior periventricular white matter extending down to the left retrolenticular white matter. Per neurology recs, will load with Plavix 300 mg today and start Plavix 75 mg tomorrow in addition to her home baby aspirin.
[2023-11-23] MEDS: Clopidogrel Bisulfate 300 MG Tablet PO (17:30)
--- NOTE | 2023-11-23 19:00 | NURSING ---
emergency documentation in effect 11/23/231899.
[2023-11-23] MEDS: Acetaminophen 325 MG Tablet 650 MG PO (20:54)
[2023-11-24] VITALS (10 sets, daily range): BP systolic 122–155; BP diastolic 55–75; PULSE 65–84; RESP 16–22; TEMP 35.8–36.7; O2SAT 95–99; BMI 26.9
[2023-11-24 05:24] LABS: Amphetamine Urine VISTA NEGATIVE (<1000 ng/mL); Barbiturate Urine VISTA NEGATIVE (< 200 ng/mL); Benzodiazepine Urine VISTA NEGATIVE (< 200 ng/mL); Cocaine Urine VISTA NEGATIVE (< 300 ng/mL); Ecstacy Urine VISTA NEGATIVE (< 500 ng/mL); Methadone Urine VISTA NEGATIVE (< 300 ng/mL); PCP Urine VISTA NEGATIVE (< 25 ng/mL); THC Urine VISTA NEGATIVE (< 50 ng/mL); Vista UDS pH Range 6
[2023-11-24] MEDS: Acetaminophen 325 MG Tablet 650 MG PO ×2 (05:29→22:07)
[2023-11-24 07:35] LABS: Absolute Lymphocyte Count 2.53 X10^3/uL (0.83-4.51); Absolute Neutrophil Count 4.2 X10^3/uL (2.0-7.7); Basophil# 0.04 X10^3/uL; Basophil% 0.5 % (0-1); Eosinophil# 0.16 X10^3/uL; Eosinophils% 2.2 % (0-5); Hematocrit 36.4 % (37-47); Hemoglobin 11.8 g/dL (12.0-15.0); Lymphocyte # 2.53 X10^3/ul (0.83-4.51); Lymphocyte % 34.4 % (19-41); Mean Corp Hgb Conc 32.4 g/dL (32-36); Mean Corpuscular Hgb 29.8 pg (27.0-32.0); Mean Corpuscular Volume 91.9 fL (81-99); Mean Platelet Vol. 8.2 fl (6.2-12.0); Monocyte# 0.44 X10^3/uL; NRBC Flagged by Analyzer 0 % (0-5); Neutrophil # 4.17 X10^3/uL (2.7-7.7); Neutrophil % 56.6 % (47-70); Platelet Count 334 K/mm3 (150-450); RBC Distribution Width CV 13.6 % (11.6-14.6); RBC Distribution Width SD 46.7 fl (35.1-43.9); Red Blood Count 3.96 M/mm3 (4.2-5.4); White Blood Count 7.4 K/mm3 (4.4-11.0)
[2023-11-24 08:34] LABS: ALB/GLOB Ratio 0.8 RATIO (0.9-2.4); AST(SGOT) 15 U/L (15-37); Alanine Aminotransfer ALT/SGPT 23 U/L (13-56); Alkaline Phosphatase 81 U/L (45-117); Anion Gap 8 (5-15); BUN 15 mg/dL (7-18); BUN/Creat Ratio 20.1 RATIO (10-20); Calcium,Total 8.4 mg/dL (8.5-10.1); Chloride 108 mmol/L (98-107); Creatinine, Serum 0.75 mg/dL (0.55-1.02); EST Glomerular Filtration Rate 83 mL/min (>60); Est Glom Filt Rate - Afr Amer 100 mL/min (>60); Estimated Creatinine Clearance 90.11 ml/min; Globulin 3.6 g/dL (2.2-4.2); Glucose 140 mg/dL (74-106); Potassium 3.2 mmol/L (3.5-5.1); Protein, Total 6.6 g/dL (6.4-8.2); Sodium Level 138 mmol/L (136-145)
[2023-11-24] MEDS: Gabapentin 100 MG Capsule PO ×3 (09:45→16:26)
[2023-11-24] MEDS: Clopidogrel Bisulfate 75 MG Tablet PO (09:45)
[2023-11-24] MEDS: Aspirin 81 MG TAB.CHEW PO (09:45)
[2023-11-24] MEDS: Enoxaparin 40 MG/0.4 ML Syringe SC (09:46)
--- NOTE | 2023-11-24 11:36 | PN.NEURO_ITS ---
Assessment and Plan: Neuro Assessment/Plan JENNIFER MCKOY, is a 63 F w/ tobacco use, cad s/p pci on ASA, hx of AL, who presents right arm and leg numbness 11/22/23 7pm woke up from a nap and right leg was weak, shortly realize arm was weak as well it did not get better so came to the osh at 2am. CTH/CTA neg. Not a canditate for lytics. No LVO. Exam consistent with a stroke. This has never happened before. LDL 133. a1c 5.5 MRI shows a acute ischemic stroke involving the left cortez radiata/internal capsule. Likely small vessel in origin, but to be thorough recommend a 30d event monitor. Diagnosis: Acute left ischemic cortze radiata/internal capsule stroke likely secondary to small vessel disease Plan: - TTE if it shows anything concerning for cause of stroke call us back - High intensity statin - ASA 81mg - Plavix 75mg for 21 days - Quit smoking - Cv Risk factor optimization - 30d event monitor - NO further recs, please call us for any questions or concerns I personally attended this patient and spent a total time of 30minutes evaluating this patient including clinical assessment, review of chart, medical history imaging, and determining appropriate treatment and workup. Subject: Neurology Subjective JENNIFER MCKOY, is a 63 F w/ tobacco use, cad s/p pci on ASA, hx of AL, who presents right arm and leg numbness 11/22/23 7pm woke up from a nap and right leg was weak, shortly realize arm was weak as well it did not get better so came to the osh at 2am. CTH/CTA neg. Not a canditate for lytics. No LVO. Exam consistent with a stroke. This has never happened before. LDL 133. a1c 5.5 MRI shows a acute ischemic stroke involving the left [place]ez radiata/internal capsule. Likely small vessel in origin, but to be thorough recommend a 30d event monitor. NIHSS NIHSS Nursing Documentation NIHSS Nursing Documentation: NIHSS: Ischemic Stroke/TIA Start: 11/23/23 03:55 Text: For PCU Patients: NIH and Neuro Check every 4 Status: Active hours, PRN and with change in RN caregiver. Freq: [id number] Protocol: Activity Type Activity Date Activity User E-sign Co-sign Detail Recorded Client Recorded Date Recorded By Document 11/24/23 10:14 JT [id number] 11/24/23 10:20 JT 11/24/23 10:14 NIH Stroke Scale [NIHSS] A score of 0 is normal or asymptomatic . Total possible score is 42. Inpatient: RN or Physician to activate a stroke alert for onset of new stroke symptoms or with NIHSS increase >/= 3 points. Following change in neurological status, NIHSS will be performed per physician order or more frequently PRN. -1a. Level of Consciousness Alert; keenly responsive -1b. LOC Questions Answers BOTH questions correctly. -1c. LOC Commands Performs both tasks correctly . -2. Best Gaze Normal -3. Visual No visual loss -4. Facial Palsy Minor paralysis (flattened nasolabial fold , asymmetry on smiling) -5a. Left Arm No drift; arm holds 90 (or 45 ) degrees for full 10 seconds -5b. Right Arm Drift; arm drifts downward but doesn?t hit the bed -6a. Left Leg No drift; leg holds 30-degree position for full 5 seconds -6b. Right Leg Drift; leg falls by the end of 5- seconds, but does not hit bed -7. Limb Ataxia Present in 1 limb -8. Sensory Normal; no sensory loss -9. Best Language No aphasia; normal -10. Dysarthria Normal -11. Extinction and Inattention No abnormality -Total 4 Query Text:A score of 0 is normal or asymptomatic. Total possible score is 42 . ED: Notify Physician for NIHSS increase by > / = 3 points. Inpatient: RN or Physician to activate a stroke alert for NIHSS increase of > / = 3 points. Coma Scale [Assess] -Eye Opening Spontaneous -Motor Obeys Commands -Verbal Oriented [Total] -Coma Scale Total 15 EEG Results Procedure Details EEG Procedure Details: JENNIFER MCKOY is a 63 year old F with a past medical history of , who presents for evaluation of Electroencephalogram on DATE at TIME Objective Data Objective Data Vital Signs: Vital Signs Temp Pulse Resp BP Pulse Ox O2 Del Method 97.1 F L 67 16 146/68 H 99 Room Air 11/24/23 10:14 11/24/23 10:14 11/24/23 10:14 11/24/23 10:14 11/24/23 10:14 11/24/23 10:14 Oxygen Delivery Method Room Air Weight: 89 kg Body Mass Index (BMI) 26.9 Intake & Output: Intake and Output for Last 24 Hours 11/22/23 11/23/23 11/24/23 23:59 23:59 23:59 Intake Total 1000 / 1000 120 / 120 Output Total 0 / 0 400 / 400 Balance 1000 / 1000 -280 / -280 Lab / Micro Data 11/24/23 07:01 11/24/23 07:01 Labs: Laboratory Results - last 24 hr 11/24/23 04:52: Urine Opiates Screen NEGATIVE, Urine Methadone Screen NEGATIVE, Ur Barbiturates Screen NEGATIVE, Ur Phencyclidine Scrn NEGATIVE, Ur Amphetamines Screen NEGATIVE, MDMA (Ecstasy) Screen NEGATIVE, U Benzodiazepines Scrn NEGATIVE, Urine Cocaine Screen NEGATIVE, U Cannabinoids Screen NEGATIVE, Ur Drug Screen Comment 11/24/23 07:01: WBC 7.4, RBC 3.96 L, Hgb 11.8 L, Hct 36.4 L, MCV 91.9, MCH 29.8, MCHC 32.4, RDW Std Deviation 46.7 H, RDW Coeff of Candy 13.6, Plt Count 334, MPV 8.2, Immature Gran % (Auto) 0.300, Neut % (Auto) 56.6, Lymph % (Auto) 34.4, [place] % (Auto) 6.0, Eos % (Auto) 2.2, Baso % (Auto) 0.5, Absolute Neuts (auto) 4.2, Absolute Lymphs (auto) 2.53, Nucleated RBC % 0, Sodium 138, Potassium 3.2 L, C hloride 108 H, Carbon Dioxide 22.0, Anion Gap 8, BUN 15, Creatinine 0.75, Estim Creat Clear Calc 90.11, Est GFR (MDRD) Af Amer 100, Est GFR (MDRD) Non-Af 83, B UN/Creatinine Ratio 20.1 H, Glucose 140 H, Calcium 8.4 L, Total Bilirubin 0.30, AST 15, ALT 23, Alkaline Phosphatase 81, Total Protein 6.6, Albumin 3.0 L, Globulin 3.6, Albumin/Globulin Ratio 0.8 L Radiography Diagnostic Testing: Radiology Impression Brain MRI 11/23/23 03:55 IMPRESSION: 1. Early subacute ischemic infarct in the left posterior periventricular white matter extending down to the left retrolenticular white matter. 2. Few small chronic subcortical white ischemic changes in both cerebral hemispheres. Electronically Signed: Mike Partida MD at 15:16 EDT , ADDENDUM: 11/23/23 1555 IMPRESSION: 1. Early subacute ischemic infarct in the left posterior periventricular white matter extending down to the left retrolenticular white matter. 2. Few small chronic subcortical white ischemic changes in both cerebral hemispheres. N.B. : The above Results were Read Back by Mike Partida MD to Mitch Ferreira DO, and understanding confirmed on 11/23/2023 15:48:37 (ET). Electronically Signed: Mike Partida MD at 15:16 EDT , Physical Exam Narrative Physical Exam: - General: NAD, pleasant, cooperative, well nourished, well developed - Head/Eyes: Atraumatic, normocephalic, clear cornea, normal sclera/conjunctive - Neuro: Mental Status: AAOX4 & following simple commands. Speech: Clear and fluent with good repetition, comprehension, & naming. No aphasia or dysarthria CN II: Visual ulloa are full to confrontation. PERRL. CN III, IV, : EOMI, no gaze preference, no nystagmus, no ptosis CN V: Facial sensation is intact to light touch throughout. CN VII: Face is symmetric with normal eye closure and smile. CN VII: Hearing is grossly normal to conversational speech. CN IX, X: Palate elevates symmetrically and no uvula deviation CN XI: Head turning, and shoulder shrug are intact. CN XII: Tongue is midline with normal movements and no atrophy. Motor: RUE and RLE drift mild, does not hit bed Sensation: right side numb Coordination: Normal FTN & HTS. No abn movements seen. NIH 2 for mild RUE and RLE drift
--- NOTE | 2023-11-24 12:23 | NEURO.CONS ---
Assessment and Plan: Neuro Assessment/Plan INCORRECT ENTRY HPI Consult Data Date of Consult: 11/24/23 HPI Narrative HPI Narrative: JENNIFER MCKOY, is a 63 F who presents [facility] Medical History Takotsubo cardiomyopathy (~01/29/22) Hyperlipidemia Hypertension Anxiety and depression Pure hypercholesterolemia Old myocardial infarction Presence of stent in coronary artery (~07/19/16) Anxiety Atherosclerotic heart disease of [place] coronary artery without angina pectoris Tobacco abuse Palpitations Fatigue NSTEMI (non-ST elevated myocardial infarction) (~07/2016) Tobacco use Overweight (BMI 25.0-29.9) Chronic back pain Home Medications ?Medication ?Instructions ?Recorded ?Last Taken ?Type aspirin 81 mg chewable tablet 81 mg PO DAILY HEART HEALTH 01/29/22 01/29/22 09:00 History Allergy/AdvReac Type Severity Reaction Status Date / Time hydrocodone bitartrate (From Allergy Nausea Verified 04/05/23 10:58 Vicodin) oxycodone (From Percocet) Allergy Unknown Verified 04/05/23 10:58 ezetimibe (From Zetia) AdvReac Intermediate anxiety, Verified 04/05/23 10:58 fatigue, upset stomach lisinopril AdvReac Intermediate Persistent Verified 04/05/23 10:58 Cough losartan AdvReac Intermediate persistent Verified 04/05/23 10:58 cough metoprolol AdvReac Intermediate Very Verified 04/05/23 10:58 dizzy, lightheaded even on smallest dose rosuvastatin (From Crestor) AdvReac myalgia Verified 04/05/23 10:58 Family History Mother CAD (coronary artery disease) Hypertension Diabetes Father , Age 49 [place] Myocardial infarction Surgical History Presence of coronary angioplasty implant and graft (~07/19/16) History of total hysterectomy Social History (Updated 11/23/23 @ 04:26 by Brooke Weber) household members: spouse and family housing: house number of children: 3 service: No pets and animals: Yes (dog-[employer]) Smoking Status: Current every day smoker tobacco type: cigarettes Tobacco: How many years used: 30 alcohol intake: current alcohol intake frequency: holidays/special occasions only Alcohol type: wine substance use type: does not use caffeine: Yes Type: tea Number of servings: 2 what type of physical activity do you participate in: none seatbelt use: always do you feel safe at home: Yes additional social history: Jeffery- Patient works at [employer] Vital Signs Vital Signs Vital Signs: 11/23/23 12:30 11/23/23 13:14 11/23/23 14:07 Temperature 98.2 F Temperature Source Oral Pulse Rate 93 99 95 Pulse Strength Respiratory Rate 18 18 18 Respiratory Effort Respiratory Depth Respiratory Pattern Blood Pressure 152/82 H 162/74 H 154/70 H Blood Pressure Mean 105 103 98 Blood Pressure Source Monitor Monitor Monitor Blood Pressure Position Semi-Fowlers Supine Supine Blood Pressure Location Right Arm Right Arm Right Arm Pulse Ox 97 93 Oxygen Delivery Method Room Air Room Air Room Air 11/23/23 14:30 11/23/23 16:30 11/23/23 19:34 Temperature 98.4 F Temperature Source Oral Pulse Rate 101 H Pulse Strength Respiratory Rate 18 Respiratory Effort Normal Non-Labored Respiratory Depth Normal Respiratory Pattern Normal Blood Pressure 127/88 H Blood Pressure Mean 101 Blood Pressure Source Monitor Blood Pressure Position Semi-Fowlers Blood Pressure Location Right Arm Pulse Ox 95 Oxygen Delivery Method Room Air Room Air Room Air 11/23/23 20:30 11/23/23 21:00 11/24/23 00:30 Temperature 97.7 F L 97.6 F L Temperature Source Oral Oral Pulse Rate 79 65 Pulse Strength Normal (2+) Respiratory Rate 18 18 Respiratory Effort Respiratory Depth Respiratory Pattern Blood Pressure 138/92 H 122/55 H Blood Pressure Mean 107 77 Blood Pressure Source Monitor Monitor Blood Pressure Position Semi-Fowlers Semi-Fowlers Blood Pressure Location Right Arm Right Arm Pulse Ox 97 98 Oxygen Delivery Method Room Air Room Air 11/24/23 04:30 11/24/23 04:35 11/24/23 07:38 Temperature 97.6 F L 96.4 F L Temperature Source Oral Temporal Pulse Rate 71 69 Pulse Strength Respiratory Rate 18 22 H Respiratory Effort Normal Non-Labored Respiratory Depth Normal Respiratory Pattern Normal Blood Pressure 148/73 H 152/69 H Blood Pressure Mean 98 96 Blood Pressure Source Monitor Monitor Blood Pressure Position Semi-Fowlers Blood Pressure Location Right Arm Pulse Ox 95 96 Oxygen Delivery Method Room Air Room Air Room Air 11/24/23 07:52 11/24/23 08:00 11/24/23 10:14 Temperature 97.1 F L Temperature Source Temporal Pulse Rate 67 Pulse Strength Respiratory Rate 16 Respiratory Effort Normal Non-Labored Respiratory Depth Normal Respiratory Pattern Normal Blood Pressure 146/68 H Blood Pressure Mean 94 Blood Pressure Source Monitor Blood Pressure Position Semi-Fowlers Blood Pressure Location Right Arm Pulse Ox 95 99 Oxygen Delivery Method Room Air Room Air Room Air 11/24/23 11:02 Temperature Temperature Source Pulse Rate Pulse Strength Respiratory Rate Respiratory Effort Respiratory Depth Respiratory Pattern Blood Pressure Blood Pressure Mean Blood Pressure Source Blood Pressure Position Blood Pressure Location Pulse Ox 97 Oxygen Delivery Method Weight Weight: 89 kg Body Mass Index (BMI) 26.9 EEG Results Procedure Details EEG Procedure Details: JENNIFER MCKOY is a 63 year old F with a past medical history of , who presents for evaluation of Electroencephalogram on DATE at TIME NIHSS NIHSS Nursing Documentation NIHSS Nursing Documentation: NIHSS: Ischemic Stroke/TIA Start: 11/23/23 03:55 Text: For PCU Patients: NIH and Neuro Check every 4 Status: Active hours, PRN and with change in RN caregiver. Freq: [id number] Protocol: Activity Type Activity Date Activity User E-sign Co-sign Detail Recorded Client Recorded Date Recorded By Document 11/24/23 10:14 JT [id number] 11/24/23 10:20 JT 11/24/23 10:14 NIH Stroke Scale [NIHSS] A score of 0 is normal or asymptomatic . Total possible score is 42. Inpatient: RN or Physician to activate a stroke alert for onset of new stroke symptoms or with NIHSS increase >/= 3 points. Following change in neurological status, NIHSS will be performed per physician order or more frequently PRN. -1a. Level of Consciousness Alert; keenly responsive -1b. LOC Questions Answers BOTH questions correctly. -1c. LOC Commands Performs both tasks correctly . -2. Best Gaze Normal -3. Visual No visual loss -4. Facial Palsy Minor paralysis (flattened nasolabial fold , asymmetry on smiling) -5a. Left Arm No drift; arm holds 90 (or 45 ) degrees for full 10 seconds -5b. Right Arm Drift; arm drifts downward but doesn?t hit the bed -6a. Left Leg No drift; leg holds 30-degree position for full 5 seconds -6b. Right Leg Drift; leg falls by the end of 5- seconds, but does not hit bed -7. Limb Ataxia Present in 1 limb -8. Sensory Normal; no sensory loss -9. Best Language No aphasia; normal -10. Dysarthria Normal -11. Extinction and Inattention No abnormality -Total 4 Query Text:A score of 0 is normal or asymptomatic. Total possible score is 42 . ED: Notify Physician for NIHSS increase by > / = 3 points. Inpatient: RN or Physician to activate a stroke alert for NIHSS increase of > / = 3 points. Coma Scale [Assess] -Eye Opening Spontaneous -Motor Obeys Commands -Verbal Oriented [Total] -Coma Scale Total 15 Lab / Micro Data 11/24/23 07:01 11/24/23 07:01 Labs: Laboratory Results - last 24 hr 11/24/23 04:52: Urine Opiates Screen NEGATIVE, Urine Methadone Screen NEGATIVE, Ur Barbiturates Screen NEGATIVE, Ur Phencyclidine Scrn NEGATIVE, Ur Amphetamines Screen NEGATIVE, MDMA (Ecstasy) Screen NEGATIVE, U Benzodiazepines Scrn NEGATIVE, Urine Cocaine Screen NEGATIVE, U Cannabinoids Screen NEGATIVE, Ur Drug Screen Comment 11/24/23 07:01: WBC 7.4, RBC 3.96 L, Hgb 11.8 L, Hct 36.4 L, MCV 91.9, MCH 29.8, MCHC 32.4, RDW Std Deviation 46.7 H, RDW Coeff of [place]andy 13.6, Plt Count 334, MPV 8.2, Immature Gran % (Auto) 0.300, Neut % (Auto) 56.6, Lymph % (Auto) 34.4, [place] % (Auto) 6.0, Eos % (Auto) 2.2, Baso % (Auto) 0.5, Absolute Neuts (auto) 4.2, Absolute Lymphs (auto) 2.53, Nucleated RBC % 0, Sodium 138, Potassium 3.2 L, Chloride 108 H, Carbon Dioxide 22.0, Anion Gap 8, BUN 15, Creatinine 0.75, Estim Creat Clear Calc 90.11, Est GFR (MDRD) Af Amer 100, Est GFR (MDRD) Non-Af 83, BUN/Creatinine Ratio 20.1 H, Glucose 140 H, Calcium 8.4 L, Total Bilirubin 0.30, AST 15, ALT 23, Alkaline Phosphatase 81, Total Protein 6.6, Albumin 3.0 L, Globulin 3.6, Albumin/Globulin Ratio 0.8 L Imaging Radiology Impression Brain MRI 11/23/23 03:55 IMPRESSION: 1. Early subacute ischemic infarct in the left posterior periventricular white matter extending down to the left retrolenticular white matter. 2. Few small chronic subcortical white ischemic changes in both cerebral hemispheres. Electronically Signed: Mike Partida MD at 15:16 EDT , ADDENDUM: 11/23/23 1555 IMPRESSION: 1. Early subacute ischemic infarct in the left posterior periventricular white matter extending down to the left retrolenticular white matter. 2. Few small chronic subcortical white ischemic changes in both cerebral hemispheres. N.B. : The above Results were Read Back by Mike Partida MD to Mitch Ferreira DO, and understanding confirmed on 11/23/2023 15:48:37 (ET). Electronically Signed: Mike Partida MD at 15:16 EDT , Active Medications Active Medications Active Medications: Current Medications Generic Name Dose Route Start Last Admin Trade Name Freq PRN Reason Stop Dose Admin Acetaminophen 650 mg 11/23/23 03:55 11/24/23 05:29 Acetaminophen 325 Mg Tablet PO 650 mg Q4H PRN PRN Administration Fever, pain 1-12/14 Al Hydrox/Mg Hydrox/Simethicone 30 ml 11/23/23 03:55 Mag /Aluminum/Simeth Wch Udc 30 Ml Oral.Susp PO Q6H PRN PRN Gastric Burning Albuterol Sulfate 2.5 mg 11/23/23 03:55 Albuterol 2.5 Mg/3 Ml Vial.Neb. INHALATION Q2H PRN PRN Dyspnea, wheezing Aspirin 81 mg 11/24/23 08:00 11/24/23 09:45 Aspirin 81 Mg Tab.Chew PO 81 mg DAILYCM REJI Administration Clopidogrel Bisulfate 75 mg 11/24/23 10:00 11/24/23 09:45 Clopidogrel Bisulfate 75 Mg Tablet PO 75 mg DAILY REJI Administration Enoxaparin Sodium 40 mg 11/23/23 10:00 11/24/23 09:46 Enoxaparin 40 Mg/0.4 Ml Syringe SC 40 mg DAILY REJI Administration Gabapentin 100 mg 11/23/23 03:55 11/24/23 11:59 Gabapentin 100 Mg Capsule PO 100 mg TIDCM REJI Administration Guaifenesin 20 ml 11/23/23 03:55 Guaifenesin 10 Ml Udc (200mg/10ml) PO Q4H PRN PRN COUGH Lorazepam 0.5 - 1 mg 11/23/23 06:29 11/23/23 13:17 Lorazepam 2 Mg/Ml Syringe IV 0.5 mg X1 PRN Administration anxiety with MRI Melatonin 3 mg 11/23/23 03:55 Melatonin 3 Mg Tablet PO QHS PRN PRN INSOMNIA Ondansetron HCl 4 mg 11/23/23 03:55 Ondansetron 4 Mg/2 Ml Vial IV Q8H PRN PRN NAUSEA/VOMITING Prochlorperazine Edisylate 5 mg 11/23/23 03:55 Prochlorperazine 10 Mg/2 Ml Vial IV Q4H PRN PRN Breakthrough Nausea/Vomiting Senna/Docusate Sodium 2 tablet 11/23/23 03:55 Senna/Docusate Sodium 1 Tablet PO BID PRN PRN Constipation Sodium Chloride 10 - 40 ml 11/23/23 04:12 11/23/23 13:17 0.9% Saline Lock 10 Ml Syringe IV 10 ml UD PRN Administration SALINE FLUSH
--- NOTE | 2023-11-24 13:17 | PN.HOSP_ITS ---
Reason for Visit Reason for Visit: Diagnoses Unspecified symptoms and signs involving the nervous system (11/23/23) Subjective Subjective Saw patient at bedside this morning. Patient noted that she was feeling slightly better today compared yesterday. Continued to have significant right arm weakness. She was hopeful that she would get into inpatient rehab for aggressive therapy on discharge. No other new concerns today. Objective Data Objective Data Vital Signs: Vital Signs Temp Pulse Resp BP Pulse Ox O2 Del Method 97.1 F L 67 16 146/68 H 97 Room Air 11/24/23 10:14 11/24/23 10:14 11/24/23 10:14 11/24/23 10:14 11/24/23 11:02 11/24/23 10:14 Oxygen Delivery Method Room Air Weight: 89 kg Body Mass Index (BMI) 26.9 Intake & Output: Intake and Output for Last 24 Hours 11/22/23 11/23/23 11/24/23 23:59 23:59 23:59 Intake Total 1000 / 1000 360 / 360 Output Total 0 / 0 600 / 600 Balance 1000 / 1000 -240 / -240 Lab / Micro Data 11/24/23 07:01 11/24/23 07:01 Labs: Laboratory Results - last 24 hr 11/24/23 04:52: Urine Opiates Screen NEGATIVE, Urine Methadone Screen NEGATIVE, Ur Barbiturates Screen NEGATIVE, Ur Phencyclidine Scrn NEGATIVE, Ur Amphetamines Screen NEGATIVE, MDMA (Ecstasy) Screen NEGATIVE, U Benzodiazepines Scrn NEGATIVE, Urine Cocaine Screen NEGATIVE, U Cannabinoids Screen NEGATIVE, Ur Drug Screen Comment 11/24/23 07:01: WBC 7.4, RBC 3.96 L, Hgb 11.8 L, Hct 36.4 L, MCV 91.9, MCH 29.8, MCHC 32.4, RDW Std Deviation 46.7 H, RDW Coeff of Candy 13.6, Plt Count 334, MPV 8.2, Immature Gran % (Auto) 0.300, Neut % (Auto) 56.6, Lymph % (Auto) 34.4, [place] % (Auto) 6.0, Eos % (Auto) 2.2, Baso % (Auto) 0.5, Absolute Neuts (auto) 4.2, Absolute Lymphs (auto) 2.53, Nucleated RBC % 0, Sodium 138, Potassium 3.2 L, C hloride 108 H, Carbon Dioxide 22.0, Anion Gap 8, BUN 15, Creatinine 0.75, Estim Creat Clear Calc 90.11, Est GFR (MDRD) Af Amer 100, Est GFR (MDRD) Non-Af 83, B UN/Creatinine Ratio 20.1 H, Glucose 140 H, Calcium 8.4 L, Total Bilirubin 0.30, AST 15, ALT 23, Alkaline Phosphatase 81, Total Protein 6.6, Albumin 3.0 L, Globulin 3.6, Albumin/Globulin Ratio 0.8 L Radiography Diagnostic Testing: Radiology Impression Brain MRI 11/23/23 03:55 IMPRESSION: 1. Early subacute ischemic infarct in the left posterior periventricular white matter extending down to the left retrolenticular white matter. 2. Few small chronic subcortical white ischemic changes in both cerebral hemispheres. Electronically Signed: Mike Partida MD at 15:16 EDT , ADDENDUM: 11/23/23 1555 IMPRESSION: 1. Early subacute ischemic infarct in the left posterior periventricular white matter extending down to the left retrolenticular white matter. 2. Few small chronic subcortical white ischemic changes in both cerebral hemispheres. N.B. : The above Results were Read Back by Mike Partida MD to Mitch Ferreira DO, and understanding confirmed on 11/23/2023 15:48:37 (ET). Electronically Signed: Mike Partida MD at 15:16 EDT , Echocardiogram 11/23/23 03:55 Interpretation Summary The study was technically difficult. Mild concentric left ventricular hypertrophy. The left ventricular ejection fraction is 55 %. Bubble contrast study is negative for PFO/ASD. Ordering Physician: Dotty Davis Performed By: Doug Self and Student Physical Exam Const alert, oriented x3, no apparent distress and average body habitus Constitutional Narrative: Pleasant elderly female, good energy level, sitting up comfortably in bedside chair, conversing normally, in no acute distress. General Appearance: cooperative and comfortable HEENT normocephalic, head/scalp atraumatic, hearing grossly normal bilaterally, nasal mucous membranes and turbinates normal and moist oral mucous membranes Eyes PERRL, EOMs intact bilaterally and conjunctivae normal Neck full ROM Chest inspection of chest normal Resp normal respiratory effort, normal air movement, no use of accessory muscles and clear to auscultation bilaterally Cardio regular rate, regular rhythm, no murmurs and peripheral pulses 2+ throughout GI normal to inspection, nondistended, normoactive bowel sounds, soft to palpation, non-tender and non-distended Back/Spine normal ROM Skin no rashes or lesions noted Neuro oriented x3 and CN's II-XII intact bilaterally Neuro Narrative: Significant right upper extremity weakness and drift with movement. Right lower extremity drift with movement also noted. Right-sided numbness. No other significant abnormalities Speech: speech normal Psych mental status grossly normal Assessment & Plan Assessment/Plan (1) Acute CVA (cerebrovascular accident): PLAN: Plan Patient is a 63-year-old female who presented [facility] ED on 11/23/2023 with strokelike symptoms. 1. Acute CVA ? Neurology following. Presented with right-sided sensory changes and right upper extremity weakness. MRI brain showed early subacute ischemic infarct in left posterior periventricular white matter extending down to left retrolenticular white matter. Per neurology, diagnosis of acute left ischemic cortez radiata/internal capsule stroke likely secondary to small vessel disease. Echo unremarkable. Loaded with Plavix on 11/22. Per neurology, treating with baby aspirin, Plavix 75 mg for 21 days and high intensity statin if patient cannot tolerate this. Encouraged smoking cessation. PT/OT/case management following. Patient accepted to inpatient rehab unit, pre-CERT pending. Medically ready for discharge on 11/23. 2. Mild hypokalemia ? Potassium 3.2 on 11/23. Replete as needed. 3. Mild anemia ? Hemoglobin 13.5 on admit, slight decrease to 12.4 and then 11.8 during hospitalization. No active signs of bleeding noted. No need to monitor further CBCs here, can repeat CBC about 7 days after discharge to ensure hemoglobin remains stable. Chronic medical conditions: ? History of CAD s/p stenting, hypertension, hyperlipidemia: Had stenting to mid LAD in 2016. Per most recent cardiology note in March 2023, patient not on statin therapy due to side effect of myalgias. Also unable to tolerate Zetia and Repatha was not affordable. Was previously on lisinopril and metoprolol but noted cough with lisinopril and lightheadedness/dizziness with metoprolol. Continue baby aspirin. ? Tobacco abuse: Encouraged cessation. Nicotine replacement therapy available while inpatient as needed. DVT prophylaxis: Lovenox CODE STATUS: Full code, verified Expected disposition: Inpatient rehab, medically ready for discharge on 11/23, awaiting pre-CERT Total clinical time spent by myself addressing the patient's medical issues, reviewing all the data, and collaborating with patient's care team: 35 minutes. Charges/Coding Visit Charges Inpatient E&M: 15274 Subs Hosp L2
[2023-11-25 03:00] VITALS: BP 141/68; PULSE 68; RESP 18; TEMP 36.4; O2SAT 97
[2023-11-25] MEDS: Acetaminophen 325 MG Tablet 650 MG PO (03:31)
[2023-11-25 05:45] VITALS: BMI 29.0
[2023-11-25 07:53] VITALS: O2SAT 95
[2023-11-25 09:00] VITALS: BP 152/77; PULSE 70; RESP 16; TEMP 36.6; O2SAT 98
--- NOTE | 2023-11-25 09:53 | CASEMGMT ---
WARREN updated patient that she has been accepted in the Rehab Unit at [facility]. Currently we are waiting on her insurance to give approval. Patient thanked WARREN for the update. Lila MCGUIRE
[2023-11-25] MEDS: Gabapentin 100 MG Capsule PO ×2 (10:26→12:29)
[2023-11-25] MEDS: Aspirin 81 MG TAB.CHEW PO (10:26)
[2023-11-25] MEDS: Enoxaparin 40 MG/0.4 ML Syringe SC (10:27)
[2023-11-25] MEDS: Clopidogrel Bisulfate 75 MG Tablet PO (10:27)
--- NOTE | 2023-11-25 10:47 | PCM.DC ---
Discharge Instructions Diet Discharge Diet: No restrictions Activity Discharge Activity: No Restrictions Follow Up Care Test Results: Test results from this visit will be discussed in further detail at your follow-up appointment, if applicable. Discharge Plan Admission Admit Date/Time: 11/23/23 16:28 Primary Reason for Your Visit: Strokelike symptoms Attending Provider: Mitch Ferreira Primary Care Provider: Thiago Valencia Consulting Providers: Stewart Mendoza; Eugenia Montoya; Blanquita Tracey; Emily Laguna; Janina Neff; David Tyler; aTmia Card; Mundo Avery; Brandon Mancilla; Ramon Almanza; Lauryn Law; Suman Reeves; Mónica Arango; Krish Waller; Quiana Willett; Milo Manzano; Beau Gordon; Mike Price; Florence Freeman; Dallin Anderson; Dotty Davis Discharge Orders/Prescriptions Prescriptions: New clopidogrel 75 mg Tablet 75 mg PO DAILY 90 Days Qty: 90 1RF Continued aspirin 81 MG tablet,chewable 81 mg PO DAILY Referrals / Follow Up: Thiago Valencia MD [Primary Care Provider] - Disposition Disposition (needs filled in before D/C Order can be placed): Inpatient Rehab Unit/Facility
--- NOTE | 2023-11-25 10:49 | DS.PCM_ITS ---
Providers Date of Admission: 11/23/23 Date of Discharge: 11/25/23 Primary Care Physician: Dr. Thiago Valencia MD Consultations 11/23/23 03:55 Consult: Tele-Neurology Routine Consulting Provider: [facility] Reason for Consult: Acute Ischemic Stroke/TIA EMERGENT Consult: Yes Notified: Yes Date Notified: 11/23/23 Time Notified: 03:19 Method of Notification: ED Physician Initiated Comments:: verified consult with tele neuro Nursing Unit Staff Notify [facility] of Tele-Neurology Consult: Yes Reason For Visit: TIA/CVA Diagnosis Discharge Diagnosis (1) Acute CVA (cerebrovascular accident): Status: Acute Code(s): I63.9 - Cerebral infarction, unspecified Medications at Discharge Home Medications aspirin 81 mg chewable tablet 81 mg PO DAILY [facility] 01/29/22 clopidogrel 75 mg tablet 75 mg PO DAILY . 90 days #90 tabs 11/25/23 Hospital Course Operations None Procedures EKG, Transthoracic echo and - (MRI brain, CTA head/neck, CT brain, chest x-ray) Summary of Care Provided Minutes Spent on Discharge: 35 Hospital Course: Patient is a 63-year-old female who presented [facility] ED on 11/23/2023 with strokelike symptoms. Hospital course as noted below. Patient discharged to inpatient rehab in stable condition on 11/24. 1. Acute CVA ? Neurology followed. Presented with right-sided sensory changes and right upper extremity weakness. MRI brain showed early subacute ischemic infarct in left posterior periventricular white matter extending down to left retrolenticular white matter. Per neurology, diagnosis of acute left ischemic cortez radiata/internal capsule stroke likely secondary to small vessel disease. Echo unremarkable. Loaded with Plavix on 11/22. Will treat with baby aspirin for life and Plavix 75 mg for 21 days on discharge. Patient unfortunately not able to tolerate statin as noted below. Encouraged smoking cessation. PT/OT/case management followed; patient discharged to inpatient rehab unit in stable condition on 11/24. 2. Mild hypokalemia ? Potassium 3.2 on 11/23. Repleted as needed. 3. Mild anemia ? Hemoglobin 13.5 on admit, slight decrease to 12.4 and then 11.8 during hospitalization. No active signs of bleeding noted. No need to monitor further CBCs here, can repeat CBC about 7 days after discharge to ensure hemoglobin remains stable. 4. Statin intolerance ? Per cardiology note in March 2023, patient not on statin therapy due to side effect of myalgias and also unable to tolerate Zetia. Repatha unfortunately was not affordable. Chronic medical conditions: ? History of CAD s/p stenting, hypertension, hyperlipidemia: Had stenting to mid LAD in 2017. Per most recent cardiology note in March 2023, patient not on statin therapy due to side effects noted above. Was previously on lisinopril and metoprolol but noted cough with lisinopril and lightheadedness/dizziness with metoprolol. Continue baby aspirin. ? Tobacco abuse: Encouraged cessation. Denied need for nicotine replacement therapy while inpatient. Total clinical time spent by myself addressing the patient's medical issues, reviewing all the data, and collaborating with patient's care team: 35 minutes. Physical Exam Const alert, oriented x3, no apparent distress and average body habitus Constitutional Narrative: Pleasant elderly female, good energy level, sitting up comfortably in bedside chair, conversing normally, in no acute distress. Stable. General Appearance: cooperative and comfortable HEENT normocephalic, head/scalp atraumatic, hearing grossly normal bilaterally, nasal mucous membranes and turbinates normal and moist oral mucous membranes Eyes PERRL, EOMs intact bilaterally and conjunctivae normal Neck full ROM Chest inspection of chest normal Resp normal respiratory effort, normal air movement, no use of accessory muscles and clear to auscultation bilaterally Cardio regular rate, regular rhythm, no murmurs and peripheral pulses 2+ throughout GI normal to inspection, nondistended, normoactive bowel sounds, soft to palpation, non-tender and non-distended Back/Spine normal ROM Skin no rashes or lesions noted Neuro oriented x3 and CN's II-XII intact bilaterally Neuro Narrative: Significant right upper extremity weakness and drift with movement. Right lower extremity drift with movement also noted. Right-sided numbness. No other significant abnormalities. Stable. Speech: speech normal Psych mental status grossly normal Weight / BMI Weight Weight: 89 kg Body Mass Index (BMI) 29.0 ABG / Lab / Microbiology Data 11/24/23 07:01 11/24/23 07:01 Radiography Diagnostic Testing: Radiology Impression Echocardiogram 11/23/23 03:55 Interpretation Summary The study was technically difficult. Mild concentric left ventricular hypertrophy. The left ventricular ejection fraction is 55 %. Bubble contrast study is negative for PFO/ASD. Ordering Physician: Dotty Davis Performed By: Doug Self and Student D/C Instructions Discharge Diet: No restrictions Meaningful Use Info Meaningful Use Meaningful Use Diagnoses (Choose all that apply): Ischemic CVA CVA Therapy Assessed for PT,OT and/or ST?: Yes Ischemic Stroke Antithrombotic order at d/c?: Yes Dx of Atrial fib/flutter?: No Statin Dosing Therapy Reference: STATIN DOSE THERAPY REFERENCE: * Patients > 75 years receive moderate or high dose statin therapy. * Patients 75 years or YOUNGER should receive HIGH intensity statin dose unless contraindicated. You will be required to document reason for non-treatment if statin daily dose does not meet guidelines. HIGH DOSE STATIN THERAPY DAILY Atorvastatin > than or = to 40 mg Rosuvastatin > than or = to 20 mg Amlodipine + Atorvastatin > than or = to 2.5/40 mg Ezetimibe + Simvastatin 10/80 mg Simvastatin 80mg Statins at discharge?: No Reason Statin not ordered: Drug Intolerance If patient is 75 or younger, pt will be discharged on HIGH intensity statin.: No High intensity statin for patient 75 or younger not ordered due to: drug intolerance Primary Dx Acute Ischemic CVA?: Yes Discharge Plan Admission Admit Date/Time: 11/23/23 16:28 Primary Reason for Your Visit: Strokelike symptoms Attending Provider: Mitch Ferreira Primary Care Provider: Thiago Valencia Consulting Providers: Stewart Mendoza; Eugenia Montoya; Blanquita Tracey; Emily Laguna; Janina Neff; David Tyler; Tamia Card; Mundo Avery; Brandon Mancilla; Ramon Almanza; Lauryn Law; Suman Reeves; Mónica Arango; Krish Waller; ZaQuiana coughlin; Milo Manzano; Beau Gordon; Mike Price; Florence Freeman; Dallin Anderson; Dotty Davis Discharge Orders/Prescriptions Prescriptions: New clopidogrel 75 mg Tablet 75 mg PO DAILY 90 Days Qty: 90 1RF Continued aspirin 81 MG tablet,chewable 81 mg PO DAILY Referrals / Follow Up: Thiago Valencia MD [Primary Care Provider] - Disposition Disposition (needs filled in before D/C Order can be placed): Inpatient Rehab Unit/Facility Charges/Coding Visit Charges Inpatient E&M: 76446 Disch Hosp >30min
--- NOTE | 2023-11-25 11:17 | CASEMGMT ---
Patient was approved for Acute Rehab. SW notified physician, patient, and RN. Plan: d/c to [facility] Acute Rehab Unit. Lila MCGUIRE
[2023-11-25] MEDS: Ondansetron 4 MG/2 ML Vial IV (12:29)
[2023-11-25] MEDS: 0.9% Saline Lock 10 ML Syringe IV (12:29)
== END 2023-11-25 13:03 | DRG 65 ==
LOC: ED 03:13 → PCU 05:54
PROVIDERS: Admitting Provider Family Medicine; Emergency Provider Emergency Medicine; PCP Family Medicine; Visit Provider Hospitalist
DX: I63.9 Cerebral infarction, unspecified (principal); G81.91 Hemiplegia, unspecified affecting right dominant side; I10 Essential (primary) hypertension; F32.A Depression, unspecified; D64.9 Anemia, unspecified; E78.00 Pure hypercholesterolemia, unspecified; F41.9 Anxiety disorder, unspecified; G51.0 Bell's palsy; F17.210 Nicotine dependence, cigarettes, uncomplicated; I25.10 Atherosclerotic heart disease of native coronary artery without angina pectoris; E87.6 Hypokalemia; I25.2 Old myocardial infarction; R29.703 NIHSS score 3; Z95.5 Presence of coronary angioplasty implant and graft; Z79.82 Long term (current) use of aspirin
CPT/HCPCS: 36415; 70450; 70496; 70498; 70551; 71045; 80048; 80053; 80061; 80307; 83036; 83735; 84443; 85025; 85610; 85730; 92610; 93005; 93306; 94668; 94762; 97116; 97162; 97166; 97530; 97535; 97802; 99285; J7030; Q9957; Q9967; A4216; J2405

== ENCOUNTER 2023-11-25 13:25 | Inpatient (IN) | payer OTHER, SELFPAY ==
[2016-07-19 14:11] VITALS: BMI 28.2
[2023-11-25 13:30] VITALS: BP 139/67; PULSE 86; RESP 15; TEMP 36.7; O2SAT 98
--- NOTE | 2023-11-25 14:12 | HP.PCM_ITS ---
HPI - General General Date of Admission: 11/25/23 Date of Service: 11/25/23 Chief Complaint: Post stroke debility HPI Narrative JENNIFER MCKOY, is a 63 YO F with a PMH of tobacco dependence, hypertension, hyperlipidemia, anxiety/depression, chronic back pain and coronary artery disease with hx of stent (hx of NSTEMI in 2017). Who presented to the emergency department at [facility] by squad on 11/23/2023 complaining of right leg weakness/numbness and slurred speech. EMS noted slurred speech, right arm drift and facial droop. Onset of symptoms was approximately 7 hours prior to calling EMS. A stat noncontrast brain CT showed age-related changes without evidence of acute intracranial hemorrhage. There was diffuse periventricular hypoattenuation most likely secondary to chronic white matter ischemic change. CTA of the head and neck showed no CT evidence for hemodynamically significant stenosis, thrombosis or aneurysm. NIHSS at presentation to the emergency room was 3 for right facial droop, right arm weakness and right leg weakness. She was outside the window for TNK. She was admitted to the hospitalist service for stroke workup. A neurology consult was obtained later in the day. Neurology recommended an MRI, echo, high intensity statin, continued aspirin 81 mg daily and addition of Plavix 75 mg daily for 21 days with a loading dose of 300 mg. Pt related that she was not on a statin due to myalgia (while on Crestor). She was also not able to tolerate Zetia (rx is upset stomach and anxiety) and could not afford Repatha. She had also not been able to tolerate Lisinopril or Losartan due to a cough and quit taking Metoprolol because even the smallest dose made her lightheaded. Labs showed hemoglobin A1c of 5.5, total cholesterol of 197, LDL of 133 and HDL of 39. Transthoracic echocardiogram showed mild concentric left ventricular hypertrophy and an ejection fraction of 55%. There was normal diastology. Left and right atrium were of normal size and the bubble contrast study was negative for PFO/ASD. There was no significant valvular heart disease. MRI showed early subacute ischemic infarct in the left posterior periventricular white matter extending down to the left retrolenticular white matter. There were a few small chronic subcortical white ischemic changes in both cerebral hemispheres. She was evaluated by therapy and acute inpt rehab was recommended at [facility] from the hospital. She was transferred to the acute inpt rehab unit at [facility] on 11/25/23 for 3 hours of therapy daily to restore function/independence at or near her level prior to the stroke. She is currently on dual antiplatelet therapy and enoxaparin. She is not taking a statin and is also not been on an antihypertensive. BP is above goal but, will allow mild permissive HTN for a few more days in light of recent ischemic stroke. I suspect she has chronic elevated of BP because she has LVH. Has had major depression in the past. Cannot recall the name of the medication she took for depression. Has a very old RX bottle with a very faded label that looks like Lorazepam.....she recognized the name......she takes this rarely. I reviewed the [place] report and she has not had any controlled substance RX's in the past 2 years. she is currently seeing a psychologist for therapy. No no medication for anxiety or depression. Has insomnia, poor motivation, chronic fatigue, crying spells, increased irritability, can not stop smoking........smokes to control her anxiety. Has been very upset at her job. 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 She tells me that she smokes 1/2 PPD and her dtr tells me some days it is 2 PPD. No ETOH use. Her dtr tells me that she talks about/complains about work the minute she gets home at night. Her mother lives with them and she and her have no alone time and this is stressful. `She was very tearful at one point when she was telling me about the depression in the past. Does not exercise. Does not follow a low fat diet. Last MMG was 5 years ago Has never had a BMD study.......someone told her that the test was very painful. Tells me that she has triedother statins and she did not feel like myself.......tired, anxious, nauseated BUT, these has these sx even when not taking these medications. Tells me that she has sciatic pain in the R leg. It goes from the R buttock down the lateral thigh and into the calf. No pain in the foot. No paresthesias. She gets electric chock like pain in the R leg. Tylenol helps. Dr. Valencia gave her exercises to try. Has not been to therapy for this and has not had anything other than plain XRAYS of the back. She took Gabapentin 100 mg TID.......it helped with the electric shock pain in the RLE but, she thinks it caused her to slur her speech.....I pointed out that her speech was slurred in the Ed prior to ever receiving Gabapentin. 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 she has not noticed any significant change in the R facial droop but, has noticed the new slurring of speech since the stroke. Her last visit with cardiology was in March of 2022. At that time she was taking Carvedilol. [facility] Medical History (Updated 11/25/23 @ 16:[address] Philly Pollock, DO) Sciatic leg pain Low HDL (under 40) Takotsubo cardiomyopathy (~01/29/22) Hyperlipidemia Hypertension Anxiety and depression Presence of stent in coronary artery (~07/19/16) Atherosclerotic heart disease of [place] coronary artery without angina pectoris Tobacco abuse NSTEMI (non-ST elevated myocardial infarction) (~07/2016) Overweight (BMI 25.0-29.9) Chronic back pain Home Medications ?Medication ?Instructions ?Recorded ?Last Taken ?Type aspirin 81 mg chewable tablet 81 mg PO DAILY HEART HEALTH 01/29/22 11/25/23 History clopidogrel 75 mg tablet 75 mg PO DAILY . 90 days #90 tabs 11/25/23 11/25/23 Rx Allergy/AdvReac Type Severity Reaction Status Date / Time hydrocodone bitartrate (From Allergy Nausea Verified 04/05/23 10:58 Vicodin) oxycodone (From Percocet) Allergy Unknown Verified 04/05/23 10:58 ezetimibe (From Zetia) AdvReac Intermediate anxiety, Verified 04/05/23 10:58 fatigue, upset stomach lisinopril AdvReac Intermediate Persistent Verified 04/05/23 10:58 Cough losartan AdvReac Intermediate persistent Verified 04/05/23 10:58 cough metoprolol AdvReac Intermediate Very Verified 04/05/23 10:58 dizzy, lightheaded even on smallest dose rosuvastatin (From Crestor) AdvReac myalgia Verified 04/05/23 10:58 Family History (Updated 11/25/23 @ 16:[address] Philly Pollock DO) Mother CAD (coronary artery disease) Hypertension Diabetes PVD (peripheral vascular disease) Has had toes amputated. Father , Age 49 MD Myocardial infarction Surgical History (Updated 11/25/23 @ 16:[address] Philly Pollock DO) Presence of coronary angioplasty implant and graft (~07/19/16) History of total hysterectomy Social History household members: spouse and family housing: house number of children: 3 pets and animals: Yes (dogBiosensia) Smoking Status: Current every day smoker tobacco type: cigarettes Tobacco: How many years used: 30 alcohol intake: current alcohol intake frequency: holidays/special occasions only Alcohol type: wine substance use type: does not use caffeine: Yes Type: tea Number of servings: 2 what type of physical activity do you participate in: none seatbelt use: always do you feel safe at home: Yes additional social history: Jeffery- Patient works at [employer] Homelessness:: Sheltered (lives with family in a ranch house. ) ROS Review of Systems ROS Unobtainable: Denies due to encephalopathy, due to endotracheal tube, due to mental condition or due to mental status Constitutional Constitutional: Reports daytime sleepiness, difficulty sleeping, fatigue, snoring and weakness; Denies stops breathing during sleep Eyes Eyes: Denies blurry vision, change in vision, eye pain or loss of vision ENT HEENT: Denies abnormal hearing, dysphagia, headache(s), hearing loss, nasal congestion or sore throat Cardiovascular Cardiovascular: Reports palpitations; Denies chest pain, dyspnea on exertion, edema, lightheadedness, orthopnea, paroxysmal nocturnal dyspnea or syncope Respiratory/Chest Respiratory/Chest: Denies cough, dyspnea, shortness of breath at rest, shortness of breath with exertion or wheezing Gastrointestinal Gastrointestinal: Reports nausea; Denies abdominal pain, chewing difficulty, constipation, diarrhea, dyspepsia, hematemesis, hematochezia or vomiting Genitourinary Genitourinary: Reports nocturia and other Details: Gets up a lot at night to urinate but only goes small amounts ; Denies dysuria, hematuria, urinary frequency, urinary hesitancy, urinary incontinence or urinary urgency Musculoskeletal Musculoskeletal: Reports back pain, muscle weakness and radiating pain into limb; Denies joint pain, joint swelling or neck pain Integumentary Integumentary: Denies change in hair, jaundice, pruritus, rash or unusual bruising Neurologic Neurologic: Reports focal weakness and other Details: having some trouble with word finding since the stroke ; Denies confusion, disequilibrium, dizziness, headache(s), paresthesias, seizures or tremor(s) Psychiatric Psychiatric: Reports abnormal sleep pattern, anhedonia, anxiety, depression and panic attacks; Denies auditory hallucinations, difficulty concentrating, hallucinations, homicidal ideation or suicidal ideation Endocrine Endocrinology: Denies change in body appearance, polydipsia or polyuria Hematologic/Lymphatic Hematologic/Lymphatic: Denies easy bleeding, easy bruising or lymphadenopathy Allergic/Immunologic Allergic/Immunologic: Denies rhinitis, eczemia or asthma Vital Signs Vital Signs Vital Signs: 11/25/23 14:05 Oxygen Delivery Method Room Air Indicators for Scoring Admitted with or Primary Diagnosis of CVA/Stroke: Yes Hx of CVA/Stroke: Yes Modified Nelli Score MRS Score at time of Evaluation: 5-Severe disability NIHSS NIHSS 1a. Level of Consciousness: Alert; keenly responsive 1b. LOC Questions: Answers BOTH questions correctly. 1c. LOC Commands: Performs both tasks correctly. 2. Best Gaze: Normal 3. Visual: No visual loss 4. Facial Palsy: Minor paralysis (flattened nasolabial fold, asymmetry on smiling) (The facial droop improves when she shows me her teeth) 5a. Left Arm: No drift; arm holds 90 (or 45) degrees for full 10 seconds 5b. Right Arm: Drift; arm drifts downward but doesn?t hit the bed 6a. Left Leg: No drift; leg holds 30-degree position for full 5 seconds 6b. Right Leg: Drift; leg falls by the end of 5-seconds, but does not hit bed 7. Limb Ataxia: Absent (Could not test the RUE adequately due to weakness. ) 8. Sensory: Normal; no sensory loss 9. Best Language: No aphasia; normal 10. Dysarthria: [id number] dysarthria; 11. Extinction and Inattention: No abnormality Total: 4 Stroke Questions Stroke Team Activated: No Physical Exam Const alert, oriented x3 and no apparent distress Constitutional Narrative: Sitting in the recliner at the bedside. General Appearance: cooperative and well kempt Nutritional Appearance: overweight HEENT normocephalic, head/scalp atraumatic and hearing grossly normal bilaterally HEENT Narrative: Very dry mucous membranes. No evidence of thrush. Eyes PERRL, EOMs intact bilaterally, conjunctivae normal and no scleral icterus Eyes Narrative: No discharge from the eyes and no mattering of the eyelashes. Neck supple, thyroid normal, No nodes and no carotid bruits Chest Chest: symmetrical chest wall rise Resp Resp Narrative: Lungs are CTA with good air exchange anterior and lateral. Could not listen porteriorly due to her positioning in the chair.......will re-examine when she is sitting upright and can lean forward. Effort and Inspection: able to speak in complete sentences Cardio regular rate, regular rhythm, S1 normal heart sound, S2 normal heart sound, no murmurs, no rub and no gallops Cardio Narrative: No ectopy GI normal to inspection, nondistended, normoactive bowel sounds, soft to palpation and non-tender GI Narrative: No guarding with palpation, no abdominal bruits appreciated, no masses Extremity no calf tenderness Extremity Narrative: mild pitting edema of both ankles. No clubbing and no cyanosis. DP are 2+ BL. Both feet are warm with intact sensation. No bruising of the left ankle. Skin no wounds, no jaundice and no petechiae General Skin Exam: no breakdown Rashes: no rashes Neuro Neuro Narrative: R facial droop. Mild dysarthria. No visual field cuts. Weakness in the RUE and the RLE. 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 She is R hand dominant. RUE seems weaker than the left. Weak dorsiflexion and plantar flexion with the R foot. No sensory loss. No ataxia.....could not test the RUE due to weakness. No extinction. No aphasia. No nystagmus. Tongue protrudes in the midline. Psych cooperative Psych Narrative: Tearful and this has been happening at home. Has been very anxious and upset about her situation at work with her boss. Tired all the time. Takes naps. does not feel rested when she awakens in the AM. Can not stay asleep at night and awakens frequently. Tells me she feels that her anxiety is well controlled but, admits to smoking to control anxiety. Takes an occasional lorazepam (very old prescription) to control her anxiety at times. Occasionally has 1/2 glass of wine to help control her anxiety. Hx of major depression in the past. Somaticizes a lot and then blames the sx on medication she is taking.....has stopped taking an antihypertensive and statin because every med she tries cause nausea, anxiety, fatigue and not feeling like Herself. She has these sx even when not taking these medications. Started crying vigorously when we asked about hx of depression.......told me she could not get off the couch and then started crying.......needed a time out. Appearance: grossly normal Results Lab / Micro Data 11/26/23 07:05 11/26/23 07:05 Assessment & Plan Assessment/Plan (1) Debility: (2) Acute CVA (cerebrovascular accident): (3) Right sided weakness: (4) Facial droop: (5) Dysarthria: (6) Tobacco use: (7) Hypertension: (8) Hyperlipidemia: (9) Low HDL (under 40): (10) Atherosclerotic heart disease of [place] coronary artery without angina pectoris: QUALIFIERS: [place] vs. transplanted heart: [place] heart Qualified Code(s): I25.10 - Atherosclerotic heart disease of [place] coronary artery without angina pectoris (11) Anxiety and depression: PLAN: Plan PLAN PT for gait stability OT for ADL's ST for evaluation Analgesics as needed Bowel protocol Fall precautions Assess for Anxiety/Depression GI prophylaxis -not necessary at this time. DVT prophylaxis with Lovenox 40 mg subcu daily Follow up with PCP, cardiology GEN neurology following DC from IP Rehab AM lab including CMP, CBC, Mag and Phos She is agreeable to trying Effexor for tx of anxiety/depression and chronic pain. We discussed the side effects and we are starting with the lowest dose. she is also agreeable to trying Trazodone at HS for insomnia. Her anxiety is incapacitating for her. Somatization is a big problem and it causes her not to tolerate medications that she needs to prevent additional cardiac events and strokes going forward. Would like to avoid benzo's. start with low doses and go slow. If we can get the anx/depression under control would like to reintroduce a low dose statin. Prn Hydralazine for BP > 170/85. Permissive HTN for another couple days Overnight trending pulse ox. Smoking cessation counselling given but, I do not think she will bne able to quit smoking unless we get control of the anxiety. Obtain a med list, problem list and last [address] Isbell.
--- NOTE | 2023-11-25 16:46 | PCM.RU.PYE ---
Admission Information Primary Diagnosis:: POST STROKE DEBILITY Status Changes from Prescreening?: No changes Identified Actual Problem List:: Skin Intergrity, Pain, ALteration in Cmfrt, Cognitve Impr/Memory Loss, Depression, Alteration in Sleep, Mobility Impaired, Self Care Deficit, Know.Dfct/Disease Process, Know.Dfct of Medicaitons, BP, Hypertension and Alteration-Leisure Activ. Potential Problem List:: DVT, Bleeding, Infection, UTI, Aspiration, Falls, Skin Integrity and Depression Risk of Complications DVT: MARYAM Hose and - (Lovenox 40 mg subcu daily) Bleeding: Monitor Lab Values, Nursing to Teach Precautions for anti-coagulation therapy., Wound, if applicable, to be assessed every shift. and Stroke patients assessed for lethargy or change in status. Infection: Clinical Staff to Monitor for S/S of infection: and S/S of infection include fever, redness, warmth, etc. Urinary Tract Infection: Monitor for frequency, burning, discomfort, or incontinence. and Nursing will obtain urine sample for urinalysis and C&S when ordered. Aspiration: Clinical staff will monitor for coughing, drooling, congestion., Speech will evaluate swallowing and dsyphasia. and Nursing will monitor patient swallowing during meals. Falls: Patient will be evaluated for Fall Precautions and Patient will be placed on Fall Precautions as indicated per protocol. Skin Breakdown: Nursing will assess skin daily using assessment tool. and Nursing will place on Skin Breakdown Precautions as indicated. Pain: Clinical staff will assess patient's pain level per protocol., Medications will be given, if needed, and the pain level reassessed. and Other methods: Massage, distraction, decrease stimulus, etc. used PRN. Plan of Care Patient requires physician specializing in physical medicine and rehab oversight to provide close medical supervision of rehab issues including: Pain Management, Sleep Problems, Bowel and Bladder, Medical and co-morbidity Management, DVT prophylaxis, Rehabilitation Leadership and Coordination of treatment team Patient needs Physical Therapy: For a minimum of 1 hour and At least 5 out of 7 days Patient needs Physical Therapy to improve:: Mobility, Strengthening, Transfers, Stretching, ROM, Endurance, Stairs, Gait and Balance Patient needs Occupational Therapy: For a minimum of 1 hour and At least 5 out of 7 days Patient needs Occupational Therapy to improve ADL's incl.: Eating, Grooming, Bathing, Dressing, Toileting, Toilet transfers, Community Reintegration, Higher functioning activities, Household tasks, Adaptive Equipment, Splinting and Other activities as determined Patient requires speech therapy: For a minimum of 1 hour and At least 5 out of 7 days Patient requires speech therapy for: Swallowing, Cognition, Language Skills and Compensatory Strategies Patient requires 24/ Rehabilitation Nursing for: Pain Issues, Identifying and preventing risk factors, Monitoring and reporting current medical conditions, Assisting with ambulation, transfer, and all ADL's, Teaching patients about disease process and medications, Family teaching, Providing safe environment, Bowel and Bladder Issues, Skin integrity and Medication Management Patient needs Product Safety Engineer/ Case Management for: Discharge Planning, Arranging Home Equipment or Services and Family Interventions Patient needs Dietary and Nutrition Services for: Adequate Nutrition, Nutritional Supplements and Nutritional Education Goals Goals Patient will remain: free from falls Patient will perform eating at: MOD I level of assist. Patient will perform bed mobility at: MOD I level of assist. Patient will complete transfers from bed to chair at: Standby Assist. Patient will ambulate: - (165 feet with least restrictive device at contact-guard assist on various surfaces) Patient will complete upper body dressing at: MOD I level of assist. (Min assist) Patient will complete lower body dressing at: - (Contact-guard assist with adaptive equipment as needed to increased independence with self-care) Patient will complete toilet transfer at: - (Contact-guard assist) Patient will complete toileting at: - (Contact-guard assist) Patient will perform bathing at: - (She will complete upper body bathing at min assist and lower body bathing at contact-guard assist with adaptive equipment as needed.) Patient will perform Tub/Shower transfer at: - (Contact-guard assist using DME as needed) Patient will complete grooming at: - (Supervision) Patient will complete home management skills at: - (Contact-guard assist) Patient will achieve: - (2 steps with least restrictive assistive device and minimal assistance to allow entrance to her home) Patient will have pain level of: of 3 or less Patient's skin will: remain intact Patient will receive: adequate nutrition. Discharge Planning Pt Prognosis for Sig. Practical Improv. w/in Reasonable Time: Good Estimated Length of stay (days): 28 Anticipated D/C Destination: Home w/ family or friends (To be determined closer to discharge whether she will have outpatient therapy or home health care.) Was Preadmission Assessment Accurate?: Yes
[2023-11-25] MEDS: Ensure Plus High Protein 120 ML LIQUID PO (17:24)
[2023-11-25 17:57] VITALS: BP 155/72; PULSE 75; RESP 17; TEMP 36.1; O2SAT 100
[2023-11-25] MEDS: Acetaminophen 325 MG Tablet 650 MG PO ×2 (17:58→23:19)
[2023-11-25 18:01] VITALS: BMI 30.3
[2023-11-25] MEDS: traZODone 50 MG Tablet PO (22:08)
[2023-11-25] MEDS: Venlafaxine HCl 25 MG Tablet PO (22:08)
[2023-11-25] MEDS: Senna/Docusate Sodium 1 Tablet 2 TABLET PO (22:08)
[2023-11-25] MEDS: 0.9% Saline Lock 10 ML Syringe IV (22:18)
[2023-11-25 22:25] VITALS: PULSE 88; O2SAT 96
--- NOTE | 2023-11-26 01:41 | PCM.PN.BLA ---
Progress Note Patient with worsened R sided LE sciatic shooting pain. She had this upon initial hospitalization presentation and had been given steroid regimen as well as low dose gabapentin. These were stopped in light of confirmed acute stroke and also she declined the gabapentin secondary to concerns it caused her speech to be slurred. Given her reticence with this medication will dose x 1 with low dose tramadol given the pain x 1 now but may need to be initiated on course steroids/gabapentin to fully assist but will defer this decision to Dr. Pollock.
[2023-11-26 01:57] VITALS: BMI 30.3
[2023-11-26] MEDS: traMADol 50 MG Tablet PO (02:05)
[2023-11-26 06:00] VITALS: BP 151/75; PULSE 78; RESP 17; TEMP 36.8; O2SAT 96
[2023-11-26] MEDS: Enoxaparin 40 MG/0.4 ML Syringe SC (06:31)
[2023-11-26] MEDS: Acetaminophen 325 MG Tablet 650 MG PO ×3 (06:31→21:39)
[2023-11-26 07:14] LABS: Absolute Lymphocyte Count 1.71 X10^3/uL (0.83-4.51); Absolute Neutrophil Count 5.3 X10^3/uL (2.0-7.7); Basophil# 0.04 X10^3/uL; Basophil% 0.5 % (0-1); Eosinophils% 2.6 % (0-5); Hematocrit 38.8 % (37-47); Lymphocyte # 1.71 X10^3/ul (0.83-4.51); Lymphocyte % 22.2 % (19-41); Mean Corp Hgb Conc 33.5 g/dL (32-36); Mean Corpuscular Hgb 30.1 pg (27.0-32.0); Mean Corpuscular Volume 89.8 fL (81-99); Mean Platelet Vol. 7.9 fl (6.2-12.0); Monocyte# 0.47 X10^3/uL; Monocyte% 6.1 % (0-10); NRBC Flagged by Analyzer 0 % (0-5); Neutrophil # 5.25 X10^3/uL (2.7-7.7); Neutrophil % 68.3 % (47-70); Platelet Count 321 K/mm3 (150-450); RBC Distribution Width CV 13.3 % (11.6-14.6); RBC Distribution Width SD 43.9 fl (35.1-43.9); Red Blood Count 4.32 M/mm3 (4.2-5.4); White Blood Count 7.7 K/mm3 (4.4-11.0)
[2023-11-26 08:15] VITALS: O2SAT 96
[2023-11-26] MEDS: Aspirin 81 MG TAB.CHEW PO (09:09)
[2023-11-26] MEDS: Clopidogrel Bisulfate 75 MG Tablet PO (09:09)
[2023-11-26] MEDS: Ensure Plus High Protein 120 ML LIQUID PO (09:14)
[2023-11-26 10:12] LABS: ALB/GLOB Ratio 0.9 RATIO (0.9-2.4); AST(SGOT) 21 U/L (15-37); Alanine Aminotransfer ALT/SGPT 27 U/L (13-56); Albumin, Serum 3.3 g/dL (3.2-5.0); Alkaline Phosphatase 94 U/L (45-117); Anion Gap 7 (5-15); BUN 17 mg/dL (7-18); BUN/Creat Ratio 24.5 RATIO (10-20); Calcium,Total 8.7 mg/dL (8.5-10.1); Chloride 107 mmol/L (98-107); Creatinine, Serum 0.69 mg/dL (0.55-1.02); EST Glomerular Filtration Rate 91 mL/min (>60); Est Glom Filt Rate - Afr Amer 110 mL/min (>60); Estimated Creatinine Clearance 100.07 ml/min; Globulin 3.8 g/dL (2.2-4.2); Glucose 114 mg/dL (74-106); Magnesium 2.1 mg/dL (1.6-2.6); Phosphorus 4.4 mg/dL (2.5-4.9); Potassium 3.8 mmol/L (3.5-5.1); Protein, Total 7.1 g/dL (6.4-8.2); Sodium Level 137 mmol/L (136-145)
[2023-11-26] MEDS: Gabapentin 100 MG Capsule PO ×2 (12:15→17:52)
[2023-11-26] MEDS: predniSONE 20 MG Tablet 60 MG PO (14:01)
[2023-11-26 15:39] VITALS: BMI 30.3
[2023-11-26 17:36] VITALS: BP 150/74; PULSE 66; RESP 18; TEMP 37.4; O2SAT 94
[2023-11-26] MEDS: Senna/Docusate Sodium 1 Tablet 2 TABLET PO (21:39)
[2023-11-26] MEDS: traZODone 50 MG Tablet PO (21:39)
[2023-11-27 03:31] VITALS: BMI 30.3
[2023-11-27] MEDS: Acetaminophen 325 MG Tablet 650 MG PO (04:42)
[2023-11-27 04:45] VITALS: BP 176/74; PULSE 74
[2023-11-27] MEDS: hydrALAZINE 10 MG Tablet PO (04:45)
[2023-11-27] MEDS: Enoxaparin 40 MG/0.4 ML Syringe SC (05:19)
[2023-11-27 06:00] VITALS: BP 176/74; PULSE 74; RESP 18; TEMP 36.6; O2SAT 95
[2023-11-27] MEDS: Aspirin 81 MG TAB.CHEW PO (08:03)
[2023-11-27] MEDS: Senna/Docusate Sodium 1 Tablet 2 TABLET PO ×2 (08:03→21:54)
[2023-11-27] MEDS: Clopidogrel Bisulfate 75 MG Tablet PO (08:03)
[2023-11-27] MEDS: Ensure Clear 120 ML Liquid PO ×3 (08:05→17:20)
[2023-11-27] MEDS: predniSONE 20 MG Tablet 60 MG PO (08:06)
[2023-11-27] MEDS: Gabapentin 100 MG Capsule PO ×3 (08:09→17:20)
[2023-11-27] MEDS: Magnesium Hydroxide 30 ML UDC PO (12:20)
[2023-11-27 15:20] VITALS: BMI 30.3
[2023-11-27] MEDS: Bisacodyl 10 MG Suppository RC (17:56)
[2023-11-27 18:00] VITALS: BP 158/65; PULSE 89; RESP 16; TEMP 37; O2SAT 97
[2023-11-27 19:39] VITALS: BMI 30.3
[2023-11-27] MEDS: traZODone 50 MG Tablet PO (21:54)
[2023-11-27 22:00] VITALS: PULSE 89; RESP 16; O2SAT 97
[2023-11-28] MEDS: Acetaminophen 325 MG Tablet 650 MG PO ×2 (01:34→20:52)
[2023-11-28 06:00] VITALS: BP 138/65; PULSE 71; RESP 16; TEMP 36.4; O2SAT 97
[2023-11-28] MEDS: Enoxaparin 40 MG/0.4 ML Syringe SC (06:06)
[2023-11-28] MEDS: Senna/Docusate Sodium 1 Tablet 2 TABLET PO ×2 (07:49→20:52)
[2023-11-28] MEDS: Gabapentin 100 MG Capsule PO ×3 (07:49→17:27)
[2023-11-28] MEDS: Aspirin 81 MG TAB.CHEW PO (07:50)
[2023-11-28] MEDS: Clopidogrel Bisulfate 75 MG Tablet PO (07:50)
[2023-11-28] MEDS: Ensure Clear 120 ML Liquid PO ×3 (07:56→17:27)
[2023-11-28] MEDS: predniSONE 20 MG Tablet 60 MG PO (10:05)
--- NOTE | 2023-11-28 11:11 | PN_ITS ---
Subjective Subjective Afebrile VSS -blood pressure since Tuesday has ranged from 138/65 to 176/74. I am blood pressure today was 138/65. Maintaining appropriate oxygen saturation on RA Oral intake - FOOD 50 to 100% of all meals. FLUIDS good.....had almost 5 liters intake on Tuesday Discussed with nursing - no problems that need addressed Reviewed the THERAPY notes Medication list reviewed. Had 1 dose of 25 mg of short acting Effexor Tuesday and c/o nausea.....was dry heaving....Effexor was discontinued. She c/o not sleeping well Tuesday night due to sciatic pain. she was started back on Gabapentin and was also started on Prednisone 60 mg daily...has now had 3 doses. Objective Data Objective Data Vital Signs: Vital Signs Temp Pulse Resp BP Pulse Ox O2 Del Method FiO2 97.5 F L 71 16 138/65 H 97 Room Air 11/28/23 06:00 11/28/23 06:00 11/28/23 06:00 11/28/23 06:00 11/28/23 06:00 11/28/23 06:00 11/25/23 22:25 Oxygen Delivery Method Room Air Weight: 205 lb 4.006 oz Body Mass Index (BMI) 30.3 Intake & Output: Intake and Output for Last 24 Hours 11/26/23 11/27/23 11/28/23 23:59 23:59 23:59 Intake Total 2570 / 2570 4940 / 4940 1150 / 1150 Output Total 1725 / 1725 4020 / 4020 450 / 450 Balance 845 / 845 920 / 920 700 / 700 Lab / Micro Data 11/26/23 07:05 11/26/23 07:05 Micro: Microbiology 11/27/23 18:44 Stool Stool Occult Blood (DAPHNEY) - Final Social Homelessness:: Sheltered (lives with family in a ranch house. ) Physical Exam Const alert, oriented x3 and no apparent distress Constitutional Narrative: Very motivated and working hard in therapy. Pleasant and makes good eye contact. General Appearance: cooperative Resp normal respiratory effort, normal air movement and clear to auscultation bilaterally Cardio regular rate, regular rhythm and no gallops Cardio Narrative: No ectopy GI normal to inspection, nondistended, normoactive bowel sounds, soft to palpation and non-tender Extremity no calf tenderness Skin Rashes: no rashes Assessment & Plan Assessment/Plan (1) Debility: (2) Acute CVA (cerebrovascular accident): (3) Right sided weakness: (4) Facial droop: (5) Dysarthria: (6) Tobacco use: (7) Hypertension: QUALIFIERS: Hypertension type: primary hypertension Qualified Code(s): I10 - Essential (primary) hypertension (8) Hyperlipidemia: QUALIFIERS: Hyperlipidemia type: unspecified Qualified Code(s): E 78.5 - Hyperlipidemia, unspecified (9) Low HDL (under 40): (10) Atherosclerotic heart disease of [place] coronary artery without angina pectoris: QUALIFIERS: [place] vs. transplanted heart: [place] heart Qualified Code(s): I25.10 - Atherosclerotic heart disease of [place] coronary artery without angina pectoris (11) Anxiety and depression: PLAN: Plan 1. Continue therapy 2. Patient is willing to try low-dose atorvastatin to help control cholesterol 3. She had the nausea and dry heaves when she got out of bed on Tuesday and that was before she received a dose of Effexor. We once again discussed that it is my opinion that the nausea/fatigue and anxiety she has with some medications is actually due to panic attacks and she blames whatever medication she had prior to the sx onset. She is taking Gabapentin now and it is not causing slurred speech which is why she did not want to take it at admission. 4. Start Prednisone 40 mg daily for 3 days in the AM. Continue Gabapentin. 5. If the BP is still above goal on Tuesday will need to add an antihypertensive. 6. Increase trazodone to 100 mg time. 7. Needs an MRI of the lumbosacral spine if the pain recurs with tapering of the prednisone. Charges/Coding Visit Charges Inpatient E&M: 46350 Subs Hosp L1
[2023-11-28 12:54] VITALS: BMI 30.3
--- NOTE | 2023-11-28 15:30 | CASEMGMT ---
Social Work SW requested for pt's family provide copies of advanced directives to place on file. Arlen Peters, FAMILY SERVICE COUNSELOR INSTRUMENTATION INSTRUCTOR
[2023-11-28 18:00] VITALS: BP 140/49; PULSE 79; RESP 16; TEMP 37.1; O2SAT 97
[2023-11-28 20:16] VITALS: BMI 30.3
[2023-11-28] MEDS: Atorvastatin Calcium 10 MG Tablet PO (20:51)
[2023-11-28] MEDS: traZODone 100 MG Tablet PO (20:52)
[2023-11-28 22:00] VITALS: PULSE 79; RESP 16; O2SAT 97
[2023-11-29] MEDS: Enoxaparin 40 MG/0.4 ML Syringe SC (05:29)
[2023-11-29 05:32] VITALS: BP 132/49; PULSE 67; RESP 16; TEMP 36.7; O2SAT 96
[2023-11-29] MEDS: Senna/Docusate Sodium 1 Tablet 2 TABLET PO ×2 (07:56→21:01)
[2023-11-29] MEDS: Ensure Clear 120 ML Liquid PO ×3 (07:56→17:05)
[2023-11-29] MEDS: predniSONE 20 MG Tablet 40 MG PO (07:56)
[2023-11-29] MEDS: Gabapentin 100 MG Capsule PO ×3 (07:56→17:04)
[2023-11-29] MEDS: Aspirin 81 MG TAB.CHEW PO (07:56)
[2023-11-29] MEDS: Clopidogrel Bisulfate 75 MG Tablet PO (07:57)
[2023-11-29 13:05] VITALS: BMI 30.3
[2023-11-29 18:00] VITALS: BP 147/46; PULSE 71; RESP 17; TEMP 36.6; O2SAT 98
[2023-11-29] MEDS: Acetaminophen 325 MG Tablet 650 MG PO (20:57)
[2023-11-29] MEDS: traZODone 100 MG Tablet PO (21:01)
[2023-11-29] MEDS: Atorvastatin Calcium 10 MG Tablet PO (21:01)
[2023-11-29] MEDS: Polyethylene Glycol 3350 17 GM PACKET PO (21:01)
[2023-11-29 21:08] VITALS: BMI 30.3
[2023-11-29 21:30] VITALS: BP 142/52; PULSE 67
[2023-11-29 22:00] VITALS: PULSE 67; RESP 16; O2SAT 97
[2023-11-30 06:00] VITALS: BP 135/47; PULSE 64; RESP 16; TEMP 36.4; O2SAT 96
[2023-11-30] MEDS: Enoxaparin 40 MG/0.4 ML Syringe SC (06:59)
[2023-11-30] MEDS: Gabapentin 100 MG Capsule PO ×3 (07:40→16:52)
[2023-11-30] MEDS: predniSONE 20 MG Tablet 40 MG PO (07:40)
[2023-11-30] MEDS: Senna/Docusate Sodium 1 Tablet 2 TABLET PO ×2 (07:40→20:18)
[2023-11-30] MEDS: Aspirin 81 MG TAB.CHEW PO (07:40)
[2023-11-30] MEDS: Ensure Clear 120 ML Liquid PO ×3 (07:40→16:55)
[2023-11-30] MEDS: Clopidogrel Bisulfate 75 MG Tablet PO (07:40)
[2023-11-30 14:05] VITALS: BMI 30.3
[2023-11-30 17:34] VITALS: BP 146/62; PULSE 70; RESP 17; TEMP 36.8; O2SAT 98
[2023-11-30] MEDS: Polyethylene Glycol 3350 17 GM PACKET PO (20:18)
[2023-11-30] MEDS: Atorvastatin Calcium 10 MG Tablet PO (20:19)
[2023-11-30] MEDS: Magnesium Chloride 64 MG Delay Rel.Tablet 128 MG PO (20:19)
[2023-11-30 22:15] VITALS: BMI 30.3
[2023-12-01] MEDS: Enoxaparin 40 MG/0.4 ML Syringe SC (05:20)
[2023-12-01 06:00] VITALS: BP 137/69; PULSE 73; RESP 16; TEMP 36.8; O2SAT 98
[2023-12-01 07:37] VITALS: RESP 16
[2023-12-01] MEDS: Senna/Docusate Sodium 1 Tablet 2 TABLET PO ×2 (08:10→20:03)
[2023-12-01] MEDS: Aspirin 81 MG TAB.CHEW PO (08:10)
[2023-12-01] MEDS: predniSONE 20 MG Tablet 40 MG PO (08:10)
[2023-12-01] MEDS: Clopidogrel Bisulfate 75 MG Tablet PO (08:11)
[2023-12-01] MEDS: Gabapentin 100 MG Capsule PO ×3 (08:12→16:08)
[2023-12-01] MEDS: Magnesium Hydroxide 30 ML UDC PO (08:14)
[2023-12-01] MEDS: Ensure Clear 120 ML Liquid PO ×3 (08:14→16:08)
--- NOTE | 2023-12-01 11:54 | PCM.PROGNOTE ---
Subjective Subjective Billie was seen on team rounds today. Family was present in the room. All questions were answered to their satisfaction. Afebrile VSS -systolic blood pressures are still above goal. Diastolics are always within normal limits. Maintaining appropriate oxygen saturation on RA Oral intake - FOOD good FLUIDS good No BM since 11/26 but, she had a BM today after MOM Discussed with nursing - no problems that need addressed Reviewed the THERAPY notes Medication list reviewed. Alpa tells me that she slept OK last night. she tells me that the Magnesium at HS caused her to relax better. She denies cephalgia, lightheadedness, vertigo, chest pain, palpitations, shortness of breath, cough, sore throat, abdominal pain, suprapubic pain and calf tenderness. The urine in the Tang tubing is very pale yellow and clear. Objective Data Objective Data Vital Signs: Vital Signs Temp Pulse Resp BP Pulse Ox O2 Del Method FiO2 98.2 F 73 16 137/69 H 98 Room Air 21 12/01/23 06:00 12/01/23 06:00 12/01/23 07:37 12/01/23 06:00 12/01/23 06:00 12/01/23 06:00 11/25/23 22:25 Oxygen Delivery Method Room Air Weight: 205 lb 4.006 oz Body Mass Index (BMI) 30.3 Intake & Output: Intake and Output for Last 24 Hours 11/29/23 11/30/23 12/01/23 23:59 23:59 23:59 Intake Total 3480 / 3480 3190 / 3290 1790 / 1790 Output Total 3160 / 3160 4150 / 4150 1875 / 1875 Balance 320 / 320 -960 / -860 -85 / -85 Lab / Micro Data 11/26/23 07:05 11/26/23 07:05 Micro: Microbiology 11/27/23 18:44 Stool Stool Occult Blood (DAPHNEY) - Final Social Homelessness:: Sheltered (lives with family in a ranch house. ) Physical Exam Const alert, oriented x3 and no apparent distress Constitutional Narrative: Very motivated and working hard in therapy. Pleasant and makes good eye contact. General Appearance: cooperative Resp normal respiratory effort, normal air movement and clear to auscultation bilaterally Cardio regular rate, regular rhythm and no gallops Cardio Narrative: No ectopy GI normal to inspection, nondistended, normoactive bowel sounds, soft to palpation and non-tender Extremity no calf tenderness Skin Rashes: no rashes Psych cooperative Psych Narrative: Does not seem anxious or depressed today but, she is not at work and her boss who caused her so much anxiety has been fired. Assessment & Plan Assessment/Plan (1) Debility: (2) Acute CVA (cerebrovascular accident): (3) Right sided weakness: (4) Facial droop: (5) Dysarthria: (6) Tobacco use: (7) Hypertension: QUALIFIERS: Hypertension type: primary hypertension Qualified Code(s): I10 - Essential (primary) hypertension (8) Hyperlipidemia: QUALIFIERS: Hyperlipidemia type: unspecified Qualified Code(s): E78.5 - Hyperlipidemia, unspecified (9) Low HDL (under 40): (10) Atherosclerotic heart disease of [place] coronary artery without angina pectoris: QUALIFIERS: [place] vs. transplanted heart: [place] heart Qualified Code(s): I25.10 - Atherosclerotic heart disease of [place] coronary artery without angina pectoris (11) Anxiety and depression: PLAN: Primarily anxiety with panic attacks. The only medication she has tolerated in the past is Lorazepam. She has a very old bottle with a few doses in it.......it is so old the label is faded and I can not read the dose. She uses this on occasion but, she is cutting the tabs in 1/4's and 1/2's to make them last. (12) Urine retention: PLAN: I suspect the urine retention is related to the stroke however she has been constipated so we will order a KUB to assess for large fecal burden. PLAN: Plan 1. Continue therapy 2. We had a discussion regarding generalized anxiety with panic attacks and how debilitating they can be. I explained that I feel like the nausea, fatigue and anxiety she has with multiple different medications is not actually a side effect of the medication but a panic attack. She had multiple complaints when I ordered a medication for anx/dep and attributed the sx to the medication and she had not even had a dose yet. It was discontinued. 3. I would like to start and antihypertensive. I explained the goal for blood pressure control in a patient with a stroke is less than 130/80. She has tolerated Lipitor for 3 doses now without complaint. If the BP is still above goal over the weekend will likely start an antihypertensive.....if she is agreeable. 4. I recommended she follow up with psychiatry post DC for medication for generalized anxiety with panic attacks. Charges/Coding Visit Charges Inpatient E&M: 20227 Subs Hosp L2
--- NOTE | 2023-12-01 12:42 | CASEMGMT ---
Social Work IDT met with patient, , mother, sister, two daughters and son's GF (Casscoe OB RN) for Team meeting. Discussed patient's progress in PT/OT/ST/SN. Educated to [facility] [employer] insurance with [employer] 11/30 and continued stay is not guaranteed with each review. Pt's goal is to return home with . attend therapy training yesterday. Pt has right arm weakness and new gonzalez currently. Dr. Pollock discussed the stressors of pt's life leading to strokes, and anxiety/depression and pt's hx of panic attacks. Recommending pt f/u with psychiatry and ongoing sessions with counseling. Dr expressed to pt the appreciation of trust pt has to Dr with medication adjustment and recommendations at DC. Pt acknowledged she feels safe in RU and the controlled environment with med adjustment. SW observed 's joking demeanor and difficulty maintaining attention during the meeting as evidenced by asking side questions to staff members instead of listening to the discipline speaking, specifically the Dr. SW redirected when attempted to speak with this worker, asking a question that was previously addressed by this worker, to listen to the Dr and SW to answer question afterward. Dtr also inquired about pt's memory despite ST explanation prior. SW offered ongoing assistance with DC planning and emotional support. Will ReTeam weekly. ANSON Asif
--- NOTE | 2023-12-01 14:40 | RAD_ITS ---
STUDY: X-RAY - ABDOMEN/PELVIS REASON FOR EXAM: Female, 63 years old. Constipation with urine retention TECHNIQUE: Single AP view of the abdomen / pelvis. COMPARISON: None. FINDINGS: Normal visualized lung bases. There is an unremarkable bowel gas pattern. There is no demonstrated free abdominal air. The visualized liver, spleen and kidneys are grossly normal in size and morphology. Normal soft tissue structures. Normal visualized osseous structures. RAD/Abdomen Single View IMPRESSION: Normal x-ray examination of the abdomen and pelvis. Electronically Signed: Arslan Calloway MD at 17:01 EDT ,
[2023-12-01 17:00] VITALS: BMI 30.3
[2023-12-01 18:00] VITALS: BP 140/64; PULSE 84; RESP 16; TEMP 36.7; O2SAT 94
[2023-12-01] MEDS: Atorvastatin Calcium 10 MG Tablet PO (20:03)
[2023-12-01] MEDS: Magnesium Chloride 64 MG Delay Rel.Tablet 128 MG PO (20:03)
[2023-12-01] MEDS: Polyethylene Glycol 3350 17 GM PACKET PO (20:03)
[2023-12-01 20:30] VITALS: BMI 30.3
[2023-12-02 06:00] VITALS: BP 135/64; PULSE 87; RESP 16; TEMP 36.5; O2SAT 96
[2023-12-02] MEDS: Enoxaparin 40 MG/0.4 ML Syringe SC (06:17)
[2023-12-02 06:21] VITALS: BMI 29.2
[2023-12-02] MEDS: Senna/Docusate Sodium 1 Tablet 2 TABLET PO (07:46)
[2023-12-02] MEDS: Aspirin 81 MG TAB.CHEW PO (07:46)
[2023-12-02] MEDS: Clopidogrel Bisulfate 75 MG Tablet PO (07:46)
[2023-12-02] MEDS: Gabapentin 100 MG Capsule PO ×3 (07:46→17:26)
--- NOTE | 2023-12-02 09:50 | PCM.PROGNOTE ---
Subjective Subjective Afebrile VSS -blood pressure over the past 24 hours has ranged from 135/64 to 146/62. Heart rate is within normal limits. Maintaining appropriate oxygen saturation on RA Oral intake - FOOD good FLUIDS good Discussed with nursing - no problems that need addressed. Slept well throughout the night last night. Reviewed the THERAPY notes Medication list reviewed. Denies cephalgia, lightheadedness, chest pain, shortness of breath, cough, nausea/vomiting/abdominal pain, dysuria and calf tenderness. Tolerating Gabapentin 3 times a day with no adverse side effects. Objective Data Objective Data Vital Signs: Vital Signs Temp Pulse Resp BP Pulse Ox O2 Del Method FiO2 97.7 F L 87 16 135/64 H 96 Room Air 21 12/02/23 06:00 12/02/23 06:00 12/02/23 06:00 12/02/23 06:00 12/02/23 06:00 12/02/23 06:00 11/25/23 22:25 Oxygen Delivery Method Room Air Weight: 197 lb 1.492 oz Body Mass Index (BMI) 29.2 Intake & Output: Intake and Output for Last 24 Hours 11/30/23 12/01/23 12/02/23 23:59 23:59 23:59 Intake Total 3190 / 3290 4170 / 4620 810 / 810 Output Total 4150 / 4150 5125 / 5525 600 / 600 Balance -960 / -860 -955 / -905 210 / 210 Lab / Micro Data 12/05/23 05:15 12/05/23 05:15 Micro: Microbiology 11/27/23 18:44 Stool Stool Occult Blood (DAPHNEY) - Final Radiography Diagnostic Testing: Radiology Impression KUB X-Ray 12/01/23 14:40 IMPRESSION: Normal x-ray examination of the abdomen and pelvis. Electronically Signed: Arslan Calloway MD at 17:01 EDT , Social Homelessness:: Sheltered (lives with family in a ranch house. ) Physical Exam Const alert, oriented x3 and no apparent distress Constitutional Narrative: Very motivated and working hard in therapy. Pleasant and makes good eye contact. General Appearance: cooperative Resp normal respiratory effort, normal air movement and clear to auscultation bilaterally Cardio regular rate, regular rhythm and no gallops Cardio Narrative: No ectopy GI normal to inspection, nondistended, normoactive bowel sounds, soft to palpation and non-tender Extremity no calf tenderness Skin Rashes: no rashes Psych cooperative Assessment & Plan Assessment/Plan (1) Debility: (2) Acute CVA (cerebrovascular accident): (3) Right sided weakness: (4) Facial droop: (5) Dysarthria: (6) Tobacco use: (7) Hypertension: QUALIFIERS: Hypertension type: primary hypertension Qualified Code(s): I10 - Essential (primary) hypertension (8) Hyperlipidemia: QUALIFIERS: Hyperlipidemia type: unspecified Qualified Code(s): E78.5 - Hyperlipidemia, unspecified (9) Low HDL (under 40): (10) Atherosclerotic heart disease of [place] coronary artery without angina pectoris: QUALIFIERS: [place] vs. transplanted heart: [place] heart Qualified Code(s): I25.10 - Atherosclerotic heart disease of [place] coronary artery without angina pectoris (11) Anxiety and depression: (12) Urine retention: PLAN: Plan 1. Continue therapy 2. Voiding trial in the AM 3. Start Catapres TTS 1 patch for mild HTN.....has had adverse reactions to many other antihypertensives. I would rather use a beta bloclker since she has a hx of CAD......lists Metoprolol as a allergy......had been on Coreg in the past on one of the cardiology visits. 4. CBC and BMP on Tuesday. Charges/Coding Visit Charges Inpatient E&M: 38885 Subs Hosp L2
[2023-12-02 13:36] VITALS: BMI 29.2
[2023-12-02 18:00] VITALS: BP 139/71; PULSE 74; RESP 16; TEMP 36.4; O2SAT 98
[2023-12-02] MEDS: cloNIDine HCl 0.1 MG Patch TD (18:40)
[2023-12-02] MEDS: Magnesium Chloride 64 MG Delay Rel.Tablet 128 MG PO (20:54)
[2023-12-02] MEDS: Atorvastatin Calcium 10 MG Tablet PO (20:54)
[2023-12-02 21:05] VITALS: BP 135/83; PULSE 80
[2023-12-02] MEDS: Acetaminophen 325 MG Tablet 650 MG PO (23:10)
[2023-12-02 23:35] VITALS: BMI 29.2
[2023-12-03 06:00] VITALS: BP 144/67; PULSE 81; RESP 17; TEMP 36.6; O2SAT 95
[2023-12-03] MEDS: Enoxaparin 40 MG/0.4 ML Syringe SC (06:37)
[2023-12-03] MEDS: Aspirin 81 MG TAB.CHEW PO (07:45)
[2023-12-03] MEDS: Clopidogrel Bisulfate 75 MG Tablet PO (07:45)
[2023-12-03] MEDS: Gabapentin 100 MG Capsule PO ×2 (07:45→12:59)
[2023-12-03] MEDS: Senna/Docusate Sodium 1 Tablet 2 TABLET PO (07:45)
[2023-12-03] MEDS: Acetaminophen 325 MG Tablet 650 MG PO ×2 (14:27→21:20)
[2023-12-03 15:47] VITALS: BMI 29.2
[2023-12-03 18:00] VITALS: BP 123/65; PULSE 79; RESP 17; TEMP 37.2; O2SAT 96
[2023-12-03] MEDS: Gabapentin 300 MG Capsule PO (21:20)
[2023-12-03] MEDS: Atorvastatin Calcium 10 MG Tablet PO (21:20)
[2023-12-03] MEDS: Magnesium Chloride 64 MG Delay Rel.Tablet 128 MG PO (21:20)
[2023-12-04 01:21] VITALS: BMI 29.2
[2023-12-04 05:33] VITALS: BP 122/71; PULSE 83; RESP 18; TEMP 36.3; O2SAT 96
[2023-12-04] MEDS: Enoxaparin 40 MG/0.4 ML Syringe SC (05:51)
[2023-12-04] MEDS: Gabapentin 100 MG Capsule PO ×2 (06:57→13:21)
[2023-12-04] MEDS: Senna/Docusate Sodium 1 Tablet 2 TABLET PO (08:00)
[2023-12-04] MEDS: Aspirin 81 MG TAB.CHEW PO (08:00)
[2023-12-04] MEDS: Clopidogrel Bisulfate 75 MG Tablet PO (08:01)
[2023-12-04] MEDS: predniSONE 20 MG Tablet PO (08:22)
[2023-12-04 12:37] VITALS: BMI 29.2
[2023-12-04 17:45] VITALS: BP 136/69; PULSE 66; RESP 17; TEMP 36.7; O2SAT 97
[2023-12-04] MEDS: Atorvastatin Calcium 10 MG Tablet PO (21:22)
[2023-12-04] MEDS: Gabapentin 100 MG Capsule 200 MG PO (21:22)
[2023-12-04] MEDS: Magnesium Chloride 64 MG Delay Rel.Tablet 128 MG PO (21:22)
[2023-12-04 23:04] VITALS: BMI 29.2
[2023-12-05] MEDS: Acetaminophen 325 MG Tablet 650 MG PO (00:32)
[2023-12-05 05:11] VITALS: BP 147/72; PULSE 84; RESP 17; TEMP 36.4; O2SAT 98
[2023-12-05] MEDS: Enoxaparin 40 MG/0.4 ML Syringe SC (05:14)
[2023-12-05 05:23] LABS: Hematocrit 40.6 % (37-47); Hemoglobin 13.2 g/dL (12.0-15.0); Mean Corp Hgb Conc 32.5 g/dL (32-36); Mean Corpuscular Volume 92.3 fL (81-99); Mean Platelet Vol. 8.1 fl (6.2-12.0); Platelet Count 402 K/mm3 (150-450); RBC Distribution Width CV 13.3 % (11.6-14.6); RBC Distribution Width SD 45.4 fl (35.1-43.9); White Blood Count 11.4 K/mm3 (4.4-11.0)
[2023-12-05 06:29] LABS: Anion Gap 7 (5-15); BUN 15 mg/dL (7-18); BUN/Creat Ratio 20.6 RATIO (10-20); Chloride 108 mmol/L (98-107); Creatinine, Serum 0.73 mg/dL (0.55-1.02); EST Glomerular Filtration Rate 86 mL/min (>60); Est Glom Filt Rate - Afr Amer 104 mL/min (>60); Estimated Creatinine Clearance 92.77 ml/min; Glucose 101 mg/dL (74-106); Potassium 3.4 mmol/L (3.5-5.1); Sodium Level 139 mmol/L (136-145)
[2023-12-05] MEDS: Gabapentin 100 MG Capsule PO ×2 (06:53→14:28)
[2023-12-05] MEDS: Senna/Docusate Sodium 1 Tablet 2 TABLET PO ×2 (07:48→20:38)
[2023-12-05] MEDS: predniSONE 20 MG Tablet PO (07:48)
[2023-12-05] MEDS: Ensure Clear 120 ML Liquid PO ×2 (07:49→11:06)
[2023-12-05] MEDS: Aspirin 81 MG TAB.CHEW PO (07:49)
[2023-12-05] MEDS: Clopidogrel Bisulfate 75 MG Tablet PO (07:49)
--- NOTE | 2023-12-05 09:37 | PCM.PROGNOTE ---
Subjective Subjective Afebrile VSS -blood pressure since Tuesday morning has ranged from 122/71 to 147/72. She is on a clonidine patch. Heart rate is within normal limits. Maintaining appropriate oxygen saturation on RA Oral intake - FOOD good FLUIDS good Discussed with nursing - no problems that need addressed Reviewed the THERAPY notes Medication list reviewed All lab drawn this morning was personally reviewed. White blood cell count is elevated at 11.4. Hemoglobin is stable at 13.2 and platelets are within normal limits. Sodium is 139 and the potassium is 3.4. The BUN is 15 with a stable creatinine at 0.73. Calcium is normal. Did not tolerate the 300 mg of Gabapentin given Tuesday night.......awoke with dizziness, feeling funny. she did however sleep well. The dose was decreased to 200 mg last night and she slept well with no adverse reactions. The Tang catheter was discontinued on Tuesday and she is urinating. Postvoid residuals have ranged from 0-415. The 415 was this morning. Objective Data Objective Data Vital Signs: Vital Signs Temp Pulse Resp BP Pulse Ox O2 Del Method FiO2 97.5 F L 84 17 147/72 H 98 Room Air 21 12/05/23 05:11 12/05/23 05:11 12/05/23 05:11 12/05/23 05:11 12/05/23 05:11 12/05/23 05:11 11/25/23 22:25 Oxygen Delivery Method Room Air Weight: 197 lb 1.492 oz Body Mass Index (BMI) 29.2 Intake & Output: Intake and Output for Last 24 Hours 12/03/23 12/04/23 12/05/23 23:59 23:59 23:59 Intake Total 2560 / 2560 3340 / 3340 500 / 500 Output Total 1625 / 1625 3125 / 3125 850 / 850 Balance 935 / 935 215 / 215 -350 / -350 Lab / Micro Data 12/05/23 05:15 12/05/23 05:15 Labs: Laboratory Results - last 24 hr 12/05/23 05:15: WBC 11.4 H, RBC 4.40, Hgb 13.2, Hct 40.6, MCV 92.3, MCH 30.0, MCHC 32.5, RDW Std Deviation 45.4 H, RDW Coeff of Candy 13.3, Plt Count 402, MPV 8.1, Sodium 139, Potassium 3.4 L, Chloride 108 H, Carbon Dioxide 24.0, Anion Gap 7, BUN 15, Creatinine 0.73, Estim Creat Clear Calc 92.77, Est GFR (MDRD) Af Amer 104, Est GFR (MDRD) Non-Af 86, BUN/Creatinine Ratio 20.6 H, Glucose 101, Calcium 9.0 Micro: Microbiology 11/27/23 18:44 Stool Stool Occult Blood (DAPHNEY) - Final Social Homelessness:: Sheltered (lives with family in a ranch house. ) Physical Exam Const alert, oriented x3 and no apparent distress General Appearance: cooperative Resp normal respiratory effort, normal air movement and clear to auscultation bilaterally Cardio regular rate, regular rhythm and no gallops Cardio Narrative: No ectopy GI normal to inspection, nondistended, normoactive bowel sounds, soft to palpation and non-tender Extremity no calf tenderness Skin Rashes: no rashes Psych cooperative Psych Narrative: calmer than at admission. Assessment & Plan Assessment/Plan (1) Debility: (2) Acute CVA (cerebrovascular accident): (3) Right sided weakness: (4) Facial droop: (5) Dysarthria: (6) Hypertension: QUALIFIERS: Hypertension type: primary hypertension Qualified Code(s): I10 - Essential (primary) hypertension (7) Anxiety and depression: (8) Urine retention: (9) Sciatic leg pain: PLAN: chronic low back pain with radiation into the R buttock and down the R leg PLAN: Plan 1. Continue therapy 2. Potassium chloride 40 mEq p.o. now and start 10 mEq p.o. daily in the AM. 3. Recheck a BMP on Tuesday. 4. Continue Catapres TTS 1 patch -she is tolerating this well with no adverse side effects. She is very anxious about any new medications and lists many allergies to many meds. Many of the reactions are not allergies and I suspect the reactions are related to panic attacks. 5. Completed disability papers for Alpa and also did a letter to the [employer] for a handicapped parking placard. 6. the R buttock pain and radicular pain have improved with Prednisone however, Now that the steroids have been tapered down to 20 mg the pain is coming back. She will follow up with Dr. Basali post DC from the hospital Discussed transitioning her to a beta klaus for CAD/HTN and explained the benefits. She is willing to try new drugs while she is on rehab. Will DC the Catapres patch and start Coreg 3.125 mg BID. Charges/Coding Visit Charges Inpatient E&M: 26750 Subs Hosp L2
[2023-12-05] MEDS: Potassium Chloride Oral Tablet 20 MEQ 40 MEQ PO (11:07)
[2023-12-05 13:06] VITALS: BMI 29.2
[2023-12-05 14:00] LABS: Bacteria 0 SEEN /hpf (None Seen); Mucous, Urine 0 SEEN /hpf (<or=2+); Red Blood Cells-Urine 0 SEEN /hpf (0-5); White Blood Cells 0 SEEN /hpf (0-5)
[2023-12-05 14:01] LABS: Color, Urine Straw (Yellow); Glucose, Dipstick Normal (Normal); Ketone-Dipstick Negative (Negative); Leukocyte Esterase-Dipstick Negative /ul (Negative); Nitrite-Dipstick Negative (Negative); Occult Blood-Urine 25 /ul (Negative); Protein-Dipstick Negative (Negative); Urine Bilirubin Dipstick Negative (Negative); Urine Clarity Clear (Clear); Urine Urobilinogen Normal (Normal)
[2023-12-05 14:14] LABS: Squamous Epithelial Cells - UA 0-5 SEEN /hpf (5-10)
[2023-12-05 17:41] VITALS: BP 147/72; PULSE 81; RESP 16; TEMP 36.5; O2SAT 98
[2023-12-05] MEDS: Atorvastatin Calcium 10 MG Tablet PO (20:38)
[2023-12-05] MEDS: Gabapentin 100 MG Capsule 200 MG PO (20:38)
[2023-12-05] MEDS: Carvedilol 3.125 MG TABLET PO (20:38)
[2023-12-05] MEDS: Magnesium Chloride 64 MG Delay Rel.Tablet 128 MG PO (20:38)
[2023-12-05 20:43] VITALS: BP 128/50; PULSE 70
[2023-12-06 00:11] VITALS: BMI 29.2
[2023-12-06 06:00] VITALS: BP 129/70; PULSE 86; RESP 17; TEMP 36.1; O2SAT 96
[2023-12-06] MEDS: Enoxaparin 40 MG/0.4 ML Syringe SC (06:04)
[2023-12-06] MEDS: Gabapentin 100 MG Capsule PO ×2 (06:05→13:22)
[2023-12-06] MEDS: Aspirin 81 MG TAB.CHEW PO (07:29)
[2023-12-06] MEDS: Senna/Docusate Sodium 1 Tablet 2 TABLET PO ×2 (07:29→21:03)
[2023-12-06] MEDS: Carvedilol 3.125 MG TABLET PO ×2 (07:30→21:03)
[2023-12-06] MEDS: Clopidogrel Bisulfate 75 MG Tablet PO (07:30)
[2023-12-06] MEDS: predniSONE 20 MG Tablet PO (07:30)
[2023-12-06] MEDS: Potassium Chloride Oral Tablet 10 MEQ PO (07:30)
[2023-12-06] MEDS: Ensure Clear 120 ML Liquid PO ×2 (07:30→11:18)
[2023-12-06] MEDS: Polyethylene Glycol 3350 17 GM PACKET PO ×2 (07:34→21:02)
--- NOTE | 2023-12-06 08:56 | PN.REHAB_ITS ---
Subjective Subjective Patient seen, examined. She is in good spirits. She feels her therapy is going well, right sided movement and strength improving. She has no new problems, concerns, issues, complaints. Objective Data Objective Data Vital Signs: Vital Signs Temp Pulse Resp BP Pulse Ox O2 Del Method FiO2 96.9 F L 86 17 129/70 H 96 Room Air 21 12/06/23 06:00 12/06/23 06:00 12/06/23 06:00 12/06/23 06:00 12/06/23 06:00 12/06/23 06:00 11/25/23 22:25 Oxygen Delivery Method Room Air Weight: 89.4 kg Body Mass Index (BMI) 29.2 Intake & Output: Intake and Output for Last 24 Hours 12/04/23 12/05/23 12/06/23 23:59 23:59 23:59 Intake Total 3340 / 3340 3400 / 3700 1100 / 1100 Output Total 3125 / 3125 2900 / 2900 400 / 400 Balance 215 / 215 500 / 800 700 / 700 Lab / Micro Data 12/05/23 05:15 12/05/23 05:15 Labs: Laboratory Results - last 24 hr 12/05/23 13:45: Urine Color Straw, Urine Clarity Clear, Urine pH 6.0, Ur Specific [place] 1.010, Urine Protein Negative, Urine Glucose (UA) Normal, Urine Ketones Negative, Urine Occult Blood 25 H, Urine Nitrite Negative, Urine Bilirubin Negative, Urine Urobilinogen Normal, Ur Leukocyte Esterase Negative, Urine RBC 0 SEEN, Urine WBC 0 SEEN, Ur Squamous Epith Cells 0-5 SEEN, Urine Bacteria 0 SEEN, Urine Mucus 0 SEEN Micro: Microbiology 11/27/23 18:44 Stool Stool Occult Blood (DAPHNEY) - Final Social Homelessness:: Sheltered (lives with family in a ranch house. ) Indicators for Scoring Admitted with or Primary Diagnosis of CVA/Stroke: Yes Hx of CVA/Stroke: Yes Modified Nelli Score MRS Score at time of Evaluation: 5-Severe disability Physical Exam Const alert General Appearance: cooperative HEENT normocephalic Eyes PERRL and EOMs intact bilaterally Neck supple, no JVD and no carotid bruits Resp normal respiratory effort, normal air movement and clear to auscultation bilaterally Cardio regular rate and regular rhythm GI normal to inspection, nondistended, normoactive bowel sounds, non-tender and non-distended Extremity normal capillary refill General Extremity: Negative for edema Skin no rashes or lesions noted General Skin Exam: no breakdown Neuro Neuro Narrative: Right hemiparesis. Psych affect normal Appearance: appropriate Assessment & Plan Assessment/Plan (1) Debility: (2) Stroke: (3) Right hemiparesis: (4) Hyperlipidemia: QUALIFIERS: Hyperlipidemia type: unspecified Qualified Code(s): E 78.5 - Hyperlipidemia, unspecified (5) Essential (primary) hypertension: (6) Neuropathic pain: (7) Hypomagnesemia: (8) Hypokalemia: (9) Low back pain: PLAN: Plan 63 year old female with below past medical history hospitalized for left sided stroke with right hemiparesis, admitted to for 3 hours daily rehabilitation, strengthening, prior to discharge home. * Debility - PT/OT/ST. * Pain - Tylenol 650mg q6 prn. * Bowel - Miralax 17gm qhs, senna/colace 2 tablets bid, MOM 30ml po x 1 prn, Dulcolax 10mg pr x 1 prn. * DVT prophylaxis - Lovenox 40mg sc daily. * Stroke - Aspirin 81mg daily, Plavix 75mg daily thru 12/14/2023. * Hyperlipidemia - Atorvastatin 10mg qhs. * Hypertension - Coreg 3.125mg bid, Hydralazine 10mg q4 prn. * Nutrition - Ensure Clear 120ml po tidcm. * Neuropathic pain - Gabapentin 100mg bid, 200mg qpm. * Hypomagnesemia - Magnesium chloride 128mg qhs. * Low back pain - Prednisone 20mg daily thru 12/07/2023.
[2023-12-06 10:50] VITALS: BMI 29.2
[2023-12-06] MEDS: Magnesium Hydroxide 30 ML UDC PO (11:15)
[2023-12-06 17:36] VITALS: BP 139/75; PULSE 81; RESP 17; TEMP 36.3; O2SAT 96
[2023-12-06] MEDS: Gabapentin 100 MG Capsule 200 MG PO (21:02)
[2023-12-06] MEDS: Magnesium Chloride 64 MG Delay Rel.Tablet 128 MG PO (21:02)
[2023-12-06] MEDS: Atorvastatin Calcium 10 MG Tablet PO (21:03)
[2023-12-06 22:24] LABS: Mucous, Urine 0 SEEN /hpf (<or=2+)
[2023-12-06 22:29] LABS: Color, Urine Yellow (Yellow); Glucose, Dipstick Normal (Normal); Ketone-Dipstick Negative (Negative); Leukocyte Esterase-Dipstick Negative /ul (Negative); Nitrite-Dipstick Negative (Negative); Occult Blood-Urine 25 /ul (Negative); Protein-Dipstick Negative (Negative); Urine Bilirubin Dipstick Negative (Negative); Urine Clarity Clear (Clear); Urine Urobilinogen Normal (Normal)
[2023-12-06 22:41] LABS: Red Blood Cells-Urine 0-5 SEEN /hpf (0-5); Squamous Epithelial Cells - UA 0-5 SEEN /hpf (5-10); White Blood Cells 0-5 SEEN /hpf (0-5)
[2023-12-06 22:42] LABS: Bacteria RARE /hpf (None Seen)
[2023-12-07] MEDS: Acetaminophen 325 MG Tablet 650 MG PO (03:22)
[2023-12-07 03:30] VITALS: BMI 29.2
--- NOTE | 2023-12-07 03:37 | NURSING ---
Reviewed and agree with Marie RODRIGUEZ, assessment and documentation charting.
[2023-12-07 06:00] VITALS: BP 128/42; PULSE 73; RESP 15; TEMP 36.4; O2SAT 97
[2023-12-07] MEDS: Gabapentin 100 MG Capsule PO ×2 (06:01→14:05)
[2023-12-07] MEDS: Enoxaparin 40 MG/0.4 ML Syringe SC (06:01)
[2023-12-07] MEDS: Aspirin 81 MG TAB.CHEW PO (07:56)
[2023-12-07] MEDS: Potassium Chloride Oral Tablet 10 MEQ PO (07:56)
[2023-12-07] MEDS: Senna/Docusate Sodium 1 Tablet 2 TABLET PO ×2 (07:56→20:21)
[2023-12-07] MEDS: Clopidogrel Bisulfate 75 MG Tablet PO (07:56)
[2023-12-07] MEDS: Carvedilol 3.125 MG TABLET PO ×2 (07:56→20:21)
[2023-12-07] MEDS: predniSONE 20 MG Tablet PO (07:56)
[2023-12-07] MEDS: Ensure Clear 120 ML Liquid PO ×2 (07:57→16:32)
--- NOTE | 2023-12-07 08:34 | PN.REHAB_ITS ---
Subjective Subjective Patient seen, examined. Her present this morning. Yesterday, patient retaining urine, indwelling gonzalez placed, will add Tamsulosin, voiding trials. Objective Data Objective Data Vital Signs: Vital Signs Temp Pulse Resp BP Pulse Ox O2 Del Method FiO2 97.6 F L 73 15 128/42 H 97 Room Air 21 12/07/23 06:00 12/07/23 06:00 12/07/23 06:00 12/07/23 06:00 12/07/23 06:00 12/07/23 06:00 11/25/23 22:25 Oxygen Delivery Method Room Air Weight: 89.4 kg Body Mass Index (BMI) 29.2 Intake & Output: Intake and Output for Last 24 Hours 12/05/23 12/06/23 12/07/23 23:59 23:59 23:59 Intake Total 3400 / 3700 2960 / 2960 200 / 200 Output Total 2900 / 2900 4100 / 4100 350 / 350 Balance 500 / 800 -1140 / -1140 -150 / -150 Lab / Micro Data 12/05/23 05:15 12/05/23 05:15 Labs: Laboratory Results - last 24 hr 12/06/23 22:04: Urine Color Yellow, Urine Clarity Clear, Urine pH 6.0, Ur Specific [place] 1.010, Urine Protein Negative, Urine Glucose (UA) Normal, Urine Ketones Negative, Urine Occult Blood 25 H, Urine Nitrite Negative, Urine Bilirubin Negative, Urine Urobilinogen Normal, Ur Leukocyte Esterase Negative, Urine RBC 0-5 SEEN, Urine WBC 0-5 SEEN, Ur Squamous Epith Cells 0-5 SEEN, Urine Bacteria RARE, Urine Mucus 0 SEEN Micro: Microbiology 11/27/23 18:44 Stool Stool Occult Blood (DAPHNEY) - Final Social Homelessness:: Sheltered (lives with family in a ranch house. ) Indicators for Scoring Admitted with or Primary Diagnosis of CVA/Stroke: Yes Hx of CVA/Stroke: Yes Modified [place] Score MRS Score at time of Evaluation: 5-Severe disability Physical Exam Const alert General Appearance: cooperative HEENT normocephalic Eyes PERRL and EOMs intact bilaterally Neck supple, no JVD and no carotid bruits Resp normal respiratory effort, normal air movement and clear to auscultation bilaterally Cardio regular rate and regular rhythm GI normal to inspection, nondistended, normoactive bowel sounds, non-tender and non-distended Bladder / Kidney Exam: catheter in place urethral Extremity normal capillary refill General Extremity: Negative for edema Skin no rashes or lesions noted General Skin Exam: no breakdown Neuro Neuro Narrative: Right hemiparesis. Psych affect normal Appearance: appropriate Assessment & Plan Assessment/Plan (1) Debility: (2) Stroke: (3) Right hemiparesis: (4) Hyperlipidemia: QUALIFIERS: Hyperlipidemia type: unspecified Qualified Code(s): E 78.5 - Hyperlipidemia, unspecified (5) Essential (primary) hypertension: (6) Neuropathic pain: (7) Hypomagnesemia: (8) Hypokalemia: (9) Low back pain: PLAN: Plan 63 year old female with below past medical history hospitalized for left sided stroke with right hemiparesis, admitted to for 3 hours daily rehabilitation, strengthening, prior to discharge home. * Debility - PT/OT/ST. * Pain - Tylenol 650mg q6 prn. * Bowel - Miralax 17gm qhs, senna/colace 2 tablets bid, MOM 30ml po x 1 prn, Dulcolax 10mg pr x 1 prn. * DVT prophylaxis - Lovenox 40mg sc daily. * Stroke - Aspirin 81mg daily, Plavix 75mg daily thru 12/14/2023. * Hyperlipidemia - Atorvastatin 10mg qhs. * Hypertension - Coreg 3.125mg bid, Hydralazine 10mg q4 prn. * Nutrition - Ensure Clear 120ml po tidcm. * Neuropathic pain - Gabapentin 100mg bid, 200mg qpm. * Hypomagnesemia - Magnesium chloride 128mg qhs. * Low back pain - Prednisone 20mg daily thru 12/07/2023. * Urinary retention - indwelling gonzalez catheter, add Tamsulosin 0.4mg daily, voiding trials later.
[2023-12-07 12:37] VITALS: BMI 29.2
[2023-12-07] MEDS: Tamsulosin HCl 0.4 MG Capsule PO (16:32)
[2023-12-07 17:22] VITALS: BP 135/66; PULSE 73; RESP 18; TEMP 36.4; O2SAT 98
[2023-12-07 20:15] VITALS: PULSE 73; RESP 18; O2SAT 98; BMI 29.2
[2023-12-07] MEDS: Atorvastatin Calcium 10 MG Tablet PO (20:21)
[2023-12-07] MEDS: Polyethylene Glycol 3350 17 GM PACKET PO (20:21)
[2023-12-07] MEDS: Gabapentin 100 MG Capsule 200 MG PO (20:22)
[2023-12-07] MEDS: Magnesium Chloride 64 MG Delay Rel.Tablet 128 MG PO (20:22)
[2023-12-08 05:00] VITALS: BP 113/59; PULSE 71; RESP 16; TEMP 36.6; O2SAT 96
[2023-12-08] MEDS: Enoxaparin 40 MG/0.4 ML Syringe SC (05:24)
[2023-12-08] MEDS: Gabapentin 100 MG Capsule PO ×2 (06:35→14:20)
[2023-12-08] MEDS: Aspirin 81 MG TAB.CHEW PO (07:34)
[2023-12-08] MEDS: Potassium Chloride Oral Tablet 10 MEQ PO (07:35)
[2023-12-08] MEDS: Carvedilol 3.125 MG TABLET PO ×2 (07:35→21:34)
[2023-12-08] MEDS: Clopidogrel Bisulfate 75 MG Tablet PO (07:35)
[2023-12-08] MEDS: Senna/Docusate Sodium 1 Tablet 2 TABLET PO ×2 (07:35→21:34)
[2023-12-08] MEDS: Ensure Clear 120 ML Liquid PO ×2 (07:36→17:19)
--- NOTE | 2023-12-08 08:11 | CASEMGMT ---
Social Work IDT met with patient, and two daughters for Team meeting. Discussed patient's progress in PT/OT/ST/SN. Educated to [facility] insurance with [employer] 12/08 and continued stay is not guaranteed with each review. The goal is for pt to improve further in ADLs to gain independence. Pt has a sleep study tentatively scheduled for 12/18. SW will follow with DC planning. Will ReTeam next week. Arlen Peters, STRIP CUTTING MACHINE OPERATOR TYPO MACHINE OPERATOR
[2023-12-08 13:59] VITALS: BMI 29.2
[2023-12-08] MEDS: Phenazopyridine 95 MG Tablet PO ×2 (14:20→21:34)
--- NOTE | 2023-12-08 16:10 | PN.REHAB_ITS ---
Subjective Subjective Patient seen, examined on Team rounds. Patient's present, 2 daughters present, of note, 1 daughter suffered a stroke when she was 21. No acute events overnight. She has no new concerns, issues, complaints. Objective Data Objective Data Vital Signs: Vital Signs Temp Pulse Resp BP Pulse Ox O2 Del Method FiO2 97.8 F 71 16 113/59 L 96 Room Air 21 12/08/23 05:00 12/08/23 05:00 12/08/23 05:00 12/08/23 05:00 12/08/23 05:00 12/08/23 05:00 11/25/23 22:25 Oxygen Delivery Method Room Air Weight: 89.4 kg Body Mass Index (BMI) 29.2 Intake & Output: Intake and Output for Last 24 Hours 12/06/23 12/07/23 12/08/23 23:59 23:59 23:59 Intake Total 2960 / 3080 2620 / 3320 2600 / 2600 Output Total 4100 / 4100 3100 / 3450 2650 / 2650 Balance -1140 / -1020 -480 / -130 -50 / -50 Lab / Micro Data 12/05/23 05:15 12/05/23 05:15 Micro: Microbiology 12/06/23 22:04 Urine Catheter - Gonzalez Urine Culture - Preliminary Culture exhibits no growth. 11/27/23 18:44 Stool Stool Occult Blood (DAPHNEY) - Final Social Homelessness:: Sheltered (lives with family in a ranch house. ) Indicators for Scoring Admitted with or Primary Diagnosis of CVA/Stroke: Yes Hx of CVA/Stroke: Yes Modified [place] Score MRS Score at time of Evaluation: 5-Severe disability Physical Exam Const alert General Appearance: cooperative HEENT normocephalic Eyes PERRL and EOMs intact bilaterally Neck supple, no JVD and no carotid bruits Resp normal respiratory effort, normal air movement and clear to auscultation bilaterally Cardio regular rate and regular rhythm GI normal to inspection, nondistended, normoactive bowel sounds, non-tender and non-distended Bladder / Kidney Exam: catheter in place urethral Extremity normal capillary refill General Extremity: Negative for edema Skin no rashes or lesions noted General Skin Exam: no breakdown Neuro Neuro Narrative: Right hemiparesis. Psych affect normal Appearance: appropriate Assessment & Plan Assessment/Plan (1) Debility: (2) Stroke: (3) Right hemiparesis: (4) Hyperlipidemia: QUALIFIERS: Hyperlipidemia type: unspecified Qualified Code(s): E 78.5 - Hyperlipidemia, unspecified (5) Essential (primary) hypertension: (6) Neuropathic pain: (7) Hypomagnesemia: (8) Hypokalemia: (9) Low back pain: PLAN: Plan 63 year old female with below past medical history hospitalized for left sided stroke with right hemiparesis, admitted to for 3 hours daily rehabilitation, strengthening, prior to discharge home. * Debility - PT/OT/ST. * Pain - Tylenol 650mg q6 prn. * Bowel - Miralax 17gm qhs, senna/colace 2 tablets bid, MOM 30ml po x 1 prn, Dulcolax 10mg pr x 1 prn. * DVT prophylaxis - Lovenox 40mg sc daily. * Stroke - Aspirin 81mg daily, Plavix 75mg daily thru 12/14/2023. * Hyperlipidemia - Atorvastatin 10mg qhs. * Hypertension - Coreg 3.125mg bid, Hydralazine 10mg q4 prn. * Nutrition - Ensure Clear 120ml po tidcm. * Neuropathic pain - Gabapentin 100mg bid, 200mg qpm. * Hypomagnesemia - Magnesium chloride 128mg qhs. * Low back pain - Prednisone 20mg daily thru 12/07/2023. * Urinary retention - indwelling gonzalez catheter, add Tamsulosin 0.4mg daily, voiding trials later.
[2023-12-08] MEDS: Tamsulosin HCl 0.4 MG Capsule PO (17:19)
[2023-12-08 17:27] VITALS: BP 108/65; PULSE 69; RESP 17; TEMP 36.7; O2SAT 98
[2023-12-08 21:30] VITALS: PULSE 69; RESP 17; O2SAT 98; BMI 29.2
[2023-12-08] MEDS: Magnesium Chloride 64 MG Delay Rel.Tablet 128 MG PO (21:34)
[2023-12-08] MEDS: Atorvastatin Calcium 10 MG Tablet PO (21:34)
[2023-12-08] MEDS: Polyethylene Glycol 3350 17 GM PACKET PO (21:34)
[2023-12-08] MEDS: Acetaminophen 325 MG Tablet 650 MG PO (21:34)
[2023-12-08] MEDS: Gabapentin 100 MG Capsule 200 MG PO (21:35)
[2023-12-09] MEDS: Enoxaparin 40 MG/0.4 ML Syringe SC (05:26)
[2023-12-09] MEDS: Phenazopyridine 95 MG Tablet PO ×3 (05:26→21:49)
[2023-12-09] MEDS: Magnesium Hydroxide 30 ML UDC PO (05:26)
[2023-12-09 05:34] VITALS: BP 135/60; PULSE 62; RESP 16; TEMP 36.3; O2SAT 97; BMI 29.8
[2023-12-09] MEDS: Gabapentin 100 MG Capsule PO ×2 (07:27→13:24)
[2023-12-09 07:50] LABS: Anion Gap 9 (5-15); BUN 12 mg/dL (7-18); BUN/Creat Ratio 14.9 RATIO (10-20); Calcium,Total 8.8 mg/dL (8.5-10.1); Chloride 105 mmol/L (98-107); EST Glomerular Filtration Rate 76 mL/min (>60); Est Glom Filt Rate - Afr Amer 92 mL/min (>60); Estimated Creatinine Clearance 85.64 ml/min; Glucose 148 mg/dL (74-106); Potassium 3.6 mmol/L (3.5-5.1); Sodium Level 136 mmol/L (136-145)
[2023-12-09] MEDS: Ensure Clear 120 ML Liquid PO ×2 (08:20→17:29)
[2023-12-09] MEDS: Potassium Chloride Oral Tablet 10 MEQ PO (08:20)
[2023-12-09] MEDS: Aspirin 81 MG TAB.CHEW PO (08:20)
[2023-12-09] MEDS: Carvedilol 3.125 MG TABLET PO ×2 (08:20→21:50)
[2023-12-09] MEDS: Clopidogrel Bisulfate 75 MG Tablet PO (08:21)
[2023-12-09] MEDS: Senna/Docusate Sodium 1 Tablet 2 TABLET PO ×2 (08:21→21:49)
[2023-12-09 13:15] VITALS: BMI 29.8
[2023-12-09 17:07] VITALS: BP 131/69; PULSE 77; RESP 17; TEMP 36.3; O2SAT 96
[2023-12-09] MEDS: Tamsulosin HCl 0.4 MG Capsule PO (17:29)
[2023-12-09] MEDS: Gabapentin 100 MG Capsule 200 MG PO (21:48)
[2023-12-09] MEDS: Polyethylene Glycol 3350 17 GM PACKET PO (21:48)
[2023-12-09] MEDS: Magnesium Chloride 64 MG Delay Rel.Tablet 128 MG PO (21:49)
[2023-12-09] MEDS: Acetaminophen 325 MG Tablet 650 MG PO (21:49)
[2023-12-09 21:50] VITALS: PULSE 77; RESP 17; O2SAT 96; BMI 29.8
[2023-12-09] MEDS: Atorvastatin Calcium 10 MG Tablet PO (21:50)
--- NOTE | 2023-12-10 03:16 | NURSING ---
Reviewed and agree with Keira RODRIGUEZ, documentation and assessment charting.
[2023-12-10 05:19] VITALS: BP 119/69; PULSE 79; RESP 16; TEMP 36.9; O2SAT 97
[2023-12-10] MEDS: Enoxaparin 40 MG/0.4 ML Syringe SC (05:20)
[2023-12-10] MEDS: Acetaminophen 325 MG Tablet 650 MG PO ×2 (05:21→20:28)
[2023-12-10] MEDS: Phenazopyridine 95 MG Tablet PO (05:21)
[2023-12-10] MEDS: Gabapentin 100 MG Capsule PO ×2 (06:48→14:12)
[2023-12-10 07:19] VITALS: BP 119/69; PULSE 79; RESP 16; TEMP 36.9; O2SAT 97
[2023-12-10] MEDS: Potassium Chloride Oral Tablet 10 MEQ PO (07:35)
[2023-12-10] MEDS: Aspirin 81 MG TAB.CHEW PO (07:36)
[2023-12-10] MEDS: Ensure Clear 120 ML Liquid PO ×2 (07:37→11:47)
[2023-12-10] MEDS: Senna/Docusate Sodium 1 Tablet 2 TABLET PO (09:34)
[2023-12-10] MEDS: Carvedilol 3.125 MG TABLET PO ×2 (09:35→20:28)
[2023-12-10] MEDS: Clopidogrel Bisulfate 75 MG Tablet PO (09:35)
[2023-12-10 10:55] VITALS: BMI 29.8
[2023-12-10] MEDS: Tamsulosin HCl 0.4 MG Capsule PO (17:19)
[2023-12-10 18:00] VITALS: BP 142/64; PULSE 77; RESP 16; TEMP 36.4; O2SAT 97
[2023-12-10 20:25] VITALS: BP 112/56; PULSE 73
[2023-12-10] MEDS: Gabapentin 100 MG Capsule 200 MG PO (20:27)
[2023-12-10] MEDS: Magnesium Chloride 64 MG Delay Rel.Tablet 128 MG PO (20:28)
[2023-12-10] MEDS: Atorvastatin Calcium 10 MG Tablet PO (20:28)
[2023-12-10 20:33] VITALS: BMI 29.8
[2023-12-11] MEDS: Acetaminophen 325 MG Tablet 650 MG PO ×2 (02:24→20:05)
[2023-12-11] MEDS: Enoxaparin 40 MG/0.4 ML Syringe SC (05:08)
[2023-12-11 05:23] VITALS: BP 119/67; PULSE 72; RESP 17; TEMP 36.3; O2SAT 98
[2023-12-11] MEDS: Gabapentin 100 MG Capsule PO ×2 (06:04→13:56)
[2023-12-11] MEDS: Aspirin 81 MG TAB.CHEW PO (08:06)
[2023-12-11] MEDS: Carvedilol 3.125 MG TABLET PO ×2 (08:06→20:18)
[2023-12-11] MEDS: Potassium Chloride Oral Tablet 10 MEQ PO (08:06)
[2023-12-11] MEDS: Senna/Docusate Sodium 1 Tablet 2 TABLET PO (08:06)
[2023-12-11] MEDS: Ensure Clear 120 ML Liquid PO ×3 (08:06→17:19)
[2023-12-11] MEDS: Clopidogrel Bisulfate 75 MG Tablet PO (08:08)
[2023-12-11 08:10] VITALS: BP 128/64; PULSE 71
[2023-12-11 15:18] VITALS: BMI 29.8
[2023-12-11] MEDS: Tamsulosin HCl 0.4 MG Capsule PO (17:19)
[2023-12-11 18:00] VITALS: BP 138/67; PULSE 83; RESP 16; TEMP 36.3; O2SAT 99
[2023-12-11] MEDS: Gabapentin 100 MG Capsule 200 MG PO (20:05)
[2023-12-11] MEDS: Magnesium Chloride 64 MG Delay Rel.Tablet 128 MG PO (20:17)
[2023-12-11] MEDS: Atorvastatin Calcium 10 MG Tablet PO (20:18)
[2023-12-11 22:16] VITALS: BMI 29.8
[2023-12-12] MEDS: Acetaminophen 325 MG Tablet 650 MG PO ×2 (02:14→20:23)
[2023-12-12 05:45] VITALS: BP 126/66; PULSE 73; RESP 16; TEMP 36.6; O2SAT 98
[2023-12-12] MEDS: Enoxaparin 40 MG/0.4 ML Syringe SC (05:54)
[2023-12-12] MEDS: Gabapentin 100 MG Capsule PO ×2 (06:04→13:21)
[2023-12-12] MEDS: Aspirin 81 MG TAB.CHEW PO (08:08)
[2023-12-12] MEDS: Senna/Docusate Sodium 1 Tablet 2 TABLET PO (08:08)
[2023-12-12] MEDS: Clopidogrel Bisulfate 75 MG Tablet PO (08:08)
[2023-12-12] MEDS: Potassium Chloride Oral Tablet 10 MEQ PO (08:08)
[2023-12-12] MEDS: Carvedilol 3.125 MG TABLET PO ×2 (08:09→20:19)
[2023-12-12] MEDS: Ensure Clear 120 ML Liquid PO ×2 (08:10→13:20)
[2023-12-12 08:11] VITALS: BP 124/65; PULSE 84
[2023-12-12 13:26] VITALS: BMI 29.8
[2023-12-12 17:14] VITALS: BP 130/61; PULSE 80; RESP 16; TEMP 36.7; O2SAT 96
[2023-12-12] MEDS: Tamsulosin HCl 0.4 MG Capsule PO (17:14)
[2023-12-12] MEDS: Gabapentin 100 MG Capsule 200 MG PO (20:17)
[2023-12-12] MEDS: Magnesium Chloride 64 MG Delay Rel.Tablet 128 MG PO (20:22)
[2023-12-12] MEDS: Atorvastatin Calcium 10 MG Tablet PO (20:22)
--- NOTE | 2023-12-12 20:39 | PN.REHAB_ITS ---
Subjective Subjective Patient seen, examined. She has no new problems, concerns, issues, complaints. Objective Data Objective Data Vital Signs: Vital Signs Temp Pulse Resp BP Pulse Ox O2 Del Method FiO2 98.0 F 80 16 130/61 H 96 Room Air 21 12/12/23 17:14 12/12/23 17:14 12/12/23 17:14 12/12/23 17:14 12/12/23 17:14 12/12/23 17:14 11/25/23 22:25 Oxygen Delivery Method Room Air Weight: 91.6 kg Body Mass Index (BMI) 29.8 Intake & Output: Intake and Output for Last 24 Hours 12/10/23 12/11/23 12/12/23 23:59 23:59 23:59 Intake Total 3260 / 3460 2220 / 2220 240 / 240 Output Total 3925 / 4475 3900 / 3900 1325 / 1325 Balance -665 / -1015 -1680 / -1680 -1085 / -1085 Lab / Micro Data 12/05/23 05:15 12/09/23 06:52 Micro: Microbiology 12/06/23 22:04 Urine Catheter - Tang Urine Culture - Final Culture exhibits no growth. 11/27/23 18:44 Stool Stool Occult Blood (DAPHNEY) - Final Social Homelessness:: Sheltered (lives with family in a ranch house. ) Indicators for Scoring Admitted with or Primary Diagnosis of CVA/Stroke: Yes Hx of CVA/Stroke: Yes Modified [place] Score MRS Score at time of Evaluation: 5-Severe disability Physical Exam Const alert General Appearance: cooperative HEENT normocephalic Eyes PERRL and EOMs intact bilaterally Neck supple, no JVD and no carotid bruits Resp normal respiratory effort, normal air movement and clear to auscultation bilaterally Cardio regular rate and regular rhythm GI normal to inspection, nondistended, normoactive bowel sounds, non-tender and non-distended Bladder / Kidney Exam: catheter in place urethral Extremity normal capillary refill General Extremity: Negative for edema Skin no rashes or lesions noted General Skin Exam: no breakdown Neuro Neuro Narrative: Right hemiparesis. Psych affect normal Appearance: appropriate Assessment & Plan Assessment/Plan (1) Debility: (2) Stroke: (3) Right hemiparesis: (4) Hyperlipidemia: QUALIFIERS: Hyperlipidemia type: unspecified Qualified Code(s): E 78.5 - Hyperlipidemia, unspecified (5) Essential (primary) hypertension: (6) Neuropathic pain: (7) Hypomagnesemia: (8) Hypokalemia: (9) Low back pain: PLAN: Plan 63 year old female with below past medical history hospitalized for left sided stroke with right hemiparesis, admitted to for 3 hours daily rehabilitation, strengthening, prior to discharge home. * Debility - PT/OT/ST. * Pain - Tylenol 650mg q6 prn. * Bowel - Miralax 17gm qhs, senna/colace 2 tablets bid, MOM 30ml po x 1 prn, Dulcolax 10mg pr x 1 prn. * DVT prophylaxis - Lovenox 40mg sc daily. * Stroke - Aspirin 81mg daily, Plavix 75mg daily thru 12/14/2023. * Hyperlipidemia - Atorvastatin 10mg qhs. * Hypertension - Coreg 3.125mg bid, Hydralazine 10mg q4 prn. * Nutrition - Ensure Clear 120ml po tidcm. * Neuropathic pain - Gabapentin 100mg bid, 200mg qpm. * Hypomagnesemia - Magnesium chloride 128mg qhs. * Low back pain - Prednisone 20mg daily thru 12/07/2023. * Urinary retention - Tamsulosin 0.4mg daily, voiding trials.
[2023-12-13 02:14] VITALS: BMI 29.8
[2023-12-13] MEDS: Enoxaparin 40 MG/0.4 ML Syringe SC (04:08)
[2023-12-13 06:00] VITALS: BP 130/69; PULSE 64; RESP 16; TEMP 36.9; O2SAT 97
[2023-12-13] MEDS: Gabapentin 100 MG Capsule PO ×2 (08:08→13:24)
[2023-12-13] MEDS: Senna/Docusate Sodium 1 Tablet 2 TABLET PO (08:10)
[2023-12-13] MEDS: Potassium Chloride Oral Tablet 10 MEQ PO (08:10)
[2023-12-13] MEDS: Clopidogrel Bisulfate 75 MG Tablet PO (08:10)
[2023-12-13] MEDS: Carvedilol 3.125 MG TABLET PO ×2 (08:10→20:13)
[2023-12-13] MEDS: Aspirin 81 MG TAB.CHEW PO (08:10)
--- NOTE | 2023-12-13 08:21 | PN.REHAB_ITS ---
Subjective Subjective Patient seen, examined. She has no new complaints, her pain is controlled, she has right sciatica. Objective Data Objective Data Vital Signs: Vital Signs Temp Pulse Resp BP Pulse Ox O2 Del Method FiO2 98.4 F 64 16 130/69 H 97 Room Air 21 12/13/23 06:00 12/13/23 06:00 12/13/23 06:00 12/13/23 06:00 12/13/23 06:00 12/13/23 06:00 11/25/23 22:25 Oxygen Delivery Method Room Air Weight: 91.6 kg Body Mass Index (BMI) 29.8 Intake & Output: Intake and Output for Last 24 Hours 12/11/23 12/12/23 12/13/23 23:59 23:59 23:59 Intake Total 2220 / 2220 240 / 240 Output Total 3900 / 3900 1825 / 1825 425 / 425 Balance -1680 / -1680 -1585 / -1585 -425 / -425 Lab / Micro Data 12/05/23 05:15 12/09/23 06:52 Micro: Microbiology 12/06/23 22:04 Urine Catheter - Tang Urine Culture - Final Culture exhibits no growth. 11/27/23 18:44 Stool Stool Occult Blood (DAPHNEY) - Final Social Homelessness:: Sheltered (lives with family in a ranch house. ) Indicators for Scoring Admitted with or Primary Diagnosis of CVA/Stroke: Yes Hx of CVA/Stroke: Yes Modified [place] Score MRS Score at time of Evaluation: 5-Severe disability Physical Exam Const alert General Appearance: cooperative HEENT normocephalic Eyes PERRL and EOMs intact bilaterally Neck supple, no JVD and no carotid bruits Resp normal respiratory effort, normal air movement and clear to auscultation bilaterally Cardio regular rate and regular rhythm GI normal to inspection, nondistended, normoactive bowel sounds, non-tender and non-distended Bladder / Kidney Exam: catheter in place urethral Extremity normal capillary refill General Extremity: Negative for edema Skin no rashes or lesions noted General Skin Exam: no breakdown Neuro Neuro Narrative: Right hemiparesis. Psych affect normal Appearance: appropriate Assessment & Plan Assessment/Plan (1) Debility: (2) Stroke: (3) Right hemiparesis: (4) Hyperlipidemia: QUALIFIERS: Hyperlipidemia type: unspecified Qualified Code(s): E 78.5 - Hyperlipidemia, unspecified (5) Essential (primary) hypertension: (6) Neuropathic pain: (7) Hypomagnesemia: (8) Hypokalemia: (9) Low back pain: PLAN: Plan 63 year old female with below past medical history hospitalized for left sided stroke with right hemiparesis, admitted to for 3 hours daily rehabilitation, strengthening, prior to discharge home. * Debility - PT/OT/ST. * Pain - Tylenol 650mg q6 prn. * Bowel - Miralax 17gm qhs, senna/colace 2 tablets bid, MOM 30ml po x 1 prn, Dulcolax 10mg pr x 1 prn. * DVT prophylaxis - Lovenox 40mg sc daily. * Stroke - Aspirin 81mg daily, Plavix 75mg daily thru 12/14/2023. * Hyperlipidemia - Atorvastatin 10mg qhs. * Hypertension - Coreg 3.125mg bid, Hydralazine 10mg q4 prn. * Nutrition - Ensure Clear 120ml po tidcm. * Neuropathic pain - Gabapentin 100mg bid, 200mg qpm. * Hypomagnesemia - Magnesium chloride 128mg qhs. * Low back pain - Prednisone 20mg daily thru 12/07/2023. * Urinary retention - Tamsulosin 0.4mg daily, Tang out.
[2023-12-13] MEDS: Ensure Clear 120 ML Liquid PO ×2 (08:37→16:43)
[2023-12-13] MEDS: Tamsulosin HCl 0.4 MG Capsule PO (16:43)
[2023-12-13 17:00] VITALS: BMI 29.8
[2023-12-13 18:00] VITALS: BP 113/75; PULSE 96; RESP 17; TEMP 36.4; O2SAT 96
[2023-12-13 20:00] VITALS: BP 130/66; PULSE 90; RESP 18; O2SAT 99
[2023-12-13 20:10] VITALS: BP 130/66; PULSE 90; RESP 18; O2SAT 99
[2023-12-13] MEDS: Atorvastatin Calcium 10 MG Tablet PO (20:14)
[2023-12-13] MEDS: Magnesium Chloride 64 MG Delay Rel.Tablet 128 MG PO (20:14)
[2023-12-13] MEDS: Acetaminophen 325 MG Tablet 650 MG PO (20:14)
[2023-12-13] MEDS: Gabapentin 100 MG Capsule 200 MG PO (20:15)
[2023-12-14 02:43] VITALS: BMI 29.8
[2023-12-14] MEDS: Enoxaparin 40 MG/0.4 ML Syringe SC (05:06)
[2023-12-14 05:11] VITALS: BP 123/68; PULSE 85; RESP 16; TEMP 35.9; O2SAT 95
[2023-12-14] MEDS: Gabapentin 100 MG Capsule PO ×2 (06:24→14:23)
--- NOTE | 2023-12-14 08:30 | PN.REHAB_ITS ---
Subjective Subjective Patient seen, examined. present, she finished her breakfast. Pain controlled, she has no new problems, concerns, issues, complaints. Objective Data Objective Data Vital Signs: Vital Signs Temp Pulse Resp BP Pulse Ox O2 Del Method FiO2 96.6 F L 85 16 123/68 H 95 Room Air 21 12/14/23 05:11 12/14/23 05:11 12/14/23 05:11 12/14/23 05:11 12/14/23 05:11 12/14/23 05:11 11/25/23 22:25 Oxygen Delivery Method Room Air Weight: 91.6 kg Body Mass Index (BMI) 29.8 Intake & Output: Intake and Output for Last 24 Hours 12/12/23 12/13/23 12/14/23 23:59 23:59 23:59 Intake Total 240 / 240 1880 / 1880 580 / 580 Output Total 1825 / 1825 1325 / 1925 1450 / 1450 Balance -1585 / -1585 555 / -45 -870 / -870 Lab / Micro Data 12/05/23 05:15 12/09/23 06:52 Micro: Microbiology 12/06/23 22:04 Urine Catheter - Tang Urine Culture - Final Culture exhibits no growth. 11/27/23 18:44 Stool Stool Occult Blood (DAPHNEY) - Final Social Homelessness:: Sheltered (lives with family in a ranch house. ) Indicators for Scoring Admitted with or Primary Diagnosis of CVA/Stroke: Yes Hx of CVA/Stroke: Yes Modified [place] Score MRS Score at time of Evaluation: 5-Severe disability Physical Exam Const alert General Appearance: cooperative HEENT normocephalic Eyes PERRL and EOMs intact bilaterally Neck supple, no JVD and no carotid bruits Resp normal respiratory effort, normal air movement and clear to auscultation bilaterally Cardio regular rate and regular rhythm GI normal to inspection, nondistended, normoactive bowel sounds, non-tender and non-distended Bladder / Kidney Exam: catheter in place urethral Extremity normal capillary refill General Extremity: Negative for edema Skin no rashes or lesions noted General Skin Exam: no breakdown Neuro Neuro Narrative: Right hemiparesis. Psych affect normal Appearance: appropriate Assessment & Plan Assessment/Plan (1) Debility: (2) Stroke: (3) Right hemiparesis: (4) Hyperlipidemia: QUALIFIERS: Hyperlipidemia type: unspecified Qualified Code(s): E 78.5 - Hyperlipidemia, unspecified (5) Essential (primary) hypertension: (6) Neuropathic pain: (7) Hypomagnesemia: (8) Hypokalemia: (9) Low back pain: PLAN: Plan 63 year old female with below past medical history hospitalized for left sided stroke with right hemiparesis, admitted to for 3 hours daily rehabilitation, strengthening, prior to discharge home. * Debility - PT/OT/ST. * Pain - Tylenol 650mg q6 prn. * Bowel - Miralax 17gm qhs, senna/colace 2 tablets bid, MOM 30ml po x 1 prn, Dulcolax 10mg pr x 1 prn. * DVT prophylaxis - Lovenox 40mg sc daily. * Stroke - Aspirin 81mg daily, Plavix 75mg daily thru 12/14/2023. * Hyperlipidemia - Atorvastatin 10mg qhs. * Hypertension - Coreg 3.125mg bid, Hydralazine 10mg q4 prn. * Nutrition - Ensure Clear 120ml po tidcm. * Neuropathic pain - Gabapentin 100mg bid, 200mg qpm. * Hypomagnesemia - Magnesium chloride 128mg qhs. * Urinary retention - Tamsulosin 0.4mg daily, Tang out, she had dysuria yesterday, urinalysis unremarkable, urine culture pending.
[2023-12-14] MEDS: Potassium Chloride Oral Tablet 10 MEQ PO (09:01)
[2023-12-14] MEDS: Ensure Clear 120 ML Liquid PO ×3 (09:01→18:29)
[2023-12-14] MEDS: Carvedilol 3.125 MG TABLET PO ×2 (09:01→21:07)
[2023-12-14] MEDS: Aspirin 81 MG TAB.CHEW PO (09:01)
[2023-12-14] MEDS: Clopidogrel Bisulfate 75 MG Tablet PO (09:02)
[2023-12-14 09:07] VITALS: BP 122/67; PULSE 67
[2023-12-14 17:39] VITALS: BMI 29.8
[2023-12-14 17:59] VITALS: BP 137/65; PULSE 76; RESP 17; TEMP 36.4; O2SAT 98
[2023-12-14] MEDS: Tamsulosin HCl 0.4 MG Capsule PO (18:29)
[2023-12-14] MEDS: Ciprofloxacin 500 MG Tablet PO (18:50)
[2023-12-14] MEDS: Magnesium Chloride 64 MG Delay Rel.Tablet 128 MG PO (21:07)
[2023-12-14] MEDS: Atorvastatin Calcium 10 MG Tablet PO (21:07)
[2023-12-14] MEDS: Acetaminophen 325 MG Tablet 650 MG PO (21:07)
[2023-12-14] MEDS: Gabapentin 100 MG Capsule 200 MG PO (21:08)
[2023-12-14 21:15] VITALS: PULSE 78; RESP 17; O2SAT 98; BMI 29.8
[2023-12-15 05:00] VITALS: BP 132/67; PULSE 66; RESP 18; TEMP 36.3; O2SAT 97
[2023-12-15] MEDS: Enoxaparin 40 MG/0.4 ML Syringe SC (05:26)
[2023-12-15] MEDS: Gabapentin 100 MG Capsule PO ×2 (06:58→14:35)
[2023-12-15] MEDS: Senna/Docusate Sodium 1 Tablet 2 TABLET PO (07:47)
[2023-12-15] MEDS: Aspirin 81 MG TAB.CHEW PO (07:48)
[2023-12-15] MEDS: Carvedilol 3.125 MG TABLET PO ×2 (07:48→20:40)
[2023-12-15] MEDS: Potassium Chloride Oral Tablet 10 MEQ PO (07:48)
[2023-12-15] MEDS: Ciprofloxacin 500 MG Tablet PO ×2 (07:48→20:42)
[2023-12-15] MEDS: Ensure Clear 120 ML Liquid PO ×2 (07:54→17:35)
--- NOTE | 2023-12-15 08:39 | CASEMGMT ---
Addendum entered by Arlen Peters 12/23/23 10:10: Late entry from 12/18: Sleep study was rescheduled. Pt will DC home 12/19. [facility] notified. Addendum entered by Arlen Peters 12/15/23 15:33: SN added to HHC order. SOC 11/21. Addendum entered by Arlen Peters 12/15/23 09:12: Pt prefers [facility]. Phoned referral for PT/OT/ST. Original Note: Social Work IDT met with patient and for Team meeting. Discussed patient's progress in PT/OT/ST/SN. Educated to [facility] [employer] insurance with [employer] 12/15 and continued stay is not guaranteed with each review. completed shared care and can assist with pt's needs at [place]. Sleep study is scheduled currently for 12/19. Pt requesting to DC home 12/19. IDT agreeable. SW offered HHC vs OP therapy at [place]. Pt prefers HHC and has no DME needs. SW to provide pt with list of HHC providers. Pt does not need overnight O2. can transport pt after sleep study. SW provided printed list of skilled HHC providers with quality and resource data via [employer]. SW updated sleep lab of confirmed DC date. Plan: DC 12/19 to sleep study, then home with ; C PT/OT/ST [facility]
[2023-12-15 14:36] VITALS: BMI 29.8
[2023-12-15] MEDS: Tamsulosin HCl 0.4 MG Capsule PO (17:35)
[2023-12-15 18:00] VITALS: BP 131/58; PULSE 84; RESP 16; TEMP 36.6; O2SAT 98
[2023-12-15 20:30] VITALS: BMI 29.8
[2023-12-15 20:35] VITALS: PULSE 84; RESP 16; O2SAT 98
[2023-12-15] MEDS: Atorvastatin Calcium 10 MG Tablet PO (20:41)
[2023-12-15] MEDS: Gabapentin 100 MG Capsule 200 MG PO (20:41)
[2023-12-15] MEDS: Magnesium Chloride 64 MG Delay Rel.Tablet 128 MG PO (20:41)
[2023-12-15] MEDS: Acetaminophen 325 MG Tablet 650 MG PO (20:42)
[2023-12-16] MEDS: Enoxaparin 40 MG/0.4 ML Syringe SC (05:22)
[2023-12-16 05:37] VITALS: BP 123/62; PULSE 75; RESP 17; TEMP 36.3; O2SAT 97
[2023-12-16 05:40] VITALS: BMI 29.3
[2023-12-16] MEDS: Gabapentin 100 MG Capsule PO ×2 (06:48→13:23)
[2023-12-16] MEDS: Ensure Clear 120 ML Liquid PO ×2 (07:55→17:01)
[2023-12-16] MEDS: Ciprofloxacin 500 MG Tablet PO ×2 (07:56→20:13)
[2023-12-16] MEDS: Carvedilol 3.125 MG TABLET PO ×2 (07:56→20:14)
[2023-12-16] MEDS: Potassium Chloride Oral Tablet 10 MEQ PO (07:56)
[2023-12-16] MEDS: Aspirin 81 MG TAB.CHEW PO (07:56)
[2023-12-16 13:05] VITALS: BMI 29.3
[2023-12-16] MEDS: Tamsulosin HCl 0.4 MG Capsule PO (17:01)
[2023-12-16 18:00] VITALS: BP 113/69; PULSE 84; RESP 16; TEMP 36.6; O2SAT 96
[2023-12-16] MEDS: Acetaminophen 325 MG Tablet 650 MG PO (20:12)
[2023-12-16] MEDS: Gabapentin 100 MG Capsule 200 MG PO (20:13)
[2023-12-16] MEDS: Atorvastatin Calcium 10 MG Tablet PO (20:13)
[2023-12-16] MEDS: Magnesium Chloride 64 MG Delay Rel.Tablet 128 MG PO (20:14)
[2023-12-16 20:17] VITALS: PULSE 81; RESP 16
[2023-12-16 20:21] VITALS: BMI 29.3
[2023-12-17 05:02] VITALS: BP 118/56; PULSE 78; RESP 16; TEMP 36.3; O2SAT 96
[2023-12-17] MEDS: Enoxaparin 40 MG/0.4 ML Syringe SC (05:14)
[2023-12-17] MEDS: Gabapentin 100 MG Capsule PO ×2 (06:13→13:51)
[2023-12-17] MEDS: Aspirin 81 MG TAB.CHEW PO (07:37)
[2023-12-17] MEDS: Carvedilol 3.125 MG TABLET PO ×2 (07:37→20:25)
[2023-12-17] MEDS: Ciprofloxacin 500 MG Tablet PO ×2 (07:37→20:23)
[2023-12-17] MEDS: Potassium Chloride Oral Tablet 10 MEQ PO (07:38)
[2023-12-17] MEDS: Ensure Clear 120 ML Liquid PO (07:41)
[2023-12-17 12:22] VITALS: BMI 29.3
[2023-12-17] MEDS: Tamsulosin HCl 0.4 MG Capsule PO (16:46)
[2023-12-17 17:31] VITALS: BP 123/44; PULSE 78; RESP 16; TEMP 36.6; O2SAT 98
[2023-12-17] MEDS: Gabapentin 100 MG Capsule 200 MG PO (20:22)
[2023-12-17] MEDS: Magnesium Chloride 64 MG Delay Rel.Tablet 128 MG PO (20:23)
[2023-12-17] MEDS: Atorvastatin Calcium 10 MG Tablet PO (20:23)
[2023-12-17] MEDS: Acetaminophen 325 MG Tablet 650 MG PO (20:26)
[2023-12-18 05:00] VITALS: BMI 29.3
[2023-12-18] MEDS: Enoxaparin 40 MG/0.4 ML Syringe SC (05:06)
--- NOTE | 2023-12-18 05:22 | NURSING ---
Pt c/o r lateral ankle being sore. States she thinks it is from therapy. It is noted to be slightly swollen on lateral side. Encouraged pt to elevate. States she is able to bear weight on r ankle without difficulty.
[2023-12-18 06:00] VITALS: BP 120/64; PULSE 72; RESP 18; TEMP 36.5; O2SAT 97
[2023-12-18] MEDS: Gabapentin 100 MG Capsule PO ×2 (06:57→14:01)
[2023-12-18] MEDS: Potassium Chloride Oral Tablet 10 MEQ PO (07:53)
[2023-12-18] MEDS: Aspirin 81 MG TAB.CHEW PO (07:53)
[2023-12-18] MEDS: Carvedilol 3.125 MG TABLET PO ×2 (07:54→20:24)
[2023-12-18] MEDS: Ciprofloxacin 500 MG Tablet PO ×2 (07:54→20:24)
[2023-12-18 09:19] VITALS: BMI 29.3
[2023-12-18] MEDS: Tamsulosin HCl 0.4 MG Capsule PO (15:51)
[2023-12-18 17:49] VITALS: BP 118/66; PULSE 78; RESP 16; TEMP 36.6; O2SAT 96
[2023-12-18 20:20] VITALS: BP 142/52; PULSE 83
[2023-12-18] MEDS: Gabapentin 100 MG Capsule 200 MG PO (20:24)
[2023-12-18] MEDS: Magnesium Chloride 64 MG Delay Rel.Tablet 128 MG PO (20:25)
[2023-12-18] MEDS: Atorvastatin Calcium 10 MG Tablet PO (20:25)
[2023-12-18] MEDS: Acetaminophen 325 MG Tablet 650 MG PO (20:29)
[2023-12-18 20:51] VITALS: BMI 29.3
[2023-12-19] MEDS: Enoxaparin 40 MG/0.4 ML Syringe SC (05:29)
[2023-12-19 06:00] VITALS: BP 123/63; PULSE 74; RESP 17; TEMP 36.4; O2SAT 97
[2023-12-19] MEDS: Gabapentin 100 MG Capsule PO ×2 (06:39→13:03)
--- NOTE | 2023-12-19 07:52 | DS.PCM_ITS ---
Providers Date of Admission: 11/25/23 Primary Care Physician: Dr. Thiago Valencia MD Reason For Visit: STROKE Diagnosis Discharge Diagnosis (1) Debility: Status: Acute Code(s): R53.81 - Other malaise (2) Stroke: Status: Acute Code(s): I63.9 - Cerebral infarction, unspecified (3) Right hemiparesis: Status: Acute Code(s): G81.91 - Hemiplegia, unspecified affecting right dominant side (4) Hyperlipidemia: Status: Acute Code(s): E78.5 - Hyperlipidemia, unspecified Qualifiers: Hyperlipidemia type: unspecified Qualified Code(s): E78.5 - Hyperlipidemia, unspecified (5) Essential (primary) hypertension: Status: Acute Code(s): I10 - Essential (primary) hypertension (6) Neuropathic pain: Status: Acute Code(s): M79.2 - Neuralgia and neuritis, unspecified (7) Hypomagnesemia: Status: Acute Code(s): E83.42 - Hypomagnesemia (8) Hypokalemia: Status: Acute Code(s): E87.6 - Hypokalemia (9) Low back pain: Status: Acute Code(s): M54.50 - Low back pain, unspecified Plan 63 year old female with below past medical history hospitalized for left sided stroke with right hemiparesis, admitted to for 3 hours daily rehabilitation, strengthening, prior to discharge home. * Debility - PT/OT/ST. * Pain - Tylenol 650mg q6 prn. * Bowel - Miralax 17gm qhs, senna/colace 2 tablets bid, MOM 30ml po x 1 prn, Dulcolax 10mg pr x 1 prn. * DVT prophylaxis - Lovenox 40mg sc daily. * Stroke - Aspirin 81mg daily, Plavix 75mg daily thru 12/14/2023. * Hyperlipidemia - Atorvastatin 10mg qhs. * Hypertension - Coreg 3.125mg bid, Hydralazine 10mg q4 prn. * Nutrition - Ensure Clear 120ml po tidcm. * Neuropathic pain - Gabapentin 100mg bid, 200mg qpm. * Hypomagnesemia - Magnesium chloride 128mg qhs. * Urinary retention - Tamsulosin 0.4mg daily, Tang out, she had dysuria yesterday, urinalysis unremarkable, urine culture pending. Medications at Discharge Home Medications aspirin 81 mg chewable tablet 81 mg PO DAILY [facility] 01/29/22 atorvastatin 10 mg tablet 10 mg PO QHS 30 days #30 tabs 12/19/23 carvedilol 3.125 mg tablet 3.125 mg PO BID 30 days #60 tabs 12/19/23 gabapentin 100 mg capsule 100 mg PO 0700,1400 30 days #60 caps 12/19/23 gabapentin 100 mg capsule 200 mg (2 x 100 mg) PO 2100 30 days #60 caps 12/19/23 magnesium chloride 64 mg (magnesium chloride) tablet,delayed release (Mag 64) 128 mg (2 x 64 mg) PO QHS 30 days #60 tabs 12/19/23 potassium chloride 10 mEq tablet,extended release(part/cryst) 10 meq PO DAILYCM 30 days #30 tabs 12/19/23 tamsulosin 0.4 mg capsule 0.4 mg PO DAILY@1730 30 days #30 caps 12/19/23 Hospital Course Operations None Procedures None Summary of Care Provided Minutes Spent on Discharge: 35 Hospital Course: 63 year old female with below past medical history hospitalized for left sided stroke with right hemiparesis, admitted to for 3 hours daily rehabilitation, strengthening, prior to discharge home. Discharge 12/20/2023 to sleep study, then home with , [facility] PT/OT/ST. Physical Exam Const alert General Appearance: cooperative HEENT normocephalic Eyes PERRL and EOMs intact bilaterally Neck supple, no JVD and no carotid bruits Resp normal respiratory effort, normal air movement and clear to auscultation bilaterally Cardio regular rate and regular rhythm GI normal to inspection, nondistended, normoactive bowel sounds, non-tender and non-distended Bladder / Kidney Exam: catheter in place urethral Extremity normal capillary refill General Extremity: Negative for edema Skin no rashes or lesions noted General Skin Exam: no breakdown Neuro Neuro Narrative: Right hemiparesis. Psych affect normal Appearance: appropriate Medical Records Data Homelessness:: Sheltered (lives with family in a ranch house. ) Weight / BMI Weight Weight: 90.2 kg Body Mass Index (BMI) 29.3 ABG / Lab / Microbiology Data 12/05/23 05:15 12/09/23 06:52 Microbiology: Microbiology 12/13/23 13:00 Urine, Clean Catch Urine Culture - Final Presumptive E. coli 12/06/23 22:04 Urine Catheter - Tang Urine Culture - Final Culture exhibits no growth. 11/27/23 18:44 Stool Stool Occult Blood (DAPHNEY) - Final Indicators for Scoring Admitted with or Primary Diagnosis of CVA/Stroke: Yes Hx of CVA/Stroke: Yes Modified [place] Score MRS Score at time of Evaluation: 5-Severe disability D/C Instructions Discharge Diet: No restrictions Discharge Activity: Return to Normal Activity, May Shower and Use Walker Weight Bearing Status: Weight bearing as tolerated Call your doctor if you observe: Fever of 101 or Higher, Inability to urinate, Inability to have a bowel movement, Shortness of breath, Dizziness, Fainting spells, Swelling in the ankles, Chest pain and Uncontrolled pain Additional Instructions: Discharge 12/20/2023 to sleep study, then home with , [facility] PT/OT/ST. Meaningful Use Info Meaningful Use Meaningful Use Diagnoses (Choose all that apply): Ischemic CVA CVA Therapy Assessed for PT,OT and/or ST?: Yes Ischemic Stroke Antithrombotic order at d/c?: Yes Dx of Atrial fib/flutter?: No Statin Dosing Therapy Reference: STATIN DOSE THERAPY REFERENCE: * Patients > 75 years receive moderate or high dose statin therapy. * Patients 75 years or YOUNGER should receive HIGH intensity statin dose unless contraindicated. You will be required to document reason for non-treatment if statin daily dose does not meet guidelines. HIGH DOSE STATIN THERAPY DAILY Atorvastatin > than or = to 40 mg Rosuvastatin > than or = to 20 mg Amlodipine + Atorvastatin > than or = to 2.5/40 mg Ezetimibe + Simvastatin 10/80 mg Simvastatin 80mg Statins at discharge?: Yes If patient is 75 or younger, pt will be discharged on HIGH intensity statin.: Y es Primary Dx Acute Ischemic CVA?: Yes IV thrombolytic ordered during stay?: No Reason IV thrombolytic not ordered: Treatment not Indicated Discharge Plan Admission Admit Date/Time: 11/25/23 13:25 Primary Reason for Your Visit: Debility. Attending Provider: Philly Pollock Primary Care Provider: Thiago Valencia Instructions Additional Instructions / Restrictions: Discharge 12/20/2023 to sleep study, then home with , [facility] PT/OT/ST. Discharge Orders/Prescriptions Prescriptions: New atorvastatin 10 mg Tablet 10 mg PO QHS 30 Days Qty: 30 0RF carvedilol 3.125 mg Tablet 3.125 mg PO BID 30 Days Qty: 60 0RF tamsulosin 0.4 mg Capsule 0.4 mg PO DAILY@1730 30 Days Qty: 30 0RF gabapentin 100 mg Capsule 200 mg PO 2100 30 Days Qty: 60 0RF gabapentin 100 mg Capsule 100 mg PO 0700,1400 30 Days Qty: 60 0RF potassium chloride 10 mEq Tablet,Er Particles/Crystals 10 meq PO DAILYCM 30 Days Qty: 30 0RF magnesium chloride [Mag 64] 64 mg Tablet,Delayed Release (Dr/Ec) 128 mg PO QHS 30 Days Qty: 60 0RF Continued aspirin 81 MG tablet,chewable 81 mg PO DAILY Discontinued clopidogrel 75 mg Tablet 75 mg PO DAILY 90 Days Qty: 90 1RF Referrals / Follow Up: Sleep, lab [Other] - 12/20/23 8:00 pm Ryan Cedeno MD [Med Staff - Active Staff] - (Sciatica epidural ) Thiago Valencia MD [Primary Care Provider] - 12/21/23 9:10 am Lyndon Emanuel MD [Non-Staff] - 01/04/24 10:00 am Disposition Disposition (needs filled in before D/C Order can be placed): Home Health Service
[2023-12-19] MEDS: Aspirin 81 MG TAB.CHEW PO (07:53)
[2023-12-19] MEDS: Ciprofloxacin 500 MG Tablet PO ×2 (07:53→21:37)
[2023-12-19] MEDS: Potassium Chloride Oral Tablet 10 MEQ PO (07:53)
[2023-12-19] MEDS: Carvedilol 3.125 MG TABLET PO ×2 (07:53→21:37)
[2023-12-19 17:00] VITALS: BMI 29.3
[2023-12-19] MEDS: Tamsulosin HCl 0.4 MG Capsule PO (17:47)
[2023-12-19 17:56] VITALS: BP 127/70; PULSE 80; RESP 16; TEMP 36.6; O2SAT 98
[2023-12-19 19:26] VITALS: BMI 29.3
[2023-12-19 20:20] VITALS: PULSE 83; RESP 16; O2SAT 96
[2023-12-19] MEDS: Atorvastatin Calcium 10 MG Tablet PO (21:37)
[2023-12-19] MEDS: Gabapentin 100 MG Capsule 200 MG PO (21:37)
[2023-12-19] MEDS: Magnesium Chloride 64 MG Delay Rel.Tablet 128 MG PO (21:37)
[2023-12-19] MEDS: Acetaminophen 325 MG Tablet 650 MG PO (21:41)
[2023-12-20] MEDS: Enoxaparin 40 MG/0.4 ML Syringe SC (05:41)
[2023-12-20 06:00] VITALS: BP 121/45; PULSE 95; RESP 16; TEMP 36.4; O2SAT 96
[2023-12-20] MEDS: Gabapentin 100 MG Capsule PO (06:47)
[2023-12-20] MEDS: Ciprofloxacin 500 MG Tablet PO (08:06)
[2023-12-20] MEDS: Carvedilol 3.125 MG TABLET PO (08:07)
[2023-12-20] MEDS: Aspirin 81 MG TAB.CHEW PO (08:07)
[2023-12-20] MEDS: Potassium Chloride Oral Tablet 10 MEQ PO (08:07)
[2023-12-20 09:06] VITALS: BMI 29.3
--- NOTE | 2023-12-20 09:07 | NURSING ---
discharged home with family. discharge instructions, medications and appointments reviewed with pt. denies questions or concerns
[2023-12-20 09:08] VITALS: BP 121/65; PULSE 95; RESP 16; TEMP 36.4; O2SAT 96
== END 2023-12-20 09:10 | disposition home health service (06) | DRG 57 ==
PROVIDERS: Family Medicine Geriatric Medicine; Admitting Provider Internal Medicine; PCP Family Medicine; Referring Provider Internal Medicine; Visit Provider Internal Medicine
DX: I69.351 Hemiplegia and hemiparesis following cerebral infarction affecting right dominant side (principal); E78.5 Hyperlipidemia, unspecified; I10 Essential (primary) hypertension; F32.9 Major depressive disorder, single episode, unspecified; I69.322 Dysarthria following cerebral infarction; E83.42 Hypomagnesemia; I25.10 Atherosclerotic heart disease of native coronary artery without angina pectoris; E87.6 Hypokalemia; F17.210 Nicotine dependence, cigarettes, uncomplicated; I69.392 Facial weakness following cerebral infarction; M79.2 Neuralgia and neuritis, unspecified; G47.00 Insomnia, unspecified; F41.1 Generalized anxiety disorder; R33.9 Retention of urine, unspecified; Z95.5 Presence of coronary angioplasty implant and graft; Z79.82 Long term (current) use of aspirin; G89.29 Other chronic pain; Z79.02 Long term (current) use of antithrombotics/antiplatelets
CPT/HCPCS: 36415; 74018; 80048; 80053; 81001; 82274; 83735; 84100; 85025; 85027; 87086; 87088; 87186; 92507; 92523; 94762; 97110; 97112; 97116; 97129; 97130; 97163; 97166; 97530; 97535; 97802; 97803; A4216

== ENCOUNTER → 2024-02-14 | Outpatient (CLI) | payer OTHER, SELFPAY ==
[2016-07-19 14:11] VITALS: BMI 28.2
--- NOTE | 2024-02-14 08:29 | MRI_ITS ---
HISTORY: RADICULOPATHY, BACK PAIN TECHNIQUE: Multiplanar and multisequence MR images of the lumbar spine were obtained without intravenous contrast. 148 images. COMPARISON: XR 06/08/2023. FINDINGS: VERTEBRAE: Vertebral body heights maintained. Mild degenerative endplate changes at L4-5 and L5-S1. No other significant bone marrow signal abnormality. ALIGNMENT: No anterior or posterior subluxation. CONUS: Normal morphology and position of the conus medullaris at T12-L1. INTERVERTEBRAL DISCS: T12-L1: Very mild disc bulge without significant central canal stenosis or foraminal narrowing based on the sagittal images. L1-2: Very mild disc bulge without significant central canal stenosis or foraminal narrowing. L2-3: No significant posterior disc protrusion, central canal stenosis, or foraminal narrowing. L3-4: Very mild disc bulge with small annular fissure. No significant central canal stenosis or foraminal narrowing. L4-5: Moderate right paracentral disc extrusion with mild inferior migration into the right lateral recess resulting in right L5 nerve root impingement, right S1 nerve root abutment, and in combination with facet arthropathy resulting in mild central canal stenosis and bilateral foraminal narrowing. L5-S1: Very mild posterior disc protrusion without significant central canal stenosis. Mild left foraminal narrowing. SOFT TISSUES: No paraspinal fluid collection. Posterior subcutaneous days edema. MRI/Spine Lumbar (Routine) IMPRESSION: Moderate right paracentral disc extrusion of L4-5 resulting in right nerve root impingement, mild spinal canal stenosis, and bilateral foraminal narrowing. Mild degenerative disc disease at L5-S1 resulting in mild left foraminal narrowing. Electronically Signed: Mariam Oliver MD at 11:14 EST ,
== END | disposition home or self-care (01) ==
LOC: MRI 07:43
PROVIDERS: PCP Family Medicine; Referring Provider Family Medicine; Visit Provider Family Medicine
DX: M51.16 Intervertebral disc disorders with radiculopathy, lumbar region (principal)
CPT/HCPCS: 72148

== ENCOUNTER → 2024-02-15 | Outpatient (CLI) | payer OTHER, SELFPAY ==
[2016-07-19 14:11] VITALS: BMI 28.2
--- NOTE | 2024-02-15 14:28 | VDLE_ITS ---
Reason For Study: Leg Pain RIGHT LEFT GSV is normal. CFV is compressible, spontaneous, phasic, CFV is compressible, spontaneous, phasic, competent, and demonstrates normal competent and demonstrates normal augmentation. augmentation. FV is compressible, spontaneous, phasic, competent and demonstrates normal augmentation. POP V is compressible, spontaneous, phasic, competent and demonstrates normal augmentation. T/P Trunk is compressible. PTV is compressible. RT PerV is compressible. Procedure This is a venous duplex using B-mode, color flow and spectral Doppler. Exam performed in department. A preliminary report was called and/or faxed to Dr. Gutierres's Office. VL/Venous Duplex US, Unilateral Interpretation Summary Deep veins of the right lower extremity are patent and compressible segmentally . There is no evidence of right lower extremity deep vein thrombosis. Valvular competence geraldo ears intact within the proximal deep venous system on the right . The right great saphenous vein a ppears patent and compressible segmentally. The left common femoral vein is patent and compressib le . Ordering Physician: Jim Gutierres Referring Physician: Libra Mckenzie MD Performed By: Carolann Jeronimo RVT and Student
== END | disposition home or self-care (01) ==
LOC: CVS 14:25
PROVIDERS: PCP Family Medicine; Referring Provider Podiatrist; Visit Provider Podiatrist
DX: M79.661 Pain in right lower leg (principal)
CPT/HCPCS: 93971

== ENCOUNTER 2024-06-05 09:30 | Outpatient (RCR) | payer OTHER, SELFPAY ==
[2016-07-19 14:11] VITALS: BMI 28.2
--- NOTE | 2024-01-18 11:45 | HP.PTEVAL_ITS ---
Patient's Visit Information Visit Information Visit Information: JENNIFER MCKOY is a 63 year old F referred to Physical Therapy by Dr. Thiago Valencia MD with a diagnosis of CVA. Date of Evaluation: 01/18/24 Physical Therapist: Alli Gutierrez, DPT, OCS, CSCS Visit Plan Frequency: 3x /Week Duration: 2 Months Plan: 3x/week for 6-8 weeks for 1. R LE strength and motor ocntrol/coordination ex to HEP 2. Gait training with diminished assist, include stairs 3. stretching R gastroc and HS to HEP 4. Funcitonal progression as tolerated Subjective Subjective: Dr. Valencia sent for stroke, CVA on 11/23/23. Came home from work and R leg numb woke up at 1.30 and R side would not move. Called squad, found stroke and 28 days b/w hospital and rehab. Working on walking and mobility which is improving. Will have outpatient OT for R arm and r leg is improving . Had home health for last 3 weeks. Given exercises for ball squeeze, GTB leg exercises, walking out side and uses wh walker all the time, started trying quad cane with home health. R leg gets painful at night and keeps her up at night. Wakes up after 3 hrs and hard to sleep then, using ROm, heat and ice but does not help. R side is 40% better. Basic ADLs are I in out bed, btahroom I, shower with chair and sit and scoots in, dresses self. Spends day: sit and play phone now, daily exercises,[employer] <akes own tea but cannot carry it, gets snacks, uses little sweeeper while sitting. 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 maybe retire next year?Is R handed on computer and that will hold her back. Enjoyed shopping prior but has not lately, using walker and doing some of that with cart. Leg doesn't handle it as it is weak. Steps to basement but mom helps with laundry. Steps with railing into adn out of are OK with left leg. Pain R leg: Pain Intensity (Out of 10): 1 Pain Intensity Range: 0 and 10 Comment: at night Objective Objective: Walks into PT with wh walker with no R step length and diminished R stance time, R dF appears limited in gait pattern. Painful to be pushed into DF R. can stand without walker but painful at neutral Df with WB R. Unsteady without holding on but able. Sit to stand using UE I and vice versa but slow. Steps using L only with two rails, can do R but painful gastroc area and obviously weak on R LE lacking FW weight shift. Sensation LE WNL to gross light touch. Reflexes 2/3 R patella and achilles and 1/3 L. strrength R hip abd 3 and ext 3 and flexion 3+, vs 4 on L.R knee ext 3 and flexion 3+ vs 4- on L. ankle is 3- R all directions and 4 on L. gastroc max tight on R to -5 PROM DF R and painful. HS -35 90/90 test R vs -20 on L. Motor control and coordination in R LE is poor vs L. Needed some A sit up from supine due to sciatica more than weakness. Sit to supine I. R UE effected and will be checked out closer by OT at [facility]. FGA not yet appropriate , walker required and needs to pay attention to where she is going. Balance/Special Test Scores Lower Extremity Functional Score: 18 Goals Goal 1:: I appropriaate HEP for LE strength and motor control Goal Time Frame: 6-8 Weeks Goal 2:: Walk with quad cane in community safe and I Goal Time Frame: 6-8 Weeks Goal 3:: Walking pattern without gait deviations in therapy(even if requiring eventual AFO) Goal Time Frame: 6-8 Weeks Goal 4:: Sit up from supine without pain or hesitation Goal Time Frame: 6-8 Weeks Goal 5:: LEFS score 25 Goal Time Frame: 6-8 Weeks Rehabilitation Potential Physical Therapy Diagnosis: R sided weakness and poor motor control limiting safe mobilkity Rehabilitation Potential: Fair Anticipated Interventions Patient/Client Instruction: Educate patient on: Condition and Risk Factors For the Purpose of:: To decrease pain, To increase ROM, To improve nutrient delivery to tissue, To increase tolerance to activity/condition/position and To improve gait and locomotor functions Therapeutic Exercise to Include: Strength training, Coordination, Agility training, Flexibilty training and Gait and locomotor training For the Purpose of:: To decrease pain, To increase ROM, To improve nutrient delivery to tissue, To improve muscle performance and motor function, To increase tolerance to activity/condition/position and To improve gait and locomotor functions Manual Therapy Techniques to Include: Passive ROM and Soft tissue mobilization For the Purpose of:: To increase ROM Text: Thank you for the opportunity to evaluate your patient. For Medicare and Medicare HMO plans, please review the plan of care and approve it. It will need to be FAXED BACK to us at [phone] for Medicare purposes. For Medicare only, by signing this I certify the plan of care. Please let me know if there are questions or concerns regarding this plan of care. Physician Signature: Date:
--- NOTE | 2024-02-07 12:36 | HP.OTEVAL ---
Patient's Visit Information Visit Information Visit Information: JENNIFER MCKOY is a 63 year old F, referred to Occupational Therapy by Dr. Thiago Valencia MD, with a diagnosis of I63.9 CVA 434.91 cerebral artery occlusion. Date of Evaluation: 02/07/24 Occupational Therapist: Brynn Casas Subjective Subjective: This 63 year old female arrives with dx of CVA. per pt this happened Nov 222023 on L side of brain. Per pt her entire R side was not working. no difficulty with language or vision. Pt does have leg pain on R side. pt is currently seeing PT for last 2-3 weeks. pt did have therapy while in hospital went to rehab unit for approx 25 days. now has been home since Dec 19. Pt is able to perform self care tasks on own does not perform cooking or cleaning at this time. pt has ataxia when reaching up overhead causing lack of control to perform task such as doing hair. pt is R hand dominant. 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 ADLs Eating: Bring food to mouth, Use silverware and Cut food Comments: putting hair up Objective Objective/Observation: pt arrives using 2WW as means of mobility. brings R shoulder into flexion and abduction to compelte 9 hole peg assessment due to decreased distal coordination and control. ROM Forearm: R supination 60 L 75 Opposition: R hand able to oppose to D3 L hand able to oppose to all Strength Shoulder: L shoulder flexion 13.3# R shoulder flexion 8.4# Elbow: L bicep 23.5# R bicep 19.5# L tricep 8# R tricep 21.5# Exposure Machine Operator: R 20# L 55# Lateral Pinch: R 3# L 8# Tripod Pinch: R 2# L 8# Strength Comments: L ER 21.8# R ER 23.2# Edema Other: none Sensation Sensation Comments: denies numbness and tingling Movement Muscle Tone: slight catch at end range of motion Movement Comments: finger to nose assessment slightly over shoots at nose occionally 3/5 trials Nine Hole Peg Right: 150 sec Left: 22 sec In-Hand Manipulation Finger to Palm Translation: Unable - Right Palm to Finger Translation: Unable - Right Shift: Unable - Right Goals Goal:: pt will demonstrate improvement in RUE bicep strength equal to non affected side or greater in order to maximize I in day to day tasks pt will demonstrate improvement in RUE tricep strength greater than or equal to non affected UE in order to maximize I in day to day tasks pt will improve RUE shoulder flexion strength greater than or equal to non affected UR in order to maximize I in day to day tasks pt will improve R hand skilled trades teacher strength greater than or equal to non affected UE in order to return to day to day tasks pt will improve lateral as well as tripod pinch strength greater than or equal to non affected UE in order to return to day to day tasks Goal:: pt will improve 9 hole peg assessment score time by 20 seconds or more RUE in order to improve FMC and day to day tasks pt will demonstrate the ability to complete finger to palm translation and shifting task with R hand using coin and pen 3/3 trials by discharge Goal:: pt will be able to put hair up into ponytail using BUEs 3/3 trials by discharge pt will be able to utilize spoon and fork as well as knife utensils during meals with 25% or less spillage by discharge Goal:: pt will demonstrate the ability to perform finger to nose assessment with 100% accuracy 5/5 taps in order to decrease dysmetria during day to day tasks Goal:: pt will demonstrate 100% accuracy in RUE HEP for strength and FMC by discharge Rehabilitation General Assessment: This 63 year old female arrives with dx of CVA cerebral artery occlusion affecting R dominant side. Pt presents with impairments in RUE strength at shoulder bicep tricep as well as hand. pt also demonstrates impairment in FMC, coordination, fluid movement. pt does demonstrate compensatory movements during tasks utilizing shoulder flexion as well as abduction for improved control distally. pt would benefit from OT services 1-2x a week for 4-6 weeks in order to return to baseline and maximize I in function. Rehabilitation Potential: Good Anticipated Interventions Anticipated Interventions: A/AAROM/PROM, Strengthening, Fine Motor Coord/Conrad, Neuro Reeducation, Education re Diagnosis and Home Program Visit Plan Frequency: 1-2x /Week Duration: 4-6 Weeks General Plan: strengthening FMC coordination proximal stability for fine motor control TEXT: Thank you for the opportunity to evaluate your patient. For Medicare and Medicare HMO plans, please review the plan of care and approve it. It will need to be FAXED BACK to us at [phone] for Medicare purposes. Please let me know if there are questions or concerns regarding this plan of care. Physician Signature: Date:
--- NOTE | 2024-02-07 12:40 | HP.OTEVAL ---
Patient's Visit Information Visit Information Visit Information: JENNIFER MCKOY is a 63 year old F, referred to Occupational Therapy by Dr. Thiago Valencia MD, with a diagnosis of I63.9 CVA 434.91 cerebral artery occlusion. Date of Evaluation: 02/07/24 Occupational Therapist: Brynn Casas Subjective Subjective: This 63 year old female arrives with dx of CVA. per pt this happened Nov 222023 on L side of brain. Per pt her entire R side was not working. no difficulty with language or vision. Pt does have leg pain on R side. pt is currently seeing PT for last 2-3 weeks. pt did have therapy while in hospital went to rehab unit for approx 25 days. now has been home since Dec 19. Pt is able to perform self care tasks on own does not perform cooking or cleaning at this time. pt has ataxia when reaching up overhead causing lack of control to perform task such as doing hair. pt is R hand dominant. 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 ADLs Eating: Bring food to mouth, Use silverware and Cut food Comments: putting hair up Objective Objective/Observation: pt arrives using 2WW as means of mobility. brings R shoulder into flexion and abduction to compelte 9 hole peg assessment due to decreased distal coordination and control. ROM Forearm: R supination 60 L 75 Opposition: R hand able to oppose to D3 L hand able to oppose to all Strength Shoulder: L shoulder flexion 13.3# R shoulder flexion 8.4# Elbow: L bicep 23.5# R bicep 19.5# L tricep 8# R tricep 21.5# Orthopedic Cast Specialist: R 20# L 55# Lateral Pinch: R 3# L 8# Tripod Pinch: R 2# L 8# Strength Comments: L ER 21.8# R ER 23.2# Edema Other: none Sensation Sensation Comments: denies numbness and tingling Movement Muscle Tone: slight catch at end range of motion Movement Comments: finger to nose assessment slightly over shoots at nose occionally 3/5 trials Nine Hole Peg Right: 150 sec Left: 22 sec In-Hand Manipulation Finger to Palm Translation: Unable - Right Palm to Finger Translation: Unable - Right Shift: Unable - Right Goals Goal:: pt will demonstrate improvement in RUE bicep strength equal to non affected side or greater in order to maximize I in day to day tasks pt will demonstrate improvement in RUE tricep strength greater than or equal to non affected UE in order to maximize I in day to day tasks pt will improve RUE shoulder flexion strength greater than or equal to non affected UR in order to maximize I in day to day tasks pt will improve R hand forensic photographer strength greater than or equal to non affected UE in order to return to day to day tasks pt will improve lateral as well as tripod pinch strength greater than or equal to non affected UE in order to return to day to day tasks Goal:: pt will improve 9 hole peg assessment score time by 20 seconds or more RUE in order to improve FMC and day to day tasks pt will demonstrate the ability to complete finger to palm translation and shifting task with R hand using coin and pen 3/3 trials by discharge Goal:: pt will be able to put hair up into ponytail using BUEs 3/3 trials by discharge pt will be able to utilize spoon and fork as well as knife utensils during meals with 25% or less spillage by discharge Goal:: pt will demonstrate the ability to perform finger to nose assessment with 100% accuracy 5/5 taps in order to decrease dysmetria during day to day tasks Goal:: pt will demonstrate 100% accuracy in RUE HEP for strength and FMC by discharge Rehabilitation General Assessment: This 63 year old female arrives with dx of CVA cerebral artery occlusion affecting R dominant side. Pt presents with impairments in RUE strength at shoulder bicep tricep as well as hand. pt also demonstrates impairment in FMC, coordination, fluid movement. pt does demonstrate compensatory movements during tasks utilizing shoulder flexion as well as abduction for improved control distally. pt would benefit from OT services 1-2x a week for 4-6 weeks in order to return to baseline and maximize I in function. Rehabilitation Potential: Good Anticipated Interventions Anticipated Interventions: A/AAROM/PROM, Strengthening, Fine Motor Coord/Conrad, Neuro Reeducation, Education re Diagnosis and Home Program Visit Plan Frequency: 1-2x /Week Duration: 4-6 Weeks General Plan: strengthening FMC coordination proximal stability for fine motor control TEXT: Thank you for the opportunity to evaluate your patient. For Medicare and Medicare HMO plans, please review the plan of care and approve it. It will need to be FAXED BACK to us at [phone] for Medicare purposes. Please let me know if there are questions or concerns regarding this plan of care. Physician Signature: Date:
--- NOTE | 2024-02-07 12:48 | HP.OTEVAL_ITS ---
Patient's Visit Information Visit Information Visit Information: JENNIFER MCKOY is a 63 year old F, referred to Occupational Therapy by Dr. Thiago Valencia MD, with a diagnosis of I63.9 CVA 434.91 cerebral artery occlusion M62.81 Muscle weakness. Date of Evaluation: 02/07/24 Occupational Therapist: Brynn Casas Subjective Subjective: This 63 year old female arrives with dx of CVA. per pt this happened Nov 222023 on L side of brain. Per pt her entire R side was not working. no difficulty with language or vision. Pt does have leg pain on R side. pt is currently seeing PT for last 2-3 weeks. pt did have therapy while in hospital went to rehab unit for approx 25 days. now has been home since Dec 19. Pt is able to perform self care tasks on own does not perform cooking or cleaning at this time. pt has ataxia when reaching up overhead causing lack of control to perform task such as doing hair. pt is R hand dominant. 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 ADLs Eating: Bring food to mouth, Use silverware and Cut food Comments: putting hair up Objective Objective/Observation: pt arrives using 2WW as means of mobility. brings R shoulder into flexion and abduction to compelte 9 hole peg assessment due to decreased distal coordination and control. ROM Forearm: R supination 60 L 75 Opposition: R hand able to oppose to D3 L hand able to oppose to all Strength Shoulder: L shoulder flexion 13.3# R shoulder flexion 8.4# Elbow: L bicep 23.5# R bicep 19.5# L tricep 8# R tricep 21.5# Conveyor System Operator: R 20# L 55# Lateral Pinch: R 3# L 8# Tripod Pinch: R 2# L 8# Strength Comments: L ER 21.8# R ER 23.2# Edema Other: none Sensation Sensation Comments: denies numbness and tingling Movement Muscle Tone: slight catch at end range of motion Movement Comments: finger to nose assessment slightly over shoots at nose occionally 3/5 trials Nine Hole Peg Right: 150 sec Left: 22 sec In-Hand Manipulation Finger to Palm Translation: Unable - Right Palm to Finger Translation: Unable - Right Shift: Unable - Right Goals Goal:: pt will demonstrate improvement in RUE bicep strength equal to non affected side or greater in order to maximize I in day to day tasks pt will demonstrate improvement in RUE tricep strength greater than or equal to non affected UE in order to maximize I in day to day tasks pt will improve RUE shoulder flexion strength greater than or equal to non affected UR in order to maximize I in day to day tasks pt will improve R hand returned goods receiving clerk strength greater than or equal to non affected UE in order to return to day to day tasks pt will improve lateral as well as tripod pinch strength greater than or equal to non affected UE in order to return to day to day tasks Goal:: pt will improve 9 hole peg assessment score time by 20 seconds or more RUE in order to improve FMC and day to day tasks pt will demonstrate the ability to complete finger to palm translation and shifting task with R hand using coin and pen 3/3 trials by discharge Goal:: pt will be able to put hair up into ponytail using BUEs 3/3 trials by discharge pt will be able to utilize spoon and fork as well as knife utensils during meals with 25% or less spillage by discharge Goal:: pt will demonstrate the ability to perform finger to nose assessment with 100% accuracy 5/5 taps in order to decrease dysmetria during day to day tasks Goal:: pt will demonstrate 100% accuracy in RUE HEP for strength and FMC by discharge Rehabilitation General Assessment: This 63 year old female arrives with dx of CVA cerebral artery occlusion affecting R dominant side. Pt presents with impairments in RUE strength at shoulder bicep tricep as well as hand. pt also demonstrates impairment in FMC, coordination, fluid movement. pt does demonstrate compensatory movements during tasks utilizing shoulder flexion as well as abduction for improved control distally. pt would benefit from OT services 1-2x a week for 4-6 weeks in order to return to baseline and maximize I in function. Rehabilitation Potential: Good Anticipated Interventions Anticipated Interventions: A/AAROM/PROM, Strengthening, Fine Motor Coord/Conrad, Neuro Reeducation, Education re Diagnosis and Home Program Visit Plan Frequency: 1-2x /Week Duration: 4-6 Weeks General Plan: strengthening FMC coordination proximal stability for fine motor control TEXT: Thank you for the opportunity to evaluate your patient. For Medicare and Medicare HMO plans, please review the plan of care and approve it. It will need to be FAXED BACK to us at [phone] for Medicare purposes. Please let me know if there are questions or concerns regarding this plan of care. Physician Signature: Date:
--- NOTE | 2024-02-27 10:32 | HP.PTREVAL ---
Re-Evaluation Intro: Dr. Thiago Valencia MD, It has been my pleasure to treat JENNIFER MCKOY over the last 13 visits for CVA. Please see the progress note below for an update on the physical therapy plan of care! Subjective Subjective: Thinks she is getting better but pain in the right leg and buttock is limiting her as she feels worse once she goes home. That is her limiting factor, Has L4 disc problem from MRI last week, wanted to give injection but did not want it. Gets final AFO next week. using temporary one now. Had US on both legs which were fine. Pain is the frustrating part 8/10 in R buttock most of time and into R leg. Firt step is chiropractor and massage which she will have in the next couple weeks. Also taking supplements for nerves. Has TENS unit but it does not help. Objective Objective/Function: Walking with max R antalgia and very frustrated with buttock pain R, b burt with wh walker but still 8/10 pain and does not want injections before she tries pool, chiro and massage. ROM LB limited extension to nil as it hurts her buttock, short antalgic steps on R and requiring walker for pain and safety. Same goals and new2 POC in the pool to help with pain while she tries other chrio and massage and new aFO. Plan Plan Plan: 2x/week for 4 week aquatic therapy for LB ROM, LE strength, gait training. Goal is to improve back pain as well as improve gait and overall body. Balance/Gait/Functional tests Balance/Special Test Scores Lower Extremity Functional Score: 15 Goals Goals Goal 1:: I appropriaate HEP for LE strength and motor control Goal Time Frame: 6-8 Weeks Goal Progress: Goal Met Goal 2:: Walk with quad cane in community safe and I Goal Time Frame: 6-8 Weeks Goal Progress: walker wh due to pain Goal 3:: Walking pattern without gait deviations in therapy(even if requiring eventual AFO) Goal Time Frame: 6-8 Weeks Goal Progress: has AFO Goal 4:: Sit up from supine without pain or hesitation Goal Time Frame: 6-8 Weeks Goal Progress: Not Progressing Goal 5:: LEFS score 25 Goal Time Frame: 6-8 Weeks Anticipated Interventions Anticipated Interventions Patient/Client Instruction: Educate patient on: Condition and Risk Factors For the Purpose of:: To decrease pain, To increase ROM, To improve nutrient delivery to tissue, To increase tolerance to activity/condition/position and To improve gait and locomotor functions Therapeutic Exercise to Include: Strength training, Coordination, Agility training, Flexibilty training and Gait and locomotor training For the Purpose of:: To decrease pain, To increase ROM, To improve nutrient delivery to tissue, To improve muscle performance and motor function, To increase tolerance to activity/condition/position and To improve gait and locomotor functions Manual Therapy Techniques to Include: Passive ROM and Soft tissue mobilization For the Purpose of:: To increase ROM Re-Evaluation Ending Re-evaluation ending: Please do not hesitate to contact me at [phone] by phone or if you have questions or concerns regarding this new plan of care! Sincerely, Alli Gutierrez, DPT, OCS, CSCS
--- NOTE | 2024-05-15 11:00 | HP.PTREVAL_ITS ---
Re-Evaluation Intro: Dr. Thiago Valencia MD, It has been my pleasure to treat JENNIFER MCKOY over the last 22 visits for CVA. Please see the progress note below for an update on the physical therapy plan of care! Subjective Subjective: Going the right way. being in the pool and chiropractic has helped back pain. 03/16 only. Has seen pain management but no interventions. Leg pain, present since stroke and not relenting, 6/10 but worse at night and keeps her up at night. getting a couple hours here and there is on 2 pain meds for nerve at night. Eventually falls back asleep. Neurologist knows abnout pain and drop foot and not improving. Leg pain overall is 40% better. Using wh walker to get around. Walking 30 steps at home without AD. Is getting disability soon and no longer employed. HEP: sitting core stuff. Walking. Pool went well. Filling day watching TV and going to bathroom. Wh walker to go grocery shopping. Objective Objective/Function: AFOin place on r and fitting weell, donned and doffed I today. Walking back to PT with wh walker mod I and up tall without c/o pain, much better painwise then prior to pool therapy. Still short L step length and R knee stays fleed slightly at heel strike, does not trust R ASHLEIGH fully. Can correct step length when cued. Can walk with L LBQC with SBA distrusting of R LE . Can take small number of steps hesitantly with no AD but limping on R, not safe without AD. Chair transfers I. R LE slow to move but able to bear weight in standing. Ankle R moves in all 4 directions but -12 degrees active DF, funcitonal inv/ev/PF but weak in all with 3- Df, 3+ PF, 3 inv/ev on R ankle. R knee 3+ ext and 4- flexion, 3 hip flexion and abd. C/o increasing pain as she walk further in her lateral R calf but able to be on feet for 5 + minutes at a time today with only 2/10 pain. Ovrall, patient is significantly better in LBP and better in leg pain than prior to pool therapy which is what was holding her progress back. She is now approp riate to continue therapy per POC to work on gait and strength and function since her pain is down and she tolerating WB better. Goals still appropriate with new goal added for 4-6 wek POC through end June. Plan Plan Plan: 2x/week for 4-6 weeks for... 1. please get on 4 way ankle TB and wall gastroc stretch via HEP with pics and monitor complaince 2. Please get on standing WB R LE ex at home with pics and monitor compliance 3. Please teach gym based LE and core and postural ex for exit strategy with list and get to I. 4. Please work on walking in clinic with LBQC adn eventually no AD as safety allows and progress to home if able safely. Balance/Gait/Functional tests Balance/Special Test Scores Lower Extremity Functional Score: 13 Goals Goals Goal 1:: Walk with LBQC in L UE in and out of clinic safely and at home for short community based distance. Goal Time Frame: 4-6 Weeks Goal Progress: NEW GOAL Goal 2:: Walk with quad cane in community safe and I Goal Time Frame: 6-8 Weeks Goal Progress: appropriate goal now Goal 3:: Walking pattern without gait deviations in therapy(even if requiring eventual AFO) Goal Time Frame: 6-8 Weeks Goal Progress: AFO, short L, approp Goal 4:: Sit up from supine without pain or hesitation Goal Time Frame: 6-8 Weeks Goal Progress: Goal Met Goal 5:: LEFS score 25 Goal Time Frame: 6-8 Weeks Goal Progress: not progressing, approp. Goal 6:: I home ankle band and gastroc stretch, home standing LE strenght, and gym based general strength program to realistically continue progress when done with PT. Goal Time Frame: 4-6 Weeks Goal Progress: NEW GOAL Anticipated Interventions Anticipated Interventions Patient/Client Instruction: Educate patient on: Condition and Risk Factors For the Purpose of:: To decrease pain, To increase ROM, To improve nutrient delivery to tissue, To increase tolerance to activity/condition/position and To improve gait and locomotor functions Therapeutic Exercise to Include: Strength training, Coordination, Agility training, Flexibilty training and Gait and locomotor training For the Purpose of:: To decrease pain, To increase ROM, To improve nutrient delivery to tissue, To improve muscle performance and motor function, To increase tolerance to activity/condition/position and To improve gait and locomotor functions Manual Therapy Techniques to Include: Passive ROM and Soft tissue mobilization For the Purpose of:: To increase ROM Re-Evaluation Ending Re-evaluation ending: Please do not hesitate to contact me at [phone] by phone or if you have questions or concerns regarding this new plan of care! Sincerely, Alli Gutierrez, DPT, OCS, CSCS
--- NOTE | 2024-05-31 17:06 | OTREVAL_ITS ---
Re-Evaluation Intro: Dr. Thiago Valencia MD, It has been my pleasure to treat JENNIFER MCKOY over the last 1 visits for I63.9 CVA 434.91 cerebral artery occlusion M62.81 Muscle weakness. Please see the progress note below for an update on the occupational therapy plan of care! Subjective Subjective: pt arrives doing well pt seen this date after taking break from OT services in Feb pt states she was dealing with [employer] and then back pain in which she started seeing aquatic therapy for. pt is now back to resume her OT services. Pts POC updated with completion of re evaluation this date. 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 35# R lateral 3# L 8# R tripod 0# L 7# R 1 min 40 sec L 22 sec shoulder flexion R 13.2 L 16.3 bicep R 20.8 L 23.3 tricep R 16.7 L 16.5 ER R 17 L 16.8 finger to nose demonstrates dysmetria over and undershooting nose able to now put pony tail in however still a struggle Plan Plan Frequency: 1-2x /Week Duration: 4-6 Weeks Visits in this POC: 4-6 weeks (1-2x week) Plan: Continue POC starting this date 06/01/27: 4-6 weeks (1-2x week) Goals Goals Patient Goals: Regain Strength, Improve Fine Motor Skills, Use Hand/Wrist/Arm Normally Again, Resume Former Household Responsibilities (Cooking,Cleaning,Yard, etc.) and Resume Hobbies Goal:: pt will demonstrate improvement in RUE bicep strength equal to non affected side or greater in order to maximize I in day to day tasks 06/01/27: R 20.8 L 23.3 pt will demonstrate improvement in RUE tricep strength greater than or equal to non affected UE in order to maximize I in day to day tasks 06/01/27: R 16.7 L 16.5 GOAL MET pt will improve RUE shoulder flexion strength greater than or equal to non affected UR in order to maximize I in day to day tasks 06/01/27: R 13.2 L 16.3 pt will improve 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 greater than or equal to non affected UE in order to return to day to day tasks 06/01/27: R 20# L 35# pt will improve lateral as well as tripod pinch strength greater than or equal to non affected UE in order to return to day to day tasks 06/01/27: lateral R3 L 8 tripod R 0 L 8 Goal:: pt will improve 9 hole peg assessment score time by 20 seconds or more RUE in order to improve FMC and day to day tasks 06/01/27: pt is now 110 sec --- continue to progress-- pt will improve by 20 sec or more pt will demonstrate the ability to complete finger to palm translation and shifting task with R hand using coin and pen 3/3 trials by discharge ongoing Goal:: pt will be able to put hair up into ponytail using BUEs 3/3 trials by discharge ongoing pt will be able to utilize spoon and fork as well as knife utensils during meals with 25% or less spillage by discharge ongoing Goal:: pt will demonstrate the ability to perform finger to nose assessment with 100% accuracy 5/5 taps in order to decrease dysmetria during day to day tasks 06/01/27: 1/5 Goal:: pt will demonstrate 100% accuracy in RUE HEP for strength and FMC by discharge ongoing Anticipated Interventions Anticipated Interventions Anticipated Interventions: A/AAROM/PROM, Strengthening, Fine Motor Coord/Conrad, Neuro Reeducation, Education re Diagnosis and Home Program Re-Evaluation Ending Re-evaluation ending: Please do not hesitate to contact me at [phone] by phone or if you have questions or concerns regarding this new plan of care! Sincerely, Brynn Casas
--- NOTE | 2024-07-12 15:52 | HP.PTDCNRP_ITS ---
Patient Information Patient Information: JENNIFER MCKOY was seen in my office for initial evaluation on 01/18/24. The following Plan of Care was established for this patient: POC Established Initial Frequency: 3x /Week Initial Duration: 2 Months Anticipated Interventions Patient/Client Instruction: Educate patient on: Condition and Risk Factors For the Purpose of:: To decrease pain, To increase ROM, To improve nutrient delivery to tissue, To increase tolerance to activity/condition/position and To improve gait and locomotor functions Therapeutic Exercise to Include: Strength training, Coordination, Agility training, Flexibilty training and Gait and locomotor training For the Purpose of:: To decrease pain, To increase ROM, To improve nutrient delivery to tissue, To improve muscle performance and motor function, To increase tolerance to activity/condition/position and To improve gait and locomotor functions Manual Therapy Techniques to Include: Passive ROM and Soft tissue mobilization For the Purpose of:: To increase ROM Last Seen Last Seen: This patient was last seen in our office 06/05/24. Pertinent comments regarding their Physical therapy will appear below: Pt seen 27 visits of POC after a stroke. She was working toward an [employer] gym program and had reecently gotten an AFO for her foot. She did not attend any visits after that 06/05 day. It has now been over 5 weeks and I will discontinue from my care. At this point I will be discontinuing this patient from physical therapy. I would be happy to see this patient again in the future if found appropriate by the physician. Thank you! Alli Gutierrez, DPT, OCS, CSCS Balance/Gait/Functional tests Balance/Special Test Scores Lower Extremity Functional Score: 13
== END 2024-06-05 19:00 | disposition home or self-care (01) ==
LOC: PT 09:30
PROVIDERS: PCP Family Medicine; Referring Provider Family Medicine; Visit Provider Family Medicine
DX: Z86.73 Personal history of transient ischemic attack (TIA), and cerebral infarction without residual deficits (principal)
CPT/HCPCS: 97110; 97113; 97116; 97163; 97164; 97165; 97530

== ENCOUNTER 2024-08-24 16:41 | Emergency (ER) | payer OTHER, SELFPAY ==
[2016-07-19 14:11] VITALS: BMI 28.2
[2024-08-24 16:42] VITALS: BP 124/82; PULSE 106; RESP 20; TEMP 36.1; O2SAT 99
--- NOTE | 2024-08-24 17:02 | EKG12_ITS ---
Test Reason : Blood Pressure : */* mmHG Vent. Rate : 96 BPM Atrial Rate : 96 BPM P-R Int : 158 ms QRS Dur : 90 ms QT Int : 392 ms P-R-T Axes : 28 56 23 degrees QTcB Int : 495 ms Sinus rhythm with occasional Premature ventricular complexes QTcB >= 480 msec Abnormal ECG Confirmed by Omer Castrejon ([id number]), editor at large EM HUNT ([id number]) on 08/28/2024 11:41:21 AM Referred By: Confirmed By: Omer Castrejon
--- NOTE | 2024-08-24 17:02 | RAD_ITS ---
EXAM: XR Chest, 1 View CLINICAL INDICATION: CHEST PAIN TECHNIQUE: Frontal view of the chest. COMPARISON: No relevant prior studies available. FINDINGS: LUNGS AND PLEURAL SPACES: Unremarkable. No consolidation. No pneumothorax. HEART: Cardiomegaly without overt failure. MEDIASTINUM: Unremarkable. Normal mediastinal contour. BONES/JOINTS: Unremarkable. No acute fracture. RAD/Chest 1 View (Portable) IMPRESSION: Cardiomegaly without overt failure. Reading Location: [id number]
--- NOTE | 2024-08-24 17:03 | EDS_ITS ---
HPI History of Present Illness Chief Complaint: Chest Pain Informant: patient and spouse/S.O. Narrative Narrative: 63-year-old female presenting to the emergency room for the evaluation of chest pain. Patient states that since Tuesday she has had a midsternal discomfort. She associates it with belching and typically helps when she does belch. She states that she has been using a new wheelchair and does not know it could be muscular from the arm use. She denies any significant shortness of breath cough fevers. No pleuritic pain. She denies any new leg symptoms. She states that today it started feel more achy so she decided to get it evaluated. She does have a history of coronary disease having an LAD stent in 2017. She follows locally with cardiology Dr. Castrejon and saw them recently. No radiation of the discomfort to the jaw arms or back. She does note frequent indigestion but takes nothing for it. She states she is under a significant amount of stress and is tearful when she starts to talk about that. [facility] Medical History Acute CVA (cerebrovascular accident) Sciatic leg pain Low HDL (under 40) Takotsubo cardiomyopathy (~01/29/22) Hyperlipidemia Hypertension Anxiety and depression Presence of stent in coronary artery (~07/19/16) Atherosclerotic heart disease of [place] coronary artery without angina pectoris Tobacco abuse NSTEMI (non-ST elevated myocardial infarction) (~07/2016) Overweight (BMI 25.0-29.9) Chronic back pain Home Medications ?Medication ?Instructions ?Recorded ?Last Taken ?Type aspirin 81 mg chewable tablet 81 mg PO DAILY HEART HEA LTH 01/29/22 11/25/23 History carvedilol 3.125 mg tablet 3.125 mg PO BID 30 days #60 tabs 12/19/23 Unknown Rx ibuprofen 200 mg tablet (Advil) 200 mg PO Q6H PRN 02/04 09/27 Unknown History cholecalciferol (vitamin D3) 50 50 mcg PO QDAY 5 Unknown History mcg (2,000 unit) capsule gabapentin 100 mg capsule 100 mg PO QAM 06/21/24 Unkno wn History gabapentin 100 mg capsule 300 mg PO QPM 06/21/24 Unkno wn History indomethacin 25 mg capsule 25 mg PO BID 06/21/24 Unkno wn History magnesium glycinate 100 mg (as 250 mg PO QHS 06/21/24 Unknown History glycinate) tablet Allergy/AdvReac Type Severity Reaction Status Date / Time hydrocodone bitartrate (From Allergy Nausea Verified 08/24/24 16:44 Vicodin) oxycodone (From Percocet) Allergy Unknown Verified 08/24/24 16:44 ezetimibe (From Zetia) AdvReac Intermediate anxiety, Verified 08/24/24 16:44 fatigue, upset stomach lisinopril AdvReac Intermediate Persistent Verified 08/24/24 16:44 Cough losartan AdvReac Intermediate persistent Verified 08/24/24 16:44 cough metoprolol AdvReac Intermediate Very Verified 08/24/24 16:44 dizzy, lightheaded even on smallest dose rosuvastatin (From Crestor) AdvReac myalgia Verified 08/24/24 16:44 Family History Mother CAD (coronary artery disease) Hypertension Diabetes PVD (peripheral vascular disease) Has had toes amputated. 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) Smoking Status: Former smoker Tobacco: How many years used: 30 alcohol intake: current alcohol intake frequency: holidays/special occasions only Alcohol type: wine substance use type: does not use caffeine: Yes Type: tea Number of servings: 2 what type of physical activity do you participate in: none seatbelt use: always do you feel safe at home: Yes additional social history: Jeffery- Patient works at [employer] ED Constitutional Constitutional ED: Denies chills or weight loss Eyes Eyes: Denies change in vision or diplopia ENT ENT ED: Denies ear pain, rhinorrhea or sore throat Cardiovascular Cardiovascular: Reports as per HPI and chest pain; Denies orthopnea, palpitations or racing heartbeat Respiratory/Chest Respiratory/Chest: Denies cough, dyspnea or orthopnea Gastrointestinal Gastrointestinal: Denies abdominal pain, diarrhea, nausea or vomiting Genitourinary Genitourinary ED: Denies dysuria, hematuria or urinary frequency Musculoskeletal Musculoskeletal: Denies arthralgias, back pain, myalgias or neck pain Integumentary Denies abscess or rash Neurologic Neurologic: Denies headache(s) or weakness Psychiatric Psychiatric: Denies anxiety, depression, suicidal ideation or suicidal thoughts Endocrine Endocrinology: Denies polydipsia, polyphagia or polyuria Allergic/Immunologic Allergic/Immunologic ED: Denies mouth swelling, tongue swelling or urticaria EXAM Physical Exam Const Vital Signs: 08/24/24 16:42 08/24/24 17:43 08/24/24 17:43 Temperature 97 F L Temperature Source Temporal Pulse Rate 106 H 98 Respiratory Rate 20 H 20 H Respiratory Effort Normal Blood Pressure 124/82 H 163/70 H Blood Pressure Mean 96 101 Pulse Ox 99 96 Oxygen Delivery Method Room Air Room Air 08/24/24 18:00 08/24/24 19:00 Temperature Temperature Source Pulse Rate 96 98 Respiratory Rate 19 H 15 Respiratory Effort Blood Pressure 156/85 H 148/84 H Blood Pressure Mean 108 105 Pulse Ox 96 97 Oxygen Delivery Method Room Air Room Air Positive well nourished and well developed General Appearance ED: well developed and NAD HEENT Reports normocephalic, head/scalp atraumatic and moist mucous membranes Eyes PERRL and EOMs intact bilaterally Neck no lymphadenopathy, supple and no JVD Chest Wall inspection of chest normal and palpation of chest normal Resp normal respiratory effort and clear to auscultation bilaterally Cardio regular rate, regular rhythm and no murmurs GI normal to inspection, nondistended, normoactive bowel sounds and non-tender Palpation: soft Back/Spine no CVA tenderness and normal ROM Extremity normal to inspection General Extremety ED: Negative for edema General Extremity: Negative for edema Neuro oriented x3 and CN's II-XII intact bilaterally Neuro Narrative: Right foot drop chronic since stroke Sensorium / Orientation: alert Motor Exam: strength 5/5 throughout Psych mental status grossly normal Mood & Affect: Negative for depressed or tearful Skin no rashes or lesions noted and no wounds MDM MDM MDM Narrative Medical decision making narrative: Differential diagnosis includes but not limited to chest wall pain pectoralis strain acute coronary syndrome pneumothorax congestive heart failure aortic dissection Basic blood work was obtained glucose of 100 hemoglobin 13.7. Troponin 143 troponin 237 and downgoing. My independent interpretation of the chest x-ray is no acute process. EKG is nonischemic shows a sinus rhythm at a rate of 96 beats per minutes. This appears grossly unchanged from prior dated 23 November 2023. Patient seen resting comfortably. I discussed with the patient and her the above results. We talked about the possibility of being reflux. She would like to try some Tums over the next week and if not improving will follow-up with primary care. History & Record Review Discussion w/independent historian: Patient and Significant other Additional record(s) reviewed:: Prior outpatient record, Prior ED visit and Prior labs Lab Data Attestation: I reviewed the patient's lab results. Labs: Laboratory Results - last 24 hr 08/24/24 08/24/24 16:53 18:53 WBC 8.9 RBC 4.89 Hgb 13.7 Hct 41.0 MCV 83.8 MCH 28.0 MCHC 33.4 RDW Std Deviation 41.6 RDW Coeff of Candy 13.5 Plt Count 379 MPV 8.2 Immature Gran % (Auto) 0.200 Neut % (Auto) 56.6 Lymph % (Auto) 33.0 [place] % (Auto) 7.0 Eos % (Auto) 2.6 Baso % (Auto) 0.6 Absolute Neuts (auto) 5.0 Absolute Lymphs (auto) 2.94 Nucleated RBC % 0 Sodium 138 Potassium 3.6 Chloride 101 Carbon Dioxide 21.6 Anion Gap 15 BUN 10 Creatinine 0.84 Est GFR (MDRD) Non-Af 78 BUN/Creatinine Ratio 12.4 Glucose 100 H Calcium 9.2 Troponin T High Sens 43 H Troponin T Hi Sens 2 Hr 37 H Radiography Diagnostic Testing: Clinical Impression(s) from Imaging Studies Chest X-Ray 08/24/24 17:02 IMPRESSION: Cardiomegaly without overt failure. Reading Location: [facility] EKG Initial EKG: Attestation: I personally reviewed and interpreted this EKG as follows: Comments: Sinus rhythm ventricular rate of 96 bpm. PVC noted. Prior EKG tracings: available for review Prior: Unchanged (23 November 2023) Discharge Plan Triage Chief Complaint: Chest Pain ED Provider: Jeffery White Dx/Rx/DC Orders Clinical Impression: Chest pain Instructions: ED Chest Pain, Noncardiac Prescriptions: No Action ibuprofen [Advil] 200 mg tablet 200 mg PO Q6H PRN gabapentin 100 mg capsule 300 mg PO QPM indomethacin 25 mg capsule 25 mg PO BID Rx Instructions: administer with food or milk gabapentin 100 mg capsule 100 mg PO QAM magnesium glycinate 100 mg tablet 250 mg PO QHS cholecalciferol (vitamin D3) 50 mcg (2,000 unit) capsule 50 mcg PO QDAY aspirin 81 MG tablet,chewable 81 mg PO DAILY carvedilol 3.125 mg Tablet 3.125 mg PO BID 30 Days Qty: 60 0RF Primary Care Provider: Libra Mckenzie Referrals: Libra Mckenzie MD [Primary Care Provider] - 1 Week if not improving Print Language: Croatian Disposition Disposition: Home, Self Care
[2024-08-24 17:13] LABS: Absolute Lymphocyte Count 2.94 X10^3/uL (0.83-4.51); Basophil# 0.05 X10^3/uL; Basophil% 0.6 % (0-1); Eosinophil# 0.23 X10^3/uL; Eosinophils% 2.6 % (0-5); Hemoglobin 13.7 g/dL (12.0-15.0); Lymphocyte # 2.94 X10^3/ul (0.83-4.51); Mean Corp Hgb Conc 33.4 g/dL (32-36); Mean Corpuscular Volume 83.8 fL (81-99); Mean Platelet Vol. 8.2 fl (6.2-12.0); Monocyte# 0.62 X10^3/uL; NRBC Flagged by Analyzer 0 % (0-5); Neutrophil # 5.04 X10^3/uL (2.7-7.7); Neutrophil % 56.6 % (47-70); Platelet Count 379 K/mm3 (150-450); RBC Distribution Width CV 13.5 % (11.6-14.6); RBC Distribution Width SD 41.6 fl (35.1-43.9); Red Blood Count 4.89 M/mm3 (4.2-5.4); White Blood Count 8.9 K/mm3 (4.4-11.0)
[2024-08-24 17:43] VITALS: BP 163/70; PULSE 98; RESP 20; O2SAT 96
[2024-08-24 17:48] LABS: Anion Gap 15 (5-15); BUN 10 mg/dL (4-19); BUN/Creat Ratio 12.4 RATIO (10-20); Calcium,Total 9.2 mg/dL (7.6-11.0); Carbon Dioxide 21.6 mmol/L (21.0-32.0); Chloride 101 mmol/L (98-108); Creatinine, Serum 0.84 mg/dL (0.70-1.20); EST Glomerular Filtration Rate 78 (>60); Glucose 100 mg/dL (70-99); Potassium 3.6 mmol/L (3.3-5.1); Sodium Level 138 mmol/L (133-145); Troponin T High Sensitivity 43 ng/L (<=14)
[2024-08-24 18:00] VITALS: BP 156/85; PULSE 96; RESP 19; O2SAT 96
[2024-08-24 18:53] VITALS: BMI 33.5
[2024-08-24 19:00] VITALS: BP 148/84; PULSE 98; RESP 15; O2SAT 97
[2024-08-24 19:24] LABS: Troponin T High Sens 2 HR 37 ng/L (<=14)
[2024-08-24 20:02] VITALS: BP 148/84; PULSE 98; RESP 15; TEMP 36.7; O2SAT 97
== END 2024-08-24 20:02 | disposition home or self-care (01) ==
PROVIDERS: Emergency Provider Emergency Medicine; PCP Family Medicine; Visit Provider Emergency Medicine
DX: R07.9 Chest pain, unspecified (principal); I25.10 Atherosclerotic heart disease of native coronary artery without angina pectoris; E78.5 Hyperlipidemia, unspecified; I10 Essential (primary) hypertension; Z87.891 Personal history of nicotine dependence; Z86.73 Personal history of transient ischemic attack (TIA), and cerebral infarction without residual deficits; I25.2 Old myocardial infarction; Z95.5 Presence of coronary angioplasty implant and graft; Z79.82 Long term (current) use of aspirin; Z79.899 Other long term (current) drug therapy; Z90.710 Acquired absence of both cervix and uterus
CPT/HCPCS: 71045; 80048; 84484; 85025; 93005; 99284; A4216